=== PATIENT | female | born 1975 | race Caucasian/White ===

== ENCOUNTER 2016-11-17 19:53 | Emergency (ER) | payer OTHER ==
[~2016-11-17] VITALS: Ht 154.9 cm; Wt 66.7 kg
[~2016-11-17 19:53] MED LIST: ACT/45 PO; AMLO-114 PO; ASPI81TA28 PO; ATV/1 PO; CLOP1TAB15 PO; GLYB1.252 PO; IBUP-1277 PO; LISI-729 PO; METO1TAB69 PO
[2016-11-17 19:59] VITALS: TEMP 36.8; Ht 154.9 cm; Wt 66.7 kg
[2016-11-17] MEDS ORDERED: GLYB2.5T PO (21:03)
[2016-11-17] MEDS ORDERED: ONDANSETRON INJ 2 MG/ML 2 ML VIAL IV STA (21:13)
[2016-11-17] MEDS ORDERED: MoRPHine SULFATE 4 MG/ML 1 ML CARP\\VIAL IV STA ×2 (21:13→22:10)
[2016-11-17] MEDS ORDERED: OPTIRAY 320 IV PRN (21:30)
[2016-11-17 21:36] LABS: URINE APPEARANCE CLEAR (CLEAR); URINE BILIRUBIN NEG (NEG); URINE COLOR YELLOW; URINE NITRITE NEG (NEG); URINE SPECIFIC GRAVITY 1.015 (1.000-1.030); UROBILINOGEN NEG (NEG)
[2016-11-17 21:37] LABS: MANUAL MICROSCOPIC REQUIRED? NO; REVIEW REQ? NO
[2016-11-17 21:39] LABS: PREG INTERNAL NEGATIVE QC NEG CLEAR BACKGROUND; PREG INTERNAL POSITIVE QC POS CONTROL LINE
[2016-11-17 21:39] LABS: BASO % 0.3 %; BASO ABS # 0.03 K/uL (0-0.2); COMPLETE YES; EOS % 1.9 %; HEMATOCRIT 36.5 % (37-47); IG% 0.3 %; LYMPH % 30.5 %; LYMPH ABS # 3.53 K/uL (1.2-3.4); MEAN CELL VOLUME 95.1 fL (80-100); MEAN CORPUSCULAR HEMOGLOBIN 31.5 pg (25-34); MEAN CORPUSCULAR HGB CONC 33.2 g/dl (32-36); MONO % 4.9 %; NEUT % 62.1 %; PLATELET COUNT 215 K/uL (130-400); RED BLOOD COUNT 3.84 M/uL (4.2-5.4); WHITE BLOOD COUNT 11.56 K/uL (4.8-10.8)
[2016-11-17 21:57] LABS: ALT/SGPT 15 U/L (12-78); BLOOD UREA NITROGEN 12 mg/dl (7-18); BUN/CREATININE RATIO 15.8 (10-20); CALCIUM 8.7 mg/dl (8.5-10.1); CARBON DIOXIDE 23 mmol/L (21-32); CHLORIDE 112 mmol/L (98-107); CREATININE 0.78 mg/dl (0.60-1.20); GLUCOSE 85 mg/dl (70-99); SODIUM 141 mmol/L (136-145)
[2016-11-17 22:00] LABS: ALKALINE PHOSPHATASE 58 U/L (45-117); AST/SGOT 11 U/L (15-37)
[2016-11-18 00:55] VITALS: BP 131/100; PULSE 71; O2SAT 96
[2016-11-18] MEDS ORDERED: OXYCODONE IR HOME PACK PO ONE (01:00)
[2016-11-18] MEDS ORDERED: ONDANSETRON HOME PACK 4MG OD TAB PO ONE (01:00)
--- NOTE | 2016-11-18 01:32 | EMERGENCY ROOM VISIT NOTE ---
History Report prepared by Tim: Zahira Chen Under the Supervision of: Dr. Spencer Chamberlain M.D. First contact with patient: 21:04 Chief Complaint: ABDOMINAL PAIN Stated Complaint: AB PAIN Nursing Triage Summary: Pt was making bed around 8am this morning and felt a pop in her left abdomen. Pt had mesh placed in [place] in April for hernia. Pt had increased pain throughout day, took ibuprofen around noon with no relief. History of Present Illness The patient is a 40 year old female who presents to the Emergency Room with complaints of persistent LUQ abdominal pain starting this morning. The patient was making her bed this morning when she felt something pull in her abdomen. She has had nausea and vomiting since. She denies any fever or urinary symptoms. She had a small bowel movement today which was not black, bloody, or diarrhea. She notes that she has a mesh screen in her abdomen for a hernia repair. She also has had AAA surgery. She denies any chance of . She has had a tubal ligation. Source of History: patient Onset: this morning Position: abdomen (LUQ) Quality: other (pain) Timing: other (persistent) Associated Symptoms: + nausea, + vomiting, No fevers, No melena, No hematochezia, No diarrhea, No urinary symptoms Review of Systems See HPI for pertinent positives & negatives. A total of 10 systems reviewed and were otherwise negative. Past Medical & Surgical Medical Problems: (1) ANXIETY STATE NOS (2) BIPOLAR DISORDER, UNSPECIFIED (3) Diabetes (4) Hypertension (5) Migraine (6) Tachycardia (7) TOBACCO USE DISORDER Family History Diabetes mellitus FH: heart disease FHx: gallbladder disease Hypertension Social History Smoking Status: Current Every Day Smoker Alcohol Use: occasionally Marital Status: single Housing Status: lives with family Occupation Status: unemployed Current/Historical Medications Scheduled Amlodipine (Norvasc), 10 MG PO DAILY Aspirin (Aspirin Ec), 162 MG PO DAILY Clopidogrel (Plavix), 75 MG PO DAILY Glyburide-Metformin (Glucovance 2.5/500 Mg), 1 TAB PO PRN Lisinopril (Zestril), 5 MG PO DAILY Metoprolol Succ (Toprol Xl) (Toprol-Xl ), 100 MG PO DAILY Scheduled PRN Ibuprofen (Advil), 800 MG PO Q4 PRN for Pain Pioglitazone Hcl (Actos), 45 MG PO DAILY PRN for bsg above 300 Allergies Coded Allergies: Cetirizine (Verified Allergy, Intermediate, anxiety, paranoia increases, ) Fexofenadine (Verified Allergy, Intermediate, anxiety and paranoia increases, 11/17/16) Loratadine (Verified Allergy, Unknown, anxiety, paranoia increases, ) Ketorolac Tromethamine (Unverified Adverse Reaction, Unknown, PT STATES SHE IS ON THORAZINE AND CANNOT TAKE TORADOL, 11/17/16) Physical Exam Vital Signs Date Time Temp Pulse Resp B/P (MAP) Pulse Ox O2 Delivery O2 Flow Rate FiO2 11/18/16 00:55 71 18 131/100 96 11/18/16 00:14 70 18 148/115 98 Room Air 11/17/16 22:44 77 18 159/107 98 Room Air 11/17/16 21:00 70 18 156/107 97 Room Air 11/17/16 20:30 76 11/17/16 19:59 36.8 72 18 163/106 98 Room Air Physical Exam Constitutional: Vital signs reviewed. Eyes: Pupils are equal round reactive to light. Conjunctiva are noninjected. ENT: Pharynx is clear without erythema or exudate. Mucous membranes are moist. Neck supple without meningeal signs. Respiratory: Clear to auscultation bilaterally. Breath sounds are equal bilaterally. Cardiovascular: Regular rate and rhythm. No rubs or gallops. GI: Soft, nondistended, tender in the LUQ, no guarding. Bowel sounds are present. Musculoskeletal: No peripheral edema. No CVA tenderness. Integumentary: No cyanosis. Neurological: The patient is awake and alert. No focal deficits. Psychiatric: Normal affect. Medical Decision & Procedures ER Provider Diagnostic Interpretation: Radiology results as stated below per my review and the [facility] radiologist's interpretation: CT abdomen & pelvis: No ventral hernia. Consolidative atelectasis in the lung bases. Cholecystectomy. Small visualized segments of the appendix are unremarkable. Small amount of fluid in the pelvis. Laboratory Results 11/17/16 21:25 Red Blood Count 3.84, Mean Corpuscular Volume 95.1, Mean Corpuscular Hemoglobin 31.5, Mean Corpuscular Hemoglobin Concent 33.2, Mean Platelet Volume 10.0, Neutrophils (%) (Auto) 62.1, Lymphocytes (%) (Auto) 30.5, Monocytes (%) (Auto) 4.9, Eosinophils (%) (Auto) 1.9, Basophils (%) (Auto) 0.3, Neutrophils # (Auto) 7.17, Lymphocytes # (Auto) 3.53, Monocytes # (Auto) 0.57, Eosinophils # (Auto) 0.22, Basophils # (Auto) 0.03 11/17/16 21:25 Test 11/17/16 20:05 11/17/16 21:25 Urine Color YELLOW Urine Appearance CLEAR (CLEAR) Urine pH 6.0 (4.5-7.5) Urine Specific [place] 1.015 (1.000-1.030) Urine Protein NEG (NEG) Urine Glucose (UA) NEG (NEG) Urine Ketones NEG (NEG) Urine Occult Blood NEG (NEG) Urine Nitrite NEG (NEG) Urine Bilirubin NEG (NEG) Urine Urobilinogen NEG (NEG) Urine Leukocyte Esterase NEG (NEG) Urine Test NEG (NEG) White Blood Count 11.56 K/uL (4.8-10.8) Red Blood Count 3.84 M/uL (4.2-5.4) Hemoglobin 12.1 g/dL (12.0-16.0) Hematocrit 36.5 % (37-47) Mean Corpuscular Volume 95.1 fL (80-100) Mean Corpuscular Hemoglobin 31.5 pg (25-34) Mean Corpuscular Hemoglobin Concent 33.2 g/dl (32-36) Platelet Count 215 K/uL (130-400) Mean Platelet Volume 10.0 fL (7.4-10.4) Neutrophils (%) (Auto) 62.1 % Lymphocytes (%) (Auto) 30.5 % Monocytes (%) (Auto) 4.9 % Eosinophils (%) (Auto) 1.9 % Basophils (%) (Auto) 0.3 % Neutrophils # (Auto) 7.17 K/uL (1.4-6.5) Lymphocytes # (Auto) 3.53 K/uL (1.2-3.4) Monocytes # (Auto) 0.57 K/uL (0.11-0.59) Eosinophils # (Auto) 0.22 K/uL (0-0.5) Basophils # (Auto) 0.03 K/uL (0-0.2) RDW Standard Deviation 45.0 fL (36.4-46.3) RDW Coefficient of Variation 13.0 % (11.5-14.5) Immature Granulocyte % (Auto) 0.3 % Immature Granulocyte # (Auto) 0.04 K/uL (0.00-0.02) Anion Gap 6.0 mmol/L (3-11) Est Creatinine Clear Calc Drug Dose 85.4 ml/min Estimated GFR () 111.8 Estimated GFR (Non- 96.4 BUN/Creatinine Ratio 15.8 (10-20) Calcium Level 8.7 mg/dl (8.5-10.1) Total Bilirubin 0.2 mg/dl (0.2-1) Direct Bilirubin < 0.1 mg/dl (0-0.2) Aspartate Amino Transf (AST/SGOT) 11 U/L (15-37) Alanine Aminotransferase (ALT/SGPT) 15 U/L (12-78) Alkaline Phosphatase 58 U/L (45-117) Total Protein 6.5 gm/dl (6.4-8.2) Albumin 3.3 gm/dl (3.4-5.0) Lipase 117 U/L (73-393) Laboratory results as reviewed by me. Medications Administered Medications (Trade) Dose Ordered Sig/Natan Route Start Time Stop Time Status Last Admin Dose Admin Morphine Sulfate (MoRPHine SULFATE INJ) 4 mg ONE STAT IV 11/17/16 21:13 11/17/16 21:14 DC 11/17/16 21:34 4 MG Ondansetron HCl (Zofran Inj) 4 mg NOW STAT IV 11/17/16 21:13 11/17/16 21:14 DC 11/17/16 21:34 4 MG Morphine Sulfate (MoRPHine SULFATE INJ) 4 mg NOW STAT IV 11/17/16 22:10 11/17/16 22:11 DC 11/17/16 22:36 4 MG ED Course 2109: The patient was evaluated in room A12B. A complete history and physical exam was performed. 2112: Zofran Inj 4 mg IV, Morphine Sulfate 4 mg IV. 2207: I reevaluated the patient. She currently rates her discomfort as a 7/10 in severity. I discussed the test results with her. 2209: Morphine Sulfate 4 mg IV. 0044: Upon reevaluation, the patient appeared to have improvement of her symptoms. I discussed ishmael's findings with her. She will follow up with her PCP. She verbalized agreement of the treatment plan. She was discharged home. 0100: Ondansetron HCl 1 homepack PO, Oxycodone HCl 1 homepack PO. Medical Decision This is a 40-year-old female presents with left upper quadrant abdominal pain. Differential diagnosis includes bowel obstruction, gastritis, hernia, volvulus, muscle strain, pancreatitis. I did perform a limited focused review of portions of the patient's old chart on the electronic medical record. The patient was here for headache and high blood pressure on October 07. She is here frequently for headache. I did evaluate the patient as noted above. The patient is presenting with left upper quadrant pain after she was making her bed. She felt like she pulled something in that area. She did have vomiting with it as well. IV access was established. I did treat her with IV morphine and Zofran. She did have continued pain and was given an additional dose of IV morphine. I did order and personally review the patient's urinalysis as described above. There is no evidence of infection or blood. Her test is negative. I did order and review the patient's blood work as noted in the electronic medical record. Her white blood cell count is slightly elevated. This is a nonspecific finding. I did order a CT of the abdomen and pelvis. I did review the images myself as well as the radiology report as described above. There is no evidence of acute abnormality. I did reassess the patient. She was feeling better. I did discuss the test results with her. I did advise her to follow up with her surgeon. She was discharged in good condition. She was given a home pack for oxycodone and Zofran. Medication Reconcilliation Current Medication List: was personally reviewed by me Blood Pressure Screening Patient's blood pressure: Elevated blood pressure Blood pressure disposition: Referred to PCP Impression Primary Impression: LUQ abdominal pain Scribe Attestation The scribe's documentation has been prepared under my direct and personally reviewed by me in its entirety. I confirm that the note above accurately reflects all work, treatment, procedures, and medical decision making performed by me. Departure Information Dispostion Home / Self-Care Referrals No Doctor, Assigned Forms Call Back Authorization, HOME CARE DOCUMENTATION FORM, IMPORTANT VISIT INFORMATION Patient Instructions ED Abdominal Pain Unkn Cause, My [facility] Additional Instructions You have been examined and treated today on an emergency basis only. This is not a substitute for, or an effort to provide, complete comprehensive medical care. It is impossible to recognize and treat all injuries or illnesses in a single emergency department visit. It is therefore important that you follow up closely with your physician. Call as soon as possible for an appointment. Return for worsening symptoms or if you develop fever or any other concerning symptoms.
--- NOTE | 2016-11-18 07:14 | DIAGNOSTIC IMAGING REPORT ---
ABDOMEN AND PELVIS CT WITH IV AND ORAL CONTRAST CT DOSE: 442.80 mGy.cm HISTORY: Left upper quadrant abdominal pain. Pain eval for obstruction TECHNIQUE: Multiaxial CT images of the abdomen and pelvis were performed following the use of intravenous and oral contrast. A dose lowering technique was utilized adhering to the principles of ALARA. COMPARISON STUDY: Chest abdomen pelvis CTA 05/14/2015. FINDINGS: Evidence for prior midline incision. No ventral hernias identified. Subsegmental atelectasis seen within the lung bases posteriorly. Cholecystectomy. The liver, spleen, adrenal glands, and pancreas are unremarkable. There are few retroperitoneal surgical clips. No retroperitoneal lymphadenopathy. The kidneys enhance normally. No hydronephrosis. No bowel wall thickening or obstruction. Normal appendix. The bladder is unremarkable. The uterus and right ovary are within normal limits. There is a thick-walled 2.2 cm cyst within the left ovary. Trace blood products/hemoperitoneum within the pelvic cul-de-sac. IMPRESSION: 1. No evidence for ventral hernia. 2. Cholecystectomy. 3. No bowel wall thickening or obstruction. Normal appendix. 4. A 2.2 cm thick-walled cyst within the left ovary with a small amount of blood products/hemoperitoneum within the pelvic cul-de-sac. This favors a ruptured ovarian cyst. Electronically signed by: Shashank Adair M.D. 11/18/2016 7:13 AM Dictated Date/Time: 11/18/2016 7:07 AM
== END 2016-11-18 00:56 | disposition home or self-care (01) ==
LOC: EDBD 19:53 → C.EDA 20:00
DX: R10.12 Left upper quadrant pain (principal); R11.10 Vomiting, unspecified; F41.9 Anxiety disorder, unspecified; F31.9 Bipolar disorder, unspecified; E11.9 Type 2 diabetes mellitus without complications; I10 Essential (primary) hypertension; F17.200 Nicotine dependence, unspecified, uncomplicated; Z79.82 Long term (current) use of aspirin; Z79.84 Long term (current) use of oral hypoglycemic drugs; Z98.51 Tubal ligation status; Z83.3 Family history of diabetes mellitus; Z82.49 Family history of ischemic heart disease and other diseases of the circulatory system

== ENCOUNTER 2019-04-01 14:33 | Inpatient (IN) ==
[2019-04-01] MEDS ORDERED: OXYCODONE HCL IR 5 MG TAB (IMMEDIATE RELEASE) PO STA (15:06)
[2019-04-01 15:50] LABS: Basophils # (auto) 0.01 K/uL (0-0.2); Basophils % (auto) 0.1 %; Eosinophils % (auto) 1.2 %; Hematocrit (blood only) 34.9 % (37-47); Hemoglobin 11.6 g/dL (12.0-16.0); Immature Granulocytes # (auto) 0.03 K/uL (0.00-0.02); Immature Granulocytes % (auto) 0.4 %; Lymphocytes # (auto) 0.78 K/uL (1.2-3.4); Lymphocytes % (auto) 9.7 %; Mean Corpuscular Hemoglobin 31.2 pg (25-34); Mean Corpuscular Hgb Conc 33.2 g/dL (32-36); Mean Corpuscular Volume 93.8 fL (80-100); Mean Platelet Volume 10.4 fL (7.4-10.4); Monocytes # (auto) 0.71 K/uL (0.11-0.59); Monocytes % (auto) 8.8 %; Neutrophils # (auto) 6.41 K/uL (1.4-6.5); Neutrophils % (auto) 79.8 %; Platelet Count 226 K/uL (130-400); RDW Coefficient of Variation 16.7 % (11.5-14.5); RDW Standard Deviation 57.6 fL (36.4-46.3); Red Blood Count 3.72 M/uL (4.2-5.4); White Blood Count 8.04 K/uL (4.8-10.8)
[2019-04-01 16:07] LABS: Albumin Level 3.4 gm/dl (3.4-5.0); BUN Creatinine Ratio 14.5 (10-20); Calcium 8.9 mg/dl (8.5-10.1); Creatinine Clr Calc Pharmacy 47.3 ml/min; Est GFR (Non-African American) 45.8; Potassium 3.8 mmol/L (3.5-5.1)
[2019-04-01 16:10] LABS: Albumin Globulin Ratio 0.8 (0.9-2); Bilirubin,Total 0.2 mg/dl (0.2-1); Globulin 4.3 gm/dl (2.5-4.0); Total Protein 7.7 gm/dl (6.4-8.2)
[2019-04-01] MEDS ORDERED: IOVERSOL 100ml IV PRN (16:50)
--- NOTE | 2019-04-01 16:53 | Emergency Department Note ---
History of Present Illness General Chief complaint: Infection, Wound Stated complaint: ABSCESS ON ROOF OF MOUTH Time Seen by Provider: 04/01/19 14:57 History of Present Illness Maximum Pain Intensity: 10 This is a 43-year-old male with a complex past medical history the presents to the emergency department via private vehicle with complaints of "abscess on roof of mouth". The patient states that she was seen here on 03/29 for dental pain after fracturing her tooth while eating peanuts. She states that the pain began 3 days before that, so she currently has been experiencing about 6 days of pain. She states that she has been on amoxicillin and pain medication without relief x 3 days. She notes that 2 days ago swelling began to the roof of the mouth. Pain is a 10/10. She denies any fevers but does note some chills. No vomiting. Home Medications Home Medications Medication Instructions Recorded Confirmed Type amlodipine 10 mg PO DAILY 05/13/18 04/01/19 History aspirin [Aspir-81] 162 mg PO DAILY 05/13/18 04/01/19 History atorvastatin 40 mg PO DAILY 04/01/19 04/01/19 History chlorpromazine 25 mg PO DAILY 04/01/19 04/01/19 History chlorpromazine 50 mg PO HS 04/01/19 04/01/19 History duloxetine 30 mg PO DAILY 04/01/19 04/01/19 History duloxetine 60 mg PO DAILY 04/01/19 04/01/19 History ferrous sulfate 325 mg PO DAILY 04/01/19 04/01/19 History fluoxetine 20 mg PO DAILY 04/01/19 04/01/19 History fluticasone furoate [Arnuity 1 inh INHALATION DAILY 04/01/19 04/01/19 History Ellipta] gabapentin 800 mg PO TID 04/01/19 04/01/19 History hydrocodone-acetaminophen 1 tab PO Q6H PRN 04/01/19 04/01/19 History hydroxyzine HCl 10 mg PO QID PRN 04/01/19 04/01/19 History hyoscyamine sulfate 0.125 mg PO Q4H PRN 04/01/19 04/01/19 History ipratropium-albuterol [Combivent 1 puff INHALATION QID PRN 04/01/19 04/01/19 History Respimat] levothyroxine 112 mcg PO DAILY 04/01/19 04/01/19 History lisinopril 40 mg PO DAILY 04/01/19 04/01/19 History methocarbamol 500 mg PO TID PRN 04/01/19 04/01/19 History metoprolol succinate 25 mg PO DAILY 04/01/19 04/01/19 History mometasone-formoterol [Dulera] 2 puff INHALATION Q12H 04/01/19 04/01/19 History omeprazole 20 mg PO DAILY 04/01/19 04/01/19 History ticagrelor [Brilinta] 90 mg PO BID 04/01/19 04/01/19 History Allergies Allergy/AdvReac Type Severity Reaction Status Date / Time loratadine AdvReac Severe anxiety, Verified 04/01/19 15:48 paranoia increases cetirizine AdvReac Intermediate anxiety, Verified 04/01/19 15:48 paranoia increases fexofenadine AdvReac Intermediate anxiety Verified 04/01/19 15:48 and paranoia increases ketorolac AdvReac Unknown PT STATES Verified 04/01/19 15:48 SHE IS ON THORAZINE AND CANNOT TAKE TORADOL Past Med/Surg History Medical History AAA (abdominal aortic aneurysm) Ankle fracture, left (Acute) Back pain (Acute) Back strain (Acute) Dehydration (Acute) Dehydration (Acute) Diabetes (Chronic) DVT (deep venous thrombosis) Epigastric abdominal pain (Acute) Headache (Acute) Headache (Acute) Hypertension (Chronic) Hypertensive urgency (Acute) Hypothyroidism (Acute) Hypothyroidism (Acute) Hypothyroidism (Acute) Left shoulder pain (Acute) Low back pain (Acute) Migraine (Chronic) Migraine (Acute) Neuropathy Ovarian cyst (Acute) Palpitations (Acute) Palpitations (Acute) Patient exposure to body fluids (Acute) Raynauds disease Tachycardia (Chronic) Tachycardia (Acute) Surgical History S/P aorta repair (Acute) Social History Preferred Language: Singaporean marital status: current occupational status: disabled Feels Safe at Home: Yes Smoking Status: Current every day smoker Hx Alcohol Use: Yes Hx Substance Use: No Review of Systems A total of 10 systems reviewed and were otherwise negative Physical Exam Vital Signs Vital Signs - 24 hr 04/01/19 14:46 04/01/19 16:40 04/01/19 17:43 Temperature 36.8 C Temperature Source Oral Pulse Rate 95 H Pulse Rate [Right Finger] 85 87 Respiratory Rate 16 20 20 Blood Pressure 177/118 H Blood Pressure [Left Arm] 219/151 H 202/123 H Blood Pressure Mean 137 Blood Pressure Mean [Left Arm] 173 149 Pulse Oximetry 99 99 100 Oxygen Delivery Method Room Air Room Air Room Air Sepsis Recent Fever Within 48 Hours No Sepsis New/Unexplained Change in Mental Status No Sepsis Action Taken by Nursing No Action Required 04/01/19 18:18 Temperature Temperature Source Pulse Rate Pulse Rate [Right Finger] 88 Respiratory Rate 20 Blood Pressure Blood Pressure [Left Arm] 199/121 H Blood Pressure Mean Blood Pressure Mean [Left Arm] 147 Pulse Oximetry 100 Oxygen Delivery Method Room Air Sepsis Recent Fever Within 48 Hours Sepsis New/Unexplained Change in Mental Status Sepsis Action Taken by Nursing VITAL SIGNS - Vital signs and nursing notes were reviewed. Hypertensive, otherwise stable. GENERAL - 43-year-old female appearing her stated age who is in no acute distress but appears to be in pain. Communicates well with provider and answers questions appropriately. SKIN - Without rashes. No facial edema. No meningeal or petechial rash. HEAD - NC/AT. EYES - PERRL with EOMI bilaterally. Sclera anicteric. Palpebral conjunctiva pink and moist with no injection noted. EARS - No deformities of external structures noted on gross examination bilaterally. NOSE - Midline and without cyanosis. No epistaxis or purulent drainage noted. MOUTH/OROPHARYNX - Without perioral cyanosis. The teeth are overall in poor re pair. There is a fluctuance to the hard palate on examination and palpation. The airway is widely patent. There is no evidence of edema inferior to the tongue. No trismus. NECK - Neck with FROM. Supple to palpation. Bilateral anterior cervical lymphadenopathy noted. No nuchal rigidity. LUNGS - Chest wall symmetric without accessory muscle use, intercostals retractions, or central cyanosis. Normal vesicular breath sounds CTA B/L. No wheezes, rales, or rhonchi appreciated. CARDIAC - RRR with S1/S2. No murmur, rubs, or gallops appreciated. EXTREMITIES - No clubbing or peripheral cyanosis. No pretibial edema present. +5/5 strength noted in UE/LE bilaterally. NEUROLOGIC - Cranial nerves II through XII grossly intact. PSYCH - A&O, and cooperates fully with examiner. Pt is very pleasant and interacts well with examiner. Course Administered Medications Ioversol (Optiray 320 100ml) 90 ml IV ONCE PRN PRN Reason: Interaction Checking Stop: 04/05/19 16:49 Last Admin: 04/01/19 16:50 Dose: 90 ml Documented by: [id number] Discontinued Medications Hydromorphone HCl (Dilaudid) 0.5 mg IV NOW STA Stop: 04/01/19 17:37 Last Admin: 04/01/19 17:42 Dose: 0.5 mg Documented by: [id number] Sodium Chloride (Nss 1000ml) 1,000 mls @ 999 mls/hr IV .Q1H1M SEPIDEH Stop: 04/01/19 18:00 Last Infusion: 04/01/19 18:19 Dose: 0 mls/hr Documented by: [id number] Admin: 04/01/19 17:15 Dose: 999 mls/hr Documented by: [id number] Ampicillin Sodium/Sulbactam Sodium 3,000 mg/ Sodium Chloride 108 mls @ 200 mls/hr IV NOW STA; Protocol Stop: 04/01/19 17:55 Last Infusion: 04/01/19 18:55 Dose: 0 mls/hr Documented by: [id number] Admin: 04/01/19 18:21 Dose: 200 mls/hr Documented by: [id number] Morphine Sulfate (Morphine Sulfate) 4 mg IV NOW STA Stop: 04/01/19 17:19 Last Admin: 04/01/19 17:22 Dose: 4 mg Documented by: [id number] Morphine Sulfate (Morphine Sulfate) 4 mg IV NOW STA Stop: 04/01/19 18:47 Last Admin: 04/01/19 18:50 Dose: 4 mg Documented by: [id number] Oxycodone HCl (Roxicodone Immediate Rel) 5 mg PO NOW STA Stop: 04/01/19 15:07 Last Admin: 04/01/19 15:44 Dose: 5 mg Documented by: [id number] Medical Decision Making Laboratory Data Result diagrams: 04/01/19 15:41 04/01/19 15:41 Lab Results 04/01/19 04/01/19 04/01/19 Range/Units 15:41 15:41 15:41 WBC 8.04 (4.8-10.8) K/uL RBC 3.72 L (4.2-5.4) M/uL Hgb 11.6 L (12.0-16.0) g/dL Hct 34.9 L (37-47) % MCV 93.8 (80-100) fL MCH 31.2 (25-34) pg MCHC 33.2 (32-36) g/dL RDW Std Deviation 57.6 H (36.4-46.3) fL RDW Coeff of Vivek 16.7 H (11.5-14.5) % Plt Count 226 (130-400) K/uL MPV 10.4 (7.4-10.4) fL Immature Gran % (Auto) 0.4 % Neut % (Auto) 79.8 % Lymph % (Auto) 9.7 % [place] % (Auto) 8.8 % Eos % (Auto) 1.2 % Baso % (Auto) 0.1 % Immature Gran # (Auto) 0.03 H (0.00-0.02) K/uL Neut # (Auto) 6.41 (1.4-6.5) K/uL Lymph # (Auto) 0.78 L (1.2-3.4) K/uL [place] # (Auto) 0.71 H (0.11-0.59) K/uL Eos # (Auto) 0.10 (0-0.5) K/uL Baso # (Auto) 0.01 (0-0.2) K/uL PT 9.8 (9.0-12.0) Seconds INR 1.0 (0.9-1.1) APTT 25.6 (21.0-31.0) Seconds PTT Ratio 0.9 Sodium 137 (136-145) mmol/L Potassium 3.8 (3.5-5.1) mmol/L Chloride 110 H (98-107) mmol/L Carbon Dioxide 19 L (21-32) mmol/L Anion Gap 8.0 (3-11) BUN 21 H (7-18) mg/dl Creatinine 1.42 H (0.6-1.2) mg/dl Est Cr Clr Drug Dosing 47.3 ml/min Est GFR ( Amer) 53.0 Est GFR (Non-Af Amer) 45.8 BUN/Creatinine Ratio 14.5 (10-20) Glucose 179 H (70-99) mg/dl Calcium 8.9 (8.5-10.1) mg/dl Total Bilirubin 0.2 (0.2-1) mg/dl AST 9 L (15-37) U/L ALT 18 (12-78) U/L Alkaline Phosphatase 92 (45-117) U/L Total Protein 7.7 (6.4-8.2) gm/dl Albumin 3.4 (3.4-5.0) gm/dl Globulin 4.3 H (2.5-4.0) gm/dl Albumin/Globulin Ratio 0.8 L (0.9-2) Imaging Data Radiologist's Impression: CT facial bones w con HISTORY: 43 years-old Female dental infection, edema acute facial pain and soft tissue swelling with reported dental infection COMPARISON: Head CT 05/13/2018 TECHNIQUE: Multiple axial CT images of the facial bones were obtained following the intravenous ministration of 90 mL Optiray 320 IV contrast. A dose lowering technique was used consistent with the principals of ALARA. FINDINGS: No acute abnormality of the imaged intracranial structures. The orbits and soft tissues of the face are unremarkable. The imaged airway appears patent. Dilation of the right submandibular duct measures up to 4 mm transversely. There are 2 large sialoliths in the distal duct, proximal calculus measuring 6 mm in the distal calculus measuring 1.3 cm (image 193 of series 3). No significant adjacent inflammation. Mildly prominent level 1 and level 2 lymph nodes are likely reactive. Bilateral parotid glands are within normal limits. Carotid arteries appear patent. Mastoid air cells and middle ear cavities are clear. Moderate mucosal thickening of the left maxillary sinus. Minimal mucosal thickening of the right maxillary sinus and ethmoid air cells. Multiple dental caries. Periapical lucencies are noted involving multiple teeth, notably within the bilateral maxillary lateral incisors. There is cortical dehiscence/erosion involving the posterior maxillary cortex adjacent to the right lateral incisor with a peripherally enhancing fluid collection noted within the adjacent anterior palate measuring 1.4 x 0.9 x 1.4 cm on image 141 series 3 and image 47 of series 301. Loculated component versus additional fluid collection measuring up to 1.2 cm is noted posterior to the left lateral incisor and canine. Demineralized appearance of the maxilla. Multiple prior dental extractions. IMPRESSION: 1. Multiple dental caries with moderate sized periapical cysts of the bilateral maxillary lateral incisor's. There is cortical erosion/dehiscence of the posterior cortex adjacent to the right lateral maxillary incisor with peripherally enhancing multiloculated fluid collection along the anterior aspect of the hard palate measuring up to 1.4 cm with abscess. 2. Moderate mucosal thickening of the left maxillary sinus. 3. There are two large sialoliths within the distal aspect of the right submand ibular duct measuring up to 1.3 cm resulting in mild associated ductal dilation. ACT 112: Negative or not required by law. The above report was generated using voice recognition software. It may contain grammatical, syntax or spelling errors. Electronically signed by: Candelario Prasad M.D. 04/01/2019 5:05 PM MDM Narrative Patient was seen and evaluated as above in room D2. Review was performed of nursing notes and vital signs. After obtaining a thorough history and physical examination the above work up was performed. She presents to us today with dental pain with obvious abscess on the hard palate. She has a significant and complex past medical history. She has been on amoxicillin x3 days as well as pain medication. She states that when she was evaluated here 3 days ago there was no swelling. She notes worsening symptoms. She is hypertensive on arrival I believe secondary to pain. IV access was established. I discussed the case with Dr. Kowalski of oral maxillofacial surgery. CT scan recommended. This was obtained with contrast. This reveals multiple dental caries with a 1.4 cm abscess, mucosal thickening, as well as 2 large sialoliths. We discussed how would be in the best interest of the patient for medical admission, with likely surgical intervention tomorrow. Patient was happy with plan of care. The oxycodone did not help with her pain and she was then given IV morphine and subsequently IV Dilaudid. I would note that her pressure increased likely secondary to her discomfort. IV Unasyn ordered. Fluids were also ordered. She will be admitted to the medical service for further evaluation and management of her presentation here today. Please refer to further documentation regarding her stay. There is no leukocytosis, mild anemia with coags normal. There is mild NATALIA with creatinine of 1.42 and BUN at 21. Glucose 179. Case was discussed with the attending physician. I attest that I have personally reviewed the patient medication list. I attest that I have reviewed the patient's blood pressure and it was found to be elevated likely secondary to pain. GCS: 15 In the evaluation and treatment of this patient, the following differential diagnoses were considered: Periapical Abscess, Osteonecrosis of the Jaw, Dental Fracture, Dental Caries, Fernandez's Angina, Vincent's Angina, Facial Cellulitis. Impression & Plan Abscess of mouth, Pain, dental, Intractable pain, Sialoliths Discharge Plan Visit Data Chief Complaint: Infection, Wound Stated Complaint: ABSCESS ON ROOF OF MOUTH ED Provider: Spencer Chamberlain ED Midlevel Provider: Jasson Nelson Discharge Problem: Abscess of mouth, Pain, dental, Intractable pain, Sialoliths Patient Disposition: Admitted As Inpatient Condition: Good Forms Stand Alone Forms: My [facility], Important Visit Information Prescriptions Prescriptions: No Action amlodipine 10 mg Tablet 10 mg PO DAILY RF: 0 aspirin [Aspir-81] 81 mg Tablet,Delayed Release (Dr/Ec) 162 mg PO DAILY RF: 0 atorvastatin 40 mg Tablet 40 mg PO DAILY RF: 0 methocarbamol 500 mg Tablet 500 mg PO TID PRN (Reason: Muscle Spasm) RF: 0 gabapentin 800 mg Tablet 800 mg PO TID RF: 0 hyoscyamine sulfate 0.125 mg Tablet 0.125 mg PO Q4H PRN (Reason: Abdominal Pain) RF: 0 ferrous sulfate 325 mg (65 mg iron) Tablet 325 mg PO DAILY RF: 0 chlorpromazine 25 mg Tablet 25 mg PO DAILY RF: 0 chlorpromazine 25 mg Tablet 50 mg PO HS RF: 0 fluoxetine 20 mg Tablet 20 mg PO DAILY RF: 0 hydroxyzine HCl 10 mg Tablet 10 mg PO QID PRN (Reason: Anxiety) RF: 0 lisinopril 40 mg Tablet 40 mg PO DAILY RF: 0 levothyroxine 112 mcg Tablet 112 mcg PO DAILY RF: 0 duloxetine 60 mg Capsule,Delayed Release(Dr/Ec) 60 mg PO DAILY RF: 0 omeprazole 20 mg Tablet,Delayed Release (Dr/Ec) 20 mg PO DAILY RF: 0 Dulera 100-5 mcg/actuation Hfa Aerosol Inhaler 2 puff INHALATION Q12H RF: 0 Brilinta 90 mg Tablet 90 mg PO BID RF: 0 Arnuity Ellipta 100 mcg/actuation Blister With Device 1 inh INHALATION DAILY RF: 0 Combivent Respimat 20-100 mcg/actuation Mist 1 puff INHALATION QID PRN (Reason: Shortness Of Breath) RF: 0 metoprolol succinate 25 mg Capsule,Sprinkle,Er 24hr 25 mg PO DAILY RF: 0 duloxetine 30 mg Capsule, Delayed Rel Sprinkle 30 mg PO DAILY RF: 0 hydrocodone-acetaminophen 5-325 mg Tablet 1 tab PO Q6H PRN (Reason: Pain) RF: 0 Referrals Referrals: Jesika Rocha PA-C [Primary Care Provider] -
[2019-04-01] MEDS ORDERED: SODIUM CHLORIDE 0.9% 1000ML 1,000 ML IV SCH (17:00)
--- NOTE | 2019-04-01 17:06 | CT Scan Report ---
CT facial bones w con HISTORY: 43 years-old Female dental infection, edema acute facial pain and soft tissue swelling with reported dental infection COMPARISON: Head CT 05/13/2018 TECHNIQUE: Multiple axial CT images of the facial bones were obtained following the intravenous minis tration of 90 mL Optiray 320 IV contrast. A dose lowering technique was used consistent with the prin cipals of JANELLE. FINDINGS: No acute abnormality of the imaged intracranial structures. The orbits and soft tissues of the face a re unremarkable. The imaged airway appears patent. Dilation of the right submandibular duct measures up to 4 mm transversely. There are 2 large sialoliths in the distal duct, proximal calculus measuring 6 mm in the distal calculus measuring 1.3 cm (image 193 of series 3). No significant adjacent inflam mation. Mildly prominent level 1 and level 2 lymph nodes are likely reactive. Bilateral parotid gland s are within normal limits. Carotid arteries appear patent. Mastoid air cells and middle ear cavities are clear. Moderate mucosal thickening of the left maxillar y sinus. Minimal mucosal thickening of the right maxillary sinus and ethmoid air cells. Multiple dent al caries. Periapical lucencies are noted involving multiple teeth, notably within the bilateral maxi llary lateral incisors. There is cortical dehiscence/erosion involving the posterior maxillary cortex adjacent to the right lateral incisor with a peripherally enhancing fluid collection noted within th e adjacent anterior palate measuring 1.4 x 0.9 x 1.4 cm on image 141 series 3 and image 47 of series 301. Loculated component versus additional fluid collection measuring up to 1.2 cm is noted posterior to the left lateral incisor and canine. Demineralized appearance of the maxilla. Multiple prior dent al extractions. IMPRESSION: 1. Multiple dental caries with moderate sized periapical cysts of the bilateral maxillary lateral inc isor's. There is cortical erosion/dehiscence of the posterior cortex adjacent to the right lateral ma xillary incisor with peripherally enhancing multiloculated fluid collection along the anterior aspect of the hard palate measuring up to 1.4 cm with abscess. 2. Moderate mucosal thickening of the left maxillary sinus. 3. There are two large sialoliths within the distal aspect of the right submandibular duct measuring up to 1.3 cm resulting in mild associated ductal dilation. ACT 112: Negative or not required by law. The above report was generated using voice recognition software. It may contain grammatical, syntax o r spelling errors. Electronically signed by: Candelario Prasad M.D. 04/01/2019 5:05 PM
[2019-04-01] MEDS ORDERED: MoRPHine SULFATE 4 MG/ML 1 ML CARP\\VIAL IV STA ×2 (17:18→18:46)
[2019-04-01] MEDS ORDERED: AMPICILLIN/SULBACTAM SOD 3,000 MG in 0.9 % SODIUM CHLORIDE 100 ML IV STA (17:23)
[2019-04-01] MEDS ORDERED: HYDROmorphone INJ 0.5 MG/0.5 ML SYR IV STA ×2 (17:36→20:07)
[2019-04-01 17:47] LABS: Partial Thromboplastin Ratio 0.9; Partial Thromboplastin Time 25.6 Seconds (21.0-31.0); Prothrombin Time 9.8 Seconds (9.0-12.0)
--- NOTE | 2019-04-01 18:46 | Surgery Consultation ---
Date of Consultation April 01, 2019 Oral Exam for severe dental/facial infection Present Complaint: major swelling of anterior palate and left sinus area, severe pain, inability to swallow, dehydration ( had not eaten x 3 days) Reviewed the admission notes from ED and Hospital service. A detailed oral exam was completed. missing posterior upper/lower teeth, fractured decayed teeth # 6-11, infection with draining fistula # 20 and 21. remaining teeth # 22-27 look to be stable. Soft tissue- severe swelling palate and lower left #20-21 area, overall dental condition is poor. TMJ exam---No pop, clicking, pain, good ROM Periodontal exam---very poor anterior maxilla and palate, lower right fair. The soft tissue of the tongue, floor of mouth is all wnl the gingival, palate (hard/soft) swollen and in needed of an I&D Neck is supple, FROM, Able to extend and flex neck w/o difficulty, no masses, no abnormalities. There is submandibular lymph node involvement from the present infection of maxilla and sinus (left) Plan: Admission to med/surg, IV fluids, IV antibiotics,plan for OR tomorrow for I&D palate and extraction of fractured teeth # 6-11, 20 and 21. I reviewed the treatment plan and consent with the patient. Understanding was expressed. Time was given for questions regarding the surgery, risks and post op care. The procedure will be set up for Tuesday AM in OR under GA. the upper anterior teeth are fractured to the bone and causing symptoms of pain, swelling and pressure. This has been going on for a while and patient noted a small swelling roof of mouth that has gotten larger reaching a peak with pressure/pain this afternoon. Sabine came to ER at [facility] for evaluation and treatment planning. Findings: The patient is grossly swollen difficulties talking, swallowing and is in extreme pain. Admission for medical control of her hypertension and hydration l is indicated and medically necessary to allow for the OR for I&D MIT[facility]. Risks discussed: Pain,swelling,infection, dry socket, delayed healing, nerve injury to face,lips,tongue,chin area which could be permanent (rare). TMJ, jaw stiffness, need for full upper denture, ear pain (referred). Sinus problems due to congestion and left sinus finding on CT scan. Preparation for the GA and surgery at Hospital OR [facility] tomorrow. History of Present Illness Allergies Allergy/AdvReac Type Severity Reaction Status Date / Time loratadine AdvReac Severe anxiety, Verified 04/01/19 15:48 paranoia increases cetirizine AdvReac Intermediate anxiety, Verified 04/01/19 15:48 paranoia increases fexofenadine AdvReac Intermediate anxiety Verified 04/01/19 15:48 and paranoia increases ketorolac AdvReac Unknown PT STATES Verified 04/01/19 15:48 SHE IS ON THORAZINE AND CANNOT TAKE TORADOL Home Medications Home Medications Medication Instructions Recorded Confirmed Type amlodipine 10 mg PO DAILY 05/13/18 04/01/19 History aspirin [Aspir-81] 162 mg PO DAILY 05/13/18 04/01/19 History atorvastatin 40 mg PO DAILY 04/01/19 04/01/19 History chlorpromazine 25 mg PO DAILY 04/01/19 04/01/19 History chlorpromazine 50 mg PO HS 04/01/19 04/01/19 History duloxetine 30 mg PO DAILY 04/01/19 04/01/19 History duloxetine 60 mg PO DAILY 04/01/19 04/01/19 History ferrous sulfate 325 mg PO DAILY 04/01/19 04/01/19 History fluoxetine 20 mg PO DAILY 04/01/19 04/01/19 History fluticasone furoate [Arnuity 1 inh INHALATION DAILY 04/01/19 04/01/19 History Ellipta] gabapentin 800 mg PO TID 04/01/19 04/01/19 History hydrocodone-acetaminophen 1 tab PO Q6H PRN 04/01/19 04/01/19 History hydroxyzine HCl 10 mg PO QID PRN 04/01/19 04/01/19 History hyoscyamine sulfate 0.125 mg PO Q4H PRN 04/01/19 04/01/19 History ipratropium-albuterol [Combivent 1 puff INHALATION QID PRN 04/01/19 04/01/19 History Respimat] levothyroxine 112 mcg PO DAILY 04/01/19 04/01/19 History lisinopril 40 mg PO DAILY 04/01/19 04/01/19 History methocarbamol 500 mg PO TID PRN 04/01/19 04/01/19 History metoprolol succinate 25 mg PO DAILY 04/01/19 04/01/19 History mometasone-formoterol [Dulera] 2 puff INHALATION Q12H 04/01/19 04/01/19 History omeprazole 20 mg PO DAILY 04/01/19 04/01/19 History ticagrelor [Brilinta] 90 mg PO BID 04/01/19 04/01/19 History Patient History Medical History AAA (abdominal aortic aneurysm) Ankle fracture, left (Acute) Back pain (Acute) Back strain (Acute) Dehydration (Acute) Dehydration (Acute) Diabetes (Chronic) DVT (deep venous thrombosis) Epigastric abdominal pain (Acute) Headache (Acute) Headache (Acute) Hypertension (Chronic) Hypertensive urgency (Acute) Hypothyroidism (Acute) Hypothyroidism (Acute) Hypothyroidism (Acute) Left shoulder pain (Acute) Low back pain (Acute) Migraine (Chronic) Migraine (Acute) Neuropathy Ovarian cyst (Acute) Palpitations (Acute) Palpitations (Acute) Patient exposure to body fluids (Acute) Raynauds disease Tachycardia (Chronic) Tachycardia (Acute) Surgical History S/P aorta repair (Acute) Social History Preferred Language: Persian marital status: current occupational status: disabled Feels Safe at Home: Yes Smoking Status: Current every day smoker Hx Alcohol Use: Yes Hx Substance Use: No Results & Data Vital Signs (Past 12 Hours) Vital Signs Temp Pulse Pulse Resp BP BP Pulse Ox 04/01/19 18:18 88 20 199/121 H 100 04/01/19 17:43 87 20 202/123 H 100 04/01/19 16:40 85 20 219/151 H 99 04/01/19 14:46 36.8 C 95 H 16 177/118 H 99 PG Care Time/CCT Total # of Minutes Spent Total Time Spent with Patient: Total time spent is greater than 50% in coordination of care (as documented) at patient's floor/unit and/or counseling patient:
[2019-04-01] MEDS ORDERED: GLUCOSE 40% GEL 15 GM TUBE PO PRN (19:39)
[2019-04-01] MEDS ORDERED: DEXTROSE 50% 50 ML SYRINGE IV PRN (19:39)
[2019-04-01] MEDS ORDERED: GLUCAGON FOR INJ 1 MG VIAL SQ PRN (19:39)
[2019-04-01] MEDS ORDERED: CARBOHYDRATES FOR HYPOGLYCEMIA PO PRN (19:39)
[2019-04-01] MEDS ORDERED: GLUCOSE 10 TABS/TUBE PO PRN (19:39)
--- NOTE | 2019-04-01 19:42 | History & Physical Report ---
Date of Service April 01, 2019 Assessment & Plan (1) Abscess of mouth: (2) Infected tooth: (3) Sialoliths: -Admit to [facility] with telemetry -Patient presenting from home with reports of increasing mouth swelling and pain -Facial CT in ED showing multiple dental caries with a 1.4 cm abscess of the hard palate; two large sialoliths within the distal aspect of the right submandibular duct measuring up to 1.3 cm resulting in mild associated ductal dilation -Does not appear septic -Airway patent -S/p Unasyn in the ED, will continue with -Dr. Kowalski has evaluated the patient, planning on OR for I&D and tooth extraction tomorrow -N.p.o., IVF, pain control (4) NATALIA (acute kidney injury): -Creatinine 1.4 (baseline ~0.7-0.9) -Likely prerenal secondary to poor p.o. intake secondary to mouth infection -Holding lisinopril -IVF, monitor renal functions (5) Hypertension: -BP significantly elevated, likely secondary to pain -Pain control -Continue home medications including amlodipine, metoprolol; holding lisinopril due to NATALIA, resume when renal functions normalize -PRN clonidine (6) CAD (coronary artery disease): -Appears stable, no reports of chest pain -S/P HARLEEN to LAD 10/2018, would not recommend holding Brilinta and aspirin -Continue statin, beta-chalino, DENISA inhibitor (7) COPD (chronic obstructive pulmonary disease): -Appears stable, no wheezing on exam -Continue home inhalers (8) DM type 2 (diabetes mellitus, type 2): -diet-controlled, Hgb A1c 5.9 08/2018 -Glucose 179 on labs, likely elevated secondary to infection -A1c with morning labs -NovoLog per protocol hospitalized (9) Bipolar disorder: (10) Depression with anxiety: -Continue Thorazine, duloxetine, fluoxetine (11) Hypothyroidism: -Continue levothyroxine (12) Tobacco abuse: -Patient smokes 1 pack of cigarettes per day -Counseled regarding tobacco cessation -Nicotine patch ordered (13) DVT prophylaxis: -SCDs due to invasive procedure History of Present Illness Chief Complaint: Mouth infection and pain Primary Care Provider: ELIZABETH MunguiaC 43-year-old female who presents the ED for evaluation of mouth infection and pain. Over the past few weeks, patient has had 2 other ED evaluations for same complaint. She reports 1 of her upper teeth are broken off and she was having significant pain in that area as well as the roof of her mouth. On 03/13, patient was seen at [facility] and placed on on amoxicillin. Patient reports pain and swelling did improve however never completely resolved. Symptoms eventually returned. She was seen at [facility] 03/29 and placed on amoxicillin again. Patient presents to the ED today for persistent pain. She reports that whenever she would press on the broken left upper tooth, there would be some mild drainage from the roof of her mouth. She reports pain is severe and she has had decreased oral intake. No fevers or chills. She denies chest pain shortness of breath. No lightheadedness, dizziness, diaphoresis, syncopal events. Denies abdominal pain, nausea, vomiting, diarrhea. No urinary symptoms. In the ED, CT showing multiple dental caries and a 1.4 cm abscess of the hard palate. Labs are unremarkable. Patient is hypertensive, other vitals stable. She was given IV Unasyn, IV Dilaudid, 2 doses of IV morphine, oxycodone, IVF. Allergies Allergy/AdvReac Type Severity Reaction Status Date / Time loratadine AdvReac Severe anxiety, Verified 04/01/19 15:48 paranoia increases cetirizine AdvReac Intermediate anxiety, Verified 04/01/19 15:48 paranoia increases fexofenadine AdvReac Intermediate anxiety Verified 04/01/19 15:48 and paranoia increases ketorolac AdvReac Unknown PT STATES Verified 04/01/19 15:48 SHE IS ON THORAZINE AND CANNOT TAKE TORADOL Home Medications Home Medications Medication Instructions Recorded Confirmed Type amlodipine 10 mg PO DAILY 05/13/18 04/01/19 History aspirin [Aspir-81] 162 mg PO DAILY 05/13/18 04/01/19 History atorvastatin 40 mg PO DAILY 04/01/19 04/01/19 History chlorpromazine 25 mg PO DAILY 04/01/19 04/01/19 History chlorpromazine 50 mg PO HS 04/01/19 04/01/19 History duloxetine 30 mg PO DAILY 04/01/19 04/01/19 History duloxetine 60 mg PO DAILY 04/01/19 04/01/19 History ferrous sulfate 325 mg PO DAILY 04/01/19 04/01/19 History fluoxetine 20 mg PO DAILY 04/01/19 04/01/19 History fluticasone furoate [Arnuity 1 inh INHALATION DAILY 04/01/19 04/01/19 History Ellipta] gabapentin 800 mg PO TID 04/01/19 04/01/19 History hydrocodone-acetaminophen 1 tab PO Q6H PRN 04/01/19 04/01/19 History hydroxyzine HCl 10 mg PO QID PRN 04/01/19 04/01/19 History hyoscyamine sulfate 0.125 mg PO Q4H PRN 04/01/19 04/01/19 History ipratropium-albuterol [Combivent 1 puff INHALATION QID PRN 04/01/19 04/01/19 History Respimat] levothyroxine 112 mcg PO DAILY 04/01/19 04/01/19 History lisinopril 40 mg PO DAILY 04/01/19 04/01/19 History methocarbamol 500 mg PO TID PRN 04/01/19 04/01/19 History metoprolol succinate 25 mg PO DAILY 04/01/19 04/01/19 History mometasone-formoterol [Dulera] 2 puff INHALATION Q12H 04/01/19 04/01/19 History omeprazole 20 mg PO DAILY 04/01/19 04/01/19 History ticagrelor [Brilinta] 90 mg PO BID 04/01/19 04/01/19 History Past Med/Surg History Medical History (Updated 04/01/19 @ 19:44 by RAYNA Cyr) Ankle fracture, left (Acute) Bipolar disorder CAD (coronary artery disease) 10/2018-HARLEEN to LAD Chronic pain COPD (chronic obstructive pulmonary disease) Depression with anxiety DM type 2 (diabetes mellitus, type 2) History of DVT (deep vein thrombosis) Hypertension (Chronic) Hypothyroidism (Acute) Neuropathy Raynauds disease Tobacco abuse Surgical History H/O elbow surgery H/O tubal ligation History of arthroscopic knee surgery History of carpal tunnel surgery of right wrist History of incisional hernia repair Hx of cholecystectomy S/P AAA repair S/P tonsillectomy Family History Mother Diabetes Social History Preferred Language: Lebanese Communication Ability: Effective Commercial Designer Required: No Beliefs That Will Affect Care: None marital status: Current Living Situation: Family and Significant Other current occupational status: disabled Feels Safe at Home: Yes Smoking Status: Current every day smoker Tobacco Type: cigarettes ; Cigarettes Per Day: 20 ; Hx Alcohol Use: No Hx Substance Use: No Review of Systems Review of Systems: ROS per HPI, all other systems reviewed and negative Physical Exam Constitutional: Appears to be in pain however no acute distress. Eyes: PERRL, conjunctivae normal, anicteric sclerae ENMT: Ears: no external ear abnormality Nose: no external nose abnormality Mouth: + dental caries and + poor dentition Fluctuance noted to hard palate; right facial swelling; airway patent Respiratory: normal respiratory effort; no respiratory distress Auscultation: + diminished lung sounds Cardiovascular: Rate/Rhythm: regular rate and regular rhythm Vessels: normal peripheral pulses Extremities: no edema Gastrointestinal (Abdomen): normal bowel sounds, soft, nontender, no hepatosplenomegaly Musculoskeletal: no cyanosis or clubbing, extremities motor strength 5/5 Skin: no rashes, warm and dry Neurologic: PERRL, EOMI, accommodation nl, no face palsy, no dysarthria Psychiatric: Orientation: alert and oriented x 3 Affect: + tearful affect Results & Data Vital Signs (Past 12 Hours) Vital Signs Temp Pulse Pulse Resp BP BP Pulse Ox 04/01/19 19:05 89 20 216/120 H 99 04/01/19 18:18 88 20 199/121 H 100 04/01/19 17:43 87 20 202/123 H 100 04/01/19 16:40 85 20 219/151 H 99 04/01/19 14:46 36.8 C 95 H 16 177/118 H 99 Laboratory Results Short CBC 04/01/19 Range/Units 15:41 WBC 8.04 (4.8-10.8) K/uL Hgb 11.6 L (12.0-16.0) g/dL Hct 34.9 L (37-47) % Plt Count 226 (130-400) K/uL BMP 04/01/19 15:41 Sodium 137 Potassium 3.8 Chloride 110 H Carbon Dioxide 19 L BUN 21 H Creatinine 1.42 H Glucose 179 H Calcium 8.9 Liver Function 04/01/19 Range/Units 15:41 Total Bilirubin 0.2 (0.2-1) mg/dl AST 9 L (15-37) U/L ALT 18 (12-78) U/L Alkaline Phosphatase 92 (45-117) U/L Albumin 3.4 (3.4-5.0) gm/dl Diagnostic Findings FACIAL CT IMPRESSION: 1. Multiple dental caries with moderate sized periapical cysts of the bilateral maxillary lateral incisor's. There is cortical erosion/dehiscence of the posterior cortex adjacent to the right lateral maxillary incisor with peripherally enhancing multiloculated fluid collection along the anterior aspect of the hard palate measuring up to 1.4 cm with abscess. 2. Moderate mucosal thickening of the left maxillary sinus. 3. There are two large sialoliths within the distal aspect of the right submandibular duct measuring up to 1.3 cm resulting in mild associated ductal dilation. Code Status & VTE Plan VTE Prophylaxis Plan VTE Prophylaxis will be ordered: Yes Supervising Physician Co-Signing Physician Notes HISTORY: Record reviewed. Patient interviewed and examined in ED. Care coordinated with RAYNA Cyr. Please refer to her documentation for complete history. Briefly, 43 YO female with history of ischemic heart disease (s/p drug-eluting stent October 2018), AAA, and other problems. Presented to ED with severe dental pain. EXAM: General- no distress Lungs- clear to auscultation; no respiratory distress Cardiovascular- RRR; no murmur; no gallop; no JVD; no pretibial edema Abdomen- + bowel sounds, soft, nontender Extremities- no cyanosis; no calf tenderness Neuro- alert, oriented Skin- warm & dry DATA: Hemoglobin 11.6, white count 8040, platelet count 226,000. INR 1.0, PTT 25.6. Sodium 137, potassium 3.8, chloride 110, CO2 19, BUN 21, creatinine 1.42, random glucose 179. Other lab studies as noted. CT of facial bones demonstrated multiple dental caries with suspected abscess, moderate mucosal thickening of the left maxillary sinus, 2 large sialoliths with the distal aspect of the right submandibular duct resulting in mild associated ductal dilatation. ASSESSMENT AND PLAN: Dental caries / abscess. Maxillary sinusitis. IV antibiotic therapy with ampicillin / sulbactam. Oral Surgery consulted. Ischemic heart disease. S/P PCI of LAD with drug-eluting stent October 2018. Continue aspirin and ticagrelor. Hypertension. BP elevated. Analgesics PRN. Follow and titrate meds. Please refer to WILDA Saavedra's documentation for discussion of other issues.
[2019-04-01] MEDS: cloNIDine HCL 0.1 MG TAB PO PRN (20:21)
[2019-04-01] MEDS: SODIUM CHLORIDE 0.9% 1000ML 1,000 ML IV SCH (20:22)
[2019-04-01] MEDS: INSULIN ASPART 100 UNITS/ML 3 ML PEN SC SCH (20:33)
[2019-04-01] MEDS: NICOTINE 21 MG/24 HR TDSY TD SCH (20:36)
[2019-04-01] MEDS: GABAPENTIN 800 MG TAB PO SCH (20:37)
[2019-04-01] MEDS: CHLORPROMAZINE HCL 25 MG TABLET PO SCH (20:38)
[2019-04-01] MEDS: TICAGRELOR 90 MG TAB PO SCH (20:39)
[2019-04-01] MEDS: ACETAMINOPHEN 325 MG TAB PO PRN (20:41)
[2019-04-02] MEDS: AMPICILLIN/SULBACTAM SOD 3,000 MG in 0.9 % SODIUM CHLORIDE 100 ML IV SCH ×4 (00:27→17:42)
[2019-04-02] MEDS: HYDROmorphone INJ 0.5 MG/0.5 ML SYR IV PRN ×6 (00:29→22:11)
[2019-04-02] MEDS: ACETAMINOPHEN 325 MG TAB PO PRN ×4 (02:50→20:13)
[2019-04-02] MEDS: cloNIDine HCL 0.1 MG TAB PO PRN (04:17)
[2019-04-02 05:51] LABS: Hematocrit (blood only) 30.8 % (37-47); Mean Corpuscular Hemoglobin 30.1 pg (25-34); Mean Corpuscular Hgb Conc 32.5 g/dL (32-36); Mean Corpuscular Volume 92.8 fL (80-100); Mean Platelet Volume 9.8 fL (7.4-10.4); Platelet Count 215 K/uL (130-400); RDW Coefficient of Variation 16.5 % (11.5-14.5); RDW Standard Deviation 56.1 fL (36.4-46.3); Red Blood Count 3.32 M/uL (4.2-5.4); White Blood Count 9.52 K/uL (4.8-10.8)
[2019-04-02] MEDS ORDERED: HYDROmorphone INJ 0.5 MG/0.5 ML SYR IV STA (06:15)
[2019-04-02 06:16] LABS: Estimated Average Glucose 134 mg/dl; Hemoglobin A1C 6.3 % (4.5-5.6)
[2019-04-02] MEDS: SODIUM CHLORIDE 0.9% 1000ML 1,000 ML IV SCH ×2 (06:34→16:11)
[2019-04-02 06:40] LABS: BUN Creatinine Ratio 12.5 (10-20); Calcium 8.1 mg/dl (8.5-10.1); Creatinine Clr Calc Pharmacy 95.4 ml/min; Est GFR (African American) 122.6; Est GFR (Non-African American) 105.8; Potassium 3.4 mmol/L (3.5-5.1)
[2019-04-02] MEDS: GABAPENTIN 800 MG TAB PO SCH ×3 (07:57→20:15)
[2019-04-02] MEDS: lisinopriL 40 MG TAB PO SCH (07:57)
[2019-04-02] MEDS: METOPROLOL SUCC 25MG EXT REL TAB PO SCH (07:57)
[2019-04-02] MEDS: ASPIRIN 81 MG ECTAB PO SCH (07:57)
[2019-04-02] MEDS: FERROUS SULFATE 325 MG TAB PO SCH (07:57)
[2019-04-02] MEDS: CHLORPROMAZINE HCL 25 MG TABLET PO SCH ×2 (07:57→20:14)
[2019-04-02] MEDS: FLUOXETINE HCL 20 MG CAP PO SCH (07:57)
[2019-04-02] MEDS: AMLODIPINE BESYLATE 5 MG TAB PO SCH (07:57)
[2019-04-02] MEDS: ATORVASTATIN 40 MG TAB PO SCH (07:57)
[2019-04-02] MEDS: PANTOprazole 40 MG TAB PO SCH (07:57)
[2019-04-02] MEDS: LEVOTHYROXINE SODIUM 112 MCG TABLET PO SCH (07:58)
[2019-04-02] MEDS: TICAGRELOR 90 MG TAB PO SCH ×2 (07:58→20:14)
[2019-04-02] MEDS: DULOXETINE HCL 30 MG CAP PO SCH (07:58)
[2019-04-02] MEDS: DULOXETINE HCL 60 MG CAP PO SCH (07:58)
[2019-04-02] MEDS: INSULIN ASPART 100 UNITS/ML 3 ML PEN SC SCH ×4 (07:59→20:13)
[2019-04-02] MEDS ORDERED: LARYING-O-JET KIT (LTA) ONE (08:28)
[2019-04-02] MEDS ORDERED: fentaNYL citrate 100 MCG/2 ML VIAL ONE (08:28)
[2019-04-02] MEDS ORDERED: SODIUM CHLORIDE 0.9% INJ 10 ML VIAL ONE (08:28)
[2019-04-02] MEDS ORDERED: NEOSTIGMINE METHYLSULFATE 5 MG/5 ML SYR ONE (08:28)
[2019-04-02] MEDS ORDERED: LIDOCAINE HCL 2% 2 ML VIAL/AMP(20MG/ML) INFIL ONE (08:28)
[2019-04-02] MEDS ORDERED: GLYCOPYRROLATE 0.2 MG/ML VIAL ONE ×2 (08:28→11:06)
[2019-04-02] MEDS ORDERED: ROCURONIUM BROMIDE 10 MG/ML 5 ML VIAL ONE (08:28)
[2019-04-02] MEDS ORDERED: ONDANSETRON INJ 2 MG/ML 2 ML VIAL ONE (08:28)
[2019-04-02] MEDS ORDERED: HYDROmorphone INJ 2 MG/ML SYR/VIAL ONE (08:28)
[2019-04-02] MEDS ORDERED: PROPOFOL IV EMULSION 10 MG/ML 20 ML VIAL IV ONE (08:28)
[2019-04-02] MEDS ORDERED: DEXAMETHASONE SOD INJ 4 MG/ML VIAL ONE (08:28)
[2019-04-02] MEDS ORDERED: MIDAZOLAM HCL 1 MG/ML 2ML VIAL ONE (08:28)
[2019-04-02] MEDS: NICOTINE 21 MG/24 HR TDSY TD SCH (08:37)
[2019-04-02] MEDS: POTASSIUM CHLORIDE / WTR 10 MEQ/100 ML PLCT IV SCH ×2 (09:11→13:41)
[2019-04-02] MEDS ORDERED: OXYMETAZOLINE 0.05% 30 ML BTL ONE (09:55)
[2019-04-02] MEDS ORDERED: LIDOCAINE HCL 5% OINT 30 GM TUBE ONE (09:55)
[2019-04-02] MEDS ORDERED: BUPIVACAINE/EPINEPHRINE 0.5% 1:200,000 1.8 ML CARP ONE (09:56)
[2019-04-02] MEDS ORDERED: TRIAMCINOLONE ACET 0.1% OINT 15 GM TUBE ONE (09:56)
[2019-04-02] MEDS ORDERED: CHLORHEXIDINE GLUCONATE 0.12% 480 ML ONE (09:57)
--- NOTE | 2019-04-02 10:10 | Anesthesiology Consultation ---
Date of Service April 02, 2019 Assessment & Plan ASA [id number] Proposed Anesthesia Anesthesia Type: General Risk / Benefits Reviewed With: PT / POA / Parent / Guardian, Accepts Plan and Informed Consent Obtained Additional Comments: pt is an emergency. do not have time to obtain record. ab scess may grow increasing i=danya of intubation History Surgery Operation Date: 04/02/19 08:10 Proposed Procedures p Oral Abscess Incision and Drainage - Raj Kowalski, DMD Height/Weight Height: 5 ft 1 in Weight: 73.2 kg Allergies Allergy/AdvReac Type Severity Reaction Status Date / Time loratadine AdvReac Severe anxiety, Verified 04/02/19 09:49 paranoia increases cetirizine AdvReac Intermediate anxiety, Verified 04/02/19 09:49 paranoia increases fexofenadine AdvReac Intermediate anxiety Verified 04/02/19 09:49 and paranoia increases ketorolac AdvReac Mild PT STATES Verified 04/02/19 09:49 SHE IS ON THORAZINE AND CANNOT TAKE TORADOL Medications Home Medications Medication Instructions Recorded Confirmed Last Taken amlodipine 10 mg PO DAILY 05/13/18 04/01/19 04/01/19 aspirin [Aspir-81] 162 mg PO DAILY 05/13/18 04/01/19 04/01/19 atorvastatin 40 mg PO DAILY 04/01/19 04/01/19 Unknown chlorpromazine 25 mg PO DAILY 04/01/19 04/01/19 Unknown chlorpromazine 50 mg PO HS 04/01/19 04/01/19 Unknown duloxetine 30 mg PO DAILY 04/01/19 04/01/19 Unknown duloxetine 60 mg PO DAILY 04/01/19 04/01/19 Unknown ferrous sulfate 325 mg PO DAILY 04/01/19 04/01/19 Unknown fluoxetine 20 mg PO DAILY 04/01/19 04/01/19 Unknown fluticasone furoate [Arnuity 1 inh INHALATION DAILY 04/01/19 04/01/19 Unknown Ellipta] gabapentin 800 mg PO TID 04/01/19 04/01/19 Unknown hydrocodone-acetaminophen 1 tab PO Q6H PRN 04/01/19 04/01/19 Unknown hydroxyzine HCl 10 mg PO QID PRN 04/01/19 04/01/19 Unknown hyoscyamine sulfate 0.125 mg PO Q4H PRN 04/01/19 04/01/19 Unknown ipratropium-albuterol [Combivent 1 puff INHALATION QID PRN 04/01/19 04/01/19 Unknown Respimat] levothyroxine 112 mcg PO DAILY 04/01/19 04/01/19 Unknown lisinopril 40 mg PO DAILY 04/01/19 04/01/19 Unknown methocarbamol 500 mg PO TID PRN 04/01/19 04/01/19 Unknown metoprolol succinate 25 mg PO DAILY 04/01/19 04/01/19 Unknown mometasone-formoterol [Dulera] 2 puff INHALATION Q12H 04/01/19 04/01/19 Unknown omeprazole 20 mg PO DAILY 04/01/19 04/01/19 Unknown ticagrelor [Brilinta] 90 mg PO BID 04/01/19 04/01/19 Unknown Active Medications Generic Name Dose Route Start Last Admin Trade Name Freq PRN Reason Stop Dose Admin Acetaminophen 650 mg 04/01/19 19:39 04/02/19 08:32 Tylenol PO 05/01/19 19:38 650 mg Q4H PRN Administration pain/fever Amlodipine Besylate 10 mg 04/02/19 09:00 04/02/19 07:57 Norvasc PO 05/02/19 08:59 10 mg DAILY SEPIDEH Administration Aspirin 162 mg 04/02/19 09:00 04/02/19 07:57 Ecotrin Ectab PO 05/02/19 08:59 162 mg DAILY SEPIDEH Administration Atorvastatin Calcium 40 mg 04/02/19 09:00 04/02/19 07:57 Lipitor PO 05/02/19 08:59 40 mg DAILY SEPIDEH Administration Chlorpromazine HCl 25 mg 04/02/19 09:00 04/02/19 07:57 Thorazine PO 05/02/19 08:59 25 mg DAILY SEPIDEH Administration Chlorpromazine HCl 50 mg 04/01/19 21:00 04/01/19 20:38 Thorazine PO 05/01/19 20:59 50 mg HS SEPIDEH Administration Clonidine HCl 0.1 mg 04/01/19 19:39 04/02/19 04:17 Catapres PO 05/01/19 19:38 0.1 mg Q6H PRN Administration HTN Duloxetine HCl 60 mg 04/02/19 09:00 04/02/19 07:58 Cymbalta PO 05/02/19 08:59 60 mg DAILY SEPIDEH Administration Duloxetine HCl 30 mg 04/02/19 09:00 04/02/19 07:58 Cymbalta PO 05/02/19 08:59 30 mg DAILY SEPIDEH Administration Ferrous Sulfate 325 mg 04/02/19 09:00 04/02/19 07:57 Feosol PO 05/02/19 08:59 325 mg DAILY SEPIDEH Administration Fluoxetine HCl 20 mg 04/02/19 09:00 04/02/19 07:57 Prozac PO 05/02/19 08:59 20 mg DAILY SEPIDEH Administration Gabapentin 800 mg 04/01/19 21:00 04/02/19 07:57 Neurontin PO 05/01/19 20:59 800 mg TID SEPIDEH Administration Hydromorphone HCl 0.5 mg 04/01/19 19:39 04/02/19 07:56 Dilaudid IV 04/15/19 19:38 0.5 mg Q4H PRN Administration Pain Ampicillin Sodium/Sulbactam 108 mls @ 200 mls/hr 04/02/19 00:00 04/02/19 07:15 Sodium 3,000 mg/ Sodium IV 04/12/19 00:00 Infused Chloride Q6H SEPIDEH Infusion Protocol Sodium Chloride 1,000 mls @ 100 mls/hr 04/01/19 19:39 04/02/19 09:20 Nss 1000ml IV 05/01/19 19:38 0 mls/hr .Q10H SEPIDEH Infusion Potassium Chloride 10 meq in 100 mls @ 100 mls/hr 04/02/19 09:00 04/02/19 09:20 K Liban / Wtr IV 04/02/19 10:59 0 mls/hr Q1H SEPIDEH Infusion Insulin Aspart 0 units 04/01/19 21:00 04/02/19 07:59 Novolog Flexpen SC 05/01/19 20:59 Not Given ACHS SEPIDEH Levothyroxine Sodium 112 mcg 04/02/19 06:30 04/02/19 07:58 Synthroid PO 05/02/19 06:29 112 mcg DAILYBB SEPIDEH Administration Lisinopril 40 mg 04/02/19 09:00 04/02/19 07:57 Zestril PO 05/02/19 08:59 40 mg DAILY SEPIDEH Administration Metoprolol Succinate 25 mg 04/02/19 09:00 04/02/19 07:57 Toprol Xl PO 05/02/19 08:59 25 mg DAILY SEPIDEH Administration Miscellaneous 1 ea 04/02/19 00:00 04/02/19 07:15 Order Awaiting Action N/A 05/02/19 00:00 Not Given QS SEPIDEH Miscellaneous 1 ea 04/02/19 00:00 04/02/19 07:58 Order Awaiting Action N/A 05/02/19 00:00 Not Given QS SEPIDEH Miscellaneous 1 ea 04/02/19 08:59 04/02/19 07:58 Remove Nicoderm Patch N/A 05/02/19 08:58 1 ea DAILY@0859 SEPIDEH Administration Nicotine 21 mg 04/01/19 19:45 04/02/19 08:37 Nicoderm Cq TD 05/01/19 19:44 21 mg QAM SEPIDEH Administration Pantoprazole Sodium 40 mg 04/02/19 09:00 04/02/19 07:57 Protonix PO 05/02/19 08:59 40 mg DAILY SEPIDEH Administration Ticagrelor 90 mg 04/01/19 21:00 04/02/19 07:58 Brilinta PO 05/01/19 20:59 90 mg BID SEPIDEH Administration NPO Date Last Intake of Fluids: 04/01/19 Time Last Intake of Fluids: 23:55 Last Intake of Fluids Comment: few sips this am per patient with meds Date Last Intake of Solids: 03/30/19 Time Last Intake of Solids: 11:00 Last Intake of Solids Comment: unsure of time Past Medical History Medical History (Updated 04/01/19 @ 19:44 by RAYNA Cyr) Ankle fracture, left (Acute) Bipolar disorder CAD (coronary artery disease) 10/2018-HARLEEN to LAD Chronic pain COPD (chronic obstructive pulmonary disease) Depression with anxiety DM type 2 (diabetes mellitus, type 2) History of DVT (deep vein thrombosis) Hypertension (Chronic) Hypothyroidism (Acute) Neuropathy Raynauds disease Tobacco abuse Exercise / Class Metabolic Activity III < 4 Walking/Shop/Light housework limited by dvt in leg and asthma. states she can climb stairs Past Family History Family History Mother Diabetes Past Surgical History Surgical History H/O elbow surgery H/O tubal ligation History of arthroscopic knee surgery History of carpal tunnel surgery of right wrist History of incisional hernia repair Hx of cholecystectomy S/P AAA repair S/P tonsillectomy Past Anesthesia History No Hx of Anesthesia Complications and No Family Hx of Anesthesia Complications History of PONV No Hx of PONV and No Hx of Motion Sickness Social History Smoking Status: Current every day smoker tobacco type: cigarettes Smoking cigarettes per day: 20 Hx Alcohol Use: No Hx Substance Use: No Review of Systems denies fever/cough/ colds/ chest pain/ SOB/ ALICIA recent [place]/CVA Physical Exam Vital Signs Last Vital Signs Temp 36.9 C 04/02/19 09:49 Pulse 93 H 04/02/19 09:49 Resp 20 04/02/19 09:49 BP 175/112 H 04/02/19 09:49 Pulse Ox 98 04/02/19 09:49 ENMT Mouth: + dentition abnormality (Abcess on left and upper mouth) and + poor dentition; no TMJ abnormality Thyromental Distance: > or= 3.5 Finger Breadths Mallampati Class: II Neck neck extension not limited Respiratory normal respiratory effort; no respiratory distress Auscultation: lungs clear to auscultation bilaterally Cardiovascular Rate/Rhythm: regular rate and regular rhythm Neurologic moves all extremities Psychiatric Orientation: alert and oriented x 3 Testing Laboratory Results 04/02/19 05:37 04/02/19 05:37 PT 9.8 Seconds (9.0-12.0) 04/01/19 15:41 INR 1.0 (0.9-1.1) 04/01/19 15:41 APTT 25.6 Seconds (21.0-31.0) 04/01/19 15:41 Hemoglobin A1c 6.3 % (4.5-5.6) H 04/02/19 05:37 04/02/19 07:25 POC Glucose 144 H
--- NOTE | 2019-04-02 10:12 | History & Physical Bridge Note ---
Date of Service April 02, 2019 History & Physical Bridge Note I have examined the patient, reviewed the History & Physical and in the interval since the performance of the History & Physical I have noted the following changes of clinical significance: no changes noted. The swelling of the palate has increased and now huntley facial has developed. The plan remains the same.
[2019-04-02] MEDS ORDERED: ALBUTEROL HFA INHALER 8.5 GM ONE (10:36)
[2019-04-02] MEDS ORDERED: METOPROLOL TARTRATE 1 MG/ML VIAL IV ONE (10:36)
[2019-04-02] MEDS ORDERED: ePHEDrine sulfate 50 MG/ML AMP IV PRN (10:38)
[2019-04-02] MEDS ORDERED: fentaNYL citrate 100 MCG/2 ML VIAL IV PRN (10:38)
[2019-04-02] MEDS ORDERED: ATROPINE SULFATE 0.1 MG/ML 10ML SYR IV PRN (10:38)
--- NOTE | 2019-04-02 11:12 | Post Operative Brief Note ---
PG Immediate Post Op with CF Date of Surgery April 02, 2019 Pre & Post Diagnosis Operation Date: 04/02/19 08:10 Pre-Op Diagnosis: DENTAL ABSCESS severe total hard palate Post-Op Diagnosis: DENTAL ABSCESS severe total hard palate I identified the patient and participated in the time-out.: Yes Procedure Operation Date: 04/02/19 08:10 Actual Procedures p Oral Abscess Incision and Drainage(Not Applicable) and extraction of infected teeth # 7,8,9,10,11, 20,21 - Raj Kowalski DMD Surgeon Raj Kowalski DMD Group Director Experience none Estimated Blood Loss 10 Findings Consistent with Post-Op Diagnosis Specimens Specimen Description: Culture 1. Abscess of roof of mouth Drains Woody Drain
--- NOTE | 2019-04-02 11:32 | Operative Report ---
Post Operative Report Pre & Post Diagnosis Operation Date: 04/02/19 08:10 Pre-Op Diagnosis: DENTAL ABSCESS (severe) hard palate, abscessed /fractured teeth Post-Op Diagnosis: DENTAL ABSCESS same as above I identified the patient and participated in the time-out.: Yes Procedure Operation Date: 04/02/19 08:10 Actual Procedures p Oral Abscess Incision and Drainage (hard palate and extraction of tooth # 7,8,9,10,11,20 and 21)--(Not Applicable) - Raj Kowalski, DMD Pre-op=Severe abscess of total hard palate and infected/fractured# 7,8,9,1 0,11,20 and 21 Once cleared for surgery general anesthesia was achieved, the eyes were protected by the anesthesia dept criteria.. A time out was take for patient ID, antibiotics, equipment and position verification once all agreed the procedure began. Local anesthesia was given into each area using Marcaine with a vasoconstrictor ( 1.8 ml per site). A throat pack was placed after the oral cavity was irrigated with saline. Once a surgical level of anesthesia was obtained and the local anesthesia was given time for the blocks the surgery was started. I turned my attention to the palatal swelling --there was at least a 2 x 2 CM abscess of the hard palate. The tissue was necrotic- I&D palate and removal of Fractured upper teeth # 7,8,9,10,11 An Incision was made over the midportion of the palatal swelling with a 15 blade. The flap was reflected and a copious amount of pus was expressed. I now reflected the tissue over the fractured upper anterior teeth, bone removed with a rongeur was done until I was able to see the fractured decayed teeth, using a forceps I was able to remove the 5 remaining upper teeth. While doing so more pus was expressed via the sockets. I 1/2 inch jessa drain was placed from the sockets of # 11 and 7 existing on the palate to insure good drainage. The Bony margins were trimmed, smoothed and the drains were sutured closed with a 2-0 chromic Lower infected teeth # 20,21 A small flap was reflected to expose the fractured tooth # 20 and 21. The teeth were removed with a 301 elevator, The bone was trimmed, smoothed and the flap was closed with a few 2-0 chromic sutures. The infected socket was curretted and the fistula was excised. When all the teeth were removed and drainage was completed I inspected the sites to insure all bleeding was controlled. I removed the throat pack and suctioned the throat. Bilateral gauze pressure dressings were placed. All instrument and sponge count was correct. the patient was allowed to awake from the anesthesia. Once full awake the anesthesia tube was removed and the patient was taken to the recovery room with all vital sign stable. The patient tolerated the surgery very well. I will follow the patient in my office once D/C , Rx and instructions will be given upon discharge. Surgeon Raj Kowalski, DMD Disposal Worker none Estimated Blood Loss 10 Findings Consistent with Post-Op Diagnosis Specimens C and S of pus pending Description of Procedure I&D and extraction of 7 teeth I attest to the content of the Intraoperative Record and any orders documented therein. Any exceptions are noted below.
--- NOTE | 2019-04-02 12:04 | Anesthesiology Progress Note ---
Date of Service April 02, 2019 Anesthesia Post Procedure Vital Signs Vital Signs: Temp Pulse Pulse Pulse Resp BP BP 04/02/19 12:00 36.7 C 87 14 137/81 04/02/19 11:50 91 H 15 134/90 04/02/19 11:40 91 H 15 135/78 04/02/19 11:30 97 H 15 123/77 04/02/19 11:23 36.3 C L 97 H 17 128/83 04/02/19 09:49 36.9 C 93 H 20 175/112 H 04/02/19 07:00 36.5 C 85 18 186/118 H 04/02/19 04:27 88 04/02/19 04:21 37.1 C 90 16 181/119 H 04/01/19 23:05 36.5 C 90 20 146/78 H 04/01/19 19:46 36.9 C 81 16 180/108 H 04/01/19 19:05 89 20 216/120 H 04/01/19 18:18 88 20 199/121 H 04/01/19 17:43 87 20 202/123 H 04/01/19 16:40 85 20 219/151 H 04/01/19 14:46 36.8 C 95 H 16 177/118 H Pulse Ox 04/02/19 12:00 98 04/02/19 11:50 98 04/02/19 11:40 100 04/02/19 11:30 99 04/02/19 11:23 100 04/02/19 09:49 98 04/02/19 07:00 100 04/02/19 04:27 04/02/19 04:21 97 04/01/19 23:05 100 04/01/19 19:46 100 04/01/19 19:05 99 04/01/19 18:18 100 04/01/19 17:43 100 04/01/19 16:40 99 04/01/19 14:46 99 Pain Intensity Mouth: Pain Intensity: 0 Transfer of Care Handoff Completed per policy Notes Mental Status: alert / awake / arousable and participated in evaluation Patient Amnestic to Procedure: Yes Nausea / Vomiting: adequately controlled Pain: adequately controlled Airway Patency, RR, SpO2: stable & adequate BP & HR: stable & adequate Hydration State: stable & adequate Anesthetic Complications: no major complications apparent and Pt Satisfied with anesthetic care
--- NOTE | 2019-04-02 14:45 | Hospitalist Progress Note ---
Date of Service April 02, 2019 Assessment & Plan (1) Abscess of mouth: CT evidence of dental caries with 1.4 cm abscess of the hard palate anteriorly Present on Admission?: Yes (2) Infected tooth: As above (3) Sialoliths: -Admit to [facility] with telemetry -Patient presenting from home with reports of increasing mouth swelling and pain -Facial CT in ED showing multiple dental caries with a 1.4 cm abscess of the hard palate; two large sialoliths within the distal aspect of the right submandibular duct measuring up to 1.3 cm resulting in mild associated ductal dilation -Does not appear septic -Airway patent -Appreciate orofacial surgery input and recommendation -Status post incision and Drainage (hard palate and extraction of tooth # 7,8,9,10,11,20 and 21Status post -remains drowsy following surgery (4) NATALIA (acute kidney injury): -Creatinine 1.4 (baseline ~0.7-0.9) -Likely prerenal secondary to poor p.o. intake secondary to mouth infection -Holding lisinopril -IVF, monitor renal functions -Renal function is normalized (5) Hypertension: -BP significantly elevated, likely secondary to pain -Pain control -Continue home medications including amlodipine, metoprolol; holding lisinopril due to NATALIA, resume when renal functions normalize -PRN clonidine (6) CAD (coronary artery disease): -Appears stable, no reports of chest pain -S/P HARLEEN to [facility] 10/2018, would not recommend holding Brilinta and aspirin -Continue statin, beta-chalino, DENISA inhibitor (7) COPD (chronic obstructive pulmonary disease): -Appears stable, no wheezing on exam -Continue home inhalers (8) DM type 2 (diabetes mellitus, type 2): -diet-controlled, Hgb A1c 5.9 08/2018 -Glucose 179 on labs, likely elevated secondary to infection -A1c with morning labs -NovoLog per protocol hospitalized (9) Bipolar disorder: (10) Depression with anxiety: -Continue Thorazine, duloxetine, fluoxetine (11) Hypothyroidism: -Continue levothyroxine (12) Tobacco abuse: -Patient smokes 1 pack of cigarettes per day -Counseled regarding tobacco cessation -Nicotine patch ordered (13) DVT prophylaxis: -SCDs due to invasive procedure Subjective 04/02 The patient was seen and examined in medical floor in presence of the She has been sleeping following the administration of Dilaudid She is a status post I&D for the dental abscess Review of Systems Review of Systems: All systems reviewed and are unremarkable except as noted below Physical Exam Physical Exam: Lying in bed comfortably Constitutional: well developed and well nourished; no acute distress Eyes: PERRL, conjunctivae normal, anicteric sclerae ENMT: Ears: no external ear abnormality Nose: no external nose abnormality Mouth: + dental caries and + poor dentition Respiratory: normal respiratory effort; no respiratory distress Auscultation: + diminished lung sounds Cardiovascular: Rate/Rhythm: regular rate and regular rhythm Vessels: normal peripheral pulses Extremities: no edema Gastrointestinal (Abdomen): normal bowel sounds, soft, nontender, no hepatosplenomegaly Musculoskeletal: no cyanosis or clubbing, extremities motor strength 5/5 Skin: no rashes, warm and dry Neurologic: PERRL, EOMI, accommodation nl, no face palsy, no dysarthria Psychiatric: Orientation: alert and oriented x 3 Affect: + tearful affect Results & Data Vital Signs (Past 12 Hours) Vital Signs Temp Pulse Pulse Pulse Resp BP Pulse Ox 04/02/19 14:17 36.6 C 91 H 20 147/95 H 94 04/02/19 13:15 36.6 C 109 H 20 136/68 98 04/02/19 12:51 36.7 C 99 H 18 136/87 99 04/02/19 12:15 36.6 C 93 H 16 131/85 97 04/02/19 12:00 36.7 C 87 14 137/81 98 04/02/19 11:50 91 H 15 134/90 98 04/02/19 11:40 91 H 15 135/78 100 04/02/19 11:30 97 H 15 123/77 99 04/02/19 11:23 36.3 C L 97 H 17 128/83 100 04/02/19 09:49 36.9 C 93 H 20 175/112 H 98 04/02/19 07:00 36.5 C 85 18 186/118 H 100 04/02/19 04:27 88 04/02/19 04:21 37.1 C 90 16 181/119 H 97 Laboratory Results Short CBC 04/01/19 04/02/19 Range/Units 15:41 05:37 WBC 8.04 9.52 (4.8-10.8) K/uL Hgb 11.6 L 10.0 L (12.0-16.0) g/dL Hct 34.9 L 30.8 L (37-47) % Plt Count 226 215 (130-400) K/uL BMP 04/01/19 04/02/19 15:41 05:37 Sodium 137 140 Potassium 3.8 3.4 L Chloride 110 H 114 H Carbon Dioxide 19 L 16 L BUN 21 H 9 D Creatinine 1.42 H 0.71 D Glucose 179 H 135 H Calcium 8.9 8.1 L Liver Function 04/01/19 Range/Units 15:41 Total Bilirubin 0.2 (0.2-1) mg/dl AST 9 L (15-37) U/L ALT 18 (12-78) U/L Alkaline Phosphatase 92 (45-117) U/L Albumin 3.4 (3.4-5.0) gm/dl Medications Administered Current Inpatient Medications Acetaminophen (Tylenol) 650 mg PO Q4H PRN PRN Reason: pain/fever Stop: 05/01/19 19:38 Last Admin: 04/02/19 08:32 Dose: 650 mg Documented by: Amlodipine Besylate (Norvasc) 10 mg PO DAILY [facility] Stop: 05/02/19 08:59 Last Admin: 04/02/19 07:57 Dose: 10 mg Documented by: Aspirin (Ecotrin Ectab) 162 mg PO DAILY [facility] Stop: 05/02/19 08:59 Last Admin: 04/02/19 07:57 Dose: 162 mg Documented by: Atorvastatin Calcium (Lipitor) 40 mg PO DAILY [facility] Stop: 05/02/19 08:59 Last Admin: 04/02/19 07:57 Dose: 40 mg Documented by: Chlorpromazine HCl (Thorazine) 25 mg PO DAILY [facility] Stop: 05/02/19 08:59 Last Admin: 04/02/19 07:57 Dose: 25 mg Documented by: Chlorpromazine HCl (Thorazine) 50 mg PO HS [facility] Stop: 05/01/19 20:59 Last Admin: 04/01/19 20:38 Dose: 50 mg Documented by: Clonidine HCl (Catapres) 0.1 mg PO Q6H PRN PRN Reason: HTN Stop: 05/01/19 19:38 Last Admin: 04/02/19 04:17 Dose: 0.1 mg Documented by: Dextrose (Dextrose 50%) 25 - 50 ml IV UD PRN; Protocol PRN Reason: Hypoglycemia Protocol Stop: 05/01/19 19:38 Duloxetine HCl (Cymbalta) 60 mg PO DAILY [facility] Stop: 05/02/19 08:59 Last Admin: 04/02/19 07:58 Dose: 60 mg Documented by: Duloxetine HCl (Cymbalta) 30 mg PO DAILY [facility] Stop: 05/02/19 08:59 Last Admin: 04/02/19 07:58 Dose: 30 mg Documented by: Ferrous Sulfate (Feosol) 325 mg PO DAILY [facility] Stop: 05/02/19 08:59 Last Admin: 04/02/19 07:57 Dose: 325 mg Documented by: Fluoxetine HCl (Prozac) 20 mg PO DAILY [facility] Stop: 05/02/19 08:59 Last Admin: 04/02/19 07:57 Dose: 20 mg Documented by: Gabapentin (Neurontin) 800 mg PO TID [facility] Stop: 05/01/19 20:59 Last Admin: 04/02/19 13:16 Dose: Not Given Documented by: Glucagon (Glucagen) 1 mg SQ UD PRN; Protocol PRN Reason: Hypoglycemia Protocol Stop: 05/01/19 19:38 Glucose (Dex4 Glucose) 4 - 8 tabs PO UD PRN; Protocol PRN Reason: Hypoglycemia Protocol Stop: 05/01/19 19:38 Glucose (Glucose 40%) 15 - 30 gm PO UD PRN; Protocol PRN Reason: Hypoglycemia Protocol Stop: 05/01/19 19:38 Hydromorphone HCl (Dilaudid) 0.5 mg IV Q4H PRN PRN Reason: Pain Stop: 04/15/19 19:38 Last Admin: 04/02/19 13:44 Dose: 0.5 mg Documented by: Ampicillin Sodium/Sulbactam Sodium 3,000 mg/ Sodium Chloride 108 mls @ 200 mls/hr IV Q6H [facility]; Protocol Stop: 04/12/19 00:00 Last Infusion: 04/02/19 13:30 Dose: Infused Documented by: Sodium Chloride (Nss 1000ml) 1,000 mls @ 100 mls/hr IV .Q10H [facility] Stop: 05/01/19 19:38 Last Infusion: 04/02/19 12:44 Dose: 100 mls/hr Documented by: Insulin Aspart (Novolog Flexpen) 0 units SC ACHS [facility] Stop: 05/01/19 20:59 Last Admin: 04/02/19 12:45 Dose: Not Given Documented by: Levothyroxine Sodium (Synthroid) 112 mcg PO DAILYBB [facility] Stop: 05/02/19 06:29 Last Admin: 04/02/19 07:58 Dose: 112 mcg Documented by: Lisinopril (Zestril) 40 mg PO DAILY [facility] Stop: 05/02/19 08:59 Last Admin: 04/02/19 07:57 Dose: 40 mg Documented by: Metoprolol Succinate (Toprol Xl) 25 mg PO DAILY [facility] Stop: 05/02/19 08:59 Last Admin: 04/02/19 07:57 Dose: 25 mg Documented by: Miscellaneous (Carbohydrates For Hypoglycemia) 15 - 30 gm PO UD PRN PRN Reason: Hypoglycemia Protocol Stop: 05/01/19 19:38 Miscellaneous (Order Awaiting Action) 1 ea N/A QS [facility] Stop: 05/02/19 00:00 Last Admin: 04/02/19 07:15 Dose: Not Given Documented by: Miscellaneous (Order Awaiting Action) 1 ea N/A QS [facility] Stop: 05/02/19 00:00 Last Admin: 04/02/19 07:58 Dose: Not Given Documented by: Miscellaneous (Remove Nicoderm Patch) 1 ea N/A DAILY@0859 [facility] Stop: 05/02/19 08:58 Last Admin: 04/02/19 07:58 Dose: 1 ea Documented by: Nicotine (Nicoderm Cq) 21 mg TD QAM [facility] Stop: 05/01/19 19:44 Last Admin: 04/02/19 08:37 Dose: 21 mg Documented by: Pantoprazole Sodium (Protonix) 40 mg PO DAILY [facility] Stop: 05/02/19 08:59 Last Admin: 04/02/19 07:57 Dose: 40 mg Documented by: Ticagrelor (Brilinta) 90 mg PO BID [facility] Stop: 05/01/19 20:59 Last Admin: 04/02/19 07:58 Dose: 90 mg Documented by:
[2019-04-03] MEDS: AMPICILLIN/SULBACTAM SOD 3,000 MG in 0.9 % SODIUM CHLORIDE 100 ML IV SCH ×3 (00:01→13:37)
[2019-04-03] MEDS: SODIUM CHLORIDE 0.9% 1000ML 1,000 ML IV SCH ×2 (02:13→13:39)
[2019-04-03] MEDS: HYDROmorphone INJ 0.5 MG/0.5 ML SYR IV PRN ×4 (02:15→14:05)
[2019-04-03] MEDS: ACETAMINOPHEN 325 MG TAB PO PRN ×2 (03:32→08:44)
[2019-04-03] MEDS: LEVOTHYROXINE SODIUM 112 MCG TABLET PO SCH (06:03)
--- NOTE | 2019-04-03 08:14 | Anesthesiology Progress Note ---
Date of Service April 03, 2019 Anesthesia Post Procedure Vital Signs Vital Signs: Temp Pulse Pulse Pulse Resp BP BP 04/03/19 07:58 64 04/03/19 07:51 36.8 C 92 H 16 145/84 H 04/03/19 04:02 36.8 C 88 20 144/94 H 04/03/19 00:00 76 04/02/19 23:52 36.6 C 86 20 136/88 04/02/19 20:00 36.9 C 89 20 143/83 H 04/02/19 16:23 91 H 04/02/19 15:13 36.6 C 90 18 146/98 H 04/02/19 14:17 36.6 C 91 H 20 147/95 H 04/02/19 13:15 36.6 C 109 H 20 136/68 04/02/19 12:51 36.7 C 99 H 18 136/87 04/02/19 12:15 36.6 C 93 H 16 131/85 04/02/19 12:00 36.7 C 87 14 137/81 04/02/19 11:50 91 H 15 134/90 04/02/19 11:40 91 H 15 135/78 04/02/19 11:30 97 H 15 123/77 04/02/19 11:23 36.3 C L 97 H 17 128/83 04/02/19 09:49 36.9 C 93 H 20 175/112 H Pulse Ox 04/03/19 07:58 04/03/19 07:51 97 04/03/19 04:02 100 04/03/19 00:00 04/02/19 23:52 95 04/02/19 20:00 95 04/02/19 16:23 04/02/19 15:13 95 04/02/19 14:17 94 04/02/19 13:15 98 04/02/19 12:51 99 04/02/19 12:15 97 04/02/19 12:00 98 04/02/19 11:50 98 04/02/19 11:40 100 04/02/19 11:30 99 04/02/19 11:23 100 04/02/19 09:49 98 Pain Intensity Mouth: Pain Intensity: 5 Notes Mental Status: alert / awake / arousable and participated in evaluation Patient Amnestic to Procedure: Yes Nausea / Vomiting: adequately controlled Pain: adequately controlled Airway Patency, RR, SpO2: stable & adequate BP & HR: stable & adequate Hydration State: stable & adequate Anesthetic Complications: no major complications apparent and Pt Satisfied with anesthetic care
[2019-04-03] MEDS: INSULIN ASPART 100 UNITS/ML 3 ML PEN SC SCH ×3 (08:30→17:08)
[2019-04-03] MEDS: lisinopriL 40 MG TAB PO SCH (08:45)
[2019-04-03] MEDS: CHLORPROMAZINE HCL 25 MG TABLET PO SCH (08:45)
[2019-04-03] MEDS: TICAGRELOR 90 MG TAB PO SCH (08:46)
[2019-04-03] MEDS: ASPIRIN 81 MG ECTAB PO SCH (08:46)
[2019-04-03] MEDS: PANTOprazole 40 MG TAB PO SCH (08:46)
[2019-04-03] MEDS: AMLODIPINE BESYLATE 5 MG TAB PO SCH (08:47)
[2019-04-03] MEDS: DULOXETINE HCL 60 MG CAP PO SCH (08:47)
[2019-04-03] MEDS: GABAPENTIN 800 MG TAB PO SCH ×2 (08:47→13:41)
[2019-04-03] MEDS: ATORVASTATIN 40 MG TAB PO SCH (08:47)
[2019-04-03] MEDS: DULOXETINE HCL 30 MG CAP PO SCH (08:47)
[2019-04-03] MEDS: METOPROLOL SUCC 25MG EXT REL TAB PO SCH (08:48)
[2019-04-03] MEDS: FLUOXETINE HCL 20 MG CAP PO SCH (08:48)
[2019-04-03] MEDS: FERROUS SULFATE 325 MG TAB PO SCH (08:49)
[2019-04-03] MEDS: NICOTINE 21 MG/24 HR TDSY TD SCH (08:49)
[2019-04-03] MEDS ORDERED: POTASSIUM CHLORIDE 20 MEQ TABCR PO ONE (09:15)
--- NOTE | 2019-04-03 10:06 | Surgery Progress Note ---
Date of Service Today Sabine is doing very well There is minimal drainage and the swelling has decreased very well. From oral surgery point of view can be D/C today if medical agrees. I will Rx Augmentin 875 and pain Meds, She has follow up with me on 04-05-19 for drain removal. Responded well to extraction of teeth and I&D palatal abscess. April 03, 2019 Results & Data Vital Signs (Past 12 Hours) Vital Signs Temp Pulse Pulse Resp BP Pulse Ox 04/03/19 07:58 64 04/03/19 07:51 36.8 C 92 H 16 145/84 H 97 04/03/19 04:02 36.8 C 88 20 144/94 H 100 04/03/19 00:00 76 04/02/19 23:52 36.6 C 86 20 136/88 95 PG Care Time/CCT Total # of Minutes Spent Total Time Spent with Patient: Total time spent is greater than 50% in coordination of care (as documented) at patient's floor/unit and/or counseling patient:
--- NOTE | 2019-04-03 12:05 | Hospitalist Progress Note ---
Date of Service April 03, 2019 Assessment & Plan (1) Abscess of mouth: CT evidence of dental caries with 1.4 cm abscess of the hard palate anteriorly (2) Infected tooth: As above (3) Sialoliths: -Admit to [facility] with telemetry -Patient presenting from home with reports of increasing mouth swelling and pain -Facial CT in ED showing multiple dental caries with a 1.4 cm abscess of the hard palate; two large sialoliths within the distal aspect of the right submandibular duct measuring up to 1.3 cm resulting in mild associated ductal dilation -Does not appear septic -Airway patent -Appreciate orofacial surgery input and recommendation -Status post incision and Drainage (hard palate and extraction of tooth # 7,8,9,10,11,20 and 21Status post -remains drowsy following surgery -Diet will be advanced as tolerated -Was seen by oral surgeon this morning and was advised and can go home (4) NATALIA (acute kidney injury): -Creatinine 1.4 (baseline ~0.7-0.9) -Likely prerenal secondary to poor p.o. intake secondary to mouth infection -Holding lisinopril -IVF, monitor renal functions -Renal function is normalized -Advised to drink more fluid (5) Hypertension: -BP significantly elevated, likely secondary to pain -Pain control -Continue home medications including amlodipine, metoprolol; holding lisinopril due to NATALIA, resume when renal functions normalize -PRN clonidine -Blood pressure in was on the upper side of normal (6) CAD (coronary artery disease): -Appears stable, no reports of chest pain -S/P HARLEEN to [facility] 10/2018, would not recommend holding Brilinta and aspirin -Continue statin, beta-chalino, DENISA inhibitor (7) COPD (chronic obstructive pulmonary disease): -Appears stable, no wheezing on exam -Continue home inhalers (8) DM type 2 (diabetes mellitus, type 2): -diet-controlled, Hgb A1c 5.9 08/2018 -Glucose 179 on labs, likely elevated secondary to infection -A1c with morning labs -NovoLog per protocol hospitalized (9) Bipolar disorder: (10) Depression with anxiety: -Continue Thorazine, duloxetine, fluoxetine -No acute issues (11) Hypothyroidism: -Continue levothyroxine (12) Tobacco abuse: -Patient smokes 1 pack of cigarettes per day -Counseled regarding tobacco cessation -Nicotine patch ordered (13) DVT prophylaxis: -SCDs due to invasive procedure Likely be discharged on oral Augmentin and pain medications this afternoon Subjective 04/02 The patient was seen and examined in medical floor in presence of the She has been sleeping following the administration of Dilaudid She is a status post I&D for the dental abscess 04/03 Patient was seen and examined in medical floor She is status post IND for the dental abscess Still complains some pain but denies any fever and/or chills Likely be discharged this afternoon Review of Systems Review of Systems: All systems reviewed and are unremarkable except as noted below Physical Exam Physical Exam: Lying in bed with some discomfort in the mouth Constitutional: well developed and well nourished; no acute distress Eyes: PERRL, conjunctivae normal, anicteric sclerae ENMT: Ears: no external ear abnormality Nose: no external nose abnormality Mouth: + dental caries and + poor dentition Respiratory: normal respiratory effort; no respiratory distress Auscultation: + diminished lung sounds Cardiovascular: Rate/Rhythm: regular rate and regular rhythm Vessels: normal peripheral pulses Extremities: no edema Gastrointestinal (Abdomen): normal bowel sounds, soft, nontender, no hepatosplenomegaly Musculoskeletal: no cyanosis or clubbing, extremities motor strength 5/5 Skin: no rashes, warm and dry Neurologic: PERRL, EOMI, accommodation nl, no face palsy, no dysarthria Psychiatric: Orientation: alert and oriented x 3 Affect: + tearful affect Lymphatic: no cervical or axillary lymphadenopathy Results & Data Vital Signs (Past 12 Hours) Vital Signs Temp Pulse Pulse Resp BP Pulse Ox 04/03/19 07:58 64 04/03/19 07:51 36.8 C 92 H 16 145/84 H 97 04/03/19 04:02 36.8 C 88 20 144/94 H 100 Medications Administered Current Inpatient Medications Acetaminophen (Tylenol) 650 mg PO Q4H PRN PRN Reason: pain/fever Stop: 05/01/19 19:38 Last Admin: 04/03/19 08:44 Dose: 650 mg Documented by: Amlodipine Besylate (Norvasc) 10 mg PO DAILY [facility] Stop: 05/02/19 08:59 Last Admin: 04/03/19 08:47 Dose: 10 mg Documented by: Aspirin (Ecotrin Ectab) 162 mg PO DAILY [facility] Stop: 05/02/19 08:59 Last Admin: 12/31/19 08:46 Dose: 162 mg Documented by: Atorvastatin Calcium (Lipitor) 40 mg PO DAILY [facility] Stop: 05/02/19 08:59 Last Admin: 04/03/19 08:47 Dose: 40 mg Documented by: Chlorpromazine HCl (Thorazine) 25 mg PO DAILY [facility] Stop: 05/02/19 08:59 Last Admin: 04/03/19 08:45 Dose: 25 mg Documented by: Chlorpromazine HCl (Thorazine) 50 mg PO HS [facility] Stop: 05/01/19 20:59 Last Admin: 04/02/19 20:14 Dose: 50 mg Documented by: Clonidine HCl (Catapres) 0.1 mg PO Q6H PRN PRN Reason: HTN Stop: 05/01/19 19:38 Last Admin: 04/02/19 04:17 Dose: 0.1 mg Documented by: Dextrose (Dextrose 50%) 25 - 50 ml IV UD PRN; Protocol PRN Reason: Hypoglycemia Protocol Stop: 05/01/19 19:38 Duloxetine HCl (Cymbalta) 60 mg PO DAILY [facility] Stop: 05/02/19 08:59 Last Admin: 04/03/19 08:47 Dose: 60 mg Documented by: Duloxetine HCl (Cymbalta) 30 mg PO DAILY [facility] Stop: 05/02/19 08:59 Last Admin: 04/03/19 08:47 Dose: 30 mg Documented by: Ferrous Sulfate (Feosol) 325 mg PO DAILY [facility] Stop: 05/02/19 08:59 Last Admin: 04/03/19 08:49 Dose: 325 mg Documented by: Fluoxetine HCl (Prozac) 20 mg PO DAILY [facility] Stop: 05/02/19 08:59 Last Admin: 04/03/19 08:48 Dose: 20 mg Documented by: Gabapentin (Neurontin) 800 mg PO TID [facility] Stop: 05/01/19 20:59 Last Admin: 04/03/19 08:47 Dose: 800 mg Documented by: Glucagon (Glucagen) 1 mg SQ UD PRN; Protocol PRN Reason: Hypoglycemia Protocol Stop: 05/01/19 19:38 Glucose (Dex4 Glucose) 4 - 8 tabs PO UD PRN; Protocol PRN Reason: Hypoglycemia Protocol Stop: 05/01/19 19:38 Glucose (Glucose 40%) 15 - 30 gm PO UD PRN; Protocol PRN Reason: Hypoglycemia Protocol Stop: 05/01/19 19:38 Hydromorphone HCl (Dilaudid) 0.5 mg IV Q4H PRN PRN Reason: Pain Stop: 04/15/19 19:38 Last Admin: 04/03/19 10:09 Dose: 0.5 mg Documented by: Ampicillin Sodium/Sulbactam Sodium 3,000 mg/ Sodium Chloride 108 mls @ 200 mls/hr IV Q6H [facility]; Protocol Stop: 04/12/19 00:00 Last Infusion: 04/03/19 07:13 Dose: Infused Documented by: Sodium Chloride (Nss 1000ml) 1,000 mls @ 100 mls/hr IV .Q10H [facility] Stop: 05/01/19 19:38 Last Infusion: 04/03/19 06:08 Dose: 0 mls/hr Documented by: Insulin Aspart (Novolog Flexpen) 0 units SC ACHS [facility] Stop: 05/01/19 20:59 Last Admin: 04/03/19 08:30 Dose: Not Given Documented by: Levothyroxine Sodium (Synthroid) 112 mcg PO DAILYBB [facility] Stop: 05/02/19 06:29 Last Admin: 04/03/19 06:03 Dose: 112 mcg Documented by: Lisinopril (Zestril) 40 mg PO DAILY [facility] Stop: 05/02/19 08:59 Last Admin: 04/03/19 08:45 Dose: 40 mg Documented by: Metoprolol Succinate (Toprol Xl) 25 mg PO DAILY [facility] Stop: 05/02/19 08:59 Last Admin: 04/03/19 08:48 Dose: 25 mg Documented by: Miscellaneous (Carbohydrates For Hypoglycemia) 15 - 30 gm PO UD PRN PRN Reason: Hypoglycemia Protocol Stop: 05/01/19 19:38 Miscellaneous (Remove Nicoderm Patch) 1 ea N/A DAILY@0859 [facility] Stop: 05/02/19 08:58 Last Admin: 04/03/19 08:49 Dose: 1 ea Documented by: Nicotine (Nicoderm Cq) 21 mg TD QAM [facility] Stop: 05/01/19 19:44 Last Admin: 04/03/19 08:49 Dose: 21 mg Documented by: Pantoprazole Sodium (Protonix) 40 mg PO DAILY [facility] Stop: 05/02/19 08:59 Last Admin: 04/03/19 08:46 Dose: 40 mg Documented by: Ticagrelor (Brilinta) 90 mg PO BID [facility] Stop: 05/01/19 20:59 Last Admin: 04/03/19 08:46 Dose: 90 mg Documented by:
[2019-04-03] MEDS ORDERED: AMOXICILLIN/CLAVULANATE 875 MG TAB PO ONE (16:08)
--- NOTE | 2019-04-03 17:16 | Discharge Summary ---
Date of Service April 03, 2019 Admission HPI Per Admitting Provider 43-year-old female who presents the ED for evaluation of mouth infection and pain. Over the past few weeks, patient has had 2 other ED evaluations for same complaint. She reports 1 of her upper teeth are broken off and she was having significant pain in that area as well as the roof of her mouth. On 03/13, patient was seen at [facility] and placed on on amoxicillin. Patient reports pain and swelling did improve however never completely resolved. Symptoms eventually returned. She was seen at [facility] 03/29 and placed on amoxicillin again. Patient presents to the ED today for persistent pain. She reports that whenever she would press on the broken left upper tooth, there would be some mild drainage from the roof of her mouth. She reports pain is severe and she has had decreased oral intake. No fevers or chills. She denies chest pain shortness of breath. No lightheadedness, dizziness, diaphoresis, syncopal events. Denies abdominal pain, nausea, vomiting, diarrhea. No urinary symptoms. In the ED, CT showing multiple dental caries and a 1.4 cm abscess of the hard palate. Labs are unremarkable. Patient is hypertensive, other vitals stable. She was given IV Unasyn, IV Dilaudid, 2 doses of IV morphine, oxycodone, IVF. Admission Exam Per Admitting Provider Constitutional: Appears to be in pain however no acute distress. Eyes: PERRL, conjunctivae normal, anicteric sclerae ENMT: Ears: no external ear abnormality Nose: no external nose abnormality Mouth: + dental caries and + poor dentition Fluctuance noted to hard palate; right facial swelling; airway patent Respiratory: normal respiratory effort; no respiratory distress Auscultation: + diminished lung sounds Cardiovascular: Rate/Rhythm: regular rate and regular rhythm Vessels: normal peripheral pulses Extremities: no edema Gastrointestinal (Abdomen): normal bowel sounds, soft, nontender, no hepatosplenomegaly Musculoskeletal: no cyanosis or clubbing, extremities motor strength 5/5 Skin: no rashes, warm and dry Neurologic: PERRL, EOMI, accommodation nl, no face palsy, no dysarthria Psychiatric: Orientation: alert and oriented x 3 Affect: + tearful affect Principal Diagnosis Dental abscess status post I&D Discharge Exam Constitutional well developed and well nourished; no acute distress Eyes PERRL, conjunctivae normal, anicteric sclerae ENMT Ears: no external ear abnormality Nose: no external nose abnormality Mouth: + dental caries and + poor dentition Respiratory normal respiratory effort; no respiratory distress Auscultation: + diminished lung sounds Cardiovascular Rate/Rhythm: regular rate and regular rhythm Vessels: normal peripheral pulses Extremities: no edema Gastrointestinal (Abdomen) normal bowel sounds, soft, nontender, no hepatosplenomegaly Musculoskeletal no cyanosis or clubbing, extremities motor strength 5/5 Skin no rashes, warm and dry Neurologic PERRL, EOMI, accommodation nl, no face palsy, no dysarthria Psychiatric Orientation: alert and oriented x 3 Affect: + tearful affect Lymphatic no cervical or axillary lymphadenopathy Discharge Data Allergies Allergy/AdvReac Type Severity Reaction Status Date / Time loratadine AdvReac Severe anxiety, Verified 04/02/19 09:49 paranoia increases cetirizine AdvReac Intermediate anxiety, Verified 04/02/19 09:49 paranoia increases fexofenadine AdvReac Intermediate anxiety Verified 04/02/19 09:49 and paranoia increases ketorolac AdvReac Mild PT STATES Verified 04/02/19 09:49 SHE IS ON THORAZINE AND CANNOT TAKE TORADOL Consultations 04/01/19 17:32 ED Decision to Admit Stat 04/01/19 19:39 Consult Oromaxillofacial Surgery Routine Procedures Performed Operation Date: 04/02/19 08:10 Actual Procedures p Oral Abscess Incision and Drainage(Not Applicable) - Raj Kowalski, DMD Ordered Studies 04/01/19 15:10 CT facial bones w con Stat Hospital Course (1) Abscess of mouth: CT evidence of dental caries with 1.4 cm abscess of the hard palate anteriorly (2) Infected tooth: As above (3) Sialoliths: -Admit to [facility] with telemetry -Patient presenting from home with reports of increasing mouth swelling and pain -Facial CT in ED showing multiple dental caries with a 1.4 cm abscess of the hard palate; two large sialoliths within the distal aspect of the right submandibular duct measuring up to 1.3 cm resulting in mild associated ductal dilation -Does not appear septic -Airway patent -Appreciate orofacial surgery input and recommendation -Status post incision and Drainage (hard palate and extraction of tooth # 7,8,9,10,11,20 and 21Status post -remains drowsy following surgery -Diet will be advanced as tolerated -Was seen by oral surgeon this morning and was advised and can go home (4) NATALIA (acute kidney injury): -Creatinine 1.4 (baseline ~0.7-0.9) -Likely prerenal secondary to poor p.o. intake secondary to mouth infection -Holding lisinopril -IVF, monitor renal functions -Renal function is normalized -Advised to drink more fluid (5) Hypertension: -BP significantly elevated, likely secondary to pain -Pain control -Continue home medications including amlodipine, metoprolol; holding lisinopril due to NATALIA, resume when renal functions normalize -PRN clonidine -Blood pressure in was on the upper side of normal (6) CAD (coronary artery disease): -Appears stable, no reports of chest pain -S/P [facility]EN to [facility] 10/2018, would not recommend holding Brilinta and aspirin -Continue statin, beta-chalino, DENISA inhibitor (7) COPD (chronic obstructive pulmonary disease): -Appears stable, no wheezing on exam -Continue home inhalers (8) DM type 2 (diabetes mellitus, type 2): -diet-controlled, Hgb A1c 5.9 08/2018 -Glucose 179 on labs, likely elevated secondary to infection -A1c with morning labs -NovoLog per protocol hospitalized (9) Bipolar disorder: (10) Depression with anxiety: -Continue Thorazine, duloxetine, fluoxetine -No acute issues (11) Hypothyroidism: -Continue levothyroxine (12) Tobacco abuse: -Patient smokes 1 pack of cigarettes per day -Counseled regarding tobacco cessation -Nicotine patch ordered (13) DVT prophylaxis: -SCDs due to invasive procedure Likely be discharged on oral Augmentin and pain medications this afternoon Total Time Total Time Spent Total Time Spent (In Minutes): 35 minutes Total Time Includes: Examination of the Patient, Discharge Planning, Medication Reconciliation and Communication With Other Providers Discharge Plan Discharge Items Patient Disposition: Home - Self-Care Reason For Visit: DENTAL ABSCESS Discharge Diagnosis: Dental abscess status post I&D Condition on Discharge: Good Activity: Resume your previous activity Bathing: No limitations Exercise/Sports: Gradually increase as tolerated Non-emergency contact: Surgeon Call non-emergency contact if: you have any medication questions, your temperature is above 101.5, your wound has increased redness and your wound has increased drainage Follow-up/Referrals: Raj Kowalski, DMD [Physician] - Jesika Rocha, QUAN [Primary Care Provider] - (Please make an appointment with your primary care physician within 7 days) Diet: Regular Addtl Attending Provider Instructions: ADDITIONAL ACTIVITY RECOMMENDATIONS: * Marshall teeth after every meal. It is very important to keep your mouth clean to prevent infection. IT IS VERY IMPORTANT THAT YOU MASSAGE THE ROOF OF YOUR MOUTH THIS IS IMPORTANT TO KEEP DOING THIS TO PREVENT AND REDUCE SWELLING SPECIAL CARE INSTRUCTIONS: * Tomorrow start rinsing your mouth with 1/2 teaspoon salt in 8 ounces warm water. This rinse should be used every 4-6 hours. * You may experience slight nausea. To prevent this, never take your medication on an empty stomach. If nauseated, take small sips of lilian anam until you feel better; then you may start on applesauce and toast. * Some swelling is common. It should gradually decrease within 4-5 days. * A certain amount of bleeding is to be expected. It is often possible to control mild oozing by placing folded gauze over the area and biting down for 30 minutes. If you are unable to control excessive bleeding, call Dr Kowalski [phone] * You may experience some discomfort for a few days. If pain or swelling increases, call Pending Studies at Discharge: No Stand-Alone Forms: My [facility], Smoking Cessation Medications and DC Order Prescriptions: New amoxicillin-pot clavulanate [Augmentin] 875-125 mg tablet 1 tab PO BID Qty: 10 RF: 0 Continued amlodipine 10 mg Tablet 10 mg PO DAILY RF: 0 aspirin [Aspir-81] 81 mg Tablet,Delayed Release (Dr/Ec) 162 mg PO DAILY RF: 0 atorvastatin 40 mg Tablet 40 mg PO DAILY RF: 0 methocarbamol 500 mg Tablet 500 mg PO TID PRN (Reason: Muscle Spasm) RF: 0 gabapentin 800 mg Tablet 800 mg PO TID RF: 0 hyoscyamine sulfate 0.125 mg Tablet 0.125 mg PO Q4H PRN (Reason: Abdominal Pain) RF: 0 ferrous sulfate 325 mg (65 mg iron) Tablet 325 mg PO DAILY RF: 0 chlorpromazine 25 mg Tablet 25 mg PO DAILY RF: 0 chlorpromazine 25 mg Tablet 50 mg PO HS RF: 0 fluoxetine 20 mg Tablet 20 mg PO DAILY RF: 0 hydroxyzine HCl 10 mg Tablet 10 mg PO QID PRN (Reason: Anxiety) RF: 0 lisinopril 40 mg Tablet 40 mg PO DAILY RF: 0 levothyroxine 112 mcg Tablet 112 mcg PO DAILY RF: 0 duloxetine 60 mg Capsule,Delayed Release(Dr/Ec) 60 mg PO DAILY RF: 0 omeprazole 20 mg Tablet,Delayed Release (Dr/Ec) 20 mg PO DAILY RF: 0 Dulera 100-5 mcg/actuation Hfa Aerosol Inhaler 2 puff INHALATION Q12H RF: 0 Brilinta 90 mg Tablet 90 mg PO BID RF: 0 Combivent Respimat 20-100 mcg/actuation Mist 1 puff INHALATION QID PRN (Reason: Shortness Of Breath) RF: 0 metoprolol succinate 25 mg Capsule,Sprinkle,Er 24hr 25 mg PO DAILY RF: 0 duloxetine 30 mg Capsule, Delayed Rel Sprinkle 30 mg PO DAILY RF: 0 hydrocodone-acetaminophen 5-325 mg Tablet 1 tab PO Q6H PRN (Reason: Pain) 3 Days Qty: 12 RF: 0 Discharge Orders: Discharge Order (Routine); Ordered 04/03/19 Ordered By: Milvia Gatica/Other Patient Handouts: A1C Admission Data Admit Date/Time: 04/01/19 18:23 Attending Provider: Milvia Reynolds Admit Provider: Reginald Castellon Primary Care Provider: Jesika Rocha Other Providers: Raj Kowalski John C. Other Interventions: Discharge Summary Assessment (RN) Last Done: 04/03/19 16:13 DC Date/Time DO NOT enter until pt leaves facility: 04/03/19 17:13
== END 2019-04-03 17:13 | disposition home or self-care (01) | DRG 158 ==
LOC: ED 14:33 → 2N 18:23 → SUATTDRO 18:23 → 2N 19:05

== ENCOUNTER 2019-04-20 18:33 | Inpatient (IN) ==
[2019-04-20] MEDS ORDERED: FAMOTIDINE 20MG/5ML IV PUSH IV STA (19:07)
[2019-04-20] MEDS ORDERED: ASPIRIN 81 MG CHEW PO STA (19:07)
[2019-04-20] MEDS ORDERED: NITROGLYCERIN SL 0.4 MG/TAB TAB SL STA (19:08)
[2019-04-20] MEDS ORDERED: MoRPHine SULFATE 4 MG/ML 1 ML CARP\\VIAL IV STA (19:11)
--- NOTE | 2019-04-20 19:30 | XRay Report ---
XR chest 1V portable CLINICAL HISTORY: 43 years-old Female presenting with Chest Pain. TECHNIQUE: Portable upright AP view of the chest was obtained. COMPARISON: None. FINDINGS: Cardiomediastinal silhouette normal. No focal opacity. No large effusion or pneumothorax. Osseous str uctures normal. Upper abdomen normal. IMPRESSION: 1. No acute cardiopulmonary disease. ACT 112: Negative or not required by law. Electronically signed by: Rajan Cuevas M.D. 04/20/2019 7:29 PM
[2019-04-20 20:06] LABS: Basophils # (auto) 0.02 K/uL (0-0.2); Basophils % (auto) 0.2 %; Eosinophils # (auto) 0.14 K/uL (0-0.5); Eosinophils % (auto) 1.4 %; Hematocrit (blood only) 33.3 % (37-47); Immature Granulocytes # (auto) 0.04 K/uL (0.00-0.02); Immature Granulocytes % (auto) 0.4 %; Lymphocytes # (auto) 2.28 K/uL (1.2-3.4); Lymphocytes % (auto) 22.5 %; Mean Corpuscular Hemoglobin 30.8 pg (25-34); Mean Corpuscular Volume 93.3 fL (80-100); Mean Platelet Volume 9.7 fL (7.4-10.4); Monocytes # (auto) 0.71 K/uL (0.11-0.59); Neutrophils # (auto) 6.96 K/uL (1.4-6.5); Neutrophils % (auto) 68.5 %; Platelet Count 311 K/uL (130-400); RDW Coefficient of Variation 15.8 % (11.5-14.5); RDW Standard Deviation 53.8 fL (36.4-46.3); Red Blood Count 3.57 M/uL (4.2-5.4); White Blood Count 10.15 K/uL (4.8-10.8)
[2019-04-20 20:25] LABS: INR 1.1 (0.9-1.1); Partial Thromboplastin Ratio 0.8; Prothrombin Time 11.1 Seconds (9.0-12.0)
[2019-04-20 20:29] LABS: Alanine Aminotransferase 22 U/L (12-78); Albumin Level 3.1 gm/dl (3.4-5.0); Aspartate Aminotransferase 15 U/L (15-37); BUN Creatinine Ratio 13.7 (10-20); Blood Urea Nitrogen 9 mg/dl (7-18); Calcium 8.7 mg/dl (8.5-10.1); Carbon Dioxide 21 mmol/L (21-32); Chloride 110 mmol/L (98-107); Creatinine Clr Calc Pharmacy 107.2 ml/min; Est GFR (African American) 129.1; Est GFR (Non-African American) 111.4; Glucose 107 mg/dl (70-99); Lipase 56 U/L (73-393); Potassium 3.4 mmol/L (3.5-5.1); Sodium 138 mmol/L (136-145)
[2019-04-20 20:33] LABS: Albumin Globulin Ratio 0.9 (0.9-2); Alkaline Phosphatase 75 U/L (45-117); Bilirubin,Total 0.3 mg/dl (0.2-1); Globulin 3.5 gm/dl (2.5-4.0); Total Protein 6.6 gm/dl (6.4-8.2); Troponin I < 0.015 ng/ml (0-0.045)
[2019-04-20] MEDS ORDERED: LABETALOL HCL IV 5 MG/ML 20ML IV STA (21:25)
[2019-04-20] MEDS ORDERED: MoRPHine SULFATE 2 MG/ML CARP IV STA (21:25)
[2019-04-20] MEDS ORDERED: OPTIRAY 320 125ml IV PRN (21:45)
--- NOTE | 2019-04-20 22:00 | CT Scan Report ---
CT angio chest dissec wo/w con CLINICAL HISTORY: 43 years-old Female presenting with MN ^LABS B4B ^cp, sob. TECHNIQUE: Multidetector CT angiography of the chest was performed before and after the administratio n of intravenous contrast. 3-D volumetric and/or maximum intensity projection (MIP) images were subse quently reconstructed for review. IV contrast: 116 mL of Optiray 320. One or more dose lowering techn iques were used consistent with the principles of ALARA (as low as reasonably achievable), including automatic exposure control, mA or kV adjustment to individual patient size, and/or use of iterative r econstruction. COMPARISON: Chest x-ray performed earlier the same day. CT DOSE (mGy.cm): The estimated cumulative dose is 842.46 mGy.cm. FINDINGS: Sports Announcer topogram: Unremarkable. Vasculature: The study is adequate for assessment of the aorta. Precontrast imaging demonstrates no evidence of in tramural hematoma. Minimal predominantly noncalcified atherosclerotic plaque of the descending thorac ic aorta. The ascending thoracic aorta and aortic arch are spared. Postcontrast imaging demonstrates no evidence of dissection, penetrating ulcer, or aneurysm. Allowing for timing of the contrast bolus, no gross evidence of a filling defect within the pulmonary arteries to suggest embolus. Main pulmona ry artery is not enlarged. No flattening of the interventricular septum. No intracardiac filling defe ct. No reflux of contrast into the hepatic veins. Remaining chest: Soft tissues: Normal thyroid and thoracic inlet. Bilateral hilar lymph nodes, likely reactive. Normal heart size. Coronary artery calcification. No pericardial or pleural effusion. Upper abdomen normal. Lungs and airways: No pneumothorax. Central airways patent. Mild diffuse bronchial wall thickening. P ulmonary arteries are not significantly enlarged relative to adjacent bronchi. No interlobular septal thickening. Minimal dependent changes likely atelectasis. Musculoskeletal: Normal osseous structures. IMPRESSION: 1. No evidence of acute aortic injury. Mild atherosclerosis of the descending thoracic aorta. 2. Mild diffuse bronchial wall thickening suggests bronchitis, likely infectious or inflammatory. 3. Bibasilar atelectasis. ACT 112: Negative or not required by law. Electronically signed by: Rajan Cuevas M.D. 04/20/2019 9:59 PM
[2019-04-20] MEDS ORDERED: POTASSIUM CHLORIDE 20 MEQ TABCR PO STA (22:22)
[2019-04-20 22:47] LABS: Magnesium 1.7 mg/dl (1.8-2.4); Thyroid Stimulating Hormone 0.647 uIu/ml (0.300-4.500)
[2019-04-20] MEDS ORDERED: carvediloL 3.125 MG TAB PO ONE (23:06)
--- NOTE | 2019-04-20 23:08 | History & Physical Report ---
Date of Service April 20, 2019 Assessment & Plan (1) Chest pain: Possibly secondary to uncontrolled hypertension NSAID intake, personal stressors contributory Rule out sleep disordered breathing as contributory factor ro ACS, hx CAD status post stent (10/2018) AAA status post surgery (2014) hx CVA as per records COPD, ongoing tobacco abuse: Pulmonary status at baseline mood disorder, at baseline as per patient DM 2 diet-controlled, will controlled as of recent hemoglobin A1c of 6.3 Mar hypothyroidism as per records, euthyroid as of today's TSH chronic anemia, hemoglobin at baseline history leg clot status post embolectomy as per patient drug-seeking behavior as per records Hypokalemia OBS PCU Replace Lopressor with Coreg May benefit from addition of long-acting nitrate rx Follow troponin Cardiology consult RE chest pain, history of CAD; uncontrolled hypertension Patient counseled about adverse effects of NSAIDs on BP control. Judicious narcotic use given history drug-seeking behavior as per records outpatient sleep study Replace potassium Basal insulin, ISS BG goal [id number] Nicotine patch PRN DVT phylaxis per Lovenox subcu Full code History of Present Illness Chief Complaint: Chest pain Primary Care Provider: Jesika Rocha PA-C History obtained from patient and records. Medical history significant for CAD status post stent (10/2018), AAA status post surgery (2014), CVA as per records, hypertension, COPD, ongoing tobacco abuse, mood disorder, DM 2 diet-controlled, hypothyroidism as per records, chronic anemia baseline hemoglobin of 11, history leg clot status post surgery as per patient, drug-seeking behavior as per records. Recent confinement 3 weeks ago for oral abscess status post drainage. In the last 2 weeks, patient experienced intermittent squeezing left chest discomfort occasionally going to the left arm with some shortness of breath. Similar to anginal attack in the past usually precipitated by stress and exertion. Relieved by rest. No unusual cough symptoms. Two [facility] facility ER visits in the last 2 weeks for chest pain complaints. Home SBP 140-180s as per patient. Patient claims to be compliant with home medications. Taking OTC NSAIDs for body aches. Snoring symptoms and not feeling rested in the morning. No unusual headaches. Denies dietary discretion. Patient slated to have first first appointment with local [facility] transport conductor in [facility] and this month. Today, patient had recurrence of left-sided chest pain while cleaning the bathroom. At the ER, highest SBP was 200s. Patient given labetalol and nitroglycerin. Chest pain currently improved as per patient. Medical History as above TTE February 2019 ([facility]) EF 55 to 60%, mild mitral regurgitation, mild to moderate tricuspid regurgitation. LAE. Normal diastolic function. Surgical History : AAA surgery, carpal tunnel surgery, RLE embolectomy with patch placement, section, elbow surgery, hernia repair, knee surgery, cholecystectomy, BTL, tonsillectomy, dental surgery Family History : Alcoholism, diabetes, heart disease, stroke, seizure Personal/Social history : 5 cigarettes a day, occasional EtOH intake, disabled Allergies Allergy/AdvReac Type Severity Reaction Status Date / Time loratadine AdvReac Severe anxiety, Verified 04/20/19 19:30 paranoia increases cetirizine AdvReac Intermediate anxiety, Verified 04/20/19 19:30 paranoia increases fexofenadine AdvReac Intermediate anxiety Verified 04/20/19 19:30 and paranoia increases ketorolac AdvReac Mild PT STATES Verified 04/20/19 19:30 SHE IS ON THORAZINE AND CANNOT TAKE TORADOL tramadol AdvReac Mild hallucinati Verified 04/21/19 00:40 ons Home Medications Home Medications Medication Instructions Recorded Confirmed Type amlodipine 10 mg PO DAILY 05/13/18 04/20/19 History aspirin [Aspir-81] 162 mg PO DAILY 05/13/18 04/20/19 History Brilinta 90 mg PO BID 04/01/19 04/20/19 History Combivent Respimat 1 puff INHALATION QID PRN 04/01/19 04/20/19 History Dulera 2 puff INHALATION Q12H 04/01/19 04/20/19 History atorvastatin 40 mg PO DAILY 04/01/19 04/20/19 History chlorpromazine 25 mg PO DAILY 04/01/19 04/20/19 History chlorpromazine 50 mg PO HS 04/01/19 04/20/19 History duloxetine 30 mg PO DAILY 04/01/19 04/20/19 History duloxetine 60 mg PO DAILY 04/01/19 04/20/19 History ferrous sulfate 325 mg PO DAILY 04/01/19 04/20/19 History fluoxetine 20 mg PO DAILY 04/01/19 04/20/19 History gabapentin 800 mg PO TID 04/01/19 04/20/19 History hydroxyzine HCl 10 mg PO QID PRN 04/01/19 04/20/19 History levothyroxine 112 mcg PO DAILY 04/01/19 04/20/19 History lisinopril 40 mg PO DAILY 04/01/19 04/20/19 History methocarbamol 500 mg PO TID PRN 04/01/19 04/20/19 History metoprolol succinate 25 mg PO DAILY 04/01/19 04/20/19 History omeprazole 20 mg PO DAILY 04/01/19 04/20/19 History Past Med/Surg History Medical History Ankle fracture, left (Acute) Bipolar disorder CAD (coronary artery disease) 10/2018-HARLEEN to LAD Chronic pain COPD (chronic obstructive pulmonary disease) Depression with anxiety DM type 2 (diabetes mellitus, type 2) History of DVT (deep vein thrombosis) Hypertension (Chronic) Hypothyroidism (Acute) Neuropathy Raynauds disease Tobacco abuse Surgical History H/O elbow surgery H/O tubal ligation History of arthroscopic knee surgery History of carpal tunnel surgery of right wrist History of incisional hernia repair Hx of cholecystectomy Hx of oral surgery (04/02/19) Oral Abscess Incision and Drainage (hard palate and extraction of tooth # 7,8,9,10,11,20 and 21) Dr. Kowalski 04-02-19 S/P AAA repair S/P tonsillectomy Family History Mother Diabetes Social History Preferred Language: Emir[place] Communication Ability: Effective Roof Mechanic Required: No Beliefs That Will Affect Care: None marital status: Current Living Situation: Family and Significant Other current occupational status: disabled Other Information That Helps Us Care for You: No Feels Safe at Home: Yes Safety Concerns: Feels Safe At This Time Smoking Status: Current every day smoker Tobacco Type: cigarettes and smokeless tobacco ; Cigarettes Per Day: 6 ; Hx Alcohol Use: Yes Alcohol type: hard liquor Hx Substance Use: No Review of Systems Review of Systems: As per HPI, all 10 systems reviewed, dark stools, all other ROS negative Physical Exam Physical Exam: GENERAL: Slightly uncomfortable, obese, looks older for stated age, no respiratory distress SKIN: Pallor, warm HEENT: Pale palpebral conjunctivae, no ptosis, moist buccal mucosa, partially edentulous NECK : Supple, no tenderness CHEST : CTA, no tenderness HEART : RRR, no obvious murmurs ABDOMEN: Some distention, nontender RECTAL : Intact sphincter, brown stool (FOBT negative) EXTREMITIES : Chronic RLE swelling/tenderness, no other conspicuous deformities noted NEUROLOGIC : Coherent, no facial asymmetry, no other gross focality Results & Data Vital Signs (Past 12 Hours) Vital Signs Temp Pulse Pulse Resp BP BP Pulse Ox 04/20/19 22:10 72 20 156/96 H 98 04/20/19 21:12 80 24 162/103 H 96 04/20/19 20:28 83 20 163/100 H 95 04/20/19 18:34 36.7 C 107 H 20 164/108 H 100 Laboratory Results Laboratory Results WBC 10.15 K/uL (4.8-10.8) 04/20/19 19:48 RBC 3.57 M/uL (4.2-5.4) L 04/20/19 19:48 Hgb 11.0 g/dL (12.0-16.0) L 04/20/19 19:48 Hct 33.3 % (37-47) L 04/20/19 19:48 MCV 93.3 fL (80-100) 04/20/19 19:48 MCH 30.8 pg (25-34) 04/20/19 19:48 MCHC 33.0 g/dL (32-36) 04/20/19 19:48 RDW Std Deviation 53.8 fL (36.4-46.3) H 04/20/19 19:48 RDW Coeff of Vivek 15.8 % (11.5-14.5) H 04/20/19 19:48 Plt Count 311 K/uL (130-400) 04/20/19 19:48 MPV 9.7 fL (7.4-10.4) 04/20/19 19:48 Immature Gran % (Auto) 0.4 % 04/20/19 19:48 Neut % (Auto) 68.5 % 04/20/19 19:48 Lymph % (Auto) 22.5 % 04/20/19 19:48 Corson % (Auto) 7.0 % 04/20/19 19:48 Eos % (Auto) 1.4 % 04/20/19 19:48 Baso % (Auto) 0.2 % 04/20/19 19:48 Immature Gran # (Auto) 0.04 K/uL (0.00-0.02) H 04/20/19 19:48 Neut # (Auto) 6.96 K/uL (1.4-6.5) H 04/20/19 19:48 Lymph # (Auto) 2.28 K/uL (1.2-3.4) 04/20/19 19:48 Corson # (Auto) 0.71 K/uL (0.11-0.59) H 04/20/19 19:48 Eos # (Auto) 0.14 K/uL (0-0.5) 04/20/19 19:48 Baso # (Auto) 0.02 K/uL (0-0.2) 04/20/19 19:48 PT 11.1 Seconds (9.0-12.0) 04/20/19 19:48 INR 1.1 (0.9-1.1) 04/20/19 19:48 APTT 23.0 Seconds (21.0-31.0) 04/20/19 19:48 PTT Ratio 0.8 04/20/19 19:48 Sodium 138 mmol/L (136-145) 04/20/19 19:48 Potassium 3.4 mmol/L (3.5-5.1) L 04/20/19 19:48 Chloride 110 mmol/L (98-107) H 04/20/19 19:48 Carbon Dioxide 21 mmol/L (21-32) 04/20/19 19:48 Anion Gap 6.0 (3-11) 04/20/19 19:48 BUN 9 mg/dl (7-18) 04/20/19 19:48 Creatinine 0.63 mg/dl (0.6-1.2) 04/20/19 19:48 Est Cr Clr Drug Dosing 107.2 ml/min 04/20/19 19:48 Est GFR ( Amer) 129.1 04/20/19 19:48 Est GFR (Non-Af Amer) 111.4 04/20/19 19:48 BUN/Creatinine Ratio 13.7 (10-20) 04/20/19 19:48 Glucose 107 mg/dl (70-99) H 04/20/19 19:48 Calcium 8.7 mg/dl (8.5-10.1) 04/20/19 19:48 Magnesium 1.7 mg/dl (1.8-2.4) L 04/20/19 19:48 Total Bilirubin 0.3 mg/dl (0.2-1) 04/20/19 19:48 AST 15 U/L (15-37) 04/20/19 19:48 ALT 22 U/L (12-78) 04/20/19 19:48 Alkaline Phosphatase 75 U/L (45-117) 04/20/19 19:48 Troponin I < 0.015 ng/ml (0-0.045) 04/20/19 19:48 Total Protein 6.6 gm/dl (6.4-8.2) 04/20/19 19:48 Albumin 3.1 gm/dl (3.4-5.0) L 04/20/19 19:48 Globulin 3.5 gm/dl (2.5-4.0) 04/20/19 19:48 Albumin/Globulin Ratio 0.9 (0.9-2) 04/20/19 19:48 Lipase 56 U/L (73-393) L 04/20/19 19:48 TSH 0.647 uIu/ml (0.300-4.500) 04/20/19 19:[address] chest: 1. No evidence of acute aortic injury. Mild atherosclerosis of the descending thoracic aorta. 2. Mild diffuse bronchial wall thickening suggests bronchitis, likely infectious or inflammatory. 3. Bibasilar atelectasis. EKG as per my interpretation:Rate 85, NSR, normal axis, T wave flattening inferior leads (1) Chest pain Chest pain type: unspecified Qualified Code(s): R07.9 - Chest pain, unspecified
--- NOTE | 2019-04-20 23:16 | Emergency Department Note ---
Entered by Kari Cano acting as a scribe for History of Present Illness General Chief complaint: Chest Pain Stated complaint: CHEST PAIN Time Seen by Provider: 04/20/19 18:58 Source: patient Mode of arrival: ambulatory Limitations: no limitations History of Present Illness Provider complaint: Chest pain Onset (ago): minute(s) 45 Location: chest (right-sided) Pain Consistency: + other (waxing and waning) Maximum Pain Intensity: 7 Current Pain Intensity: 8 Quality: + burning, + stabbing and + other (squeezing) Associated symptoms: + shortness of breath and + other (Denies: swelling, neck pain, hand tingling); no fever/chills and no nausea/vomiting Treatments prior to arrival: other (3 nitroglycerin) The patient is a 43 year old female with a history of COPD, CAD, type 2 diabetes, hypertension, hypothyroidism, neuropathy, AAA repair about 5 years ago, knee surgery, oral surgery, cholecystectomy, tubal ligation, and DVT who presents to the Emergency Room with complaints of waxing and waning right-sided chest pain starting about 45 minutes prior to arrival. The patient describes her pain as a squeezing, burning, stabbing 8/10 pain. She reports that she was cleaning her bathroom at the onset of her pain. She notes that she felt well earlier today and denies using any strong cleaning chemicals. She states that her chest pain has been accompanied by constant shortness of breath, although it does not feel like her COPD. She indicates that her pain is more similar to when she had her heart stent placed 5 months ago. She denies any nausea, swelling, fevers, neck pain, and hand tingling. She also recalls no recent falls and travel. The patient reports that that she took 3 nitroglycerin prior to arrival with some improvement of her symptoms. She states that she last took a dose en route to the ED. She notes that she also takes 2 81 mg aspirin daily and has been taking her medication as prescribed. She mentions that she follows [facility] cardiology. Home Medications Home Medications Medication Instructions Recorded Confirmed Type amlodipine 10 mg PO DAILY 05/13/18 04/20/19 History aspirin [Aspir-81] 162 mg PO DAILY 05/13/18 04/20/19 History Brilinta 90 mg PO BID 12/29/19 01/17/20 History Combivent Respimat 1 puff INHALATION QID PRN 04/01/19 04/20/19 History Dulera 2 puff INHALATION Q12H 04/01/19 04/20/19 History atorvastatin 40 mg PO DAILY 04/01/19 04/20/19 History chlorpromazine 25 mg PO DAILY 04/01/19 04/20/19 History chlorpromazine 50 mg PO HS 04/01/19 04/20/19 History duloxetine 30 mg PO DAILY 04/01/19 04/20/19 History duloxetine 60 mg PO DAILY 04/01/19 04/20/19 History ferrous sulfate 325 mg PO DAILY 04/01/19 04/20/19 History fluoxetine 20 mg PO DAILY 04/01/19 04/20/19 History gabapentin 800 mg PO TID 04/01/19 04/20/19 History hydroxyzine HCl 10 mg PO QID PRN 04/01/19 04/20/19 History levothyroxine 112 mcg PO DAILY 04/01/19 04/20/19 History lisinopril 40 mg PO DAILY 04/01/19 04/20/19 History methocarbamol 500 mg PO TID PRN 04/01/19 04/20/19 History metoprolol succinate 25 mg PO DAILY 04/01/19 04/20/19 History omeprazole 20 mg PO DAILY 04/01/19 04/20/19 History Allergies Allergy/AdvReac Type Severity Reaction Status Date / Time loratadine AdvReac Severe anxiety, Verified 04/20/19 19:30 paranoia increases cetirizine AdvReac Intermediate anxiety, Verified 04/20/19 19:30 paranoia increases fexofenadine AdvReac Intermediate anxiety Verified 04/20/19 19:30 and paranoia increases ketorolac AdvReac Mild PT STATES Verified 04/20/19 19:30 SHE IS ON THORAZINE AND CANNOT TAKE TORADOL Past Med/Surg History Medical History Ankle fracture, left (Acute) Bipolar disorder CAD (coronary artery disease) 10/2018-[facility] to [facility]AD Chronic pain COPD (chronic obstructive pulmonary disease) Depression with anxiety DM type 2 (diabetes mellitus, type 2) History of DVT (deep vein thrombosis) Hypertension (Chronic) Hypothyroidism (Acute) Neuropathy Raynauds disease Tobacco abuse Surgical History H/O elbow surgery H/O tubal ligation History of arthroscopic knee surgery History of carpal tunnel surgery of right wrist History of incisional hernia repair Hx of cholecystectomy Hx of oral surgery (04/02/19) Oral Abscess Incision and Drainage (hard palate and extraction of tooth # 7,8,9,10,11,20 and 21) Dr. Kowalski 04-02-19 S/P AAA repair S/P tonsillectomy Family History Mother Diabetes Social History Preferred Language: Uzbek Communication Ability: Effective Audit Consultant Required: No Beliefs That Will Affect Care: None marital status: Current Living Situation: Family and Significant Other current occupational status: disabled Feels Safe at Home: Yes Smoking Status: Current every day smoker Tobacco Type: cigarettes ; Cigarettes Per Day: 20 ; Hx Alcohol Use: No Hx Substance Use: No Review of Systems See HPI for pertinent positives & negatives. and A total of 10 systems reviewed and were otherwise negative Physical Exam Vital Signs Vital Signs - 24 hr 04/20/19 18:34 04/20/19 19:07 04/20/19 20:28 Temperature 36.7 C Temperature Source Oral Pulse Rate 107 H Pulse Rate [Right Finger] 83 Respiratory Rate 20 20 Blood Pressure 164/108 H Blood Pressure [Right Arm] 163/100 H Blood Pressure Mean 126 Blood Pressure Mean [Right Arm] 121 Blood Pressure Position [Right Arm] Sitting Pulse Oximetry 100 95 Oxygen Delivery Method Room Air Room Air Sepsis Recent Fever Within 48 Hours No Sepsis Action Taken by Nursing No Action Required 04/20/19 21:12 04/20/19 22:10 04/20/19 23:12 Temperature Temperature Source Pulse Rate Pulse Rate [Right Finger] 80 72 73 Respiratory Rate 24 20 18 Blood Pressure Blood Pressure [Right Arm] 162/103 H 156/96 H 150/104 H Blood Pressure Mean Blood Pressure Mean [Right Arm] 122 116 119 Blood Pressure Position [Right Arm] Pulse Oximetry 96 98 98 Oxygen Delivery Method Room Air Room Air Sepsis Recent Fever Within 48 Hours Sepsis Action Taken by Nursing GENERAL: Awake, alert, uncomfortable-appearing, in no distress HENT: Normocephalic, atraumatic. EYES: Normal conjunctiva. Sclera non-icteric. NECK: Supple. No nuchal rigidity. RESPIRATORY: No wheezes. Normal respiratory effort. CARDIAC: Normal rate. Normal rhythm. Extremities warm and well perfused. GI: Soft, non-distended. No tenderness to palpation. RECTAL: Deferred. MUSCULOSKELETAL: Atraumatic. Chest examination reveals no tenderness. LOWER EXTREMITIES: Calves are equal size bilaterally and non-tender. No edema NEURO: Normal sensorium. No sensory or motor deficits noted. No facial droop. SKIN: Warm and dry. No rash or jaundice noted. Course Course 1903: The patient was evaluated in room B4B, and a complete history and physical examination were performed. 2124: I checked on the patient and updated her on her results. She expressed mild improvement of her chest pain. 2210: I reevaluated the patient at this time. She is agreeable to admission. 2: I reviewed the patient's case with Lalo Acosta. Dr. Interiano will evaluate the patient for further management. Consultations Consultation #1: I reviewed the patient's case with Lalo Acosta. Dr. Interiano will evaluate the patient for further management. Time: 22:12 Administered Medications Ioversol (Optiray 320 125ml) 116 ml IV ONCE PRN PRN Reason: Interaction Checking Stop: 04/24/19 21:44 Last Admin: 04/20/19 21:45 Dose: 116 ml Documented by: [id number] Discontinued Medications Aspirin (Aspirin Chew) 162 mg PO NOW STA Stop: 04/20/19 19:08 Last Admin: 04/20/19 20:04 Dose: 162 mg Documented by: [id number] Carvedilol (Coreg) 3.125 mg PO NOW ONE Stop: 04/20/19 23:07 Last Admin: 04/20/19 23:13 Dose: 3.125 mg Documented by: [id number] Famotidine (Pepcid 20mg Iv Push) 20 mg IV ONE STA Stop: 04/20/19 19:08 Last Admin: 04/20/19 20:38 Dose: 20 mg Documented by: [id number] Labetalol HCl (Normodyne) 10 mg IV NOW STA Stop: 04/20/19 21:26 Last Admin: 04/20/19 22:10 Dose: 10 mg Documented by: [id number] Cosigned by: [id number] Morphine Sulfate (Morphine Sulfate) 4 mg IV NOW STA Stop: 04/20/19 19:12 Last Admin: 04/20/19 20:04 Dose: 4 mg Documented by: [id number] Morphine Sulfate (Morphine Sulfate) 2 mg IV NOW Stop: 04/20/19 21:26 Last Admin: 04/20/19 22:13 Dose: 2 mg Documented by: [id number] Nitroglycerin (Nitrostat) 0.4 mg SL NOW Stop: 04/20/19 19:09 Last Admin: 04/20/19 20:05 Dose: 0.4 mg Documented by: [id number] Potassium Chloride (Klor-Con M20) 40 meq PO NOW Stop: 04/20/19 22:23 Last Admin: 04/20/19 23:13 Dose: 40 meq Documented by: [id number] Medical Decision Making Differential Diagnosis Differential diagnosis includes: cardiac ischemia, aortic dissection, pulmonary embolism, pneumonia, pneumothorax, musculoskeletal, infections, pericarditis, myocarditis, esophageal rupture, gastrointestinal, as well as others were ente rtained. Medical Records Attestation: I reviewed the patient's medical records. Home Medications Current Medication List: was personally reviewed by me Laboratory Data Attestation: I reviewed the patient's lab results. Result diagrams: 04/20/19 19:48 04/20/19 19:48 Lab Results 04/20/19 04/20/19 04/20/19 Range/Units 19:48 19:48 19:48 WBC 10.15 (4.8-10.8) K/uL RBC 3.57 L (4.2-5.4) M/uL Hgb 11.0 L (12.0-16.0) g/dL Hct 33.3 L (37-47) % MCV 93.3 (80-100) fL MCH 30.8 (25-34) pg MCHC 33.0 (32-36) g/dL RDW Std Deviation 53.8 H (36.4-46.3) fL RDW Coeff of Vivek 15.8 H (11.5-14.5) % Plt Count 311 (130-400) K/uL MPV 9.7 (7.4-10.4) fL Immature Gran % (Auto) 0.4 % Neut % (Auto) 68.5 % Lymph % (Auto) 22.5 % [place] % (Auto) 7.0 % Eos % (Auto) 1.4 % Baso % (Auto) 0.2 % Immature Gran # (Auto) 0.04 H (0.00-0.02) K/uL Neut # (Auto) 6.96 H (1.4-6.5) K/uL Lymph # (Auto) 2.28 (1.2-3.4) K/uL [place] # (Auto) 0.71 H (0.11-0.59) K/uL Eos # (Auto) 0.14 (0-0.5) K/uL Baso # (Auto) 0.02 (0-0.2) K/uL PT 11.1 (9.0-12.0) Seconds INR 1.1 (0.9-1.1) APTT 23.0 (21.0-31.0) Seconds PTT Ratio 0.8 Sodium 138 (136-145) mmol/L Potassium 3.4 L (3.5-5.1) mmol/L Chloride 110 H (98-107) mmol/L Carbon Dioxide 21 (21-32) mmol/L Anion Gap 6.0 (3-11) BUN 9 (7-18) mg/dl Creatinine 0.63 (0.6-1.2) mg/dl Est Cr Clr Drug Dosing 107.2 ml/min Est GFR ( Amer) 129.1 Est GFR (Non-Af Amer) 111.4 BUN/Creatinine Ratio 13.7 (10-20) Glucose 107 H (70-99) mg/dl Calcium 8.7 (8.5-10.1) mg/dl Magnesium 1.7 L (1.8-2.4) mg/dl Total Bilirubin 0.3 (0.2-1) mg/dl AST 15 (15-37) U/L ALT 22 (12-78) U/L Alkaline Phosphatase 75 (45-117) U/L Troponin I < 0.015 (0-0.045) ng/ml Total Protein 6.6 (6.4-8.2) gm/dl Albumin 3.1 L (3.4-5.0) gm/dl Globulin 3.5 (2.5-4.0) gm/dl Albumin/Globulin Ratio 0.9 (0.9-2) Lipase 56 L (73-393) U/L TSH 0.647 (0.300-4.500) uIu/ml Imaging Data Radiologist's Impression: Radiology results as stated below per my review and the radiologist's interpretation: XR chest 1V portable CLINICAL HISTORY: 43 years-old Female presenting with Chest Pain. TECHNIQUE: Portable upright AP view of the chest was obtained. COMPARISON: None. FINDINGS: Cardiomediastinal silhouette normal. No focal opacity. No large effusion or pneumothorax. Osseous structures normal. Upper abdomen normal. IMPRESSION: 1. No acute cardiopulmonary disease. ACT 112: Negative or not required by law. Electronically signed by: Rajan Cuevas M.D. 04/20/2019 7:[address] angio chest dissec wo/w con CLINICAL HISTORY: 43 years-old Female presenting with [place] ^LABS B4B ^cp, sob. TECHNIQUE: Multidetector CT angiography of the chest was performed before and after the administration of intravenous contrast. 3-D volumetric and/or maximum intensity projection (MIP) images were subsequently reconstructed for review. IV contrast: 116 mL of Optiray 320. One or more dose lowering techniques were used consistent with the principles of ALARA (as low as reasonably achievable), including automatic exposure control, mA or kV adjustment to individual patient size, and/or use of iterative reconstruction. COMPARISON: Chest x-ray performed earlier the same day. CT DOSE (mGy.cm): The estimated cumulative dose is 842.46 mGy.cm. FINDINGS: Counter Pocket Sewer topogram: Unremarkable. Vasculature: The study is adequate for assessment of the aorta. Precontrast imaging demons trates no evidence of intramural hematoma. Minimal predominantly noncalcified atherosclerotic plaque of the descending thoracic aorta. The ascending thoracic aorta and aortic arch are spared. Postcontrast imaging demonstrates no evidence of dissection, penetrating ulcer, or aneurysm. Allowing for timing of the contrast bolus, no gross evidence of a filling defect within the pulmonary arteries to suggest embolus. Main pulmonary artery is not enlarged. No flattening of the interventricular septum. No intracardiac filling defect. No reflux of contrast into the hepatic veins. Remaining chest: Soft tissues: Normal thyroid and thoracic inlet. Bilateral hilar lymph nodes, likely reactive. Normal heart size. Coronary artery calcification. No pericardial or pleural effusion. Upper abdomen normal. Lungs and airways: No pneumothorax. Central airways patent. Mild diffuse bronchial wall thickening. Pulmonary arteries are not significantly enlarged relative to adjacent bronchi. No interlobular septal thickening. Minimal dependent changes likely atelectasis. Musculoskeletal: Normal osseous structures. IMPRESSION: 1. No evidence of acute aortic injury. Mild atherosclerosis of the descending thoracic aorta. 2. Mild diffuse bronchial wall thickening suggests bronchitis, likely infectious or inflammatory. 3. Bibasilar atelectasis. ACT 112: Negative or not required by law. Electronically signed by: Rajan Cuevas M.D. 04/20/2019 9:59 PM ECG Data Attestation: I personally reviewed and interpreted this ECG as follows: Indication: + chest pain Rate (beats per minute): 96 Rhythm: + normal sinus ECG Earle: + Normal ECG ST segments: + T-wave inversions (lead III); no ST depression and no ST elevation ECG Findings: no PVCs Comparison ECG Date: from (04/02/19) Change: the following changes noted (TWI in lead III appears new) Blood Pressure Blood Pressure Findings: Elevated blood pressure Blood Pressure Disposition: further management by hospitalist LANCE Narrative Patient is a 43-year-old female with extensive past medical history including AAA, CAD, recent mouth infection, COPD presenting today with a complaint of chest pain and shortness of breath onset about 45 minutes prior to arrival while cleaning. Denies trauma or fever. Benign abdomen. Took 3 nitroglycerin prior to arrival given additional and here. Significant hypertensive 200 systolic when I am in the room. Chest x-ray is unremarkable here. CT of the chest was complete exclude large PE or dissection, however the concern for possible underlying ACS in this patient. EKG with new inferior (III) T wave inversions but no renetta ST elevation. Given additional aspirin here in addition to some morphine for pain. Chest x-ray here is unremarkable. Initial laboratory studies without significant abnormality. Troponin here is initially negative and labs are otherwise not significantly remarkable. Given additional small labetalol morphine for still significant hypertension. Still endorsing chest pain. CT likely shows no evidence of large central PE or dissection. Question some bronchitis component. Given her cardiac history however do have concerns with the sudden onset and a discussion with her recommended further evaluation here in the hospital. She has uncontrolled hypertension as well. [facility] hospitalist was contacted. Impression & Plan Chest pain, Shortness of breath, Hypertension Discharge Plan Visit Data Chief Complaint: Chest Pain Stated Complaint: CHEST PAIN ED Provider: Artur Mane Discharge Problem: Chest pain, Shortness of breath, Hypertension Patient Disposition: Admitted As Inpatient Forms Stand Alone Forms: Call Back Authorization, My [facility] Prescriptions Prescriptions: No Action amlodipine 10 mg Tablet 10 mg PO DAILY RF: 0 aspirin [Aspir-81] 81 mg Tablet,Delayed Release (Dr/Ec) 162 mg PO DAILY RF: 0 atorvastatin 40 mg Tablet 40 mg PO DAILY RF: 0 methocarbamol 500 mg Tablet 500 mg PO TID PRN (Reason: Muscle Spasm) RF: 0 gabapentin 800 mg Tablet 800 mg PO TID RF: 0 ferrous sulfate 325 mg (65 mg iron) Tablet 325 mg PO DAILY RF: 0 chlorpromazine 25 mg Tablet 25 mg PO DAILY RF: 0 chlorpromazine 25 mg Tablet 50 mg PO HS RF: 0 fluoxetine 20 mg Tablet 20 mg PO DAILY RF: 0 hydroxyzine HCl 10 mg Tablet 10 mg PO QID PRN (Reason: Anxiety) RF: 0 lisinopril 40 mg Tablet 40 mg PO DAILY RF: 0 levothyroxine 112 mcg Tablet 112 mcg PO DAILY RF: 0 duloxetine 60 mg Capsule,Delayed Release(Dr/Ec) 60 mg PO DAILY RF: 0 omeprazole 20 mg Tablet,Delayed Release (Dr/Ec) 20 mg PO DAILY RF: 0 Dulera 100-5 mcg/actuation Hfa Aerosol Inhaler 2 puff INHALATION Q12H RF: 0 Brilinta 90 mg Tablet 90 mg PO BID RF: 0 Combivent Respimat 20-100 mcg/actuation Mist 1 puff INHALATION QID PRN (Reason: Shortness Of Breath) RF: 0 metoprolol succinate 25 mg Capsule,Sprinkle,Er 24hr 25 mg PO DAILY RF: 0 duloxetine 30 mg Capsule, Delayed Rel Sprinkle 30 mg PO DAILY RF: 0 Referrals Referrals: Jesika Rocha PA-C [Primary Care Provider] - Discharge Problem: Chest pain Qualifiers: Chest pain type: unspecified Qualified Code(s): R07.9 - Chest pain, unspecified Hypertension Qualifiers: Hypertension type: unspecified Qualified Code(s): I10 - Essential (primary) hypertension The scribe's documentation has been prepared under my direction and personally reviewed by me in its entirety. I confirm that the note above accurately reflects all work, treatment, procedures, and medical decision making performed by me.
[2019-04-20] MEDS ORDERED: TRAMADOL HCL 50 MG TABLET PO PRN (23:48)
[2019-04-20] MEDS ORDERED: GLUCOSE 40% GEL 15 GM TUBE PO PRN (23:48)
[2019-04-20] MEDS ORDERED: DEXTROSE 50% 50 ML SYRINGE IV PRN (23:48)
[2019-04-20] MEDS ORDERED: GABAPENTIN 800 MG TAB PO SCH (23:48)
[2019-04-20] MEDS ORDERED: GLUCOSE 10 TABS/TUBE PO PRN (23:48)
[2019-04-20] MEDS ORDERED: CARBOHYDRATES FOR HYPOGLYCEMIA PO PRN (23:48)
[2019-04-20] MEDS ORDERED: hydrOXYzine HCl 10 MG TAB PO PRN (23:48)
[2019-04-20] MEDS ORDERED: GLUCAGON FOR INJ 1 MG VIAL SQ PRN (23:48)
[2019-04-20] MEDS ORDERED: PROMETHAZINE HCL 12.5 MG in SODIUM CHLORIDE 0.9% 50 ML IV PRN (23:48)
[2019-04-21] MEDS: ACETAMINOPHEN 325 MG TAB PO PRN ×2 (00:08→13:45)
[2019-04-21] MEDS ORDERED: POTASSIUM CHLORIDE 40 MEQ in SODIUM CHLORIDE 0.9% 1000ML 1,000 ML IV ONE (00:15)
[2019-04-21] MEDS: INSULIN ASPART 100 UNITS/ML 3 ML PEN SC SCH ×5 (00:31→21:00)
[2019-04-21] MEDS: OXYCODONE HCL IR 5 MG TAB (IMMEDIATE RELEASE) PO PRN ×6 (00:53→22:16)
[2019-04-21 05:03] LABS: Basophils # (auto) 0.02 K/uL (0-0.2); Basophils % (auto) 0.2 %; Eosinophils # (auto) 0.14 K/uL (0-0.5); Eosinophils % (auto) 1.5 %; Hematocrit (blood only) 31.6 % (37-47); Hemoglobin 10.2 g/dL (12.0-16.0); Immature Granulocytes # (auto) 0.03 K/uL (0.00-0.02); Immature Granulocytes % (auto) 0.3 %; Lymphocytes # (auto) 1.87 K/uL (1.2-3.4); Lymphocytes % (auto) 20.4 %; Mean Corpuscular Hemoglobin 30.4 pg (25-34); Mean Corpuscular Hgb Conc 32.3 g/dL (32-36); Mean Corpuscular Volume 94.3 fL (80-100); Mean Platelet Volume 9.8 fL (7.4-10.4); Monocytes # (auto) 0.63 K/uL (0.11-0.59); Monocytes % (auto) 6.9 %; Neutrophils # (auto) 6.48 K/uL (1.4-6.5); Neutrophils % (auto) 70.7 %; Platelet Count 296 K/uL (130-400); RDW Coefficient of Variation 16.1 % (11.5-14.5); RDW Standard Deviation 55.7 fL (36.4-46.3); Red Blood Count 3.35 M/uL (4.2-5.4); White Blood Count 9.17 K/uL (4.8-10.8)
[2019-04-21 05:11] LABS: Partial Thromboplastin Ratio 0.7; Partial Thromboplastin Time < 20.0 Seconds (21.0-31.0)
[2019-04-21 05:22] LABS: BUN Creatinine Ratio 14.4 (10-20); Blood Urea Nitrogen 10 mg/dl (7-18); Calcium 8.3 mg/dl (8.5-10.1); Carbon Dioxide 24 mmol/L (21-32); Chloride 111 mmol/L (98-107); Creatinine Clr Calc Pharmacy 95.7 ml/min; Est GFR (African American) 122.6; Est GFR (Non-African American) 105.8; Glucose 175 mg/dl (70-99); Magnesium 1.8 mg/dl (1.8-2.4); Potassium 3.9 mmol/L (3.5-5.1); Sodium 138 mmol/L (136-145)
[2019-04-21 05:27] LABS: Chol HDL Ratio 5; Cholesterol 173 mg/dl (0-200); HDL Cholesterol 32 mg/dl; LDL Cholesterol Calculated 87 mg/dl; Triglycerides 272 mg/dl (0-150); Troponin I < 0.015 ng/ml (0-0.045); VLDL Cholesterol 54 mg/dl
[2019-04-21] MEDS: LEVOTHYROXINE SODIUM 112 MCG TABLET PO SCH (05:59)
--- NOTE | 2019-04-21 07:57 | Hospitalist Progress Note ---
Date of Service April 21, 2019 Assessment & Plan (1) Chest pain: Possibly secondary to uncontrolled hypertension NSAID intake, personal stressors contributory Rule out sleep disordered breathing as contributory factor, recommend outpt sleep study ro ACS, hx CAD status post stent (10/2018), never followed up w/ cardiology Troponin x3 negative, EKG does not show isch. changes Replaced Lopressor with Coreg, cont. lisinopril, added hydralazine prn intensified statin therapy May benefit from addition of long-acting nitrate rx Patient counseled about adverse effects of NSAIDs on BP control Judicious narcotic use given history drug-seeking behavior as per records Cardiology consulted RE chest pain, history of CAD; uncontrolled hypertension, plan for echocardiogram, possible cardiac cath AAA status post surgery (2014) hx CVA as per records COPD, ongoing tobacco abuse: Pulmonary status at baseline mood disorder, at baseline as per patient DM 2 diet-controlled, will controlled as of recent hemoglobin A1c of 6.06 March 2019 Basal insulin, ISS BG goal [id number] hypothyroidism as per records, euthyroid as of today's TSH anemia, hemoglobin at baseline history leg clot status post embolectomy as per patient drug-seeking behavior as per records Hypokalemia -replace and monitor K Current tobacco use Nicotine patch PRN DVT phylaxis per Lovenox subcu Full code Subjective Pt is lying in bed, in no acute distress. Says she has had chest pain for past six months. Pain is substernal and does not radiate anywhere. S/p stent in LAD in 2019, but after that did not follow up w/ cardiology. Now evaluated in the ED, troponin x3 negative, ekg does not show isch. changes. Hypertension poorly controlled. She is breathing comfortably on room air. Denies dyspnea, or abd.pain. Says she has nausea but continues to have good appetite. Review of Systems Review of Systems: All systems reviewed & are unremarkable except as noted in HPI & below Constitutional: no fever and no chills Respiratory: no cough and no dyspnea Cardiovascular: + chest pain at rest; no palpitations and no edema Gastrointestinal: + nausea; no abdominal pain Physical Exam Physical Exam: GENERAL: Young obese female lying in bed in no acute distress HEENT: NC/AT, EOMI, PERRL, moist buccal mucosa NECK : Supple, no tenderness CHEST : CTAB, no wheezes, rhonchi, crackles HEART : RRR, no obvious murmurs ABDOMEN: normal bowel sounds,soft, obese, nontender,some distention SKIN: warm, dry EXTREMITIES : Chronic RLE swelling/tenderness, moves extremities spontaneously NEUROLOGIC : alert and oriented,no facial asymmetry,speech fluent, moves extremities spontaneously Results & Data Vital Signs (Past 12 Hours) Vital Signs Temp Pulse Pulse Resp BP Pulse Ox 04/21/19 07:16 36.4 C L 61 18 142/82 H 96 04/21/19 03:53 36.5 C 55 L 16 123/70 94 04/21/19 01:02 75 04/20/19 23:40 36.7 C 68 18 151/90 H 96 04/20/19 23:14 98 04/20/19 23:12 73 18 150/104 H 98 04/20/19 22:10 72 20 156/96 H 98 04/20/19 21:12 80 24 162/103 H 96 04/20/19 20:28 83 20 163/100 H 95 Laboratory Results 04/21/19 04/21/19 04/21/19 Range/Units 07:26 04:13 04:13 WBC (4.8-10.8) K/uL RBC (4.2-5.4) M/uL Hgb (12.0-16.0) g/dL Hct (37-47) % MCV (80-100) fL MCH (25-34) pg MCHC (32-36) g/dL RDW Std Deviation (36.4-46.3) fL RDW Coeff of Vivek (11.5-14.5) % Plt Count (130-400) K/uL MPV (7.4-10.4) fL Immature Gran % (Auto) % Neut % (Auto) % Lymph % (Auto) % [place] % (Auto) % Eos % (Auto) % Baso % (Auto) % Immature Gran # (Auto) (0.00-0.02) K/uL Neut # (Auto) (1.4-6.5) K/uL Lymph # (Auto) (1.2-3.4) K/uL [place] # (Auto) (0.11-0.59) K/uL Eos # (Auto) (0-0.5) K/uL Baso # (Auto) (0-0.2) K/uL PT (9.0-12.0) Seconds INR (0.9-1.1) APTT < 20.0 L (21.0-31.0) Seconds PTT Ratio 0.7 Sodium 138 (136-145) mmol/L Potassium 3.9 (3.5-5.1) mmol/L Chloride 111 H (98-107) mmol/L Carbon Dioxide 24 (21-32) mmol/L Anion Gap 3.0 (3-11) BUN 10 (7-18) mg/dl Creatinine 0.71 (0.6-1.2) mg/dl Est Cr Clr Drug Dosing 95.7 ml/min Est GFR ( Amer) 122.6 Est GFR (Non-Af Amer) 105.8 BUN/Creatinine Ratio 14.4 (10-20) Glucose 175 H (70-99) mg/dl POC Glucose 162 H (70-99) mg/dl Calcium 8.3 L (8.5-10.1) mg/dl Magnesium 1.8 (1.8-2.4) mg/dl Total Bilirubin (0.2-1) mg/dl AST (15-37) U/L ALT (12-78) U/L Alkaline Phosphatase (45-117) U/L Troponin I < 0.015 (0-0.045) ng/ml Total Protein (6.4-8.2) gm/dl Albumin (3.4-5.0) gm/dl Globulin (2.5-4.0) gm/dl Albumin/Globulin Ratio (0.9-2) Triglycerides 272 H (0-150) mg/dl Cholesterol 173 (0-200) mg/dl LDL Cholesterol, Calc 87 mg/dl VLDL Cholesterol, Calc 54 mg/dl HDL Cholesterol 32 mg/dl Cholesterol/HDL Ratio 5 Lipase (73-393) U/L TSH (0.300-4.500) uIu/ml 04/21/19 04/21/19 04/21/19 Range/Units 04:13 00:33 00:31 WBC 9.17 (4.8-10.8) K/uL RBC 3.35 L (4.2-5.4) M/uL Hgb 10.2 L (12.0-16.0) g/dL Hct 31.6 L (37-47) % MCV 94.3 (80-100) fL MCH 30.4 (25-34) pg MCHC 32.3 (32-36) g/dL RDW Std Deviation 55.7 H (36.4-46.3) fL RDW Coeff of Vivek 16.1 H (11.5-14.5) % Plt Count 296 (130-400) K/uL MPV 9.8 (7.4-10.4) fL Immature Gran % (Auto) 0.3 % Neut % (Auto) 70.7 % Lymph % (Auto) 20.4 % [place] % (Auto) 6.9 % Eos % (Auto) 1.5 % Baso % (Auto) 0.2 % Immature Gran # (Auto) 0.03 H (0.00-0.02) K/uL Neut # (Auto) 6.48 (1.4-6.5) K/uL Lymph # (Auto) 1.87 (1.2-3.4) K/uL [place] # (Auto) 0.63 H (0.11-0.59) K/uL Eos # (Auto) 0.14 (0-0.5) K/uL Baso # (Auto) 0.02 (0-0.2) K/uL PT (9.0-12.0) Seconds INR (0.9-1.1) APTT (21.0-31.0) Seconds PTT Ratio Sodium (136-145) mmol/L Potassium (3.5-5.1) mmol/L Chloride (98-107) mmol/L Carbon Dioxide (21-32) mmol/L Anion Gap (3-11) BUN (7-18) mg/dl Creatinine (0.6-1.2) mg/dl Est Cr Clr Drug Dosing ml/min Est GFR ( Amer) Est GFR (Non-Af Amer) BUN/Creatinine Ratio (10-20) Glucose (70-99) mg/dl POC Glucose 124 H (70-99) mg/dl Calcium (8.5-10.1) mg/dl Magnesium (1.8-2.4) mg/dl Total Bilirubin (0.2-1) mg/dl AST (15-37) U/L ALT (12-78) U/L Alkaline Phosphatase (45-117) U/L Troponin I < 0.015 (0-0.045) ng/ml Total Protein (6.4-8.2) gm/dl Albumin (3.4-5.0) gm/dl Globulin (2.5-4.0) gm/dl Albumin/Globulin Ratio (0.9-2) Triglycerides (0-150) mg/dl Cholesterol (0-200) mg/dl LDL Cholesterol, Calc mg/dl VLDL Cholesterol, Calc mg/dl HDL Cholesterol mg/dl Cholesterol/HDL Ratio Lipase (73-393) U/L TSH (0.300-4.500) uIu/ml 04/20/19 04/20/19 04/20/19 Range/Units 19:48 19:48 19:48 WBC 10.15 (4.8-10.8) K/uL RBC 3.57 L (4.2-5.4) M/uL Hgb 11.0 L (12.0-16.0) g/dL Hct 33.3 L (37-47) % MCV 93.3 (80-100) fL MCH 30.8 (25-34) pg MCHC 33.0 (32-36) g/dL RDW Std Deviation 53.8 H (36.4-46.3) fL RDW Coeff of Vivek 15.8 H (11.5-14.5) % Plt Count 311 (130-400) K/uL MPV 9.7 (7.4-10.4) fL Immature Gran % (Auto) 0.4 % Neut % (Auto) 68.5 % Lymph % (Auto) 22.5 % [place] % (Auto) 7.0 % Eos % (Auto) 1.4 % Baso % (Auto) 0.2 % Immature Gran # (Auto) 0.04 H (0.00-0.02) K/uL Neut # (Auto) 6.96 H (1.4-6.5) K/uL Lymph # (Auto) 2.28 (1.2-3.4) K/uL [place] # (Auto) 0.71 H (0.11-0.59) K/uL Eos # (Auto) 0.14 (0-0.5) K/uL Baso # (Auto) 0.02 (0-0.2) K/uL PT 11.1 (9.0-12.0) Seconds INR 1.1 (0.9-1.1) APTT 23.0 (21.0-31.0) Seconds PTT Ratio 0.8 Sodium 138 (136-145) mmol/L Potassium 3.4 L (3.5-5.1) mmol/L Chloride 110 H (98-107) mmol/L Carbon Dioxide 21 (21-32) mmol/L Anion Gap 6.0 (3-11) BUN 9 (7-18) mg/dl Creatinine 0.63 (0.6-1.2) mg/dl Est Cr Clr Drug Dosing 107.2 ml/min Est GFR ( Amer) 129.1 Est GFR (Non-Af Amer) 111.4 BUN/Creatinine Ratio 13.7 (10-20) Glucose 107 H (70-99) mg/dl POC Glucose (70-99) mg/dl Calcium 8.7 (8.5-10.1) mg/dl Magnesium 1.7 L (1.8-2.4) mg/dl Total Bilirubin 0.3 (0.2-1) mg/dl AST 15 (15-37) U/L ALT 22 (12-78) U/L Alkaline Phosphatase 75 (45-117) U/L Troponin I < 0.015 (0-0.045) ng/ml Total Protein 6.6 (6.4-8.2) gm/dl Albumin 3.1 L (3.4-5.0) gm/dl Globulin 3.5 (2.5-4.0) gm/dl Albumin/Globulin Ratio 0.9 (0.9-2) Triglycerides (0-150) mg/dl Cholesterol (0-200) mg/dl LDL Cholesterol, Calc mg/dl VLDL Cholesterol, Calc mg/dl HDL Cholesterol mg/dl Cholesterol/HDL Ratio Lipase 56 L (73-393) U/L TSH 0.647 (0.300-4.500) uIu/ml (1) Chest pain Chest pain type: unspecified Qualified Code(s): R07.9 - Chest pain, unspecified
[2019-04-21] MEDS ORDERED: ATORVASTATIN 40 MG TAB PO SCH (09:00)
[2019-04-21] MEDS ORDERED: carvediloL 3.125 MG TAB PO SCH (09:00)
[2019-04-21] MEDS: GABAPENTIN 800 MG TAB PO SCH ×3 (09:19→21:04)
[2019-04-21] MEDS: ASPIRIN 81 MG ECTAB PO SCH (09:20)
[2019-04-21] MEDS: ENOXAPARIN INJ 40 MG/0.4 ML SYR SQ SCH (09:20)
[2019-04-21] MEDS: CHLORPROMAZINE HCL 25 MG TABLET PO SCH ×2 (09:20→21:03)
[2019-04-21] MEDS: FERROUS SULFATE 325 MG TAB PO SCH (09:20)
[2019-04-21] MEDS: DULOXETINE HCL 60 MG CAP PO SCH (09:21)
[2019-04-21] MEDS: AMLODIPINE BESYLATE 5 MG TAB PO SCH (09:21)
[2019-04-21] MEDS: lisinopriL 40 MG TAB PO SCH (09:21)
[2019-04-21] MEDS: DULOXETINE HCL 30 MG CAP PO SCH (09:21)
[2019-04-21] MEDS: FLUOXETINE HCL 20 MG CAP PO SCH (09:21)
[2019-04-21] MEDS: PANTOprazole 40 MG TAB PO SCH (09:21)
[2019-04-21] MEDS: INSULIN GLARGINE SOLOSTAR 100 UNITS/ML 3 ML PEN SC SCH (09:22)
[2019-04-21] MEDS: FLUTICASONE/VILANTEROL 100/25MCG 14 PUFFS/INHALER INH SCH (09:24)
[2019-04-21] MEDS: TICAGRELOR 90 MG TAB PO SCH ×2 (11:06→21:12)
--- NOTE | 2019-04-21 11:07 | Electrocardiogram Report ---
Test Reason : Blood Pressure : / mmHG Vent. Rate : 086 BPM Atrial Rate : 086 BPM P-R Int : 166 ms QRS Dur : 084 ms QT Int : 392 ms P-R-T Axes : 048 022 030 degrees QTc Int : 469 ms Normal sinus rhythm Possible Left atrial enlargement Left ventricular hypertrophy When compared with ECG of 02-APR-2019 07:17, Nonspecific T wave abnormality now evident in Inferior leads Confirmed by Rocky Soler ([id number]) on 04/21/2019 11:07:04 AM Referred By: REFERRED SELF Confirmed By:Rocky Soler
--- NOTE | 2019-04-21 11:26 | Electrocardiogram Report ---
Test Reason : Blood Pressure : / mmHG Vent. Rate : 054 BPM Atrial Rate : 054 BPM P-R Int : 184 ms QRS Dur : 094 ms QT Int : 492 ms P-R-T Axes : 043 076 066 degrees QTc Int : 466 ms Sinus bradycardia Early repolarization Otherwise normal ECG When compared with ECG of 20-APR-2019 18:39, (unconfirmed) Vent. rate has decreased BY 32 BPM Nonspecific T wave abnormality no longer evident in Inferior leads T wave amplitude has increased in Lateral leads Confirmed by Rocky Soler ([id number]) on 04/21/2019 11:25:42 AM Referred By: REFERRED SELF Confirmed By:Rocky Soler
[2019-04-21] MEDS: NITROGLYCERIN SL 0.4 MG/TAB TAB SL PRN ×2 (12:15→12:22)
[2019-04-21] MEDS: HydrALAZINE 10 MG TAB PO PRN (13:45)
--- NOTE | 2019-04-21 14:47 | Cardiology Consultation ---
Date of Consultation April 21, 2019 Assessment & Plan (1) Chest pain: Initial enzymes and EKGs do not reflect acute myocardial injury. Patient has known coronary disease as well as premature vascular disease per history. Blood pressures are substantially hypertensive. Patient underwent coronary invention in October 2018 receiving drug-eluting stent to the mid left anterior descending though without improvement symptoms of chest pain or discomfort. As already begun we will titrate antihypertensives further we will add topical nitrates to current conversion to carvedilol from metoprolol Echocardiogram will be reviewed as available Lipid therapies will be intensified Tobacco cessation is mandated Further recommendations as clinical course proceeds. Ultimately require stress testing versus repeat diagnostic cardiac catheterization (2) CAD (coronary artery disease): (3) COPD (chronic obstructive pulmonary disease): (4) Peripheral vascular disease: Status post thrombo-embolectomy of femoral-popliteal area on the right and subsequent surgical repair of distal aortoiliac occlusive disease, September 2014 History of Present Illness Reason for Consultation: Chest pain history of vascular disease Requesting Physician: DR Manzanares Attending Physician: Roderick Manzanares MD History of Present Illness HPI patient is a very complex 43-year-old female whose past history and review of records and discussion with patient's notable for 1. Premature vascular disease distal aortic stenosis at bifurcation with distal embolism status post surgical repair September 2014 after required femoral- popliteal embolectomy 2. Longstanding hypertension 3. Hyperlipidemia 4. Atherosclerotic coronary disease status post cardiac catheterization via right femoral access October 2018 with subsequent stenting mid LAD stenosis with residual 60% circumflex distal lesion 5. Chronic tobacco use longstanding 6. Diabetes mellitus, type II 7. Bipolar disease Patient presents after ER visit with chest pain and marked hypertension. Clinical history is notable for multiple ER and hospitalization visits over the past years time. Underwent coronary intervention in October 2018 without improvement in symptoms of chest pain. Current complaints are described as intermittent chest heaviness. No syncope or near syncope. Patient denies fevers chills or productive cough. Has been taking medications as prescribed. Has issues with chronic leg pain. Appetite and weight are stable. Blood pressures are significantly labile. Has not established with cardiology Allergies Allergy/AdvReac Type Severity Reaction Status Date / Time loratadine AdvReac Severe anxiety, Verified 04/20/19 19:30 paranoia increases cetirizine AdvReac Intermediate anxiety, Verified 04/20/19 19:30 paranoia increases fexofenadine AdvReac Intermediate anxiety Verified 04/20/19 19:30 and paranoia increases ketorolac AdvReac Mild PT STATES Verified 04/20/19 19:30 SHE IS ON THORAZINE AND CANNOT TAKE TORADOL tramadol AdvReac Mild hallucinati Verified 04/21/19 00:40 ons Home Medications Home Medications Medication Instructions Recorded Confirmed Type amlodipine 10 mg PO DAILY 05/13/18 04/20/19 History aspirin [Aspir-81] 162 mg PO DAILY 05/13/18 04/20/19 History Brilinta 90 mg PO BID 04/01/19 04/20/19 History Combivent Respimat 1 puff INHALATION QID PRN 04/01/19 04/20/19 History Dulera 2 puff INHALATION Q12H 04/01/19 04/20/19 History atorvastatin 40 mg PO DAILY 04/01/19 04/20/19 History chlorpromazine 25 mg PO DAILY 04/01/19 04/20/19 History chlorpromazine 50 mg PO HS 04/01/19 04/20/19 History duloxetine 30 mg PO DAILY 04/01/19 04/20/19 History duloxetine 60 mg PO DAILY 04/01/19 04/20/19 History ferrous sulfate 325 mg PO DAILY 04/01/19 04/20/19 History fluoxetine 20 mg PO DAILY 04/01/19 04/20/19 History gabapentin 800 mg PO TID 04/01/19 04/20/19 History hydroxyzine HCl 10 mg PO QID PRN 04/01/19 04/20/19 History levothyroxine 112 mcg PO DAILY 04/01/19 04/20/19 History lisinopril 40 mg PO DAILY 04/01/19 04/20/19 History methocarbamol 500 mg PO TID PRN 04/01/19 04/20/19 History metoprolol succinate 25 mg PO DAILY 04/01/19 04/20/19 History omeprazole 20 mg PO DAILY 04/01/19 04/20/19 History Patient History Medical History Ankle fracture, left (Acute) Bipolar disorder CAD (coronary artery disease) 10/2018-HARLEEN to LAD Chronic pain COPD (chronic obstructive pulmonary disease) Depression with anxiety DM type 2 (diabetes mellitus, type 2) History of DVT (deep vein thrombosis) Hypertension (Chronic) Hypothyroidism (Acute) Neuropathy Raynauds disease Tobacco abuse Surgical History H/O elbow surgery H/O tubal ligation History of arthroscopic knee surgery History of carpal tunnel surgery of right wrist History of incisional hernia repair Hx of cholecystectomy Hx of oral surgery (04/02/19) Oral Abscess Incision and Drainage (hard palate and extraction of tooth # 7,8,9,10,11,20 and 21) Dr. 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: No Beliefs That Will Affect Care: None marital status: Current Living Situation: Family and Significant Other current occupational status: disabled Other Information That Helps Us Care for You: No Feels Safe at Home: Yes Safety Concerns: Feels Safe At This Time Smoking Status: Current every day smoker Tobacco Type: cigarettes and smokeless tobacco ; Cigarettes Per Day: 6 ; Hx Alcohol Use: Yes Alcohol type: hard liquor Hx Substance Use: No Physical Exam Constitutional: WD/WN, vitals as above no acute distress Eyes: PERRL, conjunctivae normal, anicteric sclerae ENMT: external ear and nose normal, oropharynx normal Neck: trachea midline, no thyromegaly Respiratory: normal respiratory effort, lungs clear to auscultation Cardiovascular: Rate/Rhythm: regular rate and regular rhythm Heart Sounds: normal S1 and normal S2; no gallop and no murmur Palpation: normal PMI Vessels: normal carotid upstroke and radial pulses present; no JVD and no c arotid bruit Extremities: no edema Gastrointestinal (Abdomen): normal bowel sounds, soft, nontender, no hepatosplenomegaly Musculoskeletal: no cyanosis or clubbing, extremities motor strength 5/5 Skin: no rashes, warm and dry Neurologic: PERRL, EOMI, accommodation nl, no face palsy, no dysarthria Psychiatric: A+Ox3, euthymic affect Results & Data Vital Signs (Past 12 Hours) Vital Signs Temp Pulse Resp BP BP Pulse Ox 04/21/19 12:29 67 153/95 H 04/21/19 12:19 154/100 H 04/21/19 12:00 36.6 C 52 L 20 171/109 H 96 04/21/19 11:58 75 16 181/123 H 189/125 H 97 04/21/19 07:16 36.4 C L 61 18 142/82 H 96 04/21/19 03:53 36.5 C 55 L 16 123/70 94 Laboratory Results Laboratory Results - last 24 hr 04/20/19 04/20/19 04/20/19 19:48 19:48 19:48 WBC 10.15 RBC 3.57 L Hgb 11.0 L Hct 33.3 L MCV 93.3 MCH 30.8 MCHC 33.0 RDW Std Deviation 53.8 H RDW Coeff of Vivek 15.8 H Plt Count 311 MPV 9.7 Immature Gran % (Auto) 0.4 Neut % (Auto) 68.5 Lymph % (Auto) 22.5 Simpson % (Auto) 7.0 Eos % (Auto) 1.4 Baso % (Auto) 0.2 Immature Gran # (Auto) 0.04 H Neut # (Auto) 6.96 H Lymph # (Auto) 2.28 Simpson # (Auto) 0.71 H Eos # (Auto) 0.14 Baso # (Auto) 0.02 PT 11.1 INR 1.1 APTT 23.0 PTT Ratio 0.8 Sodium 138 Potassium 3.4 L Chloride 110 H Carbon Dioxide 21 Anion Gap 6.0 BUN 9 Creatinine 0.63 Est Cr Clr Drug Dosing 107.2 Est GFR ( Amer) 129.1 Est GFR (Non-Af Amer) 111.4 BUN/Creatinine Ratio 13.7 Glucose 107 H POC Glucose Calcium 8.7 Magnesium 1.7 L Total Bilirubin 0.3 AST 15 ALT 22 Alkaline Phosphatase 75 Troponin I < 0.015 Total Protein 6.6 Albumin 3.1 L Globulin 3.5 Albumin/Globulin Ratio 0.9 Triglycerides Cholesterol LDL Cholesterol, Calc VLDL Cholesterol, Calc HDL Cholesterol Cholesterol/HDL Ratio Lipase 56 L TSH 0.647 04/21/19 04/21/19 04/21/19 00:31 00:33 04:13 WBC 9.17 RBC 3.35 L Hgb 10.2 L Hct 31.6 L MCV 94.3 MCH 30.4 MCHC 32.3 RDW Std Deviation 55.7 H RDW Coeff of Vivek 16.1 H Plt Count 296 MPV 9.8 Immature Gran % (Auto) 0.3 Neut % (Auto) 70.7 Lymph % (Auto) 20.4 Simpson % (Auto) 6.9 Eos % (Auto) 1.5 Baso % (Auto) 0.2 Immature Gran # (Auto) 0.03 H Neut # (Auto) 6.48 Lymph # (Auto) 1.87 Simpson # (Auto) 0.63 H Eos # (Auto) 0.14 Baso # (Auto) 0.02 PT INR APTT PTT Ratio Sodium Potassium Chloride Carbon Dioxide Anion Gap BUN Creatinine Est Cr Clr Drug Dosing Est GFR ( Amer) Est GFR (Non-Af Amer) BUN/Creatinine Ratio Glucose POC Glucose 124 H Calcium Magnesium Total Bilirubin AST ALT Alkaline Phosphatase Troponin I < 0.015 Total Protein Albumin Globulin Albumin/Globulin Ratio Triglycerides Cholesterol LDL Cholesterol, Calc VLDL Cholesterol, Calc HDL Cholesterol Cholesterol/HDL Ratio Lipase TSH 04/21/19 04/21/19 04/21/19 04:13 04:13 07:26 WBC RBC Hgb Hct MCV MCH MCHC RDW Std Deviation RDW Coeff of Vivek Plt Count MPV Immature Gran % (Auto) Neut % (Auto) Lymph % (Auto) Simpson % (Auto) Eos % (Auto) Baso % (Auto) Immature Gran # (Auto) Neut # (Auto) Lymph # (Auto) Simpson # (Auto) Eos # (Auto) Baso # (Auto) PT INR APTT < 20.0 L PTT Ratio 0.7 Sodium 138 Potassium 3.9 Chloride 111 H Carbon Dioxide 24 Anion Gap 3.0 BUN 10 Creatinine 0.71 Est Cr Clr Drug Dosing 95.7 Est GFR ( Amer) 122.6 Est GFR (Non-Af Amer) 105.8 BUN/Creatinine Ratio 14.4 Glucose 175 H POC Glucose 162 H Calcium 8.3 L Magnesium 1.8 Total Bilirubin AST ALT Alkaline Phosphatase Troponin I < 0.015 Total Protein Albumin Globulin Albumin/Globulin Ratio Triglycerides 272 H Cholesterol 173 LDL Cholesterol, Calc 87 VLDL Cholesterol, Calc 54 HDL Cholesterol 32 Cholesterol/HDL Ratio 5 Lipase TSH 04/21/19 11:22 WBC RBC Hgb Hct MCV MCH MCHC RDW Std Deviation RDW Coeff of Vivek Plt Count MPV Immature Gran % (Auto) Neut % (Auto) Lymph % (Auto) Simpson % (Auto) Eos % (Auto) Baso % (Auto) Immature Gran # (Auto) Neut # (Auto) Lymph # (Auto) Simpson # (Auto) Eos # (Auto) Baso # (Auto) PT INR APTT PTT Ratio Sodium Potassium Chloride Carbon Dioxide Anion Gap BUN Creatinine Est Cr Clr Drug Dosing Est GFR ( Amer) Est GFR (Non-Af Amer) BUN/Creatinine Ratio Glucose POC Glucose 144 H Calcium Magnesium Total Bilirubin AST ALT Alkaline Phosphatase Troponin I Total Protein Albumin Globulin Albumin/Globulin Ratio Triglycerides Cholesterol LDL Cholesterol, Calc VLDL Cholesterol, Calc HDL Cholesterol Cholesterol/HDL Ratio Lipase TSH (1) Chest pain Chest pain type: unspecified Qualified Code(s): R07.9 - Chest pain, unspecified
[2019-04-21] MEDS ORDERED: carvediloL 3.125 MG TAB PO ONE (15:41)
[2019-04-21] MEDS: NITROGLYCERIN 2% OINTMENT 30GM TUBE EXT SCH ×2 (17:26→21:12)
[2019-04-21] MEDS: carvediloL 6.25 MG TAB PO SCH (21:05)
[2019-04-22] MEDS: NITROGLYCERIN SL 0.4 MG/TAB TAB SL PRN ×3 (00:11→00:34)
[2019-04-22] MEDS ORDERED: OXYCODONE HCL IR 5 MG TAB (IMMEDIATE RELEASE) PO STA (01:19)
[2019-04-22] MEDS: NITROGLYCERIN 2% OINTMENT 30GM TUBE EXT SCH ×4 (04:21→21:48)
[2019-04-22] MEDS: LEVOTHYROXINE SODIUM 112 MCG TABLET PO SCH (05:01)
[2019-04-22] MEDS: OXYCODONE HCL IR 5 MG TAB (IMMEDIATE RELEASE) PO PRN ×5 (05:02→20:18)
[2019-04-22 06:18] LABS: Hematocrit (blood only) 31.2 % (37-47); Hemoglobin 10.2 g/dL (12.0-16.0); Mean Corpuscular Hemoglobin 30.7 pg (25-34); Mean Corpuscular Hgb Conc 32.7 g/dL (32-36); Platelet Count 247 K/uL (130-400); RDW Coefficient of Variation 15.9 % (11.5-14.5); RDW Standard Deviation 55.3 fL (36.4-46.3); Red Blood Count 3.32 M/uL (4.2-5.4); White Blood Count 6.87 K/uL (4.8-10.8)
[2019-04-22 06:37] LABS: BUN Creatinine Ratio 16.9 (10-20); Calcium 8.3 mg/dl (8.5-10.1); Creatinine Clr Calc Pharmacy 103.3 ml/min; Est GFR (African American) 127.2; Est GFR (Non-African American) 109.7; Magnesium 1.7 mg/dl (1.8-2.4); Potassium 3.9 mmol/L (3.5-5.1)
[2019-04-22] MEDS ORDERED: FLUTICASONE/VILANTEROL 100/25MCG 14 PUFFS/INHALER INH ONE (09:00)
[2019-04-22] MEDS: FLUTICASONE/VILANTEROL 100/25MCG 14 PUFFS/INHALER INH SCH (09:52)
[2019-04-22] MEDS: ATORVASTATIN 40 MG TAB PO SCH (09:52)
[2019-04-22] MEDS: AMLODIPINE BESYLATE 5 MG TAB PO SCH (09:53)
[2019-04-22] MEDS: ASPIRIN 81 MG ECTAB PO SCH (09:53)
[2019-04-22] MEDS: DULOXETINE HCL 60 MG CAP PO SCH (09:53)
[2019-04-22] MEDS: DULOXETINE HCL 30 MG CAP PO SCH (09:53)
[2019-04-22] MEDS: GABAPENTIN 800 MG TAB PO SCH ×3 (09:54→20:20)
[2019-04-22] MEDS: lisinopriL 40 MG TAB PO SCH (09:54)
[2019-04-22] MEDS: PANTOprazole 40 MG TAB PO SCH (09:54)
[2019-04-22] MEDS: carvediloL 6.25 MG TAB PO SCH ×2 (09:55→20:19)
[2019-04-22] MEDS: CHLORPROMAZINE HCL 25 MG TABLET PO SCH ×2 (09:56→20:20)
[2019-04-22] MEDS: FERROUS SULFATE 325 MG TAB PO SCH (09:56)
[2019-04-22] MEDS: INSULIN ASPART 100 UNITS/ML 3 ML PEN SC SCH ×4 (09:58→21:44)
[2019-04-22] MEDS: INSULIN GLARGINE SOLOSTAR 100 UNITS/ML 3 ML PEN SC SCH (09:59)
[2019-04-22] MEDS: ENOXAPARIN INJ 40 MG/0.4 ML SYR SQ SCH (10:09)
[2019-04-22] MEDS ORDERED: CLOPIDOGREL BISULFATE 300 MG TAB PO STA (10:35)
[2019-04-22] MEDS: FLUOXETINE HCL 20 MG CAP PO SCH (10:46)
--- NOTE | 2019-04-22 12:11 | Cardiology Progress Note ---
Date of Service April 22, 2019 Assessment & Plan (1) Chest pain: Initial enzymes and EKGs do not reflect acute myocardial injury. Patient has known coronary disease as well as premature vascular disease per history. Blood pressures are substantially hypertensive. Patient underwent coronary invention in October 2018 receiving drug-eluting stent to the mid left anterior descending though without improvement symptoms of chest pain or discomfort. As already begun we will titrate antihypertensives further we will add topical nitrates to current conversion to carvedilol from metoprolol Echocardiogram with preserved LV function no significant valvular disease or pericardial effusion Lipid therapies intensified Tobacco cessation is mandated No EKG changes or enzyme changes despite intermittent chest discomfort. Concerns rather good Brilinta may be contributing to complaints now greater than 6 months post initiation will discontinue Brilinta and switch back to Plavix. May consider long-term use of rivaroxaban for vascular disease given clinical history Will refer for stress nuclear imaging. Would be reluctant to proceed with diagnostic cardiac catheterization unless overt evidence of ischemia present given underlying history of disease of the aorta, absent right radial pulse (2) CAD (coronary artery disease): (3) COPD (chronic obstructive pulmonary disease): (4) Peripheral vascular disease: Status post thrombo-embolectomy of femoral-popliteal area on the right and subsequent surgical repair of distal aortoiliac occlusive disease, September 2014 Large vessel aortic disease at age 38 concerning for possible underlying vasculitides. Will warrant MRI of aorta and renal arteries as part of clinical evaluation Subjective Patient seen and examined, chart,, medications, telemetry reviewed. Continues to note occasional episodes of sharp jabbing pain in her chest and shoulders. No orthopnea worsening peripheral edema blood pressure somewhat labile but better controlled earlier this morning. No fevers chills unexplained infections. Occasional episodes of unexplained breathlessness. Blood pressure labile Physical Exam Constitutional: WD/WN, vitals as above no acute distress Eyes: PERRL, conjunctivae normal, anicteric sclerae ENMT: external ear and nose normal, oropharynx normal Neck: trachea midline, no thyromegaly Respiratory: normal respiratory effort, lungs clear to auscultation Cardiovascular: Rate/Rhythm: regular rate and regular rhythm Heart Sounds: normal S1 and normal S2; no gallop and no murmur Palpation: normal PMI Vessels: normal carotid upstroke; no JVD, no carotid bruit and + radial pulses abnormal (Right radial pulse absent left radial pulse present) Extremities: no edema Gastrointestinal (Abdomen): normal bowel sounds, soft, nontender, no hepatosplenomegaly Musculoskeletal: no cyanosis or clubbing, extremities motor strength 5/5 Skin: no rashes, warm and dry Neurologic: PERRL, EOMI, accommodation nl, no face palsy, no dysarthria Psychiatric: A+Ox3, euthymic affect Results & Data Vital Signs (Past 12 Hours) Vital Signs Temp Pulse Resp BP BP Pulse Ox 04/22/19 11:56 36.6 C 61 16 185/101 H 187/107 H 97 04/22/19 08:28 36.6 C 60 18 136/84 95 04/22/19 03:45 36.3 C L 65 16 125/81 97 04/22/19 00:34 149/91 H 04/22/19 00:23 146/91 H Laboratory Results Laboratory Results - last 24 hr 04/21/19 04/21/19 04/22/19 16:09 20:39 00:19 WBC RBC Hgb Hct MCV MCH MCHC RDW Std Deviation RDW Coeff of Vivek Plt Count MPV Sodium Potassium Chloride Carbon Dioxide Anion Gap BUN Creatinine Est Cr Clr Drug Dosing Est GFR ( Amer) Est GFR (Non-Af Amer) BUN/Creatinine Ratio Glucose POC Glucose 145 H 129 H Calcium Magnesium Troponin I < 0.015 04/22/19 04/22/19 04/22/19 05:33 05:33 07:51 WBC 6.87 RBC 3.32 L Hgb 10.2 L Hct 31.2 L MCV 94.0 MCH 30.7 MCHC 32.7 RDW Std Deviation 55.3 H RDW Coeff of Vivek 15.9 H Plt Count 247 MPV 10.0 Sodium 139 Potassium 3.9 Chloride 112 H Carbon Dioxide 21 Anion Gap 6.0 BUN 11 Creatinine 0.66 Est Cr Clr Drug Dosing 103.3 Est GFR ( Amer) 127.2 Est GFR (Non-Af Amer) 109.7 BUN/Creatinine Ratio 16.9 Glucose 118 H POC Glucose 121 H Calcium 8.3 L Magnesium 1.7 L Troponin I 04/22/19 11:09 WBC RBC Hgb Hct MCV MCH MCHC RDW Std Deviation RDW Coeff of Vviek Plt Count MPV Sodium Potassium Chloride Carbon Dioxide Anion Gap BUN Creatinine Est Cr Clr Drug Dosing Est GFR ( Amer) Est GFR (Non-Af Amer) BUN/Creatinine Ratio Glucose POC Glucose 156 H Calcium Magnesium Troponin I (1) Chest pain Chest pain type: unspecified Qualified Code(s): R07.9 - Chest pain, unspecified
[2019-04-22] MEDS ORDERED: ALUMINUM/MAGNESIUM SUSP 30 ML UDC PO STA (12:24)
[2019-04-22] MEDS: HydrALAZINE 10 MG TAB PO PRN (13:16)
--- NOTE | 2019-04-22 14:21 | Electrocardiogram Report ---
Test Reason : Blood Pressure : / mmHG Vent. Rate : 057 BPM Atrial Rate : 057 BPM P-R Int : 182 ms QRS Dur : 086 ms QT Int : 488 ms P-R-T Axes : 017 020 027 degrees QTc Int : 474 ms Sinus bradycardia Early repolarization Otherwise normal ECG When compared with ECG of 21-APR-2019 07:41, No significant change was found Confirmed by Rocky Soler ([id number]) on 04/22/2019 2:21:04 PM Referred By: REFERRED SELF Confirmed By:Rocky Soler
[2019-04-22] MEDS: ACETAMINOPHEN 500 MG TAB PO SCH ×2 (14:22→21:48)
--- NOTE | 2019-04-22 17:26 | Hospitalist Progress Note ---
Date of Service April 22, 2019 Assessment & Plan (1) Chest pain: Possibly secondary to uncontrolled hypertension NSAID intake, personal stressors contributory Also known CAD and premature vasc. disease Rule out sleep disordered breathing as contributory factor, recommend outpt sleep study r/o ACS, hx CAD status post stent (10/2018), never followed up w/ cardiology Troponin x3 negative, EKG does not show isch. changes Echocardiogram with preserved LV function no significant valvular disease or pericardial effusion Replaced Lopressor with Coreg, cont. lisinopril, added hydralazine prn Intensified statin therapy May benefit from addition of long-acting nitrate rx Patient counseled about adverse effects of NSAIDs on BP control Judicious narcotic use given history drug-seeking behavior as per records Cardiology consulted RE chest pain, history of CAD, PVD; uncontrolled hypertension, plan for poss. nuclear stress test PVD Status post thrombo-embolectomy of femoral-popliteal area on the right and subsequent surgical repair of distal aortoiliac occlusive disease, September 2014 Large vessel aortic disease at age 38 concerning for possible underlying vasculitides. Will warrant MRI of aorta and renal arteries as part of clinical evaluation hx CVA as per records COPD, ongoing tobacco abuse: Pulmonary status at baseline mood disorder, at baseline as per patient DM 2 diet-controlled, will controlled as of recent hemoglobin A1c of 6.06 March 2019 Basal insulin, ISS BG goal [id number] hypothyroidism as per records, euthyroid as of today's TSH anemia, hemoglobin at baseline drug-seeking behavior as per records Hypokalemia -replace and monitor K Current tobacco use -Tobacco cessation counseling - Nicotine patch PRN DVT phylaxis per Lovenox subcu Full code Subjective Patient sitting up in bed, in no acute distress, complains of persistent chest pain. Patient continues to have good appetite, and good oral intake, says that she has some nausea though. Denies any fevers, chills, shortness of breath, abdominal pain. Review of Systems Review of Systems: All systems reviewed & are unremarkable except as noted in HPI & below As per HPI, all 10 systems reviewed, dark stools, all other ROS negative Constitutional: no fever and no chills Respiratory: no cough and no dyspnea Cardiovascular: + chest pain at rest; no palpitations and no edema Gastrointestinal: no abdominal pain and no vomiting Physical Exam Physical Exam: GENERAL: Young obese female lying in bed in no acute distress HEENT: NC/AT, EOMI, PERRL, moist buccal mucosa NECK : Supple, no tenderness CHEST : CTAB, no wheezes, rhonchi, crackles HEART : RRR, no obvious murmurs, no R radial pulse ABDOMEN: normal bowel sounds,soft, obese, nontender,some distention SKIN: warm, dry EXTREMITIES : no LE edema, moves extremities spontaneously NEUROLOGIC : alert and oriented,no facial asymmetry,speech fluent, moves extremities spontaneously Results & Data Vital Signs (Past 12 Hours) Vital Signs Temp Pulse Resp BP BP Pulse Ox 04/22/19 15:18 36.4 C L 67 16 136/84 97 04/22/19 11:56 36.6 C 61 16 185/101 H 187/107 H 97 04/22/19 08:28 36.6 C 60 18 136/84 95 Laboratory Results 04/22/19 04/22/19 04/22/19 Range/Units 16:12 11:09 07:51 WBC (4.8-10.8) K/uL RBC (4.2-5.4) M/uL Hgb (12.0-16.0) g/dL Hct (37-47) % MCV (80-100) fL MCH (25-34) pg MCHC (32-36) g/dL RDW Std Deviation (36.4-46.3) fL RDW Coeff of Vivek (11.5-14.5) % Plt Count (130-400) K/uL MPV (7.4-10.4) fL Sodium (136-145) mmol/L Potassium (3.5-5.1) mmol/L Chloride (98-107) mmol/L Carbon Dioxide (21-32) mmol/L Anion Gap (3-11) BUN (7-18) mg/dl Creatinine (0.6-1.2) mg/dl Est Cr Clr Drug Dosing ml/min Est GFR ( Amer) Est GFR (Non-Af Amer) BUN/Creatinine Ratio (10-20) Glucose (70-99) mg/dl POC Glucose 114 H 156 H 121 H (70-99) mg/dl Calcium (8.5-10.1) mg/dl Magnesium (1.8-2.4) mg/dl Troponin I (0-0.045) ng/ml 01/04/22/19 04/22/19 Range/Units 05:33 05:33 00:19 WBC 6.87 (4.8-10.8) K/uL RBC 3.32 L (4.2-5.4) M/uL Hgb 10.2 L (12.0-16.0) g/dL Hct 31.2 L (37-47) % MCV 94.0 (80-100) fL MCH 30.7 (25-34) pg MCHC 32.7 (32-36) g/dL RDW Std Deviation 55.3 H (36.4-46.3) fL RDW Coeff of Vivek 15.9 H (11.5-14.5) % Plt Count 247 (130-400) K/uL MPV 10.0 (7.4-10.4) fL Sodium 139 (136-145) mmol/L Potassium 3.9 (3.5-5.1) mmol/L Chloride 112 H (98-107) mmol/L Carbon Dioxide 21 (21-32) mmol/L Anion Gap 6.0 (3-11) BUN 11 (7-18) mg/dl Creatinine 0.66 (0.6-1.2) mg/dl Est Cr Clr Drug Dosing 103.3 ml/min Est GFR ( Amer) 127.2 Est GFR (Non-Af Amer) 109.7 BUN/Creatinine Ratio 16.9 (10-20) Glucose 118 H (70-99) mg/dl POC Glucose (70-99) mg/dl Calcium 8.3 L (8.5-10.1) mg/dl Magnesium 1.7 L (1.8-2.4) mg/dl Troponin I < 0.015 (0-0.045) ng/ml 04/21/19 Range/Units 20:39 WBC (4.8-10.8) K/uL RBC (4.2-5.4) M/uL Hgb (12.0-16.0) g/dL Hct (37-47) % MCV (80-100) fL MCH (25-34) pg MCHC (32-36) g/dL RDW Std Deviation (36.4-46.3) fL RDW Coeff of Vivek (11.5-14.5) % Plt Count (130-400) K/uL MPV (7.4-10.4) fL Sodium (136-145) mmol/L Potassium (3.5-5.1) mmol/L Chloride (98-107) mmol/L Carbon Dioxide (21-32) mmol/L Anion Gap (3-11) BUN (7-18) mg/dl Creatinine (0.6-1.2) mg/dl Est Cr Clr Drug Dosing ml/min Est GFR ( Amer) Est GFR (Non-Af Amer) BUN/Creatinine Ratio (10-20) Glucose (70-99) mg/dl POC Glucose 129 H (70-99) mg/dl Calcium (8.5-10.1) mg/dl Magnesium (1.8-2.4) mg/dl Troponin I (0-0.045) ng/ml (1) Chest pain Chest pain type: unspecified Qualified Code(s): R07.9 - Chest pain, unspecified
[2019-04-22] MEDS: MAGNESIUM SULFATE / D5W 1 GM/100 ML BAG IV SCH ×2 (18:16→19:18)
[2019-04-23] MEDS: OXYCODONE HCL IR 5 MG TAB (IMMEDIATE RELEASE) PO PRN ×7 (00:37→23:21)
[2019-04-23] MEDS: NITROGLYCERIN 2% OINTMENT 30GM TUBE EXT SCH ×2 (03:19→09:35)
[2019-04-23] MEDS: ACETAMINOPHEN 500 MG TAB PO SCH ×3 (06:05→23:22)
[2019-04-23] MEDS: LEVOTHYROXINE SODIUM 112 MCG TABLET PO SCH (06:05)
[2019-04-23 06:55] LABS: Hematocrit (blood only) 31.9 % (37-47); Hemoglobin 10.5 g/dL (12.0-16.0); Mean Corpuscular Hemoglobin 31.1 pg (25-34); Mean Corpuscular Hgb Conc 32.9 g/dL (32-36); Mean Corpuscular Volume 94.4 fL (80-100); Mean Platelet Volume 9.8 fL (7.4-10.4); Platelet Count 259 K/uL (130-400); RDW Coefficient of Variation 15.7 % (11.5-14.5); RDW Standard Deviation 54.7 fL (36.4-46.3); Red Blood Count 3.38 M/uL (4.2-5.4); White Blood Count 6.95 K/uL (4.8-10.8)
[2019-04-23 07:29] LABS: BUN Creatinine Ratio 14.2 (10-20); Calcium 8.5 mg/dl (8.5-10.1); Creatinine Clr Calc Pharmacy 96.8 ml/min; Est GFR (African American) 124.7; Est GFR (Non-African American) 107.6; Potassium 3.8 mmol/L (3.5-5.1)
[2019-04-23] MEDS: ENOXAPARIN INJ 40 MG/0.4 ML SYR SQ SCH (08:18)
[2019-04-23] MEDS: FLUTICASONE/VILANTEROL 100/25MCG 14 PUFFS/INHALER INH SCH (08:19)
[2019-04-23] MEDS: GABAPENTIN 800 MG TAB PO SCH ×3 (08:20→20:28)
[2019-04-23] MEDS: FERROUS SULFATE 325 MG TAB PO SCH (08:20)
[2019-04-23] MEDS: carvediloL 6.25 MG TAB PO SCH ×2 (08:20→20:28)
[2019-04-23] MEDS: ASPIRIN 81 MG ECTAB PO SCH (08:21)
[2019-04-23] MEDS: FLUOXETINE HCL 20 MG CAP PO SCH (08:21)
[2019-04-23] MEDS: lisinopriL 40 MG TAB PO SCH (08:22)
[2019-04-23] MEDS: HydrALAZINE 10 MG TAB PO PRN (08:22)
[2019-04-23] MEDS: PANTOprazole 40 MG TAB PO SCH (08:22)
[2019-04-23] MEDS: CLOPIDOGREL BISULFATE 75 MG TAB PO SCH (08:22)
[2019-04-23] MEDS: DULOXETINE HCL 60 MG CAP PO SCH (08:23)
[2019-04-23] MEDS: AMLODIPINE BESYLATE 5 MG TAB PO SCH (08:23)
[2019-04-23] MEDS: INSULIN GLARGINE SOLOSTAR 100 UNITS/ML 3 ML PEN SC SCH (08:23)
[2019-04-23] MEDS: CHLORPROMAZINE HCL 25 MG TABLET PO SCH ×2 (08:23→20:28)
[2019-04-23] MEDS: ATORVASTATIN 40 MG TAB PO SCH (08:23)
[2019-04-23] MEDS: DULOXETINE HCL 30 MG CAP PO SCH (08:23)
[2019-04-23] MEDS: INSULIN ASPART 100 UNITS/ML 3 ML PEN SC SCH ×4 (08:25→20:47)
--- NOTE | 2019-04-23 10:17 | Hospitalist Progress Note ---
Date of Service April 23, 2019 Assessment & Plan (1) Chest pain: Possibly secondary to uncontrolled hypertension NSAID intake, personal stressors contributory Also known CAD and premature vasc. disease Rule out sleep disordered breathing as contributory factor, recommend outpt sleep study r/o ACS, hx CAD status post stent (10/2018), never followed up w/ cardiology Troponin x3 negative, EKG does not show isch. changes Echocardiogram with preserved LV function no significant valvular disease or pericardial effusion Replaced Lopressor with Coreg, cont. lisinopril, added hydralazine prn Intensified statin therapy May benefit from addition of long-acting nitrate rx Patient counseled about adverse effects of NSAIDs on BP control Judicious narcotic use given history drug-seeking behavior as per records Cardiology consulted RE chest pain, history of CAD, PVD; uncontrolled hypertension, plan for poss. nuclear stress test - switched Brilinta to Plavix, started isosorbide mononitrate and added low-dose hydralazine PVD Status post thrombo-embolectomy of femoral-popliteal area on the right and subsequent surgical repair of distal aortoiliac occlusive disease, September 2014 Large vessel aortic disease at age 38 concerning for possible underlying vasculitides. Will warrant MRI of aorta and renal arteries as part of clinical evaluation hx CVA as per records COPD, ongoing tobacco abuse: Pulmonary status at baseline mood disorder, at baseline as per patient DM 2 diet-controlled, will controlled as of recent hemoglobin A1c of 6.06 March 2019 Basal insulin, ISS BG goal [id number] hypothyroidism as per records, euthyroid as of today's TSH anemia, hemoglobin at baseline drug-seeking behavior as per records Hypokalemia -replace and monitor K Current tobacco use -Tobacco cessation counseling - Nicotine patch PRN DVT phylaxis per Lovenox subcu Full code Subjective This morning patient is walking around the room, comfortable, in no acute distress, breathing on room air. Denies any fevers, chills, shortness of breath, abdominal pain. Review of Systems Review of Systems: As per HPI, all 10 systems reviewed, dark stools, all other ROS negative Cardiovascular: + chest pain at rest; no palpitations and no edema Physical Exam Physical Exam: GENERAL: Young obese female, in no acute distress HEENT: NC/AT, EOMI, PERRL, moist buccal mucosa NECK : Supple, no tenderness CHEST : CTAB, no wheezes, rhonchi, crackles HEART : RRR, no obvious murmurs, no R radial pulse ABDOMEN: normal bowel sounds,soft, obese, nontender,some distention SKIN: warm, dry EXTREMITIES : no LE edema, moves extremities spontaneously NEUROLOGIC : alert and oriented,no facial asymmetry,speech fluent, moves extremities spontaneously Results & Data Vital Signs (Past 12 Hours) Vital Signs Temp Pulse Pulse Resp BP BP Pulse Ox 04/23/19 08:00 72 04/23/19 07:04 36.4 C L 68 19 126/87 98 04/23/19 03:14 36.4 C L 72 16 179/100 H 98 04/23/19 00:00 04/22/19 23:11 36.5 C 69 16 139/95 93 Pulse Ox 04/23/19 08:00 04/23/19 07:04 04/23/19 03:14 04/23/19 00:00 93 04/22/19 23:11 Laboratory Results 04/23/19 04/23/19 04/22/19 Range/Units 06:02 06:02 20:24 WBC 6.95 (4.8-10.8) K/uL RBC 3.38 L (4.2-5.4) M/uL Hgb 10.5 L (12.0-16.0) g/dL Hct 31.9 L (37-47) % MCV 94.4 (80-100) fL MCH 31.1 (25-34) pg MCHC 32.9 (32-36) g/dL RDW Std Deviation 54.7 H (36.4-46.3) fL RDW Coeff of Vivek 15.7 H (11.5-14.5) % Plt Count 259 (130-400) K/uL MPV 9.8 (7.4-10.4) fL Sodium 140 (136-145) mmol/L Potassium 3.8 (3.5-5.1) mmol/L Chloride 109 H (98-107) mmol/L Carbon Dioxide 26 (21-32) mmol/L Anion Gap 5.0 (3-11) BUN 10 (7-18) mg/dl Creatinine 0.70 (0.6-1.2) mg/dl Est Cr Clr Drug Dosing 96.8 ml/min Est GFR ( Amer) 124.7 Est GFR (Non-Af Amer) 107.6 BUN/Creatinine Ratio 14.2 (10-20) Glucose 114 H (70-99) mg/dl POC Glucose 163 H (70-99) mg/dl Calcium 8.5 (8.5-10.1) mg/dl Magnesium 2.0 (1.8-2.4) mg/dl 04/22/19 04/22/19 Range/Units 16:12 11:09 WBC (4.8-10.8) K/uL RBC (4.2-5.4) M/uL Hgb (12.0-16.0) g/dL Hct (37-47) % MCV (80-100) fL MCH (25-34) pg MCHC (32-36) g/dL RDW Std Deviation (36.4-46.3) fL RDW Coeff of Vivek (11.5-14.5) % Plt Count (130-400) K/uL MPV (7.4-10.4) fL Sodium (136-145) mmol/L Potassium (3.5-5.1) mmol/L Chloride (98-107) mmol/L Carbon Dioxide (21-32) mmol/L Anion Gap (3-11) BUN (7-18) mg/dl Creatinine (0.6-1.2) mg/dl Est Cr Clr Drug Dosing ml/min Est GFR ( Amer) Est GFR (Non-Af Amer) BUN/Creatinine Ratio (10-20) Glucose (70-99) mg/dl POC Glucose 114 H 156 H (70-99) mg/dl Calcium (8.5-10.1) mg/dl Magnesium (1.8-2.4) mg/dl Medications Administered Current Inpatient Medications Acetaminophen (Tylenol) 1,000 mg PO Q8H [facility] Stop: 05/22/19 13:29 Last Admin: 04/23/19 06:05 Dose: 1,000 mg Documented by: Amlodipine Besylate (Norvasc) 10 mg PO DAILY [facility] Stop: 05/21/19 08:59 Last Admin: 04/23/19 08:23 Dose: 10 mg Documented by: Aspirin (Ecotrin Ectab) 162 mg PO DAILY [facility] Stop: 05/21/19 08:59 Last Admin: 04/23/19 08:21 Dose: Not Given Documented by: Atorvastatin Calcium (Lipitor) 80 mg PO DAILY [facility] Stop: 05/22/19 08:59 Last Admin: 04/23/19 08:23 Dose: 80 mg Documented by: Carvedilol (Coreg) 6.25 mg PO BID [facility] Stop: 05/21/19 20:59 Last Admin: 04/23/19 08:20 Dose: 6.25 mg Documented by: Chlorpromazine HCl (Thorazine) 25 mg PO DAILY [facility] Stop: 05/21/19 08:59 Last Admin: 04/23/19 08:23 Dose: 25 mg Documented by: Chlorpromazine HCl (Thorazine) 50 mg PO HS [facility] Stop: 05/21/19 20:59 Last Admin: 04/22/19 20:20 Dose: 50 mg Documented by: Clopidogrel Bisulfate (Plavix) 75 mg PO QAM [facility] Stop: 05/23/19 08:59 Last Admin: 04/23/19 08:22 Dose: 75 mg Documented by: Dextrose (Dextrose 50%) 25 - 50 ml IV UD PRN; Protocol PRN Reason: Hypoglycemia Protocol Stop: 05/20/19 23:47 Duloxetine HCl (Cymbalta) 60 mg PO DAILY [facility] Stop: 05/21/19 08:59 Last Admin: 04/23/19 08:23 Dose: 60 mg Documented by: Duloxetine HCl (Cymbalta) 30 mg PO DAILY [facility] Stop: 05/21/19 08:59 Last Admin: 04/23/19 08:23 Dose: 30 mg Documented by: Enoxaparin Sodium (Lovenox) 40 mg SQ QAM [facility] Stop: 05/21/19 08:59 Last Admin: 04/23/19 08:18 Dose: 40 mg Documented by: Ferrous Sulfate (Feosol) 325 mg PO DAILY [facility] Stop: 05/21/19 08:59 Last Admin: 04/23/19 08:20 Dose: 325 mg Documented by: Fluoxetine HCl (Prozac) 20 mg PO DAILY [facility] Stop: 05/21/19 08:59 Last Admin: 04/23/19 08:21 Dose: 20 mg Documented by: Fluticasone/Vilanterol (Breo Ellipta 100/25 Mcg Inh) 1 puffs INH DAILY [facility] Stop: 05/21/19 08:59 Last Admin: 04/23/19 08:19 Dose: 1 puffs Documented by: Gabapentin (Neurontin) 800 mg PO TID [facility] Stop: 05/21/19 08:59 Last Admin: 04/23/19 08:20 Dose: 800 mg Documented by: Glucagon (Glucagen) 1 mg SQ UD PRN; Protocol PRN Reason: Hypoglycemia Protocol Stop: 05/20/19 23:47 Glucose (Dex4 Glucose) 4 - 8 tabs PO UD PRN; Protocol PRN Reason: Hypoglycemia Protocol Stop: 05/20/19 23:47 Glucose (Glucose 40%) 15 - 30 gm PO UD PRN; Protocol PRN Reason: Hypoglycemia Protocol Stop: 05/20/19 23:47 Hydralazine HCl (Apresoline) 10 mg PO QID PRN PRN Reason: Hypertension Stop: 05/21/19 12:06 Last Admin: 04/23/19 08:22 Dose: 10 mg Documented by: Hydroxyzine HCl (Vistaril) 10 mg PO QID PRN PRN Reason: Anxiety Stop: 05/20/19 23:47 Promethazine HCl 12.5 mg/ (Sodium Chloride) 50.5 mls @ 202 mls/hr IV Q6H PRN PRN Reason: Nausea And Vomiting Stop: 05/20/19 23:47 Last Infusion: 04/21/19 15:06 Dose: Infused Documented by: Insulin Aspart (Novolog Flexpen) 0 units SC ACHS [facility] Stop: 05/20/19 23:47 Last Admin: 04/23/19 08:25 Dose: 4 units Documented by: Insulin Glargine (Lantus Solostar Pen) 5 units SC DAILY [facility] Stop: 05/21/19 08:59 Last Admin: 04/23/19 08:23 Dose: 5 units Documented by: Levothyroxine Sodium (Synthroid) 112 mcg PO DAILYBB [facility] Stop: 05/21/19 06:29 Last Admin: 04/23/19 06:05 Dose: 112 mcg Documented by: Lisinopril (Zestril) 40 mg PO DAILY [facility] Stop: 05/21/19 08:59 Last Admin: 04/23/19 08:22 Dose: 40 mg Documented by: Miscellaneous (Carbohydrates For Hypoglycemia) 15 - 30 gm PO UD PRN PRN Reason: Hypoglycemia Protocol Stop: 05/20/19 23:47 Nitroglycerin (Nitrostat) 0.4 mg SL UD PRN PRN Reason: Chest Pain Stop: 05/20/19 23:47 Last Admin: 04/22/19 00:34 Dose: 0.4 mg Documented by: Nitroglycerin (Nitro-Bid 2%) 0.5 inch EXT Q6H [facility] Stop: 05/21/19 15:59 Last Admin: 04/23/19 09:35 Dose: 0.5 inch Documented by: Oxycodone HCl (Roxicodone Immediate Rel) 5 mg PO Q4H PRN PRN Reason: Pain Stop: 05/06/19 13:22 Pantoprazole Sodium (Protonix) 40 mg PO DAILY [facility] Stop: 05/21/19 08:59 Last Admin: 04/23/19 08:22 Dose: 40 mg Documented by: (1) Chest pain Chest pain type: unspecified Qualified Code(s): R07.9 - Chest pain, unspecified
--- NOTE | 2019-04-23 10:47 | Cardiology Progress Note ---
Date of Service April 23, 2019 Assessment & Plan (1) Chest pain: Initial enzymes and EKGs do not reflect acute myocardial injury. Patient has known coronary disease as well as premature vascular disease per history. Blood pressures are substantially hypertensive. Patient underwent coronary invention in October 2018 receiving drug-eluting stent to the mid left anterior descending though without improvement symptoms of chest pain or discomfort. As already begun we will titrate antihypertensives further we will add topical nitrates to current conversion to carvedilol from metoprolol Echocardiogram with preserved LV function no significant valvular disease or pericardial effusion Lipid therapies intensified Tobacco cessation is mandated No EKG changes or enzyme changes despite intermittent chest discomfort. Blood pressure still very labile Patient had coffee this morning and stress nuclear imaging deferred to a.m. with baseline rest images performed today We will switch on Nitropaste to isosorbide mononitrate add low-dose hydralazine (2) CAD (coronary artery disease): (3) COPD (chronic obstructive pulmonary disease): (4) Peripheral vascular disease: Status post thrombo-embolectomy of femoral-popliteal area on the right and subsequent surgical repair of distal aortoiliac occlusive disease, September 2014 Large vessel aortic disease at age 38 concerning for possible underlying vasculitides. Will warrant MRI of aorta and renal arteries as part of clinical evaluation Subjective Patient seen and examined, chart,, medications, telemetry reviewed. Continues to note occasional episodes of sharp jabbing pain in her chest and shoulders. Blood pressure better this morning but very labile Physical Exam Constitutional: WD/WN, vitals as above no acute distress Eyes: PERRL, conjunctivae normal, anicteric sclerae ENMT: external ear and nose normal, oropharynx normal Neck: trachea midline, no thyromegaly Respiratory: normal respiratory effort, lungs clear to auscultation Cardiovascular: Rate/Rhythm: regular rate and regular rhythm Heart Sounds: normal S1 and normal S2; no gallop and no murmur Palpation: normal PMI Vessels: normal carotid upstroke; no JVD, no carotid bruit and + radial pulses abnormal (Right radial pulse absent left radial pulse present) Extremities: no edema Gastrointestinal (Abdomen): normal bowel sounds, soft, nontender, no hepatosplenomegaly Musculoskeletal: no cyanosis or clubbing, extremities motor strength 5/5 Skin: no rashes, warm and dry Neurologic: PERRL, EOMI, accommodation nl, no face palsy, no dysarthria Psychiatric: A+Ox3, euthymic affect Results & Data Vital Signs (Past 12 Hours) Vital Signs Temp Pulse Pulse Resp BP BP Pulse Ox 04/23/19 08:00 72 04/23/19 07:04 36.4 C L 68 19 126/87 98 04/23/19 03:14 36.4 C L 72 16 179/100 H 98 04/23/19 00:00 04/22/19 23:11 36.5 C 69 16 139/95 93 Pulse Ox 04/23/19 08:00 04/23/19 07:04 04/23/19 03:14 04/23/19 00:00 93 04/22/19 23:11 Laboratory Results Laboratory Results - last 24 hr 04/22/19 04/22/19 04/22/19 11:09 16:12 20:24 WBC RBC Hgb Hct MCV MCH MCHC RDW Std Deviation RDW Coeff of Vivek Plt Count MPV Sodium Potassium Chloride Carbon Dioxide Anion Gap BUN Creatinine Est Cr Clr Drug Dosing Est GFR ( Amer) Est GFR (Non-Af Amer) BUN/Creatinine Ratio Glucose POC Glucose 156 H 114 H 163 H Calcium Magnesium 04/23/19 04/23/19 06:02 06:02 WBC 6.95 RBC 3.38 L Hgb 10.5 L Hct 31.9 L MCV 94.4 MCH 31.1 MCHC 32.9 RDW Std Deviation 54.7 H RDW Coeff of Vivek 15.7 H Plt Count 259 MPV 9.8 Sodium 140 Potassium 3.8 Chloride 109 H Carbon Dioxide 26 Anion Gap 5.0 BUN 10 Creatinine 0.70 Est Cr Clr Drug Dosing 96.8 Est GFR ( Amer) 124.7 Est GFR (Non-Af Amer) 107.6 BUN/Creatinine Ratio 14.2 Glucose 114 H POC Glucose Calcium 8.5 Magnesium 2.0 (1) Chest pain Chest pain type: unspecified Qualified Code(s): R07.9 - Chest pain, unspecified
[2019-04-23] MEDS: ISOSORBIDE MONO EXTENDED REL 60 MG TABCR PO SCH (12:02)
[2019-04-23] MEDS: HydrALAZINE 10 MG TAB PO SCH (17:11)
[2019-04-24] MEDS: ACETAMINOPHEN 500 MG TAB PO SCH ×2 (05:12→17:02)
[2019-04-24] MEDS: LEVOTHYROXINE SODIUM 112 MCG TABLET PO SCH (05:12)
[2019-04-24] MEDS: OXYCODONE HCL IR 5 MG TAB (IMMEDIATE RELEASE) PO PRN ×4 (05:12→17:52)
[2019-04-24 07:07] LABS: Hematocrit (blood only) 31.6 % (37-47); Hemoglobin 10.3 g/dL (12.0-16.0); Mean Corpuscular Hgb Conc 32.6 g/dL (32-36); Mean Corpuscular Volume 95.2 fL (80-100); Mean Platelet Volume 9.6 fL (7.4-10.4); Platelet Count 246 K/uL (130-400); RDW Coefficient of Variation 15.7 % (11.5-14.5); RDW Standard Deviation 54.6 fL (36.4-46.3); Red Blood Count 3.32 M/uL (4.2-5.4); White Blood Count 6.92 K/uL (4.8-10.8)
[2019-04-24 07:36] LABS: BUN Creatinine Ratio 16.7 (10-20); Calcium 8.6 mg/dl (8.5-10.1); Creatinine Clr Calc Pharmacy 94.2 ml/min; Est GFR (African American) 120.6; Magnesium 1.8 mg/dl (1.8-2.4); Potassium 3.9 mmol/L (3.5-5.1)
[2019-04-24] MEDS: carvediloL 6.25 MG TAB PO SCH (08:00)
[2019-04-24] MEDS: FLUOXETINE HCL 20 MG CAP PO SCH (08:00)
[2019-04-24] MEDS: ISOSORBIDE MONO EXTENDED REL 60 MG TABCR PO SCH (08:00)
[2019-04-24] MEDS: AMLODIPINE BESYLATE 5 MG TAB PO SCH (08:00)
[2019-04-24] MEDS: ATORVASTATIN 40 MG TAB PO SCH (08:00)
[2019-04-24] MEDS: DULOXETINE HCL 30 MG CAP PO SCH (08:00)
[2019-04-24] MEDS: lisinopriL 40 MG TAB PO SCH (08:00)
[2019-04-24] MEDS: DULOXETINE HCL 60 MG CAP PO SCH (08:00)
[2019-04-24] MEDS: GABAPENTIN 800 MG TAB PO SCH ×2 (08:01→17:02)
[2019-04-24] MEDS: HydrALAZINE 10 MG TAB PO SCH ×2 (08:01→17:01)
[2019-04-24] MEDS: CHLORPROMAZINE HCL 25 MG TABLET PO SCH (08:01)
[2019-04-24] MEDS: CLOPIDOGREL BISULFATE 75 MG TAB PO SCH (08:01)
[2019-04-24] MEDS: FERROUS SULFATE 325 MG TAB PO SCH (08:02)
[2019-04-24] MEDS: ASPIRIN 81 MG ECTAB PO SCH (08:02)
[2019-04-24] MEDS: ENOXAPARIN INJ 40 MG/0.4 ML SYR SQ SCH (08:02)
[2019-04-24] MEDS: PANTOprazole 40 MG TAB PO SCH (08:02)
[2019-04-24] MEDS: FLUTICASONE/VILANTEROL 100/25MCG 14 PUFFS/INHALER INH SCH (08:03)
[2019-04-24] MEDS: INSULIN GLARGINE SOLOSTAR 100 UNITS/ML 3 ML PEN SC SCH (08:03)
[2019-04-24] MEDS: INSULIN ASPART 100 UNITS/ML 3 ML PEN SC SCH ×3 (08:07→17:04)
[2019-04-24] MEDS ORDERED: REGADENOSON 0.4 MG/5 ML SYR IV ONE (08:26)
--- NOTE | 2019-04-24 14:44 | Myocardial Perfusion Study ---
Date of Service April 24, 2019 Myocardial Perfusion Study [facility] Myocardial Perfusion Study Report Procedure: 1. Myocardial perfusion study performed in multiple views/images 2. Lexiscan pharmacologic stress ECG Indications: 1. Chest pain Ordering physician: Dr. Manzanares Procedural details: For the stress portion of the study, Lexiscan 0.4 mg was intravenously administered followed by a saline flush. This was followed by 24.02 mCi of technetium 99m Cardiolite, injected at 11:25 a.m. on 04/24/2019. 30 minutes following the injection, imaging of the heart was performed in multiple projections. For the rest portion of the study, 24 mCi technetium 99m Cardiolite was injected intravenously at 9:50 a.m. on 04/23/2019. 1 hour following the injection, imaging of the heart was performed in the same projections. Lexiscan stress ECG: Resting ECG demonstrated: Sinus tachycardia 108 bpm. Maximum heart rate: 150 bpm Maximal, age-predicted heart rate: 83 % Resting blood pressure: 128/84 mmHg Maximum blood pressure: 141/[address] changes: None Arrhythmia: None Symptoms: Shortness of breath. Baseline chest discomfort did not worsen during stress procedure. Findings: Rotating raw imaging demonstrated no significant lung uptake. There is no significant motion artifact. Heart size appeared normal. Myocardial perfusion demonstrated a small area of mildly reduced uptake involving the apex which was fixed in post stress and rest imaging. There is no significant reversible defect to suggest ischemia. Ejection fraction: 65 % Wall motion: Normal No significant transient ischemic dilation. Impression: 1. Negative myocardial perfusion study for ischemia. 2. Small fixed apical defect may represent small apical infarct, but given normal wall motion, consider attenuation artifact. 3. Normal wall motion and LV systolic function. EF 65%. 4. Lexiscan induced shortness of breath. 5. Nondiagnostic Lexiscan ECG as target heart rate was not attained. Myocardial perfusion codes Indication for Procedure (1) Chest pain: (2) CAD (coronary artery disease): Procedure Code Procedure 1: Myocardial Perfusion Codes: 86691 Cardiovascular Stress Test, multiple Procedure 2: Myocardial Perfusion Codes: 01512 Cardiovascular Stress Test, supervision only Procedure 3: Myocardial Perfusion Codes: 87270 Cardiovascular Stress Test, interpretation and report
--- NOTE | 2019-04-24 14:54 | Cardiology Progress Note ---
Date of Service April 24, 2019 Assessment & Plan (1) Chest pain: Initial enzymes and EKGs do not reflect acute myocardial injury. Patient has known coronary disease as well as premature vascular disease per history. Blood pressures are substantially hypertensive. Patient underwent coronary invention in October 2018 receiving drug-eluting stent to the mid left anterior descending though without improvement symptoms of chest pain or discomfort. As already begun we will titrate antihypertensives further we will add topical nitrates to current conversion to carvedilol from metoprolol Echocardiogram with preserved LV function no significant valvular disease or pericardial effusion Lipid therapies intensified Tobacco cessation is mandated No EKG changes or enzyme changes despite intermittent chest discomfort. Blood pressure still very labile Lexiscan stress nuclear imaging without stress-induced ischemia with only a very small subtle fixed apical defect. Plan to treat hypertension changing from metoprolol to carvedilol 12.5 g twice per day on discharge Brilinta switched to clopidogrel Hydralazine 10 mg twice per day added to usual regimen with room to increase Follow-up as already scheduled with Dr. Gavin Mckeon [facility] at [place] outreach 05/01/2019 (2) CAD (coronary artery disease): (3) COPD (chronic obstructive pulmonary disease): (4) Peripheral vascular disease: Status post thrombo-embolectomy of femoral-popliteal area on the right and subsequent surgical repair of distal aortoiliac occlusive disease, September 2014 Large vessel aortic disease at age 38 concerning for possible underlying vasculi tides. Will warrant MRI of aorta and renal arteries as part of clinical evaluation Subjective Patient seen and examined, chart, medications, telemetry reviewed. Occasional sharp jabbing pains skin and sensed ventricular ectopy Telemetry without significant arrhythmias Stress nuclear today free of stress-induced ischemia Blood pressure is labile but trending towards better control Physical Exam Constitutional: WD/WN, vitals as above no acute distress Eyes: PERRL, conjunctivae normal, anicteric sclerae ENMT: external ear and nose normal, oropharynx normal Neck: trachea midline, no thyromegaly Respiratory: normal respiratory effort, lungs clear to auscultation Cardiovascular: Rate/Rhythm: regular rate and regular rhythm Heart Sounds: normal S1 and normal S2; no gallop and no murmur Palpation: normal PMI Vessels: normal carotid upstroke; no JVD, no carotid bruit and + radial pulses abnormal (Right radial pulse absent left radial pulse present) Extremities: no edema Gastrointestinal (Abdomen): normal bowel sounds, soft, nontender, no hepatosplenomegaly Musculoskeletal: no cyanosis or clubbing, extremities motor strength 5/5 Skin: no rashes, warm and dry Neurologic: PERRL, EOMI, accommodation nl, no face palsy, no dysarthria Psychiatric: A+Ox3, euthymic affect Results & Data Vital Signs (Past 12 Hours) Vital Signs Temp Pulse Pulse Resp BP BP Pulse Ox 04/24/19 08:00 71 04/24/19 07:39 36.6 C 77 18 153/98 H 87 L 04/24/19 03:37 36.6 C 84 16 134/87 95 (1) Chest pain Chest pain type: unspecified Qualified Code(s): R07.9 - Chest pain, unspecified
--- NOTE | 2019-04-24 18:09 | Discharge Summary ---
Date of Service April 24, 2019 Admission HPI Per Admitting Provider History obtained from patient and records. Medical history significant for CAD status post stent (10/2018), AAA status post surgery (2014), CVA as per records, hypertension, COPD, ongoing tobacco abuse, mood disorder, DM 2 diet-controlled, hypothyroidism as per records, chronic anemia baseline hemoglobin of 11, history leg clot status post surgery as per patient, drug-seeking behavior as per records. Recent confinement 3 weeks ago for oral abscess status post drainage. In the last 2 weeks, patient experienced intermittent squeezing left chest discomfort occasionally going to the left arm with some shortness of breath. Similar to anginal attack in the past usually precipitated by stress and exertion. Relieved by rest. No unusual cough symptoms. Two [facility] facility ER visits in the last 2 weeks for chest pain complaints. Home SBP 140-180s as per patient. Patient claims to be compliant with home medications. Taking OTC NSAIDs for body aches. Snoring symptoms and not feeling rested in the morning. No unusual headaches. Denies dietary discretion. Patient slated to have first first appointment with local [facility] automotive lube technician in [facility] and this month. Today, patient had recurrence of left-sided chest pain while cleaning the bathroom. At the ER, highest SBP was 200s. Patient given labetalol and nitroglycerin. Chest pain currently improved as per patient. Medical History as above TTE February 2019 ([facility]) EF 55 to 60%, mild mitral regurgitation, mild to moderate tricuspid regurgitation. LAE. Normal diastolic function. Surgical History : AAA surgery, carpal tunnel surgery, RLE embolectomy with patch placement, section, elbow surgery, hernia repair, knee surgery, cholecystectomy, BTL, tonsillectomy, dental surgery Family History : Alcoholism, diabetes, heart disease, stroke, seizure Personal/Social history : 5 cigarettes a day, occasional EtOH intake, disabled Admission Exam Per Admitting Provider GENERAL: Slightly uncomfortable, obese, looks older for stated age, no respiratory distress SKIN: Pallor, warm HEENT: Pale palpebral conjunctivae, no ptosis, moist buccal mucosa, partially edentulous NECK : Supple, no tenderness CHEST : CTA, no tenderness HEART : RRR, no obvious murmurs ABDOMEN: Some distention, nontender RECTAL : Intact sphincter, brown stool (FOBT negative) EXTREMITIES : Chronic RLE swelling/tenderness, no other conspicuous deformities noted NEUROLOGIC : Coherent, no facial asymmetry, no other gross focality Principal Diagnosis Atypical chest pain Discharge Exam GENERAL: Young obese female, in no acute distress HEENT: NC/AT, EOMI, PERRL, moist buccal mucosa NECK : Supple, no tenderness CHEST : CTAB, no wheezes, rhonchi, crackles HEART : RRR, no obvious murmurs, no R radial pulse ABDOMEN: normal bowel sounds,soft, obese, nontender,some distention SKIN: warm, dry EXTREMITIES : no LE edema, moves extremities spontaneously NEUROLOGIC : alert and oriented,no facial asymmetry,speech fluent, moves extrem ities spontaneously Discharge Data Allergies Allergy/AdvReac Type Severity Reaction Status Date / Time loratadine AdvReac Severe anxiety, Verified 04/20/19 19:30 paranoia increases cetirizine AdvReac Intermediate anxiety, Verified 04/20/19 19:30 paranoia increases fexofenadine AdvReac Intermediate anxiety Verified 04/20/19 19:30 and paranoia increases ketorolac AdvReac Mild PT STATES Verified 04/20/19 19:30 SHE IS ON THORAZINE AND CANNOT TAKE TORADOL tramadol AdvReac Mild hallucinati Verified 04/21/19 00:40 ons Consultations 04/20/19 22:12 ED Decision to Admit Stat 04/20/19 23:48 Consult Cardiology Routine Ordered Studies 04/20/19 19:08 CT angio chest dissec wo/w con Stat IMPRESSION: 1. No evidence of acute aortic injury. Mild atherosclerosis of the descending thoracic aorta. 2. Mild diffuse bronchial wall thickening suggests bronchitis, likely infectious or inflammatory. 3. Bibasilar atelectasis. Hospital Course (1) Chest pain: Possibly secondary to uncontrolled hypertension NSAID intake, personal stressors contributory Also known CAD and premature vasc. disease Rule out sleep disordered breathing as contributory factor, recommend outpt sleep study r/o ACS, hx CAD status post stent (10/2018), never followed up w/ cardiology Troponin x3 negative, EKG does not show isch. changes Echocardiogram with preserved LV function no significant valvular disease or pericardial effusion Replaced Lopressor with Coreg, cont. lisinopril, added hydralazine prn on admission Intensified statin therapy May benefit from addition of long-acting nitrate rx Patient counseled about adverse effects of NSAIDs on BP control Judicious narcotic use given history drug-seeking behavior as per records Cardiology consulted RE chest pain, history of CAD, PVD; uncontrolled hypertension - pt underwent resting echo and nuclear stress test, Echo - essentially normal (as above), nuclear stress test does not show cardiac ischemia On discharge: switched Brilinta to Plavix 75 mg daily, switched metoprolol to Coreg 12.5 mg twice a day, added low-dose hydralazine 10 mg twice a day (this can be titrated up as needed). atorvastatin increased to 80 mg daily Follow up appointment scheduled for May 01, with Dr. Mckeon. PVD Status post thrombo-embolectomy of femoral-popliteal area on the right and subsequent surgical repair of distal aortoiliac occlusive disease, September 2014 Large vessel aortic disease at age 38 concerning for possible underlying vasculitides. Will warrant MRI of aorta and renal arteries as part of clinical evaluation Hx CVA as per records COPD, ongoing tobacco abuse: Pulmonary status at baseline mood disorder, at baseline as per patient DM 2 diet-controlled, well controlled as of recent hemoglobin A1c of 6.3% March 2019 Basal insulin, ISS BG goal [id number] Hypothyroidism as per records, euthyroid as of today's TSH Anemia, hemoglobin at baseline Drug-seeking behavior as per records Hypokalemia -replace and monitor K Current tobacco use -Tobacco cessation counseling -Contact provided for 1 800 quit now free smoking cessation line -Nicotine patch PRN Total Time Total Time Spent Total Time Spent (In Minutes): 40 Total Time Includes: Examination of the Patient, Discharge Planning, Medication Reconciliation and Communication With Other Providers Discharge Plan Discharge Items Patient Disposition: Home - Self-Care Reason For Visit: CHEST PAIN Discharge Diagnosis: Atypical chest pain Activity: Resume your previous activity Activity Comment: as tolerated Non-emergency contact: Primary Care Provider and Bug Trimmer Call non-emergency contact if: you have any medication questions and your symptoms worsen Follow-up/Referrals: Jesika Rocha PA-C [Primary Care Provider] - Diet: Carb Consistent or DM2 and Heart Healthy Addtl Attending Provider Instructions: Take carvedilol (Coreg) 12.5 mg BID instead of metoprolol. Also take clopidogrel (Plavix) instead of Brilinta. Start taking Hydralazine 10 mg twice a day to help control your blood pressure. Dose of your atorvastatin was increased to 80 mg daily. Follow-up appointment was already scheduled for you, with Dr. Gavin Mckeon at [facility] group in [place] at [place] outreach on May 01, 2019. Monitor your blood pressure at home, and keep a log of these numbers. Bring your log to your appointments with your primary care provider and/or automotive lube technician. It is crucial that you quit smoking. Please call free smoking cessation line, 1 800 quit now for further information and help. Pending Studies at Discharge: No Stand-Alone Forms: Call Back Authorization, [facility], Smoking Cessation Medications and DC Order Prescriptions: New clopidogrel 75 mg Tablet 75 mg PO QAM 30 Days Qty: 30 RF: 0 carvedilol 12.5 mg Tablet 12.5 mg PO BID 30 Days Qty: 60 RF: 0 hydralazine 10 mg Tablet 10 mg PO BID17 30 Days Qty: 30 RF: 0 Continued amlodipine 10 mg Tablet 10 mg PO DAILY RF: 0 aspirin [Aspir-81] 81 mg Tablet,Delayed Release (Dr/Ec) 162 mg PO DAILY RF: 0 methocarbamol 500 mg Tablet 500 mg PO TID PRN (Reason: Muscle Spasm) RF: 0 gabapentin 800 mg Tablet 800 mg PO TID RF: 0 ferrous sulfate 325 mg (65 mg iron) Tablet 325 mg PO DAILY RF: 0 chlorpromazine 25 mg Tablet 25 mg PO DAILY RF: 0 chlorpromazine 25 mg Tablet 50 mg PO HS RF: 0 fluoxetine 20 mg Tablet 20 mg PO DAILY RF: 0 hydroxyzine HCl 10 mg Tablet 10 mg PO QID PRN (Reason: Anxiety) RF: 0 lisinopril 40 mg Tablet 40 mg PO DAILY RF: 0 levothyroxine 112 mcg Tablet 112 mcg PO DAILY RF: 0 duloxetine 60 mg Capsule,Delayed Release(Dr/Ec) 60 mg PO DAILY RF: 0 omeprazole 20 mg Tablet,Delayed Release (Dr/Ec) 20 mg PO DAILY RF: 0 Dulera 100-5 mcg/actuation Hfa Aerosol Inhaler 2 puff INHALATION Q12H RF: 0 Combivent Respimat 20-100 mcg/actuation Mist 1 puff INHALATION QID PRN (Reason: Shortness Of Breath) RF: 0 duloxetine 30 mg Capsule, Delayed Rel Sprinkle 30 mg PO DAILY RF: 0 Changed atorvastatin 40 mg Tablet 80 mg PO DAILY Qty: 0 RF: 0 Discontinued Brilinta 90 mg Tablet 90 mg PO BID RF: 0 metoprolol succinate 25 mg Capsule,Sprinkle,Er 24hr 25 mg PO DAILY RF: 0 Discharge Orders: Discharge Order (Routine); Ordered 04/24/19 Ordered By: Roderick Manzanares Admission Data Admit Date/Time: 04/22/19 07:32 Attending Provider: Roderick Manzanares Admit Provider: Mesfin Interiano Primary Care Provider: Jesika Rocha Other Providers: Chaitanya Conley Other Interventions: Discharge Summary Assessment (RN) Last Done: 04/24/19 18:09 DC Date/Time DO NOT enter until pt leaves facility: 04/24/19 18:41
[2019-04-24] MEDS ORDERED: carvediloL 12.5 MG TAB PO SCH (21:00)
--- NOTE | 2019-04-24 22:24 | Electrocardiogram Report ---
Test Reason : Blood Pressure : / mmHG Vent. Rate : 082 BPM Atrial Rate : 082 BPM P-R Int : 198 ms QRS Dur : 080 ms QT Int : 414 ms P-R-T Axes : 051 041 045 degrees QTc Int : 483 ms Normal sinus rhythm ST elevation, consider early repolarization vs pericarditis Prolonged QT Abnormal ECG When compared with ECG of 21-APR-2019 23:31, No significant change was found Confirmed by Salo Fernandes ([id number]) on 04/24/2019 10:24:16 PM Referred By: REFERRED SELF Confirmed By:Salo Fernandes
== END 2019-04-24 18:41 | disposition home or self-care (01) | DRG 313 ==
LOC: ED 18:33 → 2S 18:33

== ENCOUNTER 2019-08-14 13:03 | Observation (INO) ==
[2019-08-14] MEDS ORDERED: ASPIRIN CHEW 324 MG PO STA (13:24)
[2019-08-14] MEDS ORDERED: MoRPHine SULFATE 2 MG/ML CARP IV STA (13:24)
[2019-08-14] MEDS ORDERED: NITROGLYCERIN 2% OINTMENT 30GM TUBE EXT STA (13:24)
--- NOTE | 2019-08-14 13:32 | Emergency Department Note ---
Impression & Plan Precordial chest pain, Hypertension, Hypokalemia, History of coronary artery disease ED Provider Note NAME: MARY TOSCANO AGE: 43 SEX: F : 1975 ARRIVES VIA: Walk-In INFORMANT: [Patient] ED PROVIDER(S): [Jc Noyola MD] CHIEF COMPLAINT: Chest pain HISTORY OF PRESENT ILLNESS: Patient is a 43-year-old female who presents to the ER with about 45 minutes of left chest pain. The pain is sharp and pressure-like and moves to her back. The pain is an 8/10. Sometimes, movement of her left arm makes it worse. Sometimes, deep breathing makes the pain worse. It began as she was doing laundry. She feels short of breath, nausea and she feels dizzy. There has been no sweating. The patient did take Tylenol and this has not helped her pain. The patient did have an LAD stent placed 7 months ago at [facility]. This was done after she presented with chest pain and was diagnosed with an IN. She is currently on Plavix and aspirin. The patient did take 2 sublingual nitroglycerin at home, this may have helped slightly. Of note, for the last 2 months, the patient has noticed some chest pain when walking upstairs. The pain resolves with rest. REVIEW OF SYSTEMS: See HPI for pertinent positives and negatives. A total of ten systems were reviewed and were otherwise negative. PMHx/PSHx: See Below SOCIAL HISTORY: See Below. PHYSICAL EXAM: GENERAL: Patient is in no acute distress. HEENT: No acute trauma, normocephalic atraumatic, mucous membranes moist, no nasal congestion, no scleral icterus. NECK: No stridor, no adenopathy, no meningismus, trachea is midline. LUNGS: Clear to auscultation bilaterally, no wheeze, no rhonchi, breath sounds equal. HEART: Without murmurs gallops or rubs, mildly tachycardic, regular rhythm. Chest: Nontender chest wall. She does seem to have increased pain with deep breathing and lifting her left arm over her head. ABDOMEN: Soft, nontender, bowel sounds positive, no hernias, no peritonitis. EXTREMITIES: No cyanosis or edema, full range of motion of all the joints without pain or difficulty, no signs for acute trauma. NEUROLOGIC: Oriented x 3, no acute motor or sensory deficits, no focal weakness. SKIN: No rash, no jaundice, no diaphoresis. DIFFERENTIAL DIAGNOSIS: Cardiac ischemia, aortic dissection, pulmonary embolism, pneumothorax, pneumonia, pericarditis, myocarditis, esophageal rupture, GERD, cholecystitis, pancreatitis, musculoskeletal, as well as other pathologies. EMERGENCY DEPARTMENT COURSE/PROCEDURES: ECG: Indication is chest pain. EKG shows a normal sinus rhythm with a rate of 81. The QTc is 427. There are no PVCs. No acute ST elevation. Compared to an EKG from 24 April 2019, the mild ST elevation diffusely seems to have resolved. Continuous Cardiac Monitoring: An order was placed for continuous cardiac monitoring. The monitor shows a rate of 93 with normal sinus rhythm. MEDICAL DECISION MAKING: There is no leukocytosis or worrisome anemia. No coagulopathy. Potassium was slightly low at 3.3. No kidney failure. No worrisome liver enzyme elevation. No evidence for pancreatitis. EKG shows a sinus rhythm, there is no acute ischemia. Cardiac enzyme testing x1 is not consistent with acute cardiac injury. Chest film does not show mediastinal widening, pneumonia or pneumothorax. On exam, patient was not toxic. She did seem to have worsening of her chest pain with lifting her left arm over her head. The patient has a history of coronary disease. She just had a LAD stent placed 7 months ago. She presents with chest pain. She had taken nitroglycerin prior to arrival. The patient was given oral aspirin, Nitropaste, IV morphine. A second dose of IV morphine was given. She was given some oral potassium. The patient's chest pain requires further work-up in the hospital. I did speak to the patient about my concerns. Patient is feeling better at this point with regards to her pain. Case management has been involved. The on-call hospitalist has been consulted. Further cardiac work-up is warranted given her complaints and past history. Past Med/Surg History Medical History Anemia Baseline 9.9-11, ongoing since ~2004. Atypical chest pain Per cardiology 05/01/19, "- persistent chest pain symptoms are atypical. Recent lexiscan nuclear stress test from 04/24/2019 was negative for ischemia; suspect some of her symptoms have been due to uncontrolled HTN urgencies. BP better controlled now since adjustment of meds during recent inpatient stay. Continue Dual antiplatelet therapy (DAPT) with ASA and plavix for at least 1 year but likely would continue indefinitely given severe PAD in addition to the CAD." Bipolar disorder Blood clotting disorder Patient unsure what type; reports was discovered with DVT ~2013 CAD (coronary artery disease) 10/2018-[facility] to LAD Cervical cancer cryotherapy (~1994) Chronic pain COPD (chronic obstructive pulmonary disease) inhalers daily. Continues to smoke. Degenerative disc disease Depression with anxiety DM type 2 (diabetes mellitus, type 2) diet controlled Fibromyalgia GERD (gastroesophageal reflux disease) History of DVT (deep vein thrombosis) ~2013. Hyperlipidemia Hypertension (Chronic) Hypothyroidism (Acute) Migraine Myocardial Infarction October 2018. Follows with Dr. Magdy Mckeon. Neuropathy hands and feet Osteoarthritis Peripheral vascular disease S/P prior femoropopliteal thromboembolectomy on right side and surgical re pair of distal aortoiliac occlusive disease in 2014. Post traumatic stress disorder Raynauds disease Schizophrenia Transient ischemic attack (TIA) x2 September 2018. Surgical History H/O elbow surgery right H/O tubal ligation H/O vascular surgery thrombectomy Right leg 2013 History of arthroscopic knee surgery left History of cardiac cath October 2018 at [facility] History of carpal tunnel surgery of right wrist History of dilatation and curettage x2 History of heart artery stent Drug Eluting stent placed in LAD -- October 2018. History of incisional hernia repair x2 with full abdominal screen/mesh. Hx of cholecystectomy Hx of oral surgery (04/02/19) Oral Abscess Incision and Drainage (hard palate and extraction of tooth # 7,8,9,10,11,20 and 21) Dr. Kowalski 04-02-19. GETA. MAC 3, Grade 2 view. 7.0 ETT without difficulty. Hx of oral surgery (06/27/19) Closure Of oral/nasal Fistula, Left Palate To Muccoboccal Fold and Debridement Of Necrotic Bone Maxilla from area 3-14 Dr. Kowalski 06/27/19 S/P AAA repair ~2013 [facility]. (Dr. Graves). placed on Plavix and ASA at this time. S/P tonsillectomy Family History Mother Diabetes Grandfather FHx: heart disease Other No family history of adverse response to anesthesia Social History Preferred Language: Uzbek Communication Ability: Effective [employer] Manager Required: No Beliefs That Will Affect Care: None marital status: Single Current Living Situation: Family and Significant Other current occupational status: disabled Other Information That Helps Us Care for You: No Feels Safe at Home: Yes Safety Concerns: Feels Safe At This Time Smoking Status: Current every day smoker Tobacco Type: cigarettes ; Cigarettes Per Day: 20 ; Do You Dip or Chew Tobacco: No ; Second Hand Exposure: Yes ; Hx Alcohol Use: Yes Alcohol type: hard liquor Hx Substance Use: Yes (daily) substance use type: marijuana Last Used Substance: Hours (ago) Last Used Substance Other:: 05/14/2019 Allergies Allergies Allergy/AdvReac Type Severity Reaction Status Date / Time bee pollen Allergy Severe Anaphylaxis Verified 08/14/19 14:22 loratadine AdvReac Severe anxiety, Verified 08/14/19 14:22 paranoia increases cetirizine AdvReac Intermediate anxiety, Verified 08/14/19 14:22 paranoia increases fexofenadine AdvReac Intermediate anxiety Verified 08/14/19 14:22 and paranoia increases ketorolac AdvReac Mild PT STATES Verified 08/14/19 14:22 SHE IS ON THORAZINE AND CANNOT TAKE TORADOL tramadol AdvReac Mild hallucinati Verified 08/14/19 14:22 ons Home Meds Home Medications Medication Instructions Recorded Confirmed aspirin [Aspir-81] 81 mg PO BID 05/13/18 08/14/19 Combivent Respimat 1 puff INHALATION QID PRN 04/01/19 08/14/19 chlorpromazine 50 mg PO QAM 04/01/19 08/14/19 chlorpromazine 75 mg PO HS 04/01/19 08/14/19 duloxetine 30 mg PO QAM 04/01/19 08/14/19 duloxetine 60 mg PO QAM 04/01/19 08/14/19 ferrous sulfate 325 mg PO QAM 04/01/19 08/14/19 gabapentin 800 mg PO TID 04/01/19 08/14/19 hydroxyzine HCl 10 mg PO QID PRN 04/01/19 08/14/19 levothyroxine 112 mcg PO QAM 04/01/19 08/14/19 lisinopril 40 mg PO QAM 04/01/19 08/14/19 atorvastatin 80 mg PO QAM 05/14/19 08/14/19 clopidogrel 75 mg PO QAM 06/07/19 08/14/19 nitroglycerin [Nitrostat] 0.4 mg SUBLINGUAL DIRECTED 06/27/19 08/14/19 albuterol sulfate 2 puff INHALATION Q6H PRN 07/11/19 08/14/19 albuterol sulfate 2.5 mg INHALATION Q4H 07/11/19 08/14/19 carvedilol 12.5 mg PO BID 08/09/19 08/14/19 chlorthalidone 25 mg PO DAILY 08/09/19 08/14/19 cyclobenzaprine 10 mg PO TID PRN 08/09/19 08/14/19 dicyclomine 20 mg PO QID PRN 08/09/19 08/14/19 omeprazole 40 mg PO QAM 08/09/19 08/14/19 quetiapine 50 mg PO QPM 08/09/19 08/14/19 fluticasone furoate [Arnuity 1 inh INHALATION DAILY 08/14/19 08/14/19 Ellipta] Results & Data (ED) Vital Signs Vital Signs - 24 hr 08/14/19 13:13 08/14/19 13:15 08/14/19 13:29 Temperature 36.9 C Temperature Source Oral Pulse Rate 108 H 86 90 Pulse Rate from SpO2 Sensor 89 90 Respiratory Rate 18 20 25 H Blood Pressure 172/132 H 172/135 H 118/91 Blood Pressure Mean 145 156 94 Pulse Oximetry 96 99 95 Oxygen Delivery Method Room Air Sepsis Recent Fever Within 48 Hours No Sepsis New/Unexplained Change in Mental Status No Sepsis Action Taken by Nursing No Action Required 08/14/19 13:31 08/14/19 13:45 08/14/19 14:00 Temperature Temperature Source Pulse Rate 91 H 83 86 Pulse Rate from SpO2 Sensor 92 H 84 87 Respiratory Rate 20 14 20 Blood Pressure 133/88 130/91 134/97 Blood Pressure Mean 105 107 121 Pulse Oximetry 95 98 95 Oxygen Delivery Method Room Air Room Air Sepsis Recent Fever Within 48 Hours Sepsis New/Unexplained Change in Mental Status Sepsis Action Taken by Nursing 08/14/19 14:15 08/14/19 14:30 05/12/20 14:45 Temperature Temperature Source Pulse Rate 100 H 93 H 94 H Pulse Rate from SpO2 Sensor 97 H 92 H 95 H Respiratory Rate 21 22 14 Blood Pressure 101/81 131/93 114/86 Blood Pressure Mean 86 102 106 Pulse Oximetry 97 92 97 Oxygen Delivery Method Sepsis Recent Fever Within 48 Hours Sepsis New/Unexplained Change in Mental Status Sepsis Action Taken by Nursing 08/14/19 15:00 Temperature Temperature Source Pulse Rate 93 H Pulse Rate from SpO2 Sensor 92 H Respiratory Rate 17 Blood Pressure 109/67 Blood Pressure Mean 90 Pulse Oximetry 95 Oxygen Delivery Method Sepsis Recent Fever Within 48 Hours Sepsis New/Unexplained Change in Mental Status Sepsis Action Taken by Care Home Medications Current Medication List: was personally reviewed by me Laboratory Data Attestation: I reviewed the patient's lab results. Result diagrams: 08/14/19 13:22 08/14/19 13:22 Lab Results 08/14/19 08/14/19 08/14/19 Range/Units 13:22 13:22 13:22 WBC 9.85 (4.8-10.8) K/uL RBC 3.87 L (4.2-5.4) M/uL Hgb 12.6 (12.0-16.0) g/dL Hct 37.1 (37-47) % MCV 95.9 (80-100) fL MCH 32.6 (25-34) pg MCHC 34.0 (32-36) g/dL RDW Std Deviation 45.5 (36.4-46.3) fL RDW Coeff of Vivek 13.0 (11.5-14.5) % Plt Count 274 (130-400) K/uL MPV 10.0 (7.4-10.4) fL Immature Gran % (Auto) 0.4 % Neut % (Auto) 69.3 % Lymph % (Auto) 24.4 % [place] % (Auto) 4.4 % Eos % (Auto) 1.2 % Baso % (Auto) 0.3 % Immature Gran # (Auto) 0.04 H (0.00-0.02) K/uL Neut # (Auto) 6.83 H (1.4-6.5) K/uL Lymph # (Auto) 2.40 (1.2-3.4) K/uL [place] # (Auto) 0.43 (0.11-0.59) K/uL Eos # (Auto) 0.12 (0-0.5) K/uL Baso # (Auto) 0.03 (0-0.2) K/uL PT 10.8 (9.0-12.0) Seconds INR 1.0 (0.9-1.1) APTT 24.0 (21.0-31.0) Seconds PTT Ratio 0.9 Sodium 135 L (136-145) mmol/L Potassium 3.3 L (3.5-5.1) mmol/L Chloride 103 (98-107) mmol/L Carbon Dioxide 24 (21-32) mmol/L Anion Gap 8.0 (3-11) BUN 9 (7-18) mg/dl Creatinine 0.70 (0.6-1.2) mg/dl Est Cr Clr Drug Dosing 99.3 ml/min Est GFR ( Amer) 124.7 Est GFR (Non-Af Amer) 107.6 BUN/Creatinine Ratio 12.1 (10-20) Glucose 188 H (70-99) mg/dl Calcium 9.1 (8.5-10.1) mg/dl Magnesium 1.9 (1.8-2.4) mg/dl Total Bilirubin 0.3 (0.2-1) mg/dl AST 9 L (15-37) U/L ALT 23 (12-78) U/L Alkaline Phosphatase 93 (45-117) U/L Troponin I < 0.015 (0-0.045) ng/ml Total Protein 7.4 (6.4-8.2) gm/dl Albumin 3.6 (3.4-5.0) gm/dl Globulin 3.8 (2.5-4.0) gm/dl Albumin/Globulin Ratio 0.9 (0.9-2) Lipase 64 L (73-393) U/L Administered Medications Insulin Aspart (Novolog Flexpen) 0 units SC ACHS SEPIDEH Stop: 09/13/19 16:29 Last Admin: 08/14/19 17:52 Dose: 4 units Documented by: [id number] Cosigned by: [id number] Lidocaine (Lidoderm 5%) 1 patch TD QAM [facility] Stop: 09/13/19 16:59 Last Admin: 08/14/19 17:22 Dose: 1 patch Documented by: [id number] Nicotine (Nicoderm Cq) 21 mg TD QAM [facility] Stop: 09/13/19 17:14 Last Admin: 08/14/19 17:22 Dose: 21 mg Documented by: [id number] Oxycodone HCl (Roxicodone Immediate Rel) 5 mg PO Q6H PRN PRN Reason: Severe Pain Stop: 08/28/19 16:49 Last Admin: 08/14/19 17:12 Dose: 5 mg Documented by: [id number] Discontinued Medications Acetaminophen (Tylenol) 1,000 mg PO NOW STA Stop: 08/14/19 15:56 Last Admin: 08/14/19 16:22 Dose: 1,000 mg Documented by: [id number] Aspirin (Aspirin) 324 mg PO NOW STA Stop: 08/14/19 13:25 Last Admin: 08/14/19 13:39 Dose: 324 mg Documented by: [id number] Morphine Sulfate (Morphine Sulfate) 2 mg IV NOW STA Stop: 08/14/19 13:25 Last Admin: 08/14/19 13:32 Dose: 2 mg Documented by: [id number] Morphine Sulfate (Morphine Sulfate) 4 mg IV NOW STA Stop: 08/14/19 14:24 Last Admin: 08/14/19 14:31 Dose: 4 mg Documented by: [id number] Nitroglycerin (Nitro-Bid 2%) 2 inch EXT NOW STA Stop: 08/14/19 13:25 Last Admin: 08/14/19 13:32 Dose: 2 inch Documented by: [id number] Potassium Chloride (Klor-Con M20) 40 meq PO NOW STA Stop: 08/14/19 14:11 Last Admin: 08/14/19 14:30 Dose: 40 meq Documented by: [id number] Imaging Data Radiologist's Impression: XR chest 1V portable CLINICAL HISTORY: 43 years-old Female presenting with Chest Pain. TECHNIQUE: Portable upright AP view of the chest was obtained. COMPARISON: 04/20/2019. FINDINGS: Cardiomediastinal silhouette normal. Coronary artery stents may be in place. No focal opacity. No large effusion or pneumothorax. Osseous structures normal. Upper abdomen normal. IMPRESSION: 1. No acute cardiopulmonary disease. Blood Pressure Blood Pressure Findings: Elevated blood pressure Blood Pressure Disposition: Referred to patients primary care provider Discharge Plan Visit Data *Final* Discharge Date/Time: 08/14/19 15:43 Chief Complaint: Chest Pain Stated Complaint: CHEST PAIN, SOB, DIZZY ED Provider: Jc Noyola Discharge Problem: Precordial chest pain, Hypertension, Hypokalemia, History of coronary artery disease Patient Disposition: Admitted As Inpatient Condition: Good Discharge Instructions Interventions: ED Discharge Assessment Last Done: 08/14/19 15:43 Discharge Problem: Hypertension Qualifiers: Hypertension type: unspecified Qualified Code(s): I10 - Essential (primary) hypertension
[2019-08-14 13:34] LABS: Basophils # (auto) 0.03 K/uL (0-0.2); Basophils % (auto) 0.3 %; Eosinophils # (auto) 0.12 K/uL (0-0.5); Eosinophils % (auto) 1.2 %; Hematocrit (blood only) 37.1 % (37-47); Hemoglobin 12.6 g/dL (12.0-16.0); Immature Granulocytes # (auto) 0.04 K/uL (0.00-0.02); Immature Granulocytes % (auto) 0.4 %; Lymphocytes % (auto) 24.4 %; Mean Corpuscular Hemoglobin 32.6 pg (25-34); Mean Corpuscular Volume 95.9 fL (80-100); Monocytes # (auto) 0.43 K/uL (0.11-0.59); Monocytes % (auto) 4.4 %; Neutrophils # (auto) 6.83 K/uL (1.4-6.5); Neutrophils % (auto) 69.3 %; Platelet Count 274 K/uL (130-400); RDW Standard Deviation 45.5 fL (36.4-46.3); Red Blood Count 3.87 M/uL (4.2-5.4); White Blood Count 9.85 K/uL (4.8-10.8)
[2019-08-14 13:44] LABS: Partial Thromboplastin Ratio 0.9; Prothrombin Time 10.8 Seconds (9.0-12.0)
[2019-08-14 13:49] LABS: Alanine Aminotransferase 23 U/L (12-78); Aspartate Aminotransferase 9 U/L (15-37); BUN Creatinine Ratio 12.1 (10-20); Blood Urea Nitrogen 9 mg/dl (7-18); Calcium 9.1 mg/dl (8.5-10.1); Carbon Dioxide 24 mmol/L (21-32); Chloride 103 mmol/L (98-107); Creatinine Clr Calc Pharmacy 99.3 ml/min; Est GFR (African American) 124.7; Est GFR (Non-African American) 107.6; Glucose 188 mg/dl (70-99); Magnesium 1.9 mg/dl (1.8-2.4); Potassium 3.3 mmol/L (3.5-5.1); Sodium 135 mmol/L (136-145)
[2019-08-14 13:50] LABS: Albumin Level 3.6 gm/dl (3.4-5.0); Lipase 64 U/L (73-393)
[2019-08-14 13:54] LABS: Albumin Globulin Ratio 0.9 (0.9-2); Alkaline Phosphatase 93 U/L (45-117); Bilirubin,Total 0.3 mg/dl (0.2-1); Globulin 3.8 gm/dl (2.5-4.0); Total Protein 7.4 gm/dl (6.4-8.2); Troponin I < 0.015 ng/ml (0-0.045)
--- NOTE | 2019-08-14 14:09 | XRay Report ---
XR chest 1V portable CLINICAL HISTORY: 43 years-old Female presenting with Chest Pain. TECHNIQUE: Portable upright AP view of the chest was obtained. COMPARISON: 04/20/2019. FINDINGS: Cardiomediastinal silhouette normal. Coronary artery stents may be in place. No focal opacity. No lar ge effusion or pneumothorax. Osseous structures normal. Upper abdomen normal. IMPRESSION: 1. No acute cardiopulmonary disease. ACT 112: Negative or not required by law. Electronically signed by: Rajan Cuevas M.D. 08/14/2019 2:08 PM
[2019-08-14] MEDS ORDERED: POTASSIUM CHLORIDE 20 MEQ TABCR PO STA (14:10)
[2019-08-14] MEDS ORDERED: MoRPHine SULFATE 4 MG/ML 1 ML CARP\\VIAL IV STA (14:23)
[2019-08-14] MEDS ORDERED: ACETAMINOPHEN 500 MG TAB PO STA (15:55)
--- NOTE | 2019-08-14 15:55 | History & Physical Report ---
Date of Service August 14, 2019 Assessment & Plan (1) Chest pain: (2) CAD (coronary artery disease): Pt is 43 y/o F with PMH CAD s/p HARLEEN to LAD in 10/2018, PAD s/p thromboembolectomy of right femoral-popliteal, HTN, HLD, diet-controlled DM II, COPD, bipolar disorder, depression, anxiety presented to ER with complaint of chest pain. Patient with history of chronic left-sided chest pain with intermittent episodes of sharp pain to left side sometimes associated with shortness of breath, dizziness. Patient states the intermittent sharp pains can occur at rest or with activity. She reports chronic shortness of breath with climbing stairs. No change in her symptoms, takes nitro SL at home without much improvement. In ER pt afebrile, P: 108 down to 86, R: 18, BP: 172/132 down to 134/97 -Reported took 2 SL nitro prior to arrival without much relief -In ER nitropaste placed and given Morphine. Pt states doesn't feel nitropaste helped much but morphine did temporarily and requesting more morphine -R/O ACS. Risk factors: HTN, hyperlipidemia, DM, obesity, tobacco use, prior CAD. DDX: Hypertensive urgency, musculoskeletal. At this time less suspicion for ACS with the chronicity of pain and initial unremarkable workup -Monitor Vitals -Repeat EKG in am -Will trend troponin -Had recent echo in 04/2019 with EF: 60-65%, no wall motion abnormality, mild MR. Had Lexiscan 04/2019 without any inducible ischemia -Continue aspirin, plavix, carvedilol, lisinopril, atorvastatin -Nitro prn CP -Will try to avoid narcotics at this time as pt with hx seeking behaviors in past -Cardiology consult -Would recommend pt has follow up with her outpatient film booker, Dr Mckeon who had previously recommended chest MRI. Dr Manzanares attempted to contact Dr Mckeon to inform of pt. (3) Hypertension: In ER BP: 172/132 down to 134/97 after nitropaste -Pt reports had AM BP meds -Continue lisinopril, carvedilol, chlorthalidone -Pt unsure if she takes amlodipine 10mg daily, Last noted Rx filled on 11/2018 -Monitor BP, may need dosage changes (4) DM type 2 (diabetes mellitus, type 2): Diet controlled A1c: 6.3 on 04/02/2019 -Monitor BSGs -Novolog sliding scale per protocol (5) COPD (chronic obstructive pulmonary disease): No signs or symptoms of exacerbation -Continue home inhalers (6) Peripheral vascular disease: S/P prior femoropopliteal thromboembolectomy on right side and surgical repair of distal aortoiliac occlusive disease in 2014 -Continue aspirin, Plavix (7) Bipolar disorder: -Continue duloxetine, Thorazine, Seroquel (8) Hypothyroidism: -Continue levothyroxine DVT Prophylaxis -SCDs Full Code [facility] Pt was seen and care coordinated with Dr Manzanares. See addendum History of Present Illness Chief Complaint: CP Primary Care Provider: Jesika Rocha PA-C Pt is 43 y/o F with PMH CAD s/p HARLEEN to LAD in 10/2018, PAD s/p thromboembolectomy of right femoral-popliteal, HTN, HLD, diet-controlled DM II, COPD, bipolar disorder, depression, anxiety presented to ER with complaint of chest pain. Patient with history of chronic left-sided chest pain with intermittent episodes of sharp pain to left side sometimes associated with shortness of breath, dizziness. Patient states the intermittent sharp pains can occur at rest or with activity. She reports chronic shortness of breath with climbing stairs. This is been ongoing. Patient states no change in pain since her stent placement in 10/2018. Patient states takes nitro at least once a week without any noted improvement. Reports pain today is the same as her chronic pain. Denies any palpitations, nausea, vomiting, syncope. Denies fever/chills, diaphoresis, N/V/D/C, [place], vision changes, neck pain, orthopnea, cough, sore throat, choking, otalgia, rhinorrhea, abdominal pain, paresthesias, weakness, extremity weakness, extremity edema, rashes, urinary symptoms. Patient with hospital admission at [facility] 04/2019 for chest pain with negative work-up at that time. Chest pain was thought probable secondary to hypertension and patient was started on medications. Echo at that time with EF: 60-65%, no wall motion abnormalities, mild mitral regurgitation. Had Lexiscan negative for inducible ischemia. Patient multiple ER visits per outpatient records at [facility] on 08/13/2019, 08/05/2019, 07/31/2019 for chest pain. The work-ups included negative troponins and negative D-dimers. ER visit notes on 08/13/2019 report patient was denied narcotic pain medicine and became mad and upset and ripped off monitor leads and was discharged. She had negative COVID-19 testing on 08/01/2019. Patient follows with Dr. Mckeon, cardiology [facility]. Last visit 05/01/2019. At that visit there was discussion about possibly adding long-acting nitrate however patient does not usually have any improvement of chest pain with nitrates. It was suggested patient have ERA and MRI chest. Patient has not had this done and reports she thinks because she has not had it scheduled. Allergies Allergy/AdvReac Type Severity Reaction Status Date / Time bee pollen Allergy Severe Anaphylaxis Verified 08/14/19 14:22 loratadine AdvReac Severe anxiety, Verified 08/14/19 14:22 paranoia increases cetirizine AdvReac Intermediate anxiety, Verified 08/14/19 14:22 paranoia increases fexofenadine AdvReac Intermediate anxiety Verified 08/14/19 14:22 and paranoia increases ketorolac AdvReac Mild PT STATES Verified 08/14/19 14:22 SHE IS ON THORAZINE AND CANNOT TAKE TORADOL tramadol AdvReac Mild hallucinati Verified 08/14/19 14:22 ons Home Medications Home Medications Medication Instructions Recorded Confirmed Type aspirin [Aspir-81] 81 mg PO BID 05/13/18 08/14/19 History Combivent Respimat 1 puff INHALATION QID PRN 04/01/19 08/14/19 History chlorpromazine 50 mg PO QAM 04/01/19 08/14/19 History chlorpromazine 75 mg PO HS 04/01/19 08/14/19 History duloxetine 30 mg PO QAM 04/01/19 08/14/19 History duloxetine 60 mg PO QAM 04/01/19 08/14/19 History ferrous sulfate 325 mg PO QAM 04/01/19 08/14/19 History gabapentin 800 mg PO TID 04/01/19 08/14/19 History hydroxyzine HCl 10 mg PO QID PRN 04/01/19 08/14/19 History levothyroxine 112 mcg PO QAM 04/01/19 08/14/19 History lisinopril 40 mg PO QAM 04/01/19 08/14/19 History atorvastatin 80 mg PO QAM 05/14/19 08/14/19 History clopidogrel 75 mg PO QAM 06/07/19 08/14/19 History nitroglycerin [Nitrostat] 0.4 mg SUBLINGUAL DIRECTED 06/27/19 08/14/19 History albuterol sulfate 2 puff INHALATION Q6H PRN 07/11/19 08/14/19 History albuterol sulfate 2.5 mg INHALATION Q4H 07/11/19 08/14/19 History carvedilol 12.5 mg PO BID 08/09/19 08/14/19 History chlorthalidone 25 mg PO DAILY 08/09/19 08/14/19 History cyclobenzaprine 10 mg PO TID PRN 08/09/19 08/14/19 History dicyclomine 20 mg PO QID PRN 08/09/19 08/14/19 History omeprazole 40 mg PO QAM 08/09/19 08/14/19 History quetiapine 50 mg PO QPM 08/09/19 08/14/19 History fluticasone furoate [Arnuity 1 inh INHALATION DAILY 08/14/19 08/14/19 History Ellipta] Past Med/Surg History Medical History Anemia Baseline 9.9-11, ongoing since ~2004. Atypical chest pain Per cardiology 05/01/19, "- persistent chest pain symptoms are atypical. Recent lexiscan nuclear stress test from 04/24/2019 was negative for ischemia; suspect some of her symptoms have been due to uncontrolled HTN urgencies. BP better controlled now since adjustment of meds during recent inpatient stay. Continue Dual antiplatelet therapy (DAPT) with ASA and plavix for at least 1 year but likely would continue indefinitely given severe PAD in addition to the CAD." Bipolar disorder Blood clotting disorder Patient unsure what type; reports was discovered with DVT ~2013 CAD (coronary artery disease) 10/2018-HARLEEN to LAD Cervical cancer cryotherapy (~1994) Chronic pain COPD (chronic obstructive pulmonary disease) inhalers daily. Continues to smoke. Degenerative disc disease Depression with anxiety DM type 2 (diabetes mellitus, type 2) diet controlled Fibromyalgia GERD (gastroesophageal reflux disease) History of DVT (deep vein thrombosis) ~2013. Hyperlipidemia Hypertension (Chronic) Hypothyroidism (Acute) Migraine Myocardial Infarction October 2018. Follows with Dr. Magdy Mckeon. Neuropathy hands and feet Osteoarthritis Peripheral vascular disease S/P prior femoropopliteal thromboembolectomy on right side and surgical repair of distal aortoiliac occlusive disease in 2014. Post traumatic stress disorder Raynauds disease Schizophrenia Transient ischemic attack (TIA) x2 September 2018. Surgical History H/O elbow surgery right H/O tubal ligation H/O vascular surgery thrombectomy Right leg 2013 History of arthroscopic knee surgery left History of cardiac cath October [address] [facility] History of carpal tunnel surgery of right wrist History of dilatation and curettage x2 History of heart artery stent Drug Eluting stent placed in LAD -- October 2018. History of incisional hernia repair x2 with full abdominal screen/mesh. Hx of cholecystectomy Hx of oral surgery (04/02/19) Oral Abscess Incision and Drainage (hard palate and extraction of tooth # 7,8,9,10,11,20 and 21) Dr. Kowalski 04-02-19. GETA. MAC 3, Grade 2 view. 7.0 ETT without difficulty. Hx of oral surgery (06/27/19) Closure Of oral/nasal Fistula, Left Palate To Muccoboccal Fold and Debridement Of Necrotic Bone Maxilla from area 3-14 Dr. Kowalski 06/27/19 S/P AAA repair ~2013 [facility]. (Dr. Graves). placed on Plavix and ASA at this time. S/P tonsillectomy Family History Mother Diabetes Grandfather FHx: heart disease Other No family history of adverse response to anesthesia Social History Preferred Language: Angolan Communication Ability: Effective Tie Man Required: No Beliefs That Will Affect Care: None marital status: Single Current Living Situation: Family and Significant Other current occupational status: disabled Other Information That Helps Us Care for You: No Feels Safe at Home: Yes Safety Concerns: Feels Safe At This Time Smoking Status: Current every day smoker Tobacco Type: cigarettes ; Cigarettes Per Day: 20 ; Do You Dip or Chew Tobacco: No ; Second Hand Exposure: Yes ; Hx Alcohol Use: Yes Alcohol type: hard liquor Hx Substance Use: Yes (daily) substance use type: marijuana Last Used Substance: Hours (ago) Last Used Substance Other:: 05/14/2019 Review of Systems Review of Systems: All systems reviewed & are unremarkable except as noted in HPI & below Physical Exam Physical Exam: General: no acute distress, obese, appears older than stated age Head: normocephalic, atraumatic Eyes: PERRL, EOM's intact, conjunctiva non-injected, anicteric ENT: normal inspection external ears, nose, mucous membranes moist Neck: supple, trachea midline, non-tender Lungs: clear, no respiratory distress, no wheezing/rhonchi/rales CV: RRR, no murmur, no JVD, no pretibial edema; No chest wall tenderness to palpation Abd: normal BS, soft, non-tender Ext: no cyanosis, no calf tenderness Neuro: A&O x 3, no focal deficits noted, normal affect Skin: warm, dry Results & Data Results & Data ([facility]) Vital Signs (Past 12 Hours) Vital Signs Temp Pulse Resp BP Pulse Ox 08/14/19 15:30 98 H 18 115/95 93 08/14/19 15:15 92 H 20 124/95 94 08/14/19 15:00 93 H 17 109/67 95 08/14/19 14:45 94 H 14 114/86 97 08/14/19 14:30 93 H 22 131/93 92 08/14/19 14:15 100 H 21 101/81 97 08/14/19 14:00 86 20 134/97 95 08/14/19 13:45 83 14 130/91 98 08/14/19 13:31 91 H 20 133/88 95 08/14/19 13:29 90 25 H 118/91 95 08/14/19 13:15 86 20 172/135 H 99 08/14/19 13:13 36.9 C 108 H 18 172/132 H 96 Laboratory Results Short CBC 08/14/19 Range/Units 13:22 WBC 9.85 (4.8-10.8) K/uL Hgb 12.6 (12.0-16.0) g/dL Hct 37.1 (37-47) % Plt Count 274 (130-400) K/uL BMP 08/14/19 13:22 Sodium 135 L Potassium 3.3 L Chloride 103 Carbon Dioxide 24 BUN 9 Creatinine 0.70 Glucose 188 H Calcium 9.1 Cardiac Enzymes 08/14/19 Range/Units 13:22 Troponin I < 0.015 (0-0.045) ng/ml Liver Function 08/14/19 Range/Units 13:22 Total Bilirubin 0.3 (0.2-1) mg/dl AST 9 L (15-37) U/L ALT 23 (12-78) U/L Alkaline Phosphatase 93 (45-117) U/L Albumin 3.6 (3.4-5.0) gm/dl Diagnostic Findings CXR: IMPRESSION: 1. No acute cardiopulmonary disease. ECG Rate (beats per minute): 81 Rhythm: sinus rhythm Additional Comments: nonspecific t wave changes Code Status & VTE Plan VTE Prophylaxis Plan VTE Prophylaxis will be ordered: Yes Supervising Physician Co-Signing Physician Notes Patient seen and examined by me, care coordinated with ELIZABETH Ramos. Please refer to her note above for further detail. Pt is a 43 y/o F with hx of CAD s/p HARLEEN to LAD in 10/2018, PAD s/p thromboembolectomy of right femoral-popliteal, HTN, HLD, diet-controlled DM II, COPD, bipolar disorder, depression, anxiety presented to ER with complaint of recurrent chest pain. Pain is intermittent, episodes of sharp pain to left side sometimes associated with shortness of breath, dizziness. Pain can occur at rest or with activity. She reports chronic shortness of breath with climbing stairs. No change in her symptoms, takes nitro SL at home without much improvement. Patient was hospitalized here in April for same symptoms. At that time she was evaluated by cardiology, echocardiogram and stress test were obtained, however unrevealing. It was also believed that her pain was possibly secondary to hypertension. She was also counseled extensively about tobacco use cessation. Several cardiac medications were changed and she then followed- up/established care with Dr. Mckeon, film booker at [place]. At that time IV contrast chest MRI was ordered for aorta and evaluation of greater vessels, and ABIs. Unfortunately since then she was seen in several different ERs for recurrent chest pain, including yesterday. Per EMR review, patient left after she was declined opiates. Today, in ER no ischemic changes on EKG, NSR, and troponin negative. Nitropaste placed and given Morphine. Pt states doesn't feel nitropaste helped much but morphine did temporarily and pt requests more morphine. Currently patient is lying in bed, in no acute distress, continues to complain of left-sided chest pain. She speaks in full sentences and without any difficulty. No difficulty breathing, comfortable breathing on room air. No dizziness. Clear to auscultation bilaterally, without any wheezing, or rhonchi, only very mild rhonchi bilaterally. Heart sounds regular. Abdomen is soft, nontender, nondistended, normal bowel sounds. Moves extremities spontaneously without difficulty. She is alert and oriented. I contacted Dr. Mckeon, he is aware of her current admission, and also he is aware of her multiple ER visits. At this time could not offer any more recommendations as he only saw her once. Patient never did ordered studies. R/O ACS. Risk factors: HTN, hyperlipidemia, DM, obesity, tobacco use, prior CAD. At this time less suspicion for ACS with the chronicity of pain and initial unremarkable workup. Will trend troponin, and monitor patient closely on telemetry. Repeat EKG in the morning. Continue aspirin, plavix, carvedilol, lisinopril, atorvastatin. Will discuss with cardiology here, if any further studies needed at this time. MD Rossy (1) Chest pain Chest pain type: unspecified Qualified Code(s): R07.9 - Chest pain, unspecified (2) Hypertension Hypertension type: unspecified Qualified Code(s): I10 - Essential (primary) hypertension
[2019-08-14] MEDS ORDERED: GLUCOSE 10 TABS/TUBE PO PRN (16:13)
[2019-08-14] MEDS ORDERED: CARBOHYDRATES FOR HYPOGLYCEMIA PO PRN (16:13)
[2019-08-14] MEDS ORDERED: DEXTROSE 50% 50 ML SYRINGE IV PRN (16:13)
[2019-08-14] MEDS ORDERED: GLUCAGON FOR INJ 1 MG VIAL SQ PRN (16:13)
[2019-08-14] MEDS ORDERED: GLUCOSE 40% GEL 15 GM TUBE PO PRN (16:13)
[2019-08-14] MEDS ORDERED: NITROGLYCERIN SL 0.4 MG/TAB TAB SL PRN (16:16)
[2019-08-14] MEDS ORDERED: DICYCLOMINE HCL 20 MG TAB PO PRN (16:20)
[2019-08-14] MEDS ORDERED: ALBUTEROL HFA 8 GM INHALER INH PRN (16:28)
[2019-08-14] MEDS ORDERED: IPRATROPIUM BROMIDE HFA INHALER INH PRN (16:44)
[2019-08-14] MEDS: OXYCODONE HCL IR 5 MG TAB (IMMEDIATE RELEASE) PO PRN ×2 (17:12→22:28)
[2019-08-14] MEDS: NICOTINE 21 MG/24 HR TDSY TD SCH (17:22)
[2019-08-14] MEDS: LIDOCAINE 5% 1 PATCH TD SCH (17:22)
[2019-08-14] MEDS: INSULIN ASPART 100 UNITS/ML 3 ML PEN SC SCH ×2 (17:52→20:27)
[2019-08-14] MEDS: CHLORPROMAZINE HCL 25 MG TABLET PO SCH (20:21)
[2019-08-14] MEDS: GABAPENTIN 800 MG TAB PO SCH (20:21)
[2019-08-14] MEDS: ASPIRIN 81 MG ECTAB PO SCH (20:22)
[2019-08-14] MEDS: QUETIAPINE FUMARATE 25 MG TABLET PO SCH (20:22)
[2019-08-14] MEDS: carvediloL 12.5 MG TAB PO SCH (20:22)
[2019-08-14] MEDS: CYCLOBENZAPRINE HCL 10 MG TAB PO PRN (22:27)
[2019-08-15 01:24] LABS: Hematocrit (blood only) 34.4 % (37-47); Hemoglobin 11.6 g/dL (12.0-16.0); Mean Corpuscular Hemoglobin 32.6 pg (25-34); Mean Corpuscular Hgb Conc 33.7 g/dL (32-36); Mean Corpuscular Volume 96.6 fL (80-100); Platelet Count 237 K/uL (130-400); RDW Coefficient of Variation 13.2 % (11.5-14.5); RDW Standard Deviation 46.2 fL (36.4-46.3); Red Blood Count 3.56 M/uL (4.2-5.4)
[2019-08-15 01:44] LABS: Blood Urea Nitrogen 12 mg/dl (7-18); Calcium 8.6 mg/dl (8.5-10.1); Carbon Dioxide 25 mmol/L (21-32); Chloride 105 mmol/L (98-107); Creatinine Clr Calc Pharmacy 89.1 ml/min; Est GFR (African American) 109.4; Est GFR (Non-African American) 94.4; Glucose 201 mg/dl (70-99); Potassium 3.6 mmol/L (3.5-5.1); Sodium 137 mmol/L (136-145)
[2019-08-15 01:49] LABS: Chol HDL Ratio 6; Cholesterol 219 mg/dl (0-200); HDL Cholesterol 38 mg/dl; LDL Cholesterol Calculated 145 mg/dl; Triglycerides 179 mg/dl (0-150); Troponin I < 0.015 ng/ml (0-0.045); VLDL Cholesterol 36 mg/dl
--- NOTE | 2019-08-15 05:45 | Electrocardiogram Report ---
Test Reason : Blood Pressure : / mmHG Vent. Rate : 081 BPM Atrial Rate : 081 BPM P-R Int : 172 ms QRS Dur : 088 ms QT Int : 368 ms P-R-T Axes : 040 028 039 degrees QTc Int : 427 ms Normal sinus rhythm Normal ECG When compared with ECG of 24-APR-2019 07:26, QT has shortened Confirmed by Salo Fernandes ([id number]) on 08/15/2019 5:45:12 AM Referred By: ER Confirmed By:Salo Fernandes
[2019-08-15] MEDS: OXYCODONE HCL IR 5 MG TAB (IMMEDIATE RELEASE) PO PRN ×3 (06:09→18:41)
[2019-08-15 06:17] LABS: Estimated Average Glucose 171 mg/dl; Hemoglobin A1C 7.6 % (4.5-5.6)
[2019-08-15] MEDS: LIDOCAINE 5% 1 PATCH TD SCH (09:51)
[2019-08-15] MEDS: NICOTINE 21 MG/24 HR TDSY TD SCH (09:51)
[2019-08-15] MEDS: carvediloL 12.5 MG TAB PO SCH ×2 (09:52→20:42)
[2019-08-15] MEDS: GABAPENTIN 800 MG TAB PO SCH ×3 (09:52→20:43)
[2019-08-15] MEDS: CHLORTHALIDONE 25 MG TAB PO SCH (09:52)
[2019-08-15] MEDS: ATORVASTATIN 40 MG TAB PO SCH (09:52)
[2019-08-15] MEDS: ASPIRIN 81 MG ECTAB PO SCH ×2 (09:52→20:42)
[2019-08-15] MEDS: CHLORPROMAZINE HCL 25 MG TABLET PO SCH ×2 (09:52→20:41)
[2019-08-15] MEDS: FERROUS SULFATE 325 MG TAB PO SCH (09:52)
[2019-08-15] MEDS: DULOXETINE HCL 60 MG CAP PO SCH ×2 (09:53→11:06)
[2019-08-15] MEDS: PANTOprazole 40 MG TAB PO SCH (09:53)
[2019-08-15] MEDS: CLOPIDOGREL BISULFATE 75 MG TAB PO SCH (09:53)
[2019-08-15] MEDS: lisinopriL 40 MG TAB PO SCH (09:53)
[2019-08-15] MEDS: LEVOTHYROXINE SODIUM 112 MCG TABLET PO SCH (09:53)
[2019-08-15] MEDS: DULOXETINE HCL 30 MG CAP PO SCH (09:53)
[2019-08-15] MEDS: FLUTICASONE FUROATE 100MCG 14 PUFFS/INHALER INH SCH (09:54)
[2019-08-15] MEDS: INSULIN ASPART 100 UNITS/ML 3 ML PEN SC SCH ×4 (09:58→20:43)
[2019-08-15] MEDS: ACETAMINOPHEN 325 MG TAB PO PRN ×2 (11:10→17:35)
--- NOTE | 2019-08-15 14:21 | Cardiology Progress Note ---
Date of Service August 15, 2019 Assessment & Plan (1) Precordial chest pain: (2) Hypertension: (3) Peripheral vascular disease: (4) CAD (coronary artery disease): (5) Bipolar disorder: Chest pain appears to be musculoskeletal in nature. Ischemic work-up is unremarkable with troponin negative x3, no significant EKG changes and normal wall motion on echocardiogram. No further cardiac testing or intervention is necessary at this time. Okay to discharge from a cardiac standpoint and recommend follow-up with primary sales recruiter as previously recommended. No medication changes were made at this time. She was hypertensive upon arrival, however, her blood pressure been well controlled with reinstitution of her normal outpatient medical regimen. ?Compliance. Subjective I saw Ms. Aponte for in consultation today August 15, 2019. She is a 43-year-old woman who is hospitalized frequently with complaints of chest pain. She presented to [facility] emergency department on 08/14/2019 with complaints of recurrent chest pain. She states that the pain is underneath her left breast and very sharp and stabbing in nature. She states that it is worse with deep inhalation or direct palpation of the area. She denies any associated shortness of breath, diaphoresis, nausea, palpitations, lightheadedness, dizziness or syncope. She states that she is been taking her medications as directed at home. She is received nitroglycerin for the pain which has been effective. She is also received morphine which she states is beneficial. She does follow with an outpatient sales recruiter, Dr. Mckeon, in [place] who has recommended she undergo an cardiac MRI. The patient has not done so. It should be noted that the patient has exhibited drug-seeking behavior in the past. Nursing reports that they woke patient up from a heavy sleep today and upon awakening she stated that she had severe chest pain and needed more morphine. She was given Tylenol. Past medical history: 1. Premature vascular disease distal aortic stenosis at bifurcation with distal embolism status post surgical repair September 2014 after required femoral- popliteal embolectomy 2. Longstanding hypertension 3. Hyperlipidemia 4. Atherosclerotic coronary disease status post cardiac catheterization via right femoral access October 2018 with subsequent stenting mid LAD stenosis with residual 60% circumflex distal lesion 5. Chronic tobacco use longstanding 6. Diabetes mellitus, type II 7. Bipolar disease 8. narcotic seeking behavior. Review of Systems Review of Systems: All systems reviewed & are unremarkable except as noted in HPI & below Physical Exam Physical Exam: Physical Exam: General: Awake, alert and oriented x 3. No acute distress. HEENT: Normocephalic, atraumatic. Pupils equal, round and reactive to light and accommodation. Extraocular muscles are intact. Anicteric sclera. Moist mucous membranes. Neck: No JVD. No bruit. Cardiovascular: Regular. No S-4. Normal S-1 and S-2. No S-3. No murmurs, rubs or gallops. Pulmonary: Clear to auscultation bilaterally. No rales, rhonchi, or wheezing. Abdomen: Bowel sounds x 4, soft. No rebound, guarding or tenderness. No organomegaly. Extremities: No clubbing, cyanosis or edema. +2 pedal pulses bilaterally. Skin: Warm and dry. Results & Data Vital Signs (Past 12 Hours) Vital Signs Temp Pulse Resp BP Pulse Ox 08/15/19 11:18 36.7 C 74 20 121/83 98 08/15/19 06:55 36.6 C 80 20 125/79 95 (1) Hypertension Hypertension type: unspecified Qualified Code(s): I10 - Essential (primary) hypertension
--- NOTE | 2019-08-15 16:30 | Electrocardiogram Report ---
Test Reason : Blood Pressure : / mmHG Vent. Rate : 080 BPM Atrial Rate : 080 BPM P-R Int : 176 ms QRS Dur : 086 ms QT Int : 396 ms P-R-T Axes : 037 038 037 degrees QTc Int : 456 ms Normal sinus rhythm with sinus arrhythmia ST elevation, consider early repolarization Borderline ECG When compared with ECG of 14-AUG-2019 13:13, T wave amplitude has increased in Anterolateral leads Confirmed by Salo Fernandes ([id number]) on 08/15/2019 4:29:38 PM Referred By: REFERRED SELF Confirmed By:Salo Fernandes
--- NOTE | 2019-08-15 17:14 | Hospitalist Progress Note ---
Date of Service August 15, 2019 Assessment & Plan (1) Chest pain: Precordial pain with and without exertion With significant cardiac history as in H&P Serial cardiac enzymes remain unremarkable ACS has been ruled out Appreciate cardiology input and recommendation No further cardiology work-up (2) CAD (coronary artery disease): Pt is 43 y/o F with PMH CAD s/p HARLEEN to LAD in 10/2018, PAD s/p thromboembolectomy of right femoral-popliteal, HTN, HLD, diet-controlled DM II, COPD, bipolar disorder, depression, anxiety presented to ER with complaint of chest pain. Patient with history of chronic left-sided chest pain with intermittent episodes of sharp pain to left side sometimes associated with shortness of breath, dizziness. Patient states the intermittent sharp pains can occur at rest or with activity. She reports chronic shortness of breath with climbing stairs. No change in her symptoms, takes nitro SL at home without much improvement. R/O ACS. Risk factors: HTN, hyperlipidemia, DM, obesity, tobacco use, prior CAD. DDX: Hypertensive urgency, musculoskeletal. At this time less suspicion for ACS with the chronicity of pain and initial unremarkable workup Had recent echo in 04/2019 with EF: 60-65%, no wall motion abnormality, mild MR. Had Lexiscan 04/2019 without any inducible ischemia Continue aspirin, plavix, carvedilol, lisinopril, atorvastatin Nitro prn CP Cardiology consult-appreciate input and recommendation Will have follow-up appointment with her primary assistant service manager as an outpatient (3) Hypertension: In ER BP: 172/132 down to 134/97 after nitropaste -Pt reports had AM BP meds -Continue lisinopril, carvedilol, chlorthalidone -Pt unsure if she takes amlodipine 10mg daily, Last noted Rx filled on 11/2018 -Monitor BP, may need dosage changes -Blood pressure remains lower side of normal (4) DM type 2 (diabetes mellitus, type 2): Diet controlled A1c: 6.3 on 04/02/2019 -Monitor BSGs -Novolog sliding scale per protocol (5) COPD (chronic obstructive pulmonary disease): No signs or symptoms of exacerbation -Continue home inhalers (6) Peripheral vascular disease: S/P prior femoropopliteal thromboembolectomy on right side and surgical repair of distal aortoiliac occlusive disease in 2014 -Continue aspirin, Plavix (7) Bipolar disorder: -Continue duloxetine, Thorazine, Seroquel -No acute delirium (8) Hypothyroidism: -Continue levothyroxine DVT Prophylaxis -SCDs Full Code Follows with Jesika Rocha or [facility] for routine care Likely discharge tomorrow Admission and Anticipated Discharge Date Admission Date: August 14, 2019 Subjective The patient was seen and examined in medical telemetry unit She complains to precordial and adjoining chest wall pain with associated sweating and dizziness No shortness of breath, no nausea and/or vomiting but she feels like the pain is similar to that of her heart attack years before Review of Systems Review of Systems: All systems reviewed and are unremarkable except as noted below Respiratory: no cough and no dyspnea Cardiovascular: + chest pain and + chest pain at rest; no dyspnea and no palpitations Gastrointestinal: no abdominal pain Physical Exam Physical Exam: Lying in bed comfortably Constitutional: well developed, well nourished, + ill appearing and + obese; no acute distress Eyes: PERRL, conjunctivae normal, anicteric sclerae ENMT: external ear and nose normal, oropharynx normal Neck: trachea midline, no thyromegaly Respiratory: normal respiratory effort Auscultation: lungs clear to auscultation bilaterally Cardiovascular: Rate/Rhythm: regular rate and regular rhythm Heart Sounds: no murmur Gastrointestinal (Abdomen): Inspection/Auscultation: abdomen normal to inspection and normal bowel sounds Percussion/Palpation: abdomen soft; abdomen nontender Musculoskeletal: No acute arthritis involving any joints Neurologic: moves all extremities; no focal motor deficits Results & Data Results & Data ([facility]) Vital Signs (Past 12 Hours) Vital Signs Temp Pulse Resp BP Pulse Ox 08/15/19 14:52 37.0 C 73 20 96/63 L 97 08/15/19 11:18 36.7 C 74 20 121/83 98 08/15/19 06:55 36.6 C 80 20 125/79 95 Laboratory Results Short CBC 08/15/19 Range/Units 01:10 WBC 8.10 (4.8-10.8) K/uL Hgb 11.6 L (12.0-16.0) g/dL Hct 34.4 L (37-47) % Plt Count 237 (130-400) K/uL BMP 08/15/19 01:10 Sodium 137 Potassium 3.6 Chloride 105 Carbon Dioxide 25 BUN 12 Creatinine 0.78 Glucose 201 H Calcium 8.6 Cardiac Enzymes 08/14/19 08/15/19 Range/Units 19:04 01:10 Troponin I < 0.015 < 0.015 (0-0.045) ng/ml Medications Administered Current Inpatient Medications Acetaminophen (Tylenol) 650 mg PO Q4H PRN PRN Reason: Pain or Fever Stop: 09/13/19 16:12 Last Admin: 08/15/19 11:10 Dose: 650 mg Documented by: Albuterol (Ventolin Hfa) 1 puffs INH QID PRN PRN Reason: Shortness Of Breath Stop: 09/13/19 16:27 Aspirin (Ecotrin Ectab) 81 mg PO BID [facility] Stop: 09/13/19 20:59 Last Admin: 08/15/19 09:52 Dose: 81 mg Documented by: Atorvastatin Calcium (Lipitor) 80 mg PO QAM [facility] Stop: 09/14/19 08:59 Last Admin: 08/15/19 09:52 Dose: 80 mg Documented by: Carvedilol (Coreg) 12.5 mg PO BID [facility] Stop: 09/13/19 20:59 Last Admin: 08/15/19 09:52 Dose: 12.5 mg Documented by: Chlorpromazine HCl (Thorazine) 50 mg PO QAM [facility] Stop: 09/14/19 08:59 Last Admin: 08/15/19 09:52 Dose: 50 mg Documented by: Chlorpromazine HCl (Thorazine) 75 mg PO HS [facility] Stop: 09/13/19 20:59 Last Admin: 08/14/19 20:21 Dose: 75 mg Documented by: Chlorthalidone (Hygroton) 25 mg PO DAILY [facility] Stop: 09/14/19 08:59 Last Admin: 08/15/19 09:52 Dose: 25 mg Documented by: Clopidogrel Bisulfate (Plavix) 75 mg PO QAM [facility] Stop: 09/14/19 08:59 Last Admin: 08/15/19 09:53 Dose: 75 mg Documented by: Cyclobenzaprine HCl (Flexeril) 10 mg PO TID PRN PRN Reason: MUSCLE SPASM Stop: 09/13/19 16:38 Last Admin: 08/14/19 22:27 Dose: 10 mg Documented by: Dextrose (Dextrose 50%) 25 - 50 ml IV UD PRN; Protocol PRN Reason: Hypoglycemia Protocol Stop: 09/13/19 16:12 Dicyclomine HCl (Bentyl) 20 mg PO QID PRN PRN Reason: Abdominal Pain Stop: 09/13/19 16:19 Duloxetine HCl (Cymbalta) 60 mg PO QAM [facility] Stop: 09/14/19 08:59 Last Admin: 08/15/19 11:06 Dose: 60 mg Documented by: Duloxetine HCl (Cymbalta) 30 mg PO QAM [facility] Stop: 09/14/19 08:59 Last Admin: 08/15/19 09:53 Dose: 30 mg Documented by: Ferrous Sulfate (Feosol) 325 mg PO QAM [facility] Stop: 09/14/19 08:59 Last Admin: 08/15/19 09:52 Dose: 325 mg Documented by: Fluticasone Furoate (Arnuity Ellipta 100mcg) 1 puffs INH DAILY [facility] Stop: 09/14/19 08:59 Last Admin: 08/15/19 09:54 Dose: 1 puffs Documented by: Gabapentin (Neurontin) 800 mg PO TID [facility] Stop: 09/13/19 20:59 Last Admin: 08/15/19 14:03 Dose: 800 mg Documented by: Glucagon (Glucagen) 1 mg SQ UD PRN; Protocol PRN Reason: Hypoglycemia Protocol Stop: 09/13/19 16:12 Glucose (Dex4 Glucose) 4 - 8 tabs PO UD PRN; Protocol PRN Reason: Hypoglycemia Protocol Stop: 09/13/19 16:12 Glucose (Glucose 40%) 15 - 30 gm PO UD PRN; Protocol PRN Reason: Hypoglycemia Protocol Stop: 09/13/19 16:12 Insulin Aspart (Novolog Flexpen) 0 units SC ACHS [facility] Stop: 09/13/19 16:29 Last Admin: 08/15/19 16:59 Dose: 4 units Documented by: Ipratropium [place] (Atrovent Hfa) 1 puffs INH QID PRN PRN Reason: SHORTNESS OF BREATH Stop: 09/13/19 16:43 Levothyroxine Sodium (Synthroid) 112 mcg PO DAILYBB [facility] Stop: 09/14/19 08:59 Last Admin: 08/15/19 09:53 Dose: 112 mcg Documented by: Lidocaine (Lidoderm 5%) 1 patch TD [facility] Stop: 09/13/19 16:59 Last Admin: 08/15/19 09:51 Dose: 1 patch Documented by: Lisinopril (Zestril) 40 mg PO [facility] Stop: 09/14/19 08:59 Last Admin: 08/15/19 09:53 Dose: 40 mg Documented by: Miscellaneous (Carbohydrates For Hypoglycemia) 15 - 30 gm PO UD PRN PRN Reason: Hypoglycemia Protocol Stop: 09/13/19 16:12 Miscellaneous (Remove Lidoderm Patch) 1 ea N/A DAILY@2100 [facility] Stop: 09/13/19 20:59 Last Admin: 08/14/19 22:40 Dose: Not Given Documented by: Miscellaneous (Remove Nicoderm Patch) 1 ea N/A DAILY@0859 [facility] Stop: 09/14/19 08:58 Last Admin: 08/15/19 09:54 Dose: 1 ea Documented by: Nicotine (Nicoderm Cq) 21 mg TD [facility] Stop: 09/13/19 17:14 Last Admin: 08/15/19 09:51 Dose: 21 mg Documented by: Nitroglycerin (Nitrostat) 0.4 mg SL UD PRN PRN Reason: Chest Pain Stop: 09/13/19 16:15 Last Admin: 08/14/19 19:50 Dose: 0.4 mg Documented by: Oxycodone HCl (Roxicodone Immediate Rel) 5 mg PO Q6H PRN PRN Reason: Severe Pain Stop: 08/28/19 16:49 Last Admin: 08/15/19 12:22 Dose: 5 mg Documented by: Pantoprazole Sodium (Protonix) 40 mg PO [facility] Stop: 09/14/19 08:59 Last Admin: 08/15/19 09:53 Dose: 40 mg Documented by: Quetiapine Fumarate (Seroquel) 50 mg PO QPM [facility] Stop: 09/13/19 20:59 Last Admin: 08/14/19 20:22 Dose: 50 mg Documented by: (1) Chest pain Chest pain type: unspecified Qualified Code(s): R07.9 - Chest pain, unspecified (2) Hypertension Hypertension type: unspecified Qualified Code(s): I10 - Essential (primary) hypertension
[2019-08-15] MEDS: CYCLOBENZAPRINE HCL 10 MG TAB PO PRN (17:34)
[2019-08-15] MEDS: QUETIAPINE FUMARATE 25 MG TABLET PO SCH (20:42)
[2019-08-16] MEDS: OXYCODONE HCL IR 5 MG TAB (IMMEDIATE RELEASE) PO PRN ×3 (00:45→12:27)
--- NOTE | 2019-08-16 05:57 | Electrocardiogram Report ---
Test Reason : Blood Pressure : / mmHG Vent. Rate : 070 BPM Atrial Rate : 070 BPM P-R Int : 188 ms QRS Dur : 084 ms QT Int : 410 ms P-R-T Axes : 022 032 034 degrees QTc Int : 442 ms Normal sinus rhythm ST elevation, consider early repolarization When compared with ECG of 14-AUG-2019 19:45, No significant change was found Confirmed by Salo Fernandes ([id number]) on 08/16/2019 5:57:25 AM Referred By: REFERRED SELF Confirmed By:Salo Fernandes
[2019-08-16] MEDS: LEVOTHYROXINE SODIUM 112 MCG TABLET PO SCH (06:06)
[2019-08-16] MEDS: ASPIRIN 81 MG ECTAB PO SCH (08:25)
[2019-08-16] MEDS: ATORVASTATIN 40 MG TAB PO SCH (08:25)
[2019-08-16] MEDS: PANTOprazole 40 MG TAB PO SCH (08:25)
[2019-08-16] MEDS: GABAPENTIN 800 MG TAB PO SCH ×2 (08:25→14:30)
[2019-08-16] MEDS: CHLORTHALIDONE 25 MG TAB PO SCH (08:25)
[2019-08-16] MEDS: lisinopriL 40 MG TAB PO SCH (08:25)
[2019-08-16] MEDS: CLOPIDOGREL BISULFATE 75 MG TAB PO SCH (08:25)
[2019-08-16] MEDS: CHLORPROMAZINE HCL 25 MG TABLET PO SCH (08:25)
[2019-08-16] MEDS: FERROUS SULFATE 325 MG TAB PO SCH (08:25)
[2019-08-16] MEDS: carvediloL 12.5 MG TAB PO SCH (08:26)
[2019-08-16] MEDS: DULOXETINE HCL 30 MG CAP PO SCH (08:26)
[2019-08-16] MEDS: NICOTINE 21 MG/24 HR TDSY TD SCH (08:26)
[2019-08-16] MEDS: FLUTICASONE FUROATE 100MCG 14 PUFFS/INHALER INH SCH (08:26)
[2019-08-16] MEDS: LIDOCAINE 5% 1 PATCH TD SCH (08:27)
[2019-08-16] MEDS: INSULIN ASPART 100 UNITS/ML 3 ML PEN SC SCH ×2 (08:28→12:22)
[2019-08-16] MEDS: ACETAMINOPHEN 325 MG TAB PO PRN (08:33)
--- NOTE | 2019-08-16 11:52 | Hospitalist Progress Note ---
Date of Service August 16, 2019 Assessment & Plan (1) Chest pain: Precordial pain with and without exertion-persisting With significant cardiac history as in H&P Serial cardiac enzymes remain unremarkable ACS has been ruled out Appreciate cardiology input and recommendation No further cardiology work-up Left lateral chest wall pain is seems to be musculoskeletal Pain is not well controlled with lidocaine patch and oral nonnarcotic analgesics Will need a small dose of Percocet for a day or 2 on discharge this afternoon (2) CAD (coronary artery disease): Pt is 43 y/o F with PMH CAD s/p HARLEEN to LAD in 10/2018, PAD s/p thromboembolectomy of right femoral-popliteal, HTN, HLD, diet-controlled DM II, COPD, bipolar disorder, depression, anxiety presented to ER with complaint of chest pain. Patient with history of chronic left-sided chest pain with intermittent episodes of sharp pain to left side sometimes associated with shortness of breath, dizziness. Patient states the intermittent sharp pains can occur at rest or with activity. She reports chronic shortness of breath with climbing stairs. No change in her symptoms, takes nitro SL at home without much improvement. R/O ACS. Risk factors: HTN, hyperlipidemia, DM, obesity, tobacco use, prior CAD. DDX: Hypertensive urgency, musculoskeletal. At this time less suspicion for ACS with the chronicity of pain and initial unremarkable workup Had recent echo in 04/2019 with EF: 60-65%, no wall motion abnormality, mild MR. Had Lexiscan 04/2019 without any inducible ischemia Continue aspirin, plavix, carvedilol, lisinopril, atorvastatin Nitro prn CP Cardiology consult-appreciate input and recommendation Will have follow-up appointment with her primary mascara molder as an outpatient (3) Hypertension: In ER BP: 172/132 down to 134/97 after nitropaste -Pt reports had AM BP meds -Continue lisinopril, carvedilol, chlorthalidone -Pt unsure if she takes amlodipine 10mg daily, Last noted Rx filled on 11/2018 -Monitor BP, may need dosage changes -Blood pressure remains controlled (4) DM type 2 (diabetes mellitus, type 2): Diet controlled A1c: 6.3 on 04/02/2019 -Monitor BSGs -Novolog sliding scale per protocol (5) COPD (chronic obstructive pulmonary disease): No signs or symptoms of exacerbation -Continue home inhalers (6) Peripheral vascular disease: S/P prior femoropopliteal thromboembolectomy on right side and surgical repair of distal aortoiliac occlusive disease in 2015 -Continue aspirin, Plavix (7) Bipolar disorder: -Continue duloxetine, Thorazine, Seroquel -No acute delirium (8) Hypothyroidism: -Continue levothyroxine DVT Prophylaxis -SCDs Full Code Follows with Jesika Rocha or Dr Hanna [facility] for routine care Discharge this afternoon Admission and Anticipated Discharge Date Admission Date: August 14, 2019 Subjective The patient was seen and examined in medical telemetry unit She complains to precordial and adjoining chest wall pain with associated sweating and dizziness No shortness of breath, no nausea and/or vomiting but she feels like the pain is similar to that of her heart attack years before 08/16/2019 Patient was seen and examined in medical telemetry unit She continues to have severe pain left lateral chest wall She has been ruled out for ACS Denies any other symptoms and will be discharged home this afternoon Review of Systems Review of Systems: All systems reviewed and are unremarkable except as noted below Cardiovascular: + chest pain (Left lateral chest wall) Physical Exam Physical Exam: Lying in bed comfortably Constitutional: well developed, well nourished, + ill appearing and + obese; no acute distress Eyes: PERRL, conjunctivae normal, anicteric sclerae ENMT: external ear and nose normal, oropharynx normal Neck: trachea midline, no thyromegaly Respiratory: normal respiratory effort Auscultation: lungs clear to auscultation bilaterally Cardiovascular: Rate/Rhythm: regular rate and regular rhythm Heart Sounds: no murmur Gastrointestinal (Abdomen): Inspection/Auscultation: abdomen normal to inspection and normal bowel sounds Percussion/Palpation: abdomen soft; abdomen nontender Neurologic: moves all extremities; no focal motor deficits Results & Data Results & Data ([facility]) Vital Signs (Past 12 Hours) Vital Signs Temp Pulse Pulse Resp BP Pulse Ox 08/16/19 07:15 79 08/16/19 07:00 36.8 C 71 18 107/75 95 08/16/19 03:43 37.2 C 76 18 118/80 90 08/16/19 01:56 64 Medications Administered Current Inpatient Medications Acetaminophen (Tylenol) 650 mg PO Q4H PRN PRN Reason: Pain or Fever Stop: 09/13/19 16:12 Last Admin: 08/16/19 08:33 Dose: 650 mg Documented by: Albuterol (Ventolin Hfa) 1 puffs INH QID PRN PRN Reason: Shortness Of Breath Stop: 09/13/19 16:27 Aspirin (Ecotrin Ectab) 81 mg PO BID [facility] Stop: 09/13/19 20:59 Last Admin: 08/16/19 08:25 Dose: 81 mg Documented by: Atorvastatin Calcium (Lipitor) 80 mg PO QAM [facility] Stop: 09/14/19 08:59 Last Admin: 08/16/19 08:25 Dose: 80 mg Documented by: Carvedilol (Coreg) 12.5 mg PO BID [facility] Stop: 09/13/19 20:59 Last Admin: 08/16/19 08:26 Dose: 12.5 mg Documented by: Chlorpromazine HCl (Thorazine) 50 mg PO QAM [facility] Stop: 09/14/19 08:59 Last Admin: 08/16/19 08:25 Dose: 50 mg Documented by: Chlorpromazine HCl (Thorazine) 75 mg PO HS [facility] Stop: 09/13/19 20:59 Last Admin: 08/15/19 20:41 Dose: 75 mg Documented by: Chlorthalidone (Hygroton) 25 mg PO DAILY [facility] Stop: 09/14/19 08:59 Last Admin: 08/16/19 08:25 Dose: 25 mg Documented by: Clopidogrel Bisulfate (Plavix) 75 mg PO QAM [facility] Stop: 09/14/19 08:59 Last Admin: 08/16/19 08:25 Dose: 75 mg Documented by: Cyclobenzaprine HCl (Flexeril) 10 mg PO TID PRN PRN Reason: MUSCLE SPASM Stop: 09/13/19 16:38 Last Admin: 08/15/19 17:34 Dose: 10 mg Documented by: Dextrose (Dextrose 50%) 25 - 50 ml IV UD PRN; Protocol PRN Reason: Hypoglycemia Protocol Stop: 09/13/19 16:12 Dicyclomine HCl (Bentyl) 20 mg PO QID PRN PRN Reason: Abdominal Pain Stop: 09/13/19 16:19 [facility]) [facility] [place] Stop: 09/14/19 08:59 Last Admin: 08/15/19 11:06 Dose: 60 mg Documented by: Duloxetine HCl (Cymbalta) 30 mg PO QAM [facility] Stop: 09/14/19 08:59 Last Admin: 08/16/19 08:26 Dose: 30 mg Documented by: Ferrous Sulfate (Feosol) 325 mg PO QAM [facility] Stop: 09/14/19 08:59 Last Admin: 08/16/19 08:25 Dose: 325 mg Documented by: Fluticasone Furoate (Arnuity Ellipta 100mcg) 1 puffs INH DAILY [facility] Stop: 09/14/19 08:59 Last Admin: 08/16/19 08:26 Dose: 1 puffs Documented by: Gabapentin (Neurontin) 800 mg PO TID [facility] Stop: 09/13/19 20:59 Last Admin: 08/16/19 08:25 Dose: 800 mg Documented by: Glucagon (Glucagen) 1 mg SQ UD PRN; Protocol PRN Reason: Hypoglycemia Protocol Stop: 09/13/19 16:12 Glucose (Dex4 Glucose) 4 - 8 tabs PO UD PRN; Protocol PRN Reason: Hypoglycemia Protocol Stop: 09/13/19 16:12 Glucose (Glucose 40%) 15 - 30 gm PO UD PRN; Protocol PRN Reason: Hypoglycemia Protocol Stop: 09/13/19 16:12 Insulin Aspart (Novolog Flexpen) 0 units SC ACHS [facility] Stop: 09/13/19 16:29 Last Admin: 08/16/19 08:28 Dose: 3 units Documented by: Ipratropium [place] (Atrovent Hfa) 1 puffs INH QID PRN PRN Reason: SHORTNESS OF BREATH Stop: 09/13/19 16:43 Levothyroxine Sodium (Synthroid) 112 mcg PO DAILYBB [facility] Stop: 09/14/19 08:59 Last Admin: 08/16/19 06:06 Dose: 112 mcg Documented by: Lidocaine (Lidoderm 5%) 1 patch TD QAM [facility] Stop: 09/13/19 16:59 Last Admin: 08/16/19 08:27 Dose: 1 patch Documented by: Lisinopril (Zestril) 40 mg PO QAM [facility] Stop: 09/14/19 08:59 Last Admin: 08/16/19 08:25 Dose: 40 mg Documented by: Miscellaneous (Carbohydrates For Hypoglycemia) 15 - 30 gm PO UD PRN PRN Reason: Hypoglycemia Protocol Stop: 09/13/19 16:12 Miscellaneous (Remove Lidoderm Patch) 1 ea N/A DAILY@2100 [facility] Stop: 09/13/19 20:59 Last Admin: 08/15/19 20:43 Dose: 1 ea Documented by: Miscellaneous (Remove Nicoderm Patch) 1 ea N/A DAILY@0859 [facility] Stop: 09/14/19 08:58 Last Admin: 08/16/19 08:27 Dose: 1 ea Documented by: Nicotine (Nicoderm Cq) 21 mg TD QAM [facility] Stop: 09/13/19 17:14 Last Admin: 08/16/19 08:26 Dose: 21 mg Documented by: Nitroglycerin (Nitrostat) 0.4 mg SL UD PRN PRN Reason: Chest Pain Stop: 09/13/19 16:15 Last Admin: 08/14/19 19:50 Dose: 0.4 mg Documented by: Oxycodone HCl (Roxicodone Immediate Rel) 5 mg PO Q6H PRN PRN Reason: Severe Pain Stop: 08/28/19 16:49 Last Admin: 08/16/19 06:33 Dose: 5 mg Documented by: Pantoprazole Sodium (Protonix) 40 mg PO QAM [facility] Stop: 09/14/19 08:59 Last Admin: 08/16/19 08:25 Dose: 40 mg Documented by: Quetiapine Fumarate (Seroquel) 50 mg PO QPM [facility] Stop: 09/13/19 20:59 Last Admin: 08/15/19 20:42 Dose: 50 mg Documented by: (1) Chest pain Chest pain type: unspecified Qualified Code(s): R07.9 - Chest pain, unspecified (2) Hypertension Hypertension type: unspecified Qualified Code(s): I10 - Essential (primary) hypertension
--- NOTE | 2019-08-17 07:59 | Discharge Summary ---
Date of Service August 17, 2019 Admission HPI Per Admitting Provider Pt is 43 y/o F with PMH CAD s/p HARLEEN to LAD in 10/2018, PAD s/p thromboembolectomy of right femoral-popliteal, HTN, HLD, diet-controlled DM II, COPD, bipolar disorder, depression, anxiety presented to ER with complaint of chest pain. Patient with history of chronic left-sided chest pain with intermittent episodes of sharp pain to left side sometimes associated with shortness of breath, dizziness. Patient states the intermittent sharp pains can occur at rest or with activity. She reports chronic shortness of breath with climbing stairs. This is been ongoing. Patient states no change in pain since her stent place ment in 10/2018. Patient states takes nitro at least once a week without any noted improvement. Reports pain today is the same as her chronic pain. Denies any palpitations, nausea, vomiting, syncope. Denies fever/chills, diaphoresis, N/V/D/C, [place], vision changes, neck pain, orthopnea, cough, sore throat, choking, otalgia, rhinorrhea, abdominal pain, paresthesias, weakness, extremity weakness, extremity edema, rashes, urinary symptoms. Patient with hospital admission at [facility] 04/2019 for chest pain with negative work-up at that time. Chest pain was thought probable secondary to hypertension and patient was started on medications. Echo at that time with EF: 60-65%, no wall motion abnormalities, mild mitral regurgitation. Had Lexiscan negative for inducible ischemia. Patient multiple ER visits per outpatient records at [facility] on 08/13/2019, 08/05/2019, 07/31/2019 for chest pain. The work-ups included negative troponins and negative D-dimers. ER visit notes on 08/13/2019 report patient was denied narcotic pain medicine and became mad and upset and ripped off monitor leads and was discharged. She had negative COVID-19 testing on 08/01/2019. Patient follows with Dr. Mckeon, cardiology [facility]. Last visit 05/01/2019. At that visit there was discussion about possibly adding long-acting nitrate however patient does not usually have any improvement of chest pain with nit rates. It was suggested patient have ERA and MRI chest. Patient has not had this done and reports she thinks because she has not had it scheduled. Admission Exam Per Admitting Provider Physical Exam: General: no acute distress, obese, appears older than stated age Head: normocephalic, atraumatic Eyes: PERRL, EOM's intact, conjunctiva non-injected, anicteric ENT: normal inspection external ears, nose, mucous membranes moist Neck: supple, trachea midline, non-tender Lungs: clear, no respiratory distress, no wheezing/rhonchi/rales CV: RRR, no murmur, no JVD, no pretibial edema; No chest wall tenderness to palpation Abd: normal BS, soft, non-tender Ext: no cyanosis, no calf tenderness Neuro: A&O x 3, no focal deficits noted, normal affect Skin: warm, dry Principal Diagnosis Left lateral wall chest pain, ACS has been ruled out, CAD,, type 2 diabetes. Discharge Exam Constitutional well developed, well nourished, + ill appearing and + obese; no acute distress Eyes PERRL, conjunctivae normal, anicteric sclerae ENMT external ear and nose normal, oropharynx normal Neck trachea midline, no thyromegaly Respiratory normal respiratory effort Auscultation: lungs clear to auscultation bilaterally Cardiovascular Rate/Rhythm: regular rate and regular rhythm Heart Sounds: no murmur Gastrointestinal (Abdomen) Inspection/Auscultation: abdomen normal to inspection and normal bowel sounds Percussion/Palpation: abdomen soft; abdomen nontender Neurologic moves all extremities; no focal motor deficits Discharge Data Allergies Allergy/AdvReac Type Severity Reaction Status Date / Time bee pollen Allergy Severe Anaphylaxis Verified 08/14/19 14:22 loratadine AdvReac Severe anxiety, Verified 08/14/19 14:22 paranoia increases cetirizine AdvReac Intermediate anxiety, Verified 08/14/19 14:22 paranoia increases fexofenadine AdvReac Intermediate anxiety Verified 08/14/19 14:22 and paranoia increases ketorolac AdvReac Mild PT STATES Verified 08/14/19 14:22 SHE IS ON THORAZINE AND CANNOT TAKE TORADOL tramadol AdvReac Mild hallucinati Verified 08/14/19 14:22 ons Consultations 08/14/19 14:36 ED Decision to Admit Stat 08/14/19 16:13 Consult Cardiology Routine Hospital Course (1) Chest pain: Precordial pain with and without exertion-persisting With significant cardiac history as in H&P Serial cardiac enzymes remain unremarkable ACS has been ruled out Appreciate cardiology input and recommendation No further cardiology work-up Left lateral chest wall pain is seems to be musculoskeletal Pain is not well controlled with lidocaine patch and oral nonnarcotic analgesics Will need a small dose of Percocet for a day or 2 on discharge this afternoon (2) CAD (coronary artery disease): Pt is 43 y/o F with PMH CAD s/p HARLEEN to LAD in 10/2018, PAD s/p thromboembolectomy of right femoral-popliteal, HTN, HLD, diet-controlled DM II, COPD, bipolar disorder, depression, anxiety presented to ER with complaint of chest pain. Patient with history of chronic left-sided chest pain with intermittent episodes of sharp pain to left side sometimes associated with shortness of breath, dizziness. Patient states the intermittent sharp pains can occur at rest or with activity. She reports chronic shortness of breath with climbing stairs. No change in her symptoms, takes nitro SL at home without much improvement. R/O ACS. Risk factors: HTN, hyperlipidemia, DM, obesity, tobacco use, prior CAD. DDX: Hypertensive urgency, musculoskeletal. At this time less suspicion for ACS with the chronicity of pain and initial unremarkable workup Had recent echo in 04/2019 with EF: 60-65%, no wall motion abnormality, mild MR. Had Lexiscan 04/2019 without any inducible ischemia Continue aspirin, plavix, carvedilol, lisinopril, atorvastatin Nitro prn CP Cardiology consult-appreciate input and recommendation Will have follow-up appointment with her primary police officer booking as an outpatient (3) Hypertension: In ER BP: 172/132 down to 134/97 after nitropaste -Pt reports had AM BP meds -Continue lisinopril, carvedilol, chlorthalidone -Pt unsure if she takes amlodipine 10mg daily, Last noted Rx filled on 11/2018 -Monitor BP, may need dosage changes -Blood pressure remains controlled (4) DM type 2 (diabetes mellitus, type 2): Diet controlled A1c: 6.3 on 04/02/2019 -Monitor BSGs -Novolog sliding scale per protocol (5) COPD (chronic obstructive pulmonary disease): No signs or symptoms of exacerbation -Continue home inhalers (6) Peripheral vascular disease: S/P prior femoropopliteal thromboembolectomy on right side and surgical repair of distal aortoiliac occlusive disease in 2015 -Continue aspirin, Plavix (7) Bipolar disorder: -Continue duloxetine, Thorazine, Seroquel -No acute delirium (8) Hypothyroidism: -Continue levothyroxine DVT Prophylaxis -SCDs Full Code Follows with Jesika Rocha [facility] Discharge this afternoon Total Time Total Time Spent Total Time Spent (In Minutes): 35 minutes Total Time Includes: Examination of the Patient, Discharge Planning, Medication Reconciliation and Communication With Other Providers Discharge Plan Discharge Items Patient Disposition: Home - Self-Care Reason For Visit: CHEST PAIN Discharge Diagnosis: Left lateral wall chest pain, ACS has been ruled out, CAD,, type 2 diabetes. Condition on Discharge: Good Activity: Resume your previous activity Non-emergency contact: Primary Care Provider Call non-emergency contact if: you have any medication questions and your symptoms worsen Follow-up/Referrals: Jesika Rocha PA-C [Primary Care Provider] - 08/20/19 11:05 am (08/20/2019 11:20 AM Reginald Morocho Jr., PA-C [facility] ) Diet: Carb Consistent or DM2 and Heart Healthy Addtl Attending Provider Instructions: Please take precaution to avoid falls Please make an appointment with your police officer booking as soon as possible Pending Studies at Discharge: No Stand-Alone Forms: My [employer], Smoking Cessation Medications and DC Order Prescriptions: New lidocaine 5 % Adhesive Patch,Medicated 1 patch transdermal QAM 15 Days Qty: 15 RF: 0 oxycodone 5 mg Tablet 5 mg PO Q6H PRN (Reason: pain) 3 Days Qty: 10 RF: 0 Continued aspirin [Aspir-81] 81 mg Tablet,Delayed Release (Dr/Ec) 81 mg PO BID RF: 0 albuterol sulfate 2.5 mg /3 mL (0.083 %) solution for nebulization 2.5 mg inhalation Q4H RF: 0 albuterol sulfate 90 mcg/actuation Hfa Aerosol Inhaler 2 puff INHALATION Q6H PRN (Reason: Shortness Of Breath Or Wheezing) RF: 0 cyclobenzaprine 10 mg tablet 10 mg PO TID PRN (Reason: Muscle Spasm) RF: 0 carvedilol 12.5 mg tablet 12.5 mg PO BID RF: 0 chlorthalidone 25 mg tablet 25 mg PO DAILY RF: 0 omeprazole 40 mg capsule,delayed release(DR/EC) 40 mg PO QAM RF: 0 dicyclomine 20 mg tablet 20 mg PO QID PRN (Reason: Abdominal Pain) RF: 0 quetiapine 50 mg tablet 50 mg PO QPM RF: 0 Arnuity Ellipta 100 mcg/actuation blister with device 1 inh INHALATION DAILY RF: 0 gabapentin 800 mg Tablet 800 mg PO TID RF: 0 ferrous sulfate 325 mg (65 mg iron) Tablet 325 mg PO QAM RF: 0 chlorpromazine 25 mg Tablet 50 mg PO QAM RF: 0 chlorpromazine 25 mg Tablet 75 mg PO HS RF: 0 hydroxyzine HCl 10 mg Tablet 10 mg PO QID PRN (Reason: Anxiety) RF: 0 lisinopril 40 mg Tablet 40 mg PO QAM RF: 0 levothyroxine 112 mcg Tablet 112 mcg PO QAM RF: 0 duloxetine 60 mg Capsule,Delayed Release(Dr/Ec) 60 mg PO QAM RF: 0 Combivent Respimat 20-100 mcg/actuation Mist 1 puff INHALATION QID PRN (Reason: Shortness Of Breath) RF: 0 duloxetine 30 mg Capsule, Delayed Rel Sprinkle 30 mg PO QAM RF: 0 atorvastatin 40 mg tablet 80 mg PO QAM RF: 0 clopidogrel 75 mg tablet 75 mg PO QAM RF: 0 nitroglycerin [Nitrostat] 0.4 mg Tablet, Sublingual 0.4 mg sublingual DIRECTED RF: 0 Discharge Orders: Discharge Order (Routine); Ordered 08/16/19 Ordered By: Milvia Gatica/Other Patient Handouts: Diabetes Type 2 Managing, Diabetes Healthy Meals, Diabetes Meal Planning Admission Data Admit Date/Time: 08/14/19 15:07 Attending Provider: Milvia Reynolds Admit Provider: Roderick Manzanares Primary Care Provider: Jesika Rocha Other Providers: Roderick Manzanares ; Elliott Hanks Other Interventions: Discharge Summary Assessment (RN) Last Done: 08/16/19 14:27 DC Date/Time DO NOT enter until pt leaves facility: 08/16/19 15:01
== END 2019-08-16 15:01 | disposition home or self-care (01) ==
LOC: 2W 13:03 → ED 13:03 → SUATTDRO 15:07 → 2W 15:43

== ENCOUNTER 2020-07-08 11:17 | Inpatient (IN) ==
[2020-07-08] MEDS ORDERED: MoRPHine SULFATE 2 MG/ML CARP IV STA (12:05)
[2020-07-08 12:22] LABS: Basophils # (auto) 0.03 K/uL (0-0.2); Basophils % (auto) 0.3 %; Eosinophils # (auto) 0.09 K/uL (0-0.5); Eosinophils % (auto) 0.8 %; Hematocrit (blood only) 34.5 % (37-47); Hemoglobin 12.8 g/dL (12.0-16.0); Immature Granulocytes # (auto) 0.03 K/uL (0.00-0.02); Immature Granulocytes % (auto) 0.3 %; Lymphocytes # (auto) 1.84 K/uL (1.2-3.4); Lymphocytes % (auto) 16.2 %; Mean Corpuscular Hemoglobin 33.2 pg (25-34); Mean Corpuscular Hgb Conc 37.1 g/dL (32-36); Mean Corpuscular Volume 89.4 fL (80-100); Mean Platelet Volume 10.3 fL (7.4-10.4); Monocytes # (auto) 0.46 K/uL (0.11-0.59); Neutrophils # (auto) 8.93 K/uL (1.4-6.5); Neutrophils % (auto) 78.4 %; Platelet Count 277 K/uL (130-400); RDW Standard Deviation 42.3 fL (36.4-46.3); Red Blood Count 3.86 M/uL (4.2-5.4); White Blood Count 11.38 K/uL (4.8-10.8)
[2020-07-08 12:33] LABS: D Dimer 370 ug/L FEU (0-500); INR 1.1 (0.9-1.1); Partial Thromboplastin Ratio 0.8; Prothrombin Time 10.8 Seconds (9.0-12.0)
[2020-07-08 12:40] LABS: BUN Creatinine Ratio 11.9 (10-20); Calcium 8.6 mg/dl (8.5-10.1); Creatinine Clr Calc Pharmacy 91.4 ml/min; Est GFR (African American) 113.9; Est GFR (Non-African American) 98.3
--- NOTE | 2020-07-08 12:41 | XRay Report ---
XR chest 1V portable CLINICAL HISTORY: Chest Pain COMPARISON STUDY: Chest CT April 20, 2019. Chest radiograph August 14, 2019. FINDINGS: Lung volumes are normal. Lungs are clear. There is no pneumothorax or pleural effusion. Car diac size is normal. Mediastinal contours are normal. There is no evidence for pulmonary edema. IMPRESSION: No acute cardiopulmonary findings. ACT 112: Negative or not required by law. Electronically signed by: Alexis Leong M.D. 07/08/2020 12:39 PM
[2020-07-08 12:42] LABS: Troponin I 0.019 ng/ml (0-0.045)
[2020-07-08] MEDS ORDERED: POTASSIUM CHLORIDE 10 MEQ TABCR PO STA (13:05)
[2020-07-08] MEDS: MAGNESIUM SULFATE / D5W 1 GM/100 ML BAG IV SCH ×2 (13:12→14:13)
--- NOTE | 2020-07-08 13:13 | History & Physical Report ---
Date of Service July 08, 2020 Assessment & Plan (1) Chest pain: (2) CAD (coronary artery disease): (3) Uncontrolled hypertension: (4) Non compliance w medication regimen: This is a 44yo F with a PMH of CAD s/p HARLEEN to LAD in 10/2018, PAD s/p thromboembolectomy of right femoral-popliteal, HTN, HLD, diet-controlled DM II, COPD, bipolar disorder, depression, anxiety who presents with chest pain for the past 3 hours. Left sided chest pain in setting of uncontrolled hypertension and diabetes as well as medication noncompliance History of CAD with HARLEEN to LAD in 2019, also with history of chronic left-sided musculoskeletal chest pain Initial troponin within normal limits, no acute EKG changes Chest x-ray without any acute cardiopulmonary abnormality Significant electrolyte disturbances undergoing replacement Has been compliant with aspirin, Plavix and statin. Has not taken carvedilol, lisinopril, chlorthalidone or amlodipine for the past 1.5 months due to running out of medication and being uninsured Monitor on telemetry, replace electrolytes, trend troponin, resume blood pressu re medications History of narcotic seeking behavior. Plan to use as needed nitroglycerin and Tylenol for chest pain (5) Hypokalemia: Potassium of 2.0. Has not been taking K supplement for over a month Replacing - repeat BMP this evening (6) Hypomagnesemia: Magnesium of 1 - replacing. Recheck this evening (7) Facial paresthesia: Paresthesias of face and hands for past 1.5 months. Likely in setting of severe electrolyte abnormalities, cervical disc disease Has not been taking potassium supplement or gabapentin for over last month No acute stroke symptoms, but CT head w/o con ordered in setting of uncontrolled BP (8) Peripheral vascular disease: H/o PAD s/p thromboembolectomy of right femoral-popliteal Increased tobacco use in past few months from 0.5 to 1.5 ppd Educated on importance of cessation Continue aspirin, plavix, statin (9) DM type 2 (diabetes mellitus, type 2): Needs updated a1c - ordered for AM Non compliant with Victoza for 1.5-2 mo SSI while in-patient Glycemic consult placed for assistance with OP medication BSG AC HS (10) COPD (chronic obstructive pulmonary disease): Stable. Has not been using any inhalers for 1.5-2 months since running out. Ongoing tobacco abuse (11) Hypothyroidism: Noncompliant with levothyroxine for 1.5-2 months TSH with reflex T4 pending (12) Bipolar disorder: (13) Depression with anxiety: Ran out of duloxetine, chlorpromazine, gabapentin 1.5-2 months ago Stable mood- no SI/Hi Consulted psychiatry with assistance in resuming medication (14) Tobacco abuse: Ongoing cessation education DVT Ppx: SQ heparin Code status: FULL PCP: Previously followed by QUAN Leo before moving out of the area 2 mo ago. Would like to reestablish Dispo: Admitted to PCU. Discharge planning ordered. Patient seen in collaboration with Dr. Gama. Please see addendum. History of Present Illness Chief Complaint: chest pain Primary Care Provider: Jesika Rocha PA-C This is a 44yo F with a PMH of CAD s/p HARLEEN to LAD in 10/2018, PAD s/p thromboembolectomy of right femoral-popliteal, HTN, HLD, diet-controlled DM II, COPD, bipolar disorder, depression, anxiety who presents with chest pain for the past 3 hours. Describes chest pain as left-sided, sharp and stabbing with radiation to left arm and jaw. Occurred at rest. Denies associated shortness of breath, nausea or vomiting. Took 2 nitro at home with minimal relief. In ED, was given morphine with resolution of pain. Moved out of the area 2 months ago and no longer has insurance. Ran out of majority of medications, including all mood stabilizing medications and antihypertensives. Has not taken them in 1 to 2 months. Has also increased tobacco use with stress from half pack a day to a pack and 1/2/day. Does not think she will be going back to [place] due to relationship issues and is looking to reestablish care with Dr. Hanna and QUAN Yanes with [facility]. Also endorsing paresthesias in face and bilateral arms for the past 1.5 months. Denies any difficulty with speech or swallowing and no new weakness in extremities. Denies any fever, chills, cough, palpitations, shortness of breath, nausea, vomiting, abdominal pain, dysuria, diarrhea constipation. Denies any acute mood changes despite being off medication for the past 1 to 2 months. Allergies Allergy/AdvReac Type Severity Reaction Status Date / Time bee pollen Allergy Severe Anaphylaxis Verified 01/01/20 15:17 loratadine AdvReac Severe anxiety, Verified 01/01/20 15:17 paranoia increases cetirizine AdvReac Intermediate anxiety, Verified 01/01/20 15:17 paranoia increases fexofenadine AdvReac Intermediate anxiety Verified 01/01/20 15:17 and paranoia increases ketorolac AdvReac Mild PT STATES Verified 01/01/20 15:17 SHE IS ON THORAZINE AND CANNOT TAKE TORADOL tramadol AdvReac Mild hallucinati Verified 01/01/20 15:17 ons Home Medications Medication Instructions Recorded Confirmed Type aspirin [Aspir-81] 81 mg PO BID 05/13/18 07/08/20 History Combivent Respimat 1 puff INHALATION QID PRN 04/01/19 07/08/20 History chlorpromazine 75 mg PO QAM 04/01/19 07/08/20 History chlorpromazine 100 mg PO HS 04/01/19 07/08/20 History duloxetine 60 mg PO QAM 04/01/19 07/08/20 History ferrous sulfate 325 mg PO QAM 04/01/19 07/08/20 History gabapentin 800 mg PO TID 04/01/19 07/08/20 History hydroxyzine HCl 10 mg PO QID PRN 04/01/19 07/08/20 History levothyroxine 112 mcg PO QAM 04/01/19 07/08/20 History lisinopril 40 mg PO QAM 04/01/19 07/08/20 History atorvastatin 80 mg PO QAM 05/14/19 07/08/20 History clopidogrel 75 mg PO QAM 06/07/19 07/08/20 History nitroglycerin [Nitrostat] 0.4 mg SUBLINGUAL DIRECTED 06/27/19 07/08/20 History albuterol sulfate 2 puff INHALATION Q6H PRN 07/11/19 07/08/20 History albuterol sulfate 2.5 mg INHALATION Q4H 07/11/19 07/08/20 History carvedilol 12.5 mg PO BID 08/09/19 07/08/20 History chlorthalidone 25 mg PO DAILY 08/09/19 07/08/20 History dicyclomine 20 mg PO QID PRN 08/09/19 07/08/20 History omeprazole 40 mg PO QAM 08/09/19 07/08/20 History quetiapine 50 mg PO HS 08/09/19 07/08/20 History acetaminophen [Tylenol Extra 1,000 mg PO Q6H PRN 08/30/19 07/08/20 History Strength] ibuprofen [Advil] 200 mg PO Q6H PRN 08/30/19 07/08/20 History baclofen 10 mg PO TID PRN 07/08/20 07/08/20 History ezetimibe 10 mg PO DAILY 07/08/20 07/08/20 History famotidine 40 mg PO DAILY 07/08/20 07/08/20 History liraglutide [Victoza 2-Anthony] 1.8 mg SUBCUT DAILY 07/08/20 07/08/20 History metformin 1,000 mg PO BID 07/08/20 07/08/20 History mometasone-formoterol [Dulera] 2 puff INHALATION BID 07/08/20 07/08/20 History potassium chloride 20 meq PO DAILY 07/08/20 07/08/20 History sucralfate 1 g PO ACHS 07/08/20 07/08/20 History Past Med/Surg History Medical History Anemia Baseline 9.9-11, ongoing since ~2004. Ankle fracture, left Atypical chest pain Per cardiology 05/01/19, "- persistent chest pain symptoms are atypical. Recent lexiscan nuclear stress test from 04/24/2019 was negative for ischemia; suspect some of her symptoms have been due to uncontrolled HTN urgencies. BP better controlled now since adjustment of meds during recent inpatient stay. Continue Dual antiplatelet therapy (DAPT) with ASA and plavix for at least 1 year but likely would continue indefinitely given severe PAD in addition to the CAD." Bipolar disorder Blood clotting disorder Patient unsure what type; reports was discovered with DVT ~2013 CAD (coronary artery disease) 10/2018-HARLEEN to LAD in [place] Cervical cancer cryotherapy (~1994) Chronic pain COPD (chronic obstructive pulmonary disease) inhalers daily. Continues to smoke. Degenerative disc disease Depression with anxiety DM type 2 (diabetes mellitus, type 2) diet controlled Fibromyalgia GERD (gastroesophageal reflux disease) History of DVT (deep vein thrombosis) ~2013. Hyperlipidemia Hypertension Hypothyroidism Migraine Myocardial Infarction October 2018. Follows with Dr. Magdy Mckeon. Neuropathy hands and feet Osteoarthritis Peripheral vascular disease S/P prior femoropopliteal thromboembolectomy on right side and surgical repair of distal aortoiliac occlusive disease in 2014. Post traumatic stress disorder Raynauds disease Schizophrenia Transient ischemic attack (TIA) x2 September 2018. Surgical History H/O cardiac catheterization H/O elbow surgery right H/O tubal ligation H/O vascular surgery thrombectomy Right leg 2013 History of arthroscopic knee surgery left History of cardiac cath October 2018 at [facility] s/p HARLEEN to LAD November 2019 at with [facility], no intervention History of carpal tunnel surgery of right wrist History of dilatation and curettage x2 History of heart artery stent Drug Eluting stent placed in LAD -- October 2018. History of incisional hernia repair x2 with full abdominal screen/mesh. Hx of cholecystectomy Hx of oral surgery (04/02/19) Oral Abscess Incision and Drainage (hard palate and extraction of tooth # 7,8,9,10,11,20 and 21) Dr. Kowalski 04-02-19. GETA. MAC 3, Grade 2 view. 7.0 ETT without difficulty. Hx of oral surgery (06/27/19) Closure Of oral/nasal Fistula, Left Palate To Muccoboccal Fold and Debridement Of Necrotic Bone Maxilla from area 3-14 Dr. Kowalski 06/27/19 S/P AAA repair ~2013 [facility]. (Dr. Graves). placed on Plavix and ASA at this time. S/P tonsillectomy Family History Mother Diabetes Grandfather FHx: heart disease Other No family history of adverse response to anesthesia Social History Smoking Status: Current every day smoker Tobacco Type: Cigarettes Cigarettes Per Day: 30; Second Hand Exposure: Yes; Hx Alcohol Use: Yes Alcohol type: hard liquor Alcohol Intake Frequency: Monthly or Less Hx Substance Use: Yes (daily) Non-Prescribed Medications: Marijuana Last Used Substance: Days (ago) Last Used Substance Other:: 05/14/2019 Preferred Language: Wolof Communication Ability: Effective Clerk Rating Required: No Beliefs That Will Affect Care: None marital status: Single Current Living Situation: Family and Significant Other current occupational status: disabled Feels Safe at Home: Yes Safety Concerns: Feels Safe At This Time Assistive Devices: Cane Review of Systems Review of Systems: At least ten systems reviewed and negative except as noted in the HPI. Physical Exam Physical Exam: General Appearance: WD/WN, vitals as above, NAD, sitting up in bed, pleasant, conversing easily Head: normocephalic, atraumatic Eyes: normal inspection, PERRL, conjunctivae normal, anicteric sclerae ENT: external ear and nose normal, oropharynx normal Neck: normal visual inspection, trachea midline, no thyromegaly Respiratory: normal respiratory effort, lungs clear to auscultation, no wheeze, rales, rhonchi. No accessory muscle use Cardiovascular: regular rate, rhythm, no murmur, normal peripheral pulses, no BLE edema. Vessels: no JVD Chest: normal inspection of chest Abdomen/GI: normal bowel sounds, soft, nontender, no hepatosplenomegaly Extremities/Musculoskeletal: no cyanosis or clubbing, extremities motor strength 5/5, + R foot drop (chronic) Neurologic: PERRL, EOMI, accommodation nl, no face palsy, no dysarthria, CN's II-XI intact bilaterally and moves all extremities Psychiatric: A+Ox3, euthymic affect, poor insight/judgement Skin: no rashes, normal color, warm/dry Results & Data Results & Data ([facility]) Vital Signs (Past 12 Hours) Vital Signs Temp Pulse Resp BP Pulse Ox 07/08/20 12:06 91 H 16 135/109 H 98 07/08/20 11:30 78 14 140/100 97 07/08/20 11:24 93 H 14 158/104 H 97 07/08/20 11:09 36.9 C 81 12 158/104 H 98 Laboratory Results Short CBC 07/08/20 Range/Units 12:06 WBC 11.38 H (4.8-10.8) K/uL Hgb 12.8 (12.0-16.0) g/dL Hct 34.5 L (37-47) % Plt Count 277 (130-400) K/uL BMP 07/08/20 12:06 Sodium 139 Potassium 2.0 L* Chloride 104 Carbon Dioxide 25 BUN 9 Creatinine 0.75 Glucose 241 H Calcium 8.6 Cardiac Enzymes 07/08/20 Range/Units 12:06 Troponin I 0.019 (0-0.045) ng/ml Diagnostic Findings CXR: IMPRESSION: No acute cardiopulmonary findings. ECG Change: no significant change Supervising Physician Co-Signing Physician Notes Attending addendum : pt seen and examined, care co 0ordinated with Lula Riddle PA-C this is a 44 yo F with complicated past medical hx of Premature CAD s/p stent , prior CVA , poorly controlled HTN, PVD , hypothyroidism , depression , has not been taking her meds -moved to a different state , lost her insurance presented with chest pain , elevated BP , hypokalemia , low mg admit to PCU , ordered to replace K /mg cardiology consult for possible angina and ischemic work up pt is known to abuse narcotic pain meds , substance abuse limit utilization of morphine for chest pain severe Hypothyroidism : TSH > 40 for not taking meds started her on Levothyroxine 150 mcg /daily needs repeat TSH check in 4-6 weeks for dose adjustments Micaela Gama MD
[2020-07-08] MEDS ORDERED: carvediloL 12.5 MG TAB PO ONE (14:42)
[2020-07-08] MEDS ORDERED: ASPIRIN CHEW 324 MG PO STA (14:42)
--- NOTE | 2020-07-08 14:50 | Electrocardiogram Report ---
Test Reason : Blood Pressure : / mmHG Vent. Rate : 096 BPM Atrial Rate : 096 BPM P-R Int : 184 ms QRS Dur : 090 ms QT Int : 384 ms P-R-T Axes : 031 032 024 degrees QTc Int : 485 ms Normal sinus rhythm Possible Left atrial enlargement Cannot rule out Anterior infarct (cited on or before 08-JUL-2020) Abnormal ECG When compared with ECG of 30-AUG-2019 17:24, No significant change was found Confirmed by Epi Garza ([id number]) on 07/08/2020 2:49:55 PM Referred By: REFERRED SELF Confirmed By:Epi Garza
[2020-07-08 14:54] LABS: Influenza A virus by PCR Negative (Neg); Influenza B virus by PCR Negative (Neg); RSV by PCR Negative (Neg); SARS CoV2 RNA(COVID-19) InHosp NEGATIVE (Negative)
--- NOTE | 2020-07-08 15:13 | CT Scan Report ---
CT head/brain wo con CLINICAL HISTORY: 44 years-old Female with facial paresthesias x 1 mo, uncontrolled HTN. Acute hyper tension TECHNIQUE: Multiple axial CT images of the head were obtained without contrast. A dose lowering tech nique was utilized adhering to the principles of ALARA. CT DOSE: 690.05 mGycm COMPARISON: Head CT 12/07/2019 FINDINGS: No acute intracranial hemorrhage, midline shift, intracranial mass, hydrocephalus, territorial ischem ia or abnormal extra-axial collection. Unchanged 2 mm calcification of the third ventricle suggestive of probable choroid plexus. The calvarium is intact. The paranasal sinuses, mastoid air cells, and middle ear cavities are clear . IMPRESSION: No acute intracranial abnormality. ACT 112: Negative or not required by law. The above report was generated using voice recognition software. It may contain grammatical, syntax o r spelling errors. Electronically signed by: Candelario Prasad M.D. 07/08/2020 3:11 PM
[2020-07-08] MEDS ORDERED: PHARMACY GLYCEMIC MGMT CONSULT STA (15:39)
[2020-07-08] MEDS: POTASSIUM CHLORIDE / WTR 10 MEQ/100 ML PLCT IV SCH ×5 (15:42→22:35)
[2020-07-08] MEDS ORDERED: lisinopril 40 MG TAB PO ONE (15:45)
[2020-07-08] MEDS ORDERED: POTASSIUM CHLORIDE 10 MEQ TABCR PO ONE (16:01)
[2020-07-08 16:04] LABS: Thyroid Stimulating Hormone 40.1 uIu/ml (0.300-4.500)
[2020-07-08 16:17] LABS: T4 Free Thyroxine 0.47 ng/dl (0.8-1.6)
[2020-07-08] MEDS ORDERED: ACETAMINOPHEN 325 MG TAB PO PRN (17:24)
[2020-07-08] MEDS ORDERED: ALBUTEROL HFA 8 GM INHALER INH PRN (17:24)
[2020-07-08] MEDS ORDERED: IPRATROPIUM BROMIDE/ALBUTEROL respimat INH INH PRN (17:24)
[2020-07-08] MEDS ORDERED: ACETAMINOPHEN HOME PACK 500 MG TABLET PO PRN (17:24)
[2020-07-08] MEDS ORDERED: GLUCOSE 40% GEL 15 GM TUBE PO PRN (17:24)
[2020-07-08] MEDS ORDERED: POLYETHYLENE (MIRALAX) 17 GM PACK PO PRN (17:24)
[2020-07-08] MEDS ORDERED: CARBOHYDRATES FOR HYPOGLYCEMIA PO PRN (17:24)
[2020-07-08] MEDS ORDERED: GLUCOSE 10 TABS/TUBE PO PRN (17:24)
[2020-07-08] MEDS ORDERED: DEXTROSE 50% 50 ML SYRINGE IV PRN (17:24)
[2020-07-08] MEDS ORDERED: NITROGLYCERIN SL 0.4 MG/TAB TAB SL PRN (17:24)
[2020-07-08] MEDS ORDERED: BACLOFEN 10 MG TAB PO PRN (17:24)
[2020-07-08] MEDS ORDERED: IBUPROFEN 200 MG TAB PO PRN (17:24)
[2020-07-08] MEDS ORDERED: GLUCAGON FOR INJ 1 MG VIAL SQ PRN (17:24)
[2020-07-08] MEDS ORDERED: MAGNESIUM SULFATE / D5W 1 GM/100 ML BAG IV ONE (18:00)
[2020-07-08] MEDS ORDERED: POTASSIUM CHLORIDE CRTAB 20 MEQ TABCR PO ONE (18:00)
[2020-07-08] MEDS ORDERED: LEVOTHYROXINE SODIUM 150 MCG TABLET PO ONE (18:00)
[2020-07-08] MEDS ORDERED: Ipratropium HFA Inhaler (Combivent Respimat P&T Subs) INH PRN (18:09)
[2020-07-08] MEDS ORDERED: Albuterol HFA 8 GM Inhaler (Combivent Respimat P&T Subs) INH PRN (18:09)
[2020-07-08] MEDS ORDERED: PHARMACY GLYCEMIC MGMT CONSULT PRN (18:11)
--- NOTE | 2020-07-08 18:43 | Emergency Department Note ---
History of Present Illness General Chief Complaint: Chest Pain Stated Complaint: CHEST PAIN Time Seen by Provider: 07/08/20 11:42 History of Present Illness Provider Complaint: chest pain Onset (ago): hour(s) 2 Duration: intermittent Onset: during rest Pain Location: substernal Pain Radiation: LUE and jaw/teeth Severity: mild Maximum Pain Intensity: 2 Current Pain Intensity: 2 Quality: + sharp Relieved By: + nothing Exacerbated By: + nothing Context: + recent travel (Recent travel to [place]); no recent illness, no recent surgery, no trauma/injury and no history of DVT/PE Associated symptoms: + dyspnea; no vomiting, no diaphoresis, no syncope, no palpitations, no fever, no cough and no leg swelling Home Medications Medication Instructions Recorded Confirmed Type aspirin [Aspir-81] 81 mg PO BID 05/13/18 07/08/20 History Combivent Respimat 1 puff INHALATION QID PRN 04/01/19 07/08/20 History chlorpromazine 75 mg PO QAM 04/01/19 07/08/20 History chlorpromazine 100 mg PO HS 04/01/19 07/08/20 History duloxetine 60 mg PO QAM 04/01/19 07/08/20 History ferrous sulfate 325 mg PO QAM 04/01/19 07/08/20 History gabapentin 800 mg PO TID 04/01/19 07/08/20 History hydroxyzine HCl 10 mg PO QID PRN 04/01/19 07/08/20 History levothyroxine 112 mcg PO QAM 04/01/19 07/08/20 History lisinopril 40 mg PO QAM 04/01/19 07/08/20 History atorvastatin 80 mg PO QAM 05/14/19 07/08/20 History clopidogrel 75 mg PO QAM 06/07/19 07/08/20 History nitroglycerin [Nitrostat] 0.4 mg SUBLINGUAL DIRECTED 06/27/19 07/08/20 History albuterol sulfate 2 puff INHALATION Q6H PRN 07/11/19 07/08/20 History albuterol sulfate 2.5 mg INHALATION Q4H 07/11/19 07/08/20 History carvedilol 12.5 mg PO BID 08/09/19 07/08/20 History chlorthalidone 25 mg PO DAILY 08/09/19 07/08/20 History dicyclomine 20 mg PO QID PRN 08/09/19 07/08/20 History omeprazole 40 mg PO QAM 08/09/19 07/08/20 History quetiapine 50 mg PO HS 08/09/19 07/08/20 History acetaminophen [Tylenol Extra 1,000 mg PO Q6H PRN 08/30/19 07/08/20 History Strength] ibuprofen [Advil] 200 mg PO Q6H PRN 08/30/19 07/08/20 History baclofen 10 mg PO TID PRN 07/08/20 07/08/20 History ezetimibe 10 mg PO DAILY 07/08/20 07/08/20 History famotidine 40 mg PO DAILY 07/08/20 07/08/20 History liraglutide [Victoza 2-Anthony] 1.8 mg SUBCUT DAILY 07/08/20 07/08/20 History metformin 1,000 mg PO BID 07/08/20 07/08/20 History mometasone-formoterol [Dulera] 2 puff INHALATION BID 07/08/20 07/08/20 History potassium chloride 20 meq PO DAILY 07/08/20 07/08/20 History sucralfate 1 g PO ACHS 07/08/20 07/08/20 History Allergies Allergy/AdvReac Type Severity Reaction Status Date / Time bee pollen Allergy Severe Anaphylaxis Verified 01/01/20 15:17 loratadine AdvReac Severe anxiety, Verified 01/01/20 15:17 paranoia increases cetirizine AdvReac Intermediate anxiety, Verified 01/01/20 15:17 paranoia increases fexofenadine AdvReac Intermediate anxiety Verified 01/01/20 15:17 and paranoia increases ketorolac AdvReac Mild PT STATES Verified 01/01/20 15:17 SHE IS ON THORAZINE AND CANNOT TAKE TORADOL tramadol AdvReac Mild hallucinati Verified 01/01/20 15:17 ons Past Med/Surg History Medical History Anemia Baseline 9.9-11, ongoing since ~2004. Ankle fracture, left Atypical chest pain Per cardiology 05/01/19, "- persistent chest pain symptoms are atypical. Recent lexiscan nuclear stress test from 04/24/2019 was negative for ischemia; suspect some of her symptoms have been due to uncontrolled HTN urgencies. BP better controlled now since adjustment of meds during recent inpatient stay. Continue Dual antiplatelet therapy (DAPT) with ASA and plavix for at least 1 year but likely would continue indefinitely given severe PAD in addition to the CAD." Bipolar disorder Blood clotting disorder Patient unsure what type; reports was discovered with DVT ~2013 CAD (coronary artery disease) 10/2018-[facility]ARLEEN to LAD in [place] Cervical cancer cryotherapy (~1994) Chronic pain COPD (chronic obstructive pulmonary disease) inhalers daily. Continues to smoke. Degenerative disc disease Depression with anxiety DM type 2 (diabetes mellitus, type 2) diet controlled Fibromyalgia GERD (gastroesophageal reflux disease) History of DVT (deep vein thrombosis) ~2013. Hyperlipidemia Hypertension Hypothyroidism Migraine Myocardial Infarction October 2018. Follows with Dr. Magdy Mckeon. Neuropathy hands and feet Osteoarthritis Peripheral vascular disease S/P prior femoropopliteal thromboembolectomy on right side and surgical repair of distal aortoiliac occlusive disease in 2014. Post traumatic stress disorder Raynauds disease Schizophrenia Transient ischemic attack (TIA) x2 September 2018. Surgical History H/O cardiac catheterization H/O elbow surgery right H/O tubal ligation H/O vascular surgery thrombectomy Right leg 2013 History of arthroscopic knee surgery left History of cardiac cath October 2018 at [facility] s/p HARLEEN to LAD November 2019 at with [facility], no intervention History of carpal tunnel surgery of right wrist History of dilatation and curettage x2 History of heart artery stent Drug Eluting stent placed in LAD -- October 2018. History of incisional hernia repair x2 with full abdominal screen/mesh. Hx of cholecystectomy Hx of oral surgery (04/02/19) Oral Abscess Incision and Drainage (hard palate and extraction of tooth # 7,8,9,10,11,20 and 21) Dr. Kowalski 04-02-19. GETA. MAC 3, Grade 2 view. 7.0 ETT without difficulty. Hx of oral surgery (06/27/19) Closure Of oral/nasal Fistula, Left Palate To Muccoboccal Fold and Debridement Of Necrotic Bone Maxilla from area 3-14 Dr. Kowalski 06/27/19 S/P AAA repair ~2013 [facility]. (Dr. Graves). placed on Plavix and ASA at this time. S/P tonsillectomy Family History Mother Diabetes Grandfather FHx: heart disease Other No family history of adverse response to anesthesia Social History Smoking Status: Current every day smoker Tobacco Type: Cigarettes Cigarettes Per Day: 30; Second Hand Exposure: Yes; Hx Alcohol Use: Yes Alcohol type: hard liquor Alcohol Intake Frequency: Monthly or Less Hx Substance Use: Yes (daily) Non-Prescribed Medications: Marijuana Last Used Substance: Days (ago) Last Used Substance Other:: 05/14/2019 Preferred Language: Singaporean Communication Ability: Effective Corrosion Control Technician Required: No Beliefs That Will Affect Care: None marital status: Single Current Living Situation: Family and Significant Other current occupational status: disabled Feels Safe at Home: Yes Safety Concerns: Feels Safe At This Time Assistive Devices: Cane Review of Systems A total of 10 systems reviewed and were otherwise negative Physical Exam Vital Signs Vital Signs - 24 hr 07/08/20 11:09 07/08/20 11:24 07/08/20 11:30 Temperature 36.9 C Temperature Source Oral Pulse Rate 81 93 H 78 Pulse Rate from SpO2 Sensor 93 H 76 Pulse Rhythm Regular Pulse Strength Normal Respiratory Rate 12 14 14 Respiratory Effort / Characteristics Non-Labored Spontaneous Respiratory Depth Normal Respiratory Pattern Regular Blood Pressure 158/104 H 158/104 H 140/100 Blood Pressure Mean 122 122 113 Blood Pressure Position Lying Pulse Oximetry 98 97 97 Oxygen Delivery Method Room Air Sepsis Recent Fever Within 48 Hours No Sepsis New/Unexplained Change in Mental Status N/A Sepsis Action Taken by Nursing No Action Required 07/08/20 12:06 07/08/20 12:30 07/08/20 13:00 Temperature Temperature Source Pulse Rate 91 H 82 90 Pulse Rate from SpO2 Sensor 92 H 82 89 Pulse Rhythm Pulse Strength Respiratory Rate 16 19 23 Respiratory Effort / Characteristics Respiratory Depth Respiratory Pattern Blood Pressure 135/109 H 139/101 H 144/93 H Blood Pressure Mean 117 113 110 Blood Pressure Position Pulse Oximetry 98 97 96 Oxygen Delivery Method Sepsis Recent Fever Within 48 Hours Sepsis New/Unexplained Change in Mental Status Sepsis Action Taken by Nursing Physical Exam GENERAL: She is oriented to person, place, and time. She appears well-developed and well-nourished. She does not appear distressed. HENT: Exam performed. -Head: Normocephalic and atraumatic. -Right Ear: External ear normal. No mastoid tenderness. -Left Ear: External ear normal. No mastoid tenderness. -Mouth/Throat: The oropharynx is clear and moist. No trismus in the jaw. No dental abscesses or uvula swelling. No oropharyngeal exudate or tonsillar abscesses. EYES: Conjunctivae and EOM are normal. Pupils are equal, round, and reactive to light. Right eye exhibits no discharge. Left eye exhibits no discharge. No scleral icterus. NECK: Normal range of motion. Neck supple. No JVD present. No spinous process tenderness present. No carotid bruit present. No rigidity. No tracheal deviation and normal range of motion present. No Brudzinski's sign and no Kernig's sign noted. CV: Normal rate, regular rhythm, normal heart sounds and intact distal pulses. There is no peripheral edema. Palpable radial pulses bue. PULM/CHEST: Effort normal and breath sounds normal. No respiratory distress. No stridor. She has no wheezes. She has no rales. -Chest Wall: She exhibits no tenderness. ABD: The abdomen is soft. Bowel sounds are normal. She has no distension. No mass is present. There is no tenderness. There is no rebound, no guarding, no Reed's sign and no tenderness at McBurney's point. Rovsig negative MUSC/SKEL: Normal range of motion. There is no peripheral edema, tenderness or deformity. LYMPH: No cervical adenopathy. NEURO: She is alert and oriented to person, place, and time. She has normal strength. No cranial nerve deficit or sensory deficit. Coordination and gait normal. GCS eye subscore is 4. GCS verbal subscore is 5. GCS motor subscore is 6. Cerebellar tests wnl. SKIN: Skin is warm and dry. She is not diaphoretic. PSYCH: She has a normal mood and affect. Behavior is normal. Judgment and thought content normal. Course Course 1142: The patient was evaluated in room B3. A complete history and physical exam was performed Cardiac monitoring: An order was placed for continuous cardiac monitoring. The monitor shows a rate of 90 sinus with rhythm 1250: Vital signs stable. Labs show a magnesium of 1 and a potassium of 2. Magnesium replacement will be started in the emergency department and after the magnesium repletion is completed the potassium repletion will be started. Spoke with Lula Riddle who stated to admit the patient to Dr. Simms. Troponin within normal limits and D-dimer within normal limits. Administered Medications Magnesium Sulfate/Dextrose (Magnesium Sulfate / D5w) 1 gm in 100 mls @ 50 mls/hr IV ONE ONE Stop: 07/08/20 19:59 Last Admin: 07/08/20 17:58 Dose: 50 mls/hr Documented by: [id number] Discontinued Medications Aspirin (Aspirin Chew 324 Mg) 324 mg PO NOW STA Stop: 07/08/20 14:43 Last Admin: 07/08/20 15:57 Dose: Not Given Documented by: [id number] Carvedilol (Carvedilol 12.5 Mg Tab) 12.5 mg PO NOW ONE Stop: 07/08/20 14:43 Last Admin: 07/08/20 16:05 Dose: 12.5 mg Documented by: [id number] Magnesium Sulfate/Dextrose (Magnesium Sulfate / D5w) 1 gm in 100 mls @ 100 mls/hr IV Q1H SEPIDEH Stop: 07/08/20 15:04 Last Infusion: 07/08/20 15:20 Dose: 0 mls/hr Documented by: [id number] Admin: 07/08/20 14:13 Dose: 100 mls/hr Documented by: [id number] Infusion: 07/08/20 14:12 Dose: 100 mls/hr Documented by: [id number] Admin: 07/08/20 13:12 Dose: 100 mls/hr Documented by: [id number] Potassium Chloride (K Liban / Wtr) 10 meq in 100 mls @ 100 mls/hr IV Q1H SEPIDEH Stop: 07/08/20 15:14 Last Infusion: 07/08/20 16:39 Dose: 0 mls/hr Documented by: [id number] Admin: 07/08/20 15:42 Dose: 100 mls/hr Documented by: [id number] Lisinopril (Lisinopril 40 Mg Tab) 40 mg PO 1545 ONE Stop: 07/08/20 15:46 Last Admin: 07/08/20 16:05 Dose: 40 mg Documented by: [id number] Miscellaneous Information (Pharmacy Glycemic Mgmt Consult) 1 ea N/A NOW STA; Protocol Stop: 07/08/20 15:40 Last Admin: 07/08/20 18:40 Dose: 1 ea Documented by: Morphine Sulfate (Morphine Sulfate 2 Mg/Ml Carp) 2 mg IV NOW STA Stop: 07/08/20 12:06 Last Admin: 07/08/20 13:11 Dose: 2 mg Documented by: [id number] Potassium Chloride (Potassium Chloride 10 Meq Tabcr) 40 meq PO NOW STA Stop: 07/08/20 13:06 Last Admin: 07/08/20 16:06 Dose: 40 meq Documented by: [id number] Potassium Chloride (Potassium Chloride 10 Meq Tabcr) Confirm Administered Dose 40 meq PO .STK-MED ONE Stop: 07/08/20 16:02 Last Admin: 07/08/20 16:58 Dose: Not Given Documented by: [id number] Medical Decision Making Laboratory Data Result diagrams: 07/08/20 12:06 07/08/20 12:06 Labs: Lab Results 07/08/20 07/08/20 07/08/20 Range/Units 12:06 12:06 12:06 WBC 11.38 H (4.8-10.8) K/uL RBC 3.86 L (4.2-5.4) M/uL Hgb 12.8 (12.0-16.0) g/dL Hct 34.5 L (37-47) % MCV 89.4 (80-100) fL MCH 33.2 (25-34) pg MCHC 37.1 H (32-36) g/dL RDW Std Deviation 42.3 (36.4-46.3) fL RDW Coeff of Vivek 13.0 (11.5-14.5) % Plt Count 277 (130-400) K/uL MPV 10.3 (7.4-10.4) fL Immature Gran % (Auto) 0.3 % Neut % (Auto) 78.4 % Lymph % (Auto) 16.2 % Hanson % (Auto) 4.0 % Eos % (Auto) 0.8 % Baso % (Auto) 0.3 % Neut # (Auto) 8.93 H (1.4-6.5) K/uL Lymph # (Auto) 1.84 (1.2-3.4) K/uL Hanson # (Auto) 0.46 (0.11-0.59) K/uL Eos # (Auto) 0.09 (0-0.5) K/uL Baso # (Auto) 0.03 (0-0.2) K/uL Immature Gran # (Auto) 0.03 H (0.00-0.02) K/uL PT 10.8 (9.0-12.0) Seconds INR 1.1 (0.9-1.1) APTT 22.0 (21.0-31.0) Seconds PTT Ratio 0.8 D-Dimer 370 (0-500) ug/L FEU Sodium 139 (136-145) mmol/L Potassium 2.0 L* (3.5-5.1) mmol/L Chloride 104 (98-107) mmol/L Carbon Dioxide 25 (21-32) mmol/L Anion Gap 9.0 (3-11) BUN 9 (7-18) mg/dl Creatinine 0.75 (0.6-1.2) mg/dl Est Cr Clr Drug Dosing 91.4 ml/min Est GFR ( Amer) 113.9 Est GFR (Non-Af Amer) 98.3 BUN/Creatinine Ratio 11.9 (10-20) Glucose 241 H (70-99) mg/dl Calcium 8.6 (8.5-10.1) mg/dl Magnesium 1.0 L (1.8-2.4) mg/dl Troponin I 0.019 (0-0.045) ng/ml Lipase 83 (73-393) U/L TSH (0.300-4.500) uIu/ml Free T4 (0.8-1.6) ng/dl 07/08/20 Range/Units 12:06 WBC (4.8-10.8) K/uL RBC (4.2-5.4) M/uL Hgb (12.0-16.0) g/dL Hct (37-47) % MCV (80-100) fL MCH (25-34) pg MCHC (32-36) g/dL RDW Std Deviation (36.4-46.3) fL RDW Coeff of Vivek (11.5-14.5) % Plt Count (130-400) K/uL MPV (7.4-10.4) fL Immature Gran % (Auto) % Neut % (Auto) % Lymph % (Auto) % Hanson % (Auto) % Eos % (Auto) % Baso % (Auto) % Neut # (Auto) (1.4-6.5) K/uL Lymph # (Auto) (1.2-3.4) K/uL Hanson # (Auto) (0.11-0.59) K/uL Eos # (Auto) (0-0.5) K/uL Baso # (Auto) (0-0.2) K/uL Immature Gran # (Auto) (0.00-0.02) K/uL PT (9.0-12.0) Seconds INR (0.9-1.1) APTT (21.0-31.0) Seconds PTT Ratio D-Dimer (0-500) ug/L FEU Sodium (136-145) mmol/L Potassium (3.5-5.1) mmol/L Chloride (98-107) mmol/L Carbon Dioxide (21-32) mmol/L Anion Gap (3-11) BUN (7-18) mg/dl Creatinine (0.6-1.2) mg/dl Est Cr Clr Drug Dosing ml/min Est GFR ( Amer) Est GFR (Non-Af Amer) BUN/Creatinine Ratio (10-20) Glucose (70-99) mg/dl Calcium (8.5-10.1) mg/dl Magnesium (1.8-2.4) mg/dl Troponin I (0-0.045) ng/ml Lipase (73-393) U/L TSH 40.100 H (0.300-4.500) uIu/ml Free T4 0.47 L (0.8-1.6) ng/dl Imaging Data Chest x-ray: Radiologist's impression: XR chest 1V portable CLINICAL HISTORY: Chest Pain COMPARISON STUDY: Chest CT April 20, 2019. Chest radiograph August 14, 2019. FINDINGS: Lung volumes are normal. Lungs are clear. There is no pneumothorax or pleural effusion. Cardiac size is normal. Mediastinal contours are normal. There is no evidence for pulmonary edema. IMPRESSION: No acute cardiopulmonary findings. ACT 112: Negative or not required by law. Electronically signed by: Alexis Leong M.D. 07/08/2020 12:39 PM Dictated: 07/08/20 1238Transcribed: 07/08/20 1238 ECG Data Indication: chest pain Rate (beats per minute): 96 Rhythm: normal sinus Findings: no ST depression, no ST elevation and no prolonged QT Additional Comments: U waves present MDM Narrative 1142: The patient was evaluated in room B3. A complete history and physical exam was performed Cardiac monitoring: An order was placed for continuous cardiac monitoring. The monitor shows a rate of 90 sinus with rhythm 1250: Vital signs stable. Labs show a magnesium of 1 and a potassium of 2. Magnesium replacement will be started in the emergency department and after the magnesium repletion is completed the potassium repletion will be started. Spoke with Lula Riddle who stated to admit the patient to Dr. Simms. Troponin within normal limits and D-dimer within normal limits. Impression & Plan Hypokalemia, Hypomagnesemia Discharge Plan Visit Data Chief Complaint: Chest Pain Stated Complaint: CHEST PAIN ED Provider: Carlos Boswell Discharge Problem: Hypokalemia, Hypomagnesemia Patient Disposition: Admitted As Inpatient Discharge Instructions Interventions: ED Discharge Assessment Last Done: 07/08/20 17:45
--- NOTE | 2020-07-08 18:45 | Communication Note ---
Date of Service: July 08, 2020 made aware of consult approx. 3:30 pm. Pt ran out of psychiatric medications >1 month ago. Primary consult liaison/team to evaluate. Reviewed chart as courtesy, no recent ED visits for psychiatric issues or active symptoms noted on admit note or last few admits. Needs to reestablish with prescriber in [place] area. Patient's Qtc is 485 and r/o TN so would hold restart of antipsychotic until closer to medical clearance unless symptoms arise or otherwise directed by consult service, need to establish why on typical vs atypical. Reports some neurologic/pain symptoms that may benefit from Neurontin and Cymbalta but would not restart Cymbalta without a mood stabilizer on board. Prior dose of Neurontin is quite high for psychiatric use so would confirm if for medical (paresthesias/neuropathy) and resume as appropriate for that indication.
[2020-07-08 18:51] LABS: BUN Creatinine Ratio 11.6 (10-20); Calcium 8.7 mg/dl (8.5-10.1); Creatinine Clr Calc Pharmacy 95.3 ml/min; Est GFR (African American) 119.7; Est GFR (Non-African American) 103.3; Potassium 2.3 mmol/L (3.5-5.1); Troponin I 0.019 ng/ml (0-0.045)
[2020-07-08] MEDS: INSULIN ASPART 100 UNITS/ML 3 ML PEN SC SCH ×2 (19:04→20:52)
[2020-07-08] MEDS: SUCRALFATE 1 GM TAB PO SCH ×2 (19:05→20:48)
[2020-07-08] MEDS: ALBUTEROL 0.083% NEBU SOLN 3 ML VIAL INH SCH ×2 (19:13→23:34)
[2020-07-08] MEDS ORDERED: POTASSIUM CHLORIDE CRTAB 20 MEQ TABCR PO STA (19:18)
[2020-07-08] MEDS ORDERED: POTASSIUM CHLORIDE / WTR 10 MEQ/100 ML PLCT IV SCH (19:30)
[2020-07-08] MEDS ORDERED: SODIUM CHLORIDE 0.9% 1000ML 1,000 ML IV SCH (20:45)
[2020-07-08] MEDS: QUEtiapine FUMARATE 25 MG TABLET PO SCH (20:48)
[2020-07-08] MEDS: carvediloL 12.5 MG TAB PO SCH (20:51)
[2020-07-08 21:41] LABS: Amphetamines+Metham, Urine Neg (Neg); Barbiturates, Urine Neg (Neg); Benzodiazepine, Urine Neg (Neg); Cocaine, Urine Neg (Neg); MDMA (Ecstacy), Urine Neg (Neg); Methadone, Urine Neg (Neg); Opiate, Urine Pos (Neg); Phencyclidine, Urine Neg (Neg)
[2020-07-08] MEDS: HEPARIN SOD 5,000 UNIT/0.5 ML VIAL SQ SCH (21:43)
[2020-07-09 01:04] LABS: BUN Creatinine Ratio 11.5 (10-20); Calcium 7.8 mg/dl (8.5-10.1); Creatinine Clr Calc Pharmacy 86.8 ml/min; Est GFR (Non-African American) 92.3; Troponin I 0.027 ng/ml (0-0.045)
[2020-07-09] MEDS ORDERED: POTASSIUM CHLORIDE CRTAB 20 MEQ TABCR PO STA (01:22)
[2020-07-09] MEDS: ALBUTEROL 0.083% NEBU SOLN 3 ML VIAL INH SCH ×2 (04:09→07:31)
[2020-07-09] MEDS: LEVOTHYROXINE SODIUM 112 MCG TABLET PO SCH (06:02)
[2020-07-09] MEDS: HEPARIN SOD 5,000 UNIT/0.5 ML VIAL SQ SCH ×2 (06:03→13:25)
[2020-07-09 06:29] LABS: Hematocrit (blood only) 34.4 % (37-47); Hemoglobin 11.9 g/dL (12.0-16.0); Mean Corpuscular Hemoglobin 32.1 pg (25-34); Mean Corpuscular Hgb Conc 34.6 g/dL (32-36); Mean Corpuscular Volume 92.7 fL (80-100); Mean Platelet Volume 10.2 fL (7.4-10.4); Platelet Count 253 K/uL (130-400); RDW Coefficient of Variation 13.5 % (11.5-14.5); RDW Standard Deviation 45.6 fL (36.4-46.3); Red Blood Count 3.71 M/uL (4.2-5.4); White Blood Count 8.05 K/uL (4.8-10.8)
[2020-07-09 06:57] LABS: BUN Creatinine Ratio 12.4 (10-20); Calcium 7.6 mg/dl (8.5-10.1); Creatinine Clr Calc Pharmacy 92.7 ml/min; Est GFR (African American) 113.9; Est GFR (Non-African American) 98.3; Potassium 3.1 mmol/L (3.5-5.1)
[2020-07-09] MEDS ORDERED: ALBUTEROL 0.083% NEBU SOLN 3 ML VIAL INH PRN (07:30)
[2020-07-09] MEDS: FLUTICASONE/VILANTEROL 100/25MCG 14 PUFFS/INHALER INH SCH (07:39)
[2020-07-09] MEDS: lisinopril 40 MG TAB PO SCH (07:39)
[2020-07-09] MEDS: SUCRALFATE 1 GM TAB PO SCH ×4 (07:40→21:23)
[2020-07-09] MEDS: EZETIMIBE 10 MG TABLET PO SCH (07:40)
[2020-07-09] MEDS: FAMOTIDINE 40 MG TABLET PO SCH (07:40)
[2020-07-09] MEDS: FERROUS SULFATE 325 MG TAB PO SCH (07:41)
[2020-07-09] MEDS: POTASSIUM CHLORIDE CRTAB 20 MEQ TABCR PO SCH (07:41)
[2020-07-09] MEDS: carvediloL 12.5 MG TAB PO SCH ×2 (07:41→21:23)
[2020-07-09] MEDS: ATORVASTATIN 40 MG TAB PO SCH (07:41)
[2020-07-09] MEDS: PANTOprazole 40 MG TAB PO SCH (07:41)
[2020-07-09] MEDS: CLOPIDOGREL BISULFATE 75 MG TAB PO SCH (07:41)
[2020-07-09] MEDS: ASPIRIN 81 MG ECTAB PO SCH ×2 (07:41→21:23)
[2020-07-09] MEDS: INSULIN ASPART 100 UNITS/ML 3 ML PEN SC SCH ×4 (07:53→21:34)
[2020-07-09] MEDS: INSULIN GLARGINE SOLOSTAR 100 UNITS/ML 3 ML PEN SC SCH (07:54)
[2020-07-09 08:39] LABS: Estimated Average Glucose 203 mg/dl; Hemoglobin A1C 8.7 % (4.5-5.6)
[2020-07-09] MEDS ORDERED: CHLORTHALIDONE 25 MG TAB PO SCH (09:00)
[2020-07-09] MEDS ORDERED: POTASSIUM CHLORIDE CRTAB 20 MEQ TABCR PO SCH (09:00)
[2020-07-09] MEDS ORDERED: chlorproMAZINE HCL 25 MG TAB PO SCH (09:00)
[2020-07-09] MEDS ORDERED: REGADENOSON 0.4 MG/5 ML SYR IV ONE (12:11)
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
--- NOTE | 2020-07-09 12:54 | Hospitalist Progress Note ---
Date of Service July 09, 2020 Assessment & Plan (1) Chest pain: Concerning in this patient who is an uncontrolled diabetic with a h/o CAD and PAD and with noncompliance. Serial negative troponins overnight with ongoing pain. Some relief with nitro but not completely. Morphine PRN. It is clear she is under some stress and this may be contributing to her pain. Cont Lipitor 80mg, Coreg 12.5mg PO BID, Zetia 10mg, lisinopril 40mg daily, Plavix 75mg PO daily. Proceed with Lexiscan nuclear stress test in am per Cardiology recommendations. (2) CAD (coronary artery disease): She has a known h/o premature vascular disease with stenting in the past, longstanding hypertension, tobacco use, uncontrolled DMII and medication noncompliance. Cont current medication regimen. (3) Sialoadenitis of submandibular gland: Reports a ?stone in her salivary gland and reports expressing greenish pus on occasion since May. She reports pain in the right lower jaw with associated lymphadenopathy here. Will give a 7-10 day course of Augmentin and have her follow-up for further workup as needed as outpatient. Warm compresses and sour candy recommended. (4) Non compliance w medication regimen: Pt reports no insurance. Will need to adjust medications to those on the $4 list at [facility] (5) Hypokalemia: should be taking a potassium supplement with her diuretic but she hasn't been taking this. Replete as needed. (6) Hypomagnesemia: Replaced, repeat in am. (7) Facial paresthesia: Paresthesias of face and hands for past 1.5 months. Likely in setting of severe electrolyte abnormalities, cervical disc disease Has not been taking potassium supplement or gabapentin for over last month No acute stroke symptoms, but CT head w/o con ordered in setting of uncontrolled BP This is resolved today. (8) Peripheral vascular disease: H/o PAD s/p thromboembolectomy of right femoral-popliteal Increased tobacco use in past few months from 0.5 to 1.5 ppd Continue aspirin, plavix, statin (9) DM type 2 (diabetes mellitus, type 2): uncontrolled with A1C 8.7, use basal bolus insulin while in the hospital. (10) COPD (chronic obstructive pulmonary disease): Stable. Has not been using any inhalers for 1.5-2 months since running out. Ongoing tobacco abuse. No evidence of exacerbation at this time. (11) Hypothyroidism: Noncompliant with levothyroxine for 1.5-2 months TSH with reflex T4 pending (12) Bipolar disorder: Psych consulted and currently recommends holding duloxetine reinitiation as she has been off this. Also, recommended to avoid initiating duloxetine until a mood stabilizer is on board. Close monitoring of her QT interval. (13) Depression with anxiety: Ran out of duloxetine, chlorpromazine, gabapentin 1.5-2 months ago Stable mood- no SI/HI (14) Tobacco abuse: Contemplative phase (15) HTN (hypertension): Currently at goal. Cont current regimen including chlorthalidone 25mg daily, lisinopril 40mg daily. (16) DVT prophylaxis: Heparin switch to Lovenox to minimize shot burden Full Code Dispo-to home when cleared by Cardiology. DO Zan [facility]new [facility] Hospitalist Admission and Anticipated Discharge Date Admission Date: July 08, 2020 Subjective 44 yo F with h/o uncontrolled HTN and DMII and a h/o medication noncompliance presented with chest pain. -K and Mg are improved today -patient reports ongoing chronic diarrhea for years -she reports low PO intake as she has been dealing with a ?salivary stone with ?infection since may -she reports expressing green pus from this gland on occasion, denies fevers, chills -chest pain is still present at 7/10 today -chest pain comes and goes, worse with exertion and stress -her dauhgter (15 y/o) has symptoms consistent with COVID-19 and this is concerning her. -she is having an issue with an ex and has no current medical insurance coverage, unable to afford her medications. Review of Systems Review of Systems: All systems reviewed & are unremarkable except as noted in Subjective Physical Exam Physical Exam: CONSTITUTIONAL: WNWD, vitals as above, generally well- appearing EYES: normal conjunctivae, no scleral icterus ENT: external ear and nose normal, oropharynx clear, poor dentition, +hardened lower right salivary gland-did not express anything but this is TTP. She also has an adjacent tender and very rigid right submandibular lymph node present. NECK: trachea midline, as above. RESPIRATORY: clear to auscultation bilaterally, no crackles, rales or wheezes, normal respiratory effort CARDIOVASCULAR: regular rate and rhythm, S1 and 2 heard without murmurs, gallops or rubs, no JVD, no peripheral edema MUSCULOSKELETAL: strength 5/5 throughout, head is normocephalic and atraumatic SKIN: warm and dry NEUROLOGIC: CN 2-12 grossly intact, normal cognition, normal speech, no tremor, no gross focal deficits. PSYCHIATRIC: alert cooperative and oriented to person, place and time. Results & Data Results & Data ([facility]) Vital Signs (Past 12 Hours) Vital Signs Temp Pulse Pulse Resp BP Pulse Ox 07/09/20 10:57 36.6 C 69 123/85 97 07/09/20 08:10 36.8 C 77 16 98/49 L 98 07/09/20 03:09 36.7 C 78 18 97/61 L 94 07/09/20 01:35 71 Laboratory Results Short CBC 07/09/20 Range/Units 05:55 WBC 8.05 (4.8-10.8) K/uL Hgb 11.9 L (12.0-16.0) g/dL Hct 34.4 L (37-47) % Plt Count 253 (130-400) K/uL BMP 07/08/20 07/09/20 07/09/20 17:53 00:20 05:55 Sodium 140 141 141 Potassium 2.3 L* 3.0 L D 3.1 L Chloride 107 110 H 111 H Carbon Dioxide 24 26 25 BUN 8 9 9 Creatinine 0.72 0.79 0.75 Glucose 188 H 164 H 197 H Calcium 8.7 7.8 L 7.6 L Cardiac Enzymes 07/08/20 07/09/20 Range/Units 17:53 00:20 Troponin I 0.019 0.027 (0-0.045) ng/ml Liver Function 07/09/20 Range/Units 05:55 Albumin 3.0 L (3.4-5.0) gm/dl Medications Administered Current Inpatient Medications Acetaminophen (Acetaminophen 325 Mg Tab) 650 mg PO Q4H PRN PRN Reason: Pain or Fever Stop: 08/07/20 17:23 Albuterol (Albuterol Hfa 8 Gm Inhaler (Combivent Respimat P&T Subs)) 1 puffs INH QIDR PRN PRN Reason: SHORTNESS OF BREATH Stop: 08/07/20 18:08 Albuterol (Albuterol 0.083% Nebu Soln 3 Ml Vial) 2.5 mg INH Q4R PRN PRN Reason: SOB/wheezing Stop: 08/07/20 18:59 Aspirin (Aspirin 81 Mg Ectab) 81 mg PO BID [facility] Stop: 08/08/20 08:59 Last Admin: 07/09/20 07:41 Dose: 81 mg Documented by: Atorvastatin Calcium (Atorvastatin 40 Mg Tab) 80 mg PO QAM [facility] Stop: 08/08/20 08:59 Last Admin: 07/09/20 07:41 Dose: 80 mg Documented by: Baclofen (Baclofen 10 Mg Tab) 10 mg PO TID PRN PRN Reason: Muscle Spasm Stop: 08/07/20 17:23 Carvedilol (Carvedilol 12.5 Mg Tab) 12.5 mg PO BID [facility] Stop: 08/07/20 20:59 Last Admin: 07/09/20 07:41 Dose: 12.5 mg Documented by: Chlorthalidone (Chlorthalidone 25 Mg Tab) 25 mg PO DAILY [facility] Stop: 08/08/20 08:59 Last Admin: 07/09/20 07:42 Dose: 25 mg Documented by: Clopidogrel Bisulfate (Clopidogrel Bisulfate 75 Mg Tab) 75 mg PO QAM [facility] Stop: 08/08/20 08:59 Last Admin: 07/09/20 07:41 Dose: 75 mg Documented by: Dextrose (Dextrose 50% 50 Ml Syringe) 25 - 50 ml IV UD PRN; Protocol PRN Reason: Hypoglycemia Protocol Stop: 08/07/20 17:23 Ezetimibe (Ezetimibe 10 Mg Tablet) 10 mg PO DAILY [facility] Stop: 08/08/20 08:59 Last Admin: 07/09/20 07:40 Dose: 10 mg Documented by: Famotidine (Famotidine 40 Mg Tablet) 40 mg PO DAILY [facility] Stop: 08/08/20 08:59 Last Admin: 07/09/20 07:40 Dose: 40 mg Documented by: Ferrous Sulfate (Ferrous Sulfate 325 Mg Tab) 325 mg PO QAM [facility] Stop: 08/08/20 08:59 Last Admin: 07/09/20 07:41 Dose: 325 mg Documented by: Fluticasone/Vilanterol (Fluticasone/Vilanterol 100/25mcg 14 Puffs/Inhaler) 1 puffs INH DAILY [facility] Stop: 08/08/20 08:59 Last Admin: 07/09/20 07:39 Dose: 1 puffs Documented by: Glucagon (Glucagon For Inj 1 Mg Vial) 1 mg SQ UD PRN; Protocol PRN Reason: Hypoglycemia Protocol Stop: 08/07/20 17:23 Glucose (Glucose 10 Tabs/Tube) 4 - 8 tabs PO UD PRN; Protocol PRN Reason: Hypoglycemia Protocol Stop: 08/07/20 17:23 Glucose (Glucose 40% Gel 15 Gm Tube) 15 - 30 gm PO UD PRN; Protocol PRN Reason: Hypoglycemia Protocol Stop: 08/07/20 17:23 Heparin Sodium (Porcine) (Heparin Sod 5,000 Unit/0.5 Ml Vial) 5,000 units SQ Q8 SEPIDEH Stop: 08/07/20 21:59 Last Admin: 07/09/20 06:03 Dose: 5,000 units Documented by: Ibuprofen (Ibuprofen 200 Mg Tab) 200 mg PO Q6H PRN PRN Reason: Pain Stop: 08/07/20 17:23 Insulin Aspart (Insulin Aspart 100 Units/Ml 3 Ml Pen) 0 units SC ACHS [facility]; Protocol Stop: 08/07/20 16:29 Last Admin: 07/09/20 11:51 Dose: 8 units Documented by: Insulin Glargine (Insulin Glargine Solostar 100 Units/Ml 3 Ml Pen) 20 units SC DAILY [facility]; Protocol Stop: 08/08/20 07:29 Last Admin: 07/09/20 07:54 Dose: 20 units Documented by: Ipratropium [place] (Ipratropium Hfa Inhaler (Combivent Respimat P&T Subs)) 1 puffs INH QIDR PRN PRN Reason: SHORTNESS OF BREATH Stop: 08/07/20 18:08 Levothyroxine Sodium (Levothyroxine Sodium 112 Mcg Tablet) 112 mcg PO DAILYBB [facility] Stop: 08/08/20 06:29 Last Admin: 07/09/20 06:02 Dose: 112 mcg Documented by: Lisinopril (Lisinopril 40 Mg Tab) 40 mg PO QAM [facility] Stop: 08/08/20 08:59 Last Admin: 07/09/20 07:39 Dose: 40 mg Documented by: Miscellaneous (Carbohydrates For Hypoglycemia ) 15 - 30 gm PO UD PRN PRN Reason: Hypoglycemia Protocol Stop: 08/07/20 17:23 Miscellaneous Information (Pharmacy Glycemic Mgmt Consult) 1 ea N/A UD PRN; Protocol PRN Reason: Consult Stop: 08/07/20 18:10 Nitroglycerin (Nitroglycerin Sl 0.4 Mg/Tab Tab) 0.4 mg SL PRN PRN PRN Reason: CHEST PAIN Stop: 08/07/20 17:23 Pantoprazole Sodium (Pantoprazole 40 Mg Tab) 40 mg PO QAM [facility] Stop: 08/08/20 08:59 Last Admin: 07/09/20 07:41 Dose: 40 mg Documented by: Polyethylene Glycol (Polyethylene (Miralax) 17 Gm Pack) 17 gm PO DAILY PRN PRN Reason: Constipation Stop: 08/07/20 17:23 Potassium Chloride (Potassium Chloride Crtab 20 Meq Tabcr) 20 meq PO QAM [facility] Stop: 08/08/20 08:59 Last Admin: 07/09/20 07:41 Dose: 20 meq Documented by: Quetiapine Fumarate (Quetiapine Fumarate 25 Mg Tablet) 50 mg PO HS [facility] Stop: 08/07/20 20:59 Last Admin: 07/08/20 20:48 Dose: 50 mg Documented by: Sucralfate (Sucralfate 1 Gm Tab) 1 gm PO ACHS [facility] Stop: 08/07/20 17:59 Last Admin: 07/09/20 11:51 Dose: 1 gm Documented by:
--- NOTE | 2020-07-09 13:01 | Electrocardiogram Report ---
Test Reason : Blood Pressure : / mmHG Vent. Rate : 069 BPM Atrial Rate : 069 BPM P-R Int : 188 ms QRS Dur : 090 ms QT Int : 462 ms P-R-T Axes : 060 043 043 degrees QTc Int : 495 ms Normal sinus rhythm Prolonged QT Abnormal ECG When compared with ECG of 08-JUL-2020 11:23, Nonspecific T wave abnormality no longer evident in Inferior leads T wave amplitude has increased in Anterior leads Confirmed by Epi Garza ([id number]) on 07/09/2020 1:00:37 PM Referred By: REFERRED SELF Confirmed By:Epi Garza
--- NOTE | 2020-07-09 13:16 | Cardiology Consultation ---
Date of Consultation July 09, 2020 Assessment & Plan (1) Hypokalemia: Patient presenting with marked electrolyte abnormalities, potassium on arrival yesterday was 2 , 3.1 this am having received IV and oral repletion. We will continue to replace and follow. Hold chlorthalidone. (2) Hypomagnesemia: Magnesium level was 1 mg/dL on arrival yesterday, this is normalized with repletion. (3) Chest pain: echocardiogram reveals normal LV wall motion. Troponin levels are within normal limits but not undetectable. Patient states that she has been on ongoing chronic dual antiplatelet therapy with aspirin and clopidogrel. I told concerns with regards to her being adherent to her medications, with noted severe elevation in her TSH, and it appears her diabetes is uncontrolled. This makes me concerned with regards to her adherence to medical therapy. Toxicology screen was positive for opiates, but she received morphine in the emergency room. Toxicology screen positive for THC. -Patient certainly under a great deal of psychosocial stressors and has underlying clinical diagnosis of bipolar disorder per past chart notations. -The patient's first inclination, is that she does not believe this mimics her past angina, but she is concerned with regards to the chest pain, and agreeable to proceeding with Lexiscan nuclear stress testing Which will be tentatively scheduled tomorrow to allow time to order the radiopharmaceutical optimization of her electrolytes. (4) QT prolongation: Optimize electrolytes. Seroquel can cause QT prolongation, but this is not a new medication for her. History of Present Illness Attending Physician: Rhianna Flores, History of Present Illness Sabine Almendarez is seen in cardiology consultation per the [facility]. Patient notes waxing and waning chest discomfort at rest and with physical exertion for the last 3 months, worse yesterday prompting presentation to the emergency department. She notes a great deal of stressors. She had been living in [place], but has returned to [place], and she describes herself as being homeless. She has concerns that she would not be able to afford her medications when she runs out of her current supply. Cardiac / Vascular Problem List: 1. Premature vascular disease distal aortic stenosis at bifurcation with distal embolism status post surgical repair September 2014 after required femoral- popliteal embolectomy 2. Longstanding hypertension 3. Hyperlipidemia 4. Atherosclerotic coronary disease status post cardiac catheterization via r ight femoral access October 2018 with subsequent stenting mid LAD ([place]) -Multiple emergency department visits for chest pain in 2019 -Nonischemic Lexiscan nuclear stress test, [place] 04/2019 -Ultimately had repeat cardiac catheterization at [facility] 11/2019, with patent LAD stent, 50% obtuse marginal lesion for which medical management recommended 5. Chronic tobacco use longstanding 6. Diabetes mellitus, type II 7. Bipolar disease Allergies Allergy/AdvReac Type Severity Reaction Status Date / Time bee pollen Allergy Severe Anaphylaxis Verified 01/01/20 15:17 loratadine AdvReac Severe anxiety, Verified 01/01/20 15:17 paranoia increases cetirizine AdvReac Intermediate anxiety, Verified 01/01/20 15:17 paranoia increases fexofenadine AdvReac Intermediate anxiety Verified 01/01/20 15:17 and paranoia increases ketorolac AdvReac Mild PT STATES Verified 01/01/20 15:17 SHE IS ON THORAZINE AND CANNOT TAKE TORADOL tramadol AdvReac Mild hallucinati Verified 01/01/20 15:17 ons Home Medications Medication Instructions Recorded Confirmed Type aspirin [Aspir-81] 81 mg PO BID 05/13/18 07/08/20 History Combivent Respimat 1 puff INHALATION QID PRN 04/01/19 07/08/20 History chlorpromazine 75 mg PO QAM 04/01/19 07/08/20 History chlorpromazine 100 mg PO HS 04/01/19 07/08/20 History duloxetine 60 mg PO QAM 04/01/19 07/08/20 History ferrous sulfate 325 mg PO QAM 04/01/19 07/08/20 History gabapentin 800 mg PO TID 04/01/19 07/08/20 History hydroxyzine HCl 10 mg PO QID PRN 04/01/19 07/08/20 History levothyroxine 112 mcg PO QAM 04/01/19 07/08/20 History lisinopril 40 mg PO QAM 04/01/19 07/08/20 History atorvastatin 80 mg PO QAM 05/14/19 07/08/20 History clopidogrel 75 mg PO QAM 06/07/19 07/08/20 History nitroglycerin [Nitrostat] 0.4 mg SUBLINGUAL DIRECTED 06/27/19 07/08/20 History albuterol sulfate 2 puff INHALATION Q6H PRN 07/11/19 07/08/20 History albuterol sulfate 2.5 mg INHALATION Q4H 07/11/19 07/08/20 History carvedilol 12.5 mg PO BID 08/09/19 07/08/20 History chlorthalidone 25 mg PO DAILY 08/09/19 07/08/20 History dicyclomine 20 mg PO QID PRN 08/09/19 07/08/20 History omeprazole 40 mg PO QAM 08/09/19 07/08/20 History quetiapine 50 mg PO HS 08/09/19 07/08/20 History acetaminophen [Tylenol Extra 1,000 mg PO Q6H PRN 08/30/19 07/08/20 History Strength] ibuprofen [Advil] 200 mg PO Q6H PRN 08/30/19 07/08/20 History baclofen 10 mg PO TID PRN 07/08/20 07/08/20 History ezetimibe 10 mg PO DAILY 07/08/20 07/08/20 History famotidine 40 mg PO DAILY 07/08/20 07/08/20 History liraglutide [Victoza 2-Anthony] 1.8 mg SUBCUT DAILY 07/08/20 07/08/20 History metformin 1,000 mg PO BID 07/08/20 07/08/20 History mometasone-formoterol [Dulera] 2 puff INHALATION BID 07/08/20 07/08/20 History potassium chloride 20 meq PO DAILY 07/08/20 07/08/20 History sucralfate 1 g PO ACHS 07/08/20 07/08/20 History Patient History Medical History Anemia Baseline 9.9-11, ongoing since ~2004. Ankle fracture, left Atypical chest pain Per cardiology 05/01/19, "- persistent chest pain symptoms are atypical. Rece nt lexiscan nuclear stress test from 04/24/2019 was negative for ischemia; suspect some of her symptoms have been due to uncontrolled HTN urgencies. BP better controlled now since adjustment of meds during recent inpatient stay. Continue Dual antiplatelet therapy (DAPT) with ASA and plavix for at least 1 year but likely would continue indefinitely given severe PAD in addition to the CAD." Bipolar disorder Blood clotting disorder Patient unsure what type; reports was discovered with DVT ~2013 CAD (coronary artery disease) 10/2018-HARLEEN to LAD in [place] Cervical cancer cryotherapy (~1994) Chronic pain COPD (chronic obstructive pulmonary disease) inhalers daily. Continues to smoke. Degenerative disc disease Depression with anxiety DM type 2 (diabetes mellitus, type 2) diet controlled Fibromyalgia GERD (gastroesophageal reflux disease) History of DVT (deep vein thrombosis) ~2013. Hyperlipidemia Hypertension Hypothyroidism Migraine Myocardial Infarction October 2018. Follows with Dr. Magdy Mckeon. Neuropathy hands and feet Osteoarthritis Peripheral vascular disease S/P prior femoropopliteal thromboembolectomy on right side and surgical repair of distal aortoiliac occlusive disease in 2014. Post traumatic stress disorder Raynauds disease Schizophrenia Transient ischemic attack (TIA) x2 September 2018. Surgical History H/O cardiac catheterization H/O elbow surgery right H/O tubal ligation H/O vascular surgery thrombectomy Right leg 2013 History of arthroscopic knee surgery left History of cardiac cath October 2018 at [facility] s/p HARLEEN to LAD November 2019 at with [facility], no intervention History of carpal tunnel surgery of right wrist History of dilatation and curettage x2 History of heart artery stent Drug Eluting stent placed in LAD -- October 2018. History of incisional hernia repair x2 with full abdominal screen/mesh. Hx of cholecystectomy Hx of oral surgery (04/02/19) Oral Abscess Incision and Drainage (hard palate and extraction of tooth # 7,8,9,10,11,20 and 21) Dr. Kowalski 04-02-19. GETA. MAC 3, Grade 2 view. 7.0 ETT without difficulty. Hx of oral surgery (06/27/19) Closure Of oral/nasal Fistula, Left Palate To Muccoboccal Fold and Debridement Of Necrotic Bone Maxilla from area 3-14 Dr. Kowalski 06/27/19 S/P AAA repair ~2013 [facility]. (Dr. Graves). placed on Plavix and ASA at this time. S/P tonsillectomy Family History Mother Diabetes Grandfather FHx: heart disease Other No family history of adverse response to anesthesia Social History Smoking Status: Current every day smoker Tobacco Type: Cigarettes Cigarettes Per Day: 30; Second Hand Exposure: Yes; Hx Alcohol Use: Yes Alcohol type: hard liquor Alcohol Intake Frequency: Monthly or Less Hx Substance Use: Yes (daily) Non-Prescribed Medications: Marijuana Last Used Substance: Days (ago) Last Used Substance Other:: 05/14/2019 Preferred Language: Latvian Communication Ability: Effective Manager Of School Required: No Beliefs That Will Affect Care: None marital status: Single Current Living Situation: Family and Significant Other current occupational status: disabled Feels Safe at Home: Yes Safety Concerns: Feels Safe At This Time Assistive Devices: None Review of Systems Review of Systems: All systems reviewed & are unremarkable except as noted in HPI & below Physical Exam Physical Exam: Temp Pulse Resp BP Pulse Ox 36.6 C 69 16 123/85 97 07/09/20 10:57 07/09/20 10:57 07/09/20 08:10 07/09/20 10:57 07/09/20 10:57 Constitutional: WD/WN, vitals as above Respiratory: normal respiratory effort, lungs clear to auscultation Cardiovascular: RRR, no murmur, no edema Gastrointestinal (Abdomen): normal bowel sounds, soft, nontender, no hepatosplenomegaly Neurologic: PERRL, EOMI, accommodation nl, no face palsy, no dysarthria Results & Data ([facility]) Vital Signs (Past 12 Hours) Vital Signs Temp Pulse Pulse Resp BP Pulse Ox 07/09/20 10:57 36.6 C 69 123/85 97 07/09/20 08:10 36.8 C 77 16 98/49 L 98 07/09/20 03:09 36.7 C 78 18 97/61 L 94 07/09/20 01:35 71 Laboratory Results Cardiac Enzymes 07/08/20 07/09/20 Range/Units 17:53 00:20 Troponin I 0.019 0.027 (0-0.045) ng/ml CBC 07/09/20 Range/Units 05:55 WBC 8.05 (4.8-10.8) K/uL RBC 3.71 L (4.2-5.4) M/uL Hgb 11.9 L (12.0-16.0) g/dL Hct 34.4 L (37-47) % Plt Count 253 (130-400) K/uL Comprehensive Metabolic Panel 07/08/20 07/09/20 07/09/20 Range/Units 17:53 00:20 05:55 Sodium 140 141 141 (136-145) mmol/L Potassium 2.3 L* 3.0 L D 3.1 L (3.5-5.1) mmol/L Chloride 107 110 H 111 H (98-107) mmol/L Carbon Dioxide 24 26 25 (21-32) mmol/L BUN 8 9 9 (7-18) mg/dl Creatinine 0.72 0.79 0.75 (0.6-1.2) mg/dl Glucose 188 H 164 H 197 H (70-99) mg/dl Calcium 8.7 7.8 L 7.6 L (8.5-10.1) mg/dl Albumin 3.0 L (3.4-5.0) gm/dl Intake and Output 07/08/20 07/09/20 07/09/20 22:59 06:59 14:59 Intake Total 948.333 / 1450.833 402.5 / 1450.833 Output Total 300 / 300 Balance 648.333 / 1150.833 402.5 / 1150.833 Intake: IV 588.333 / 990.833 302.5 / 990.833 MAGNESIUM SULFATE / D5W 1 gm In 200 / 300 100 ml @ 50 mls/hr IV ONE ONE Rx#:[id number] K RIDER / WTR 10 meq In 100 ml 388.333 / 488.333 100 / 488.333 @ 100 mls/hr IV Q1H SEPIDEH Rx#: [id number] Nss 1000ML 1,000 ml @ 75 mls/hr 202.5 / 202.5 IV .[id number] SEPIDEH Rx#:[id number] Oral 360 / 460 100 / 460 Output: Urine 300 / 300 Other: # Unmeasured Voids 400 Weight 31.9 kg 78.6 kg Weight Measurement Method Built in [facility] Diagnostic Findings EKG performed 07/08/2020 revealed normal sinus rhythm at 96 bpm, poor R wave progression in the anterior precordial leads, unchanged compared to previous dating back to Aug, 2019. Most recent tracing 07/09/2020 5:14 AM normal sinus rhythm, poor R wave progression in the anterior precordial leads V2 and V3, chronic finding, prolonged QT interval, 504 ms. Compared to her previous tracings dating back to Aug, 2019, she has chronic diffuse J-point elevation which is unchanged, the QT prolongation of 500 ms is new compared to 2020.
[2020-07-09] MEDS: MoRPHine SULFATE 2 MG/ML CARP IV PRN ×2 (13:24→21:35)
--- NOTE | 2020-07-09 13:42 | Electrocardiogram Report ---
Test Reason : Blood Pressure : / mmHG Vent. Rate : 073 BPM Atrial Rate : 073 BPM P-R Int : 186 ms QRS Dur : 086 ms QT Int : 458 ms P-R-T Axes : 035 045 041 degrees QTc Int : 504 ms Normal sinus rhythm Cannot rule out Anterior infarct , age undetermined Prolonged QT Abnormal ECG When compared with ECG of 08-JUL-2020 22:07, (unconfirmed) No significant change was found Confirmed by Epi Garza ([id number]) on 07/09/2020 1:41:41 PM Referred By: REFERRED SELF Confirmed By:Epi Garza
--- NOTE | 2020-07-09 14:16 | Pharmacy Report ---
Pharmacy Glycemic Short Note 2 - Date of Service July 09, 2020 - Glycemic Short BSG Results (Last 24 hours): 07/08/20 07/08/20 07/08/20 16:59 17:53 20:22 Glucose 188 H POC Glucose 203 H 271 H 07/09/20 07/09/20 07/09/20 00:20 05:55 07:49 Glucose 164 H 197 H POC Glucose 228 H 07/09/20 11:24 Glucose POC Glucose 241 H OUTPATIENT ANTIDIABETIC REGIMEN: * Victoza 1.8mg SQ daily * Metformin 1gm PO BID * HbA1c: 8.7% (07/09/20) ASSESSMENT: * Ms Almendarez is a 44yo diabetic female admitted with chest pain. * Medication compliance seems to be unreliable. * BSGs were elevated on admission, so SQ insulin was initiated. Basal insulin added this morning. * Insulin was dosed based on "moderate" to "high" stress calculations, however, pre-lunch BSG still elevated. * Will continue to monitor and adjust as needed. PLAN FOR INPATIENT GLYCEMIC CONTROL: * Hold outpatient oral diabetes medications * Basal insulin * Lantus 20 units SQ qAM * Lantus 0-10 units SQ this evening, based on BSG * Bolus insulin * NovoLog per scale ACHS or Q6hrs while NPO * Goal Range: Low 110 mg/dL - High 140 mg/dL * Correction Factor: 25 mg/dL/unit * Nutritional / Prandial insulin per carb ratio of 1 unit per 9 grams CHO consumed PLAN FOR DISCHARGE: * pending
[2020-07-09 15:59] LABS: BUN Creatinine Ratio 9.3 (10-20); Calcium 7.8 mg/dl (8.5-10.1); Est GFR (African American) 93.9; Potassium 3.3 mmol/L (3.5-5.1)
[2020-07-09] MEDS: AMOXICILLIN/CLAVULANATE 875 MG TAB PO SCH (16:52)
[2020-07-09] MEDS ORDERED: INSULIN GLARGINE SOLOSTAR 100 UNITS/ML 3 ML PEN SC SCH (17:00)
[2020-07-09] MEDS ORDERED: POTASSIUM CHLORIDE PWD 20 MEQ PACK PO ONE (19:52)
[2020-07-09] MEDS: QUEtiapine FUMARATE 25 MG TABLET PO SCH (21:23)
[2020-07-10] MEDS ORDERED: REGADENOSON 0.4 MG/5 ML SYR IV SCH (06:00)
[2020-07-10 06:44] LABS: Hematocrit (blood only) 33.3 % (37-47); Hemoglobin 11.8 g/dL (12.0-16.0); Mean Corpuscular Hemoglobin 32.7 pg (25-34); Mean Corpuscular Hgb Conc 35.4 g/dL (32-36); Mean Corpuscular Volume 92.2 fL (80-100); Mean Platelet Volume 10.1 fL (7.4-10.4); Platelet Count 245 K/uL (130-400); RDW Coefficient of Variation 13.2 % (11.5-14.5); RDW Standard Deviation 44.4 fL (36.4-46.3); Red Blood Count 3.61 M/uL (4.2-5.4); White Blood Count 7.42 K/uL (4.8-10.8)
[2020-07-10 07:22] LABS: BUN Creatinine Ratio 15.3 (10-20); Calcium 7.8 mg/dl (8.5-10.1); Creatinine Clr Calc Pharmacy 108.7 ml/min; Est GFR (African American) 127.6; Est GFR (Non-African American) 110.1; Magnesium 1.7 mg/dl (1.8-2.4); Potassium 2.8 mmol/L (3.5-5.1)
[2020-07-10] MEDS ORDERED: POTASSIUM CHLORIDE PWD 20 MEQ PACK PO STA (07:56)
[2020-07-10] MEDS ORDERED: POTASSIUM CHLORIDE 40 MEQ, MAGNESIUM SULFATE 50% 4 GM in SODIUM CHLORIDE 0.9% 500 ML IV SCH (08:00)
[2020-07-10] MEDS ORDERED: POTASSIUM CHLORIDE IV STA (08:10)
[2020-07-10] MEDS ORDERED: MAGNESIUM SULFATE IV STA (08:10)
[2020-07-10] MEDS ORDERED: [UNRECOGNIZED DRUG - OTHER] IV STA (08:10)
[2020-07-10] MEDS: MoRPHine SULFATE 2 MG/ML CARP IV PRN ×3 (09:15→22:00)
[2020-07-10] MEDS: carvediloL 12.5 MG TAB PO SCH ×2 (09:20→20:42)
[2020-07-10] MEDS: AMOXICILLIN/CLAVULANATE 875 MG TAB PO SCH ×2 (09:20→16:55)
[2020-07-10] MEDS: ASPIRIN 81 MG ECTAB PO SCH ×2 (09:20→20:42)
[2020-07-10] MEDS: FERROUS SULFATE 325 MG TAB PO SCH (09:21)
[2020-07-10] MEDS: LEVOTHYROXINE SODIUM 112 MCG TABLET PO SCH (09:21)
[2020-07-10] MEDS: ATORVASTATIN 40 MG TAB PO SCH (09:21)
[2020-07-10] MEDS: SUCRALFATE 1 GM TAB PO SCH ×4 (09:21→20:42)
[2020-07-10] MEDS: lisinopril 40 MG TAB PO SCH (09:21)
[2020-07-10] MEDS: CLOPIDOGREL BISULFATE 75 MG TAB PO SCH (09:21)
[2020-07-10] MEDS: PANTOprazole 40 MG TAB PO SCH (09:21)
[2020-07-10] MEDS: FLUTICASONE/VILANTEROL 100/25MCG 14 PUFFS/INHALER INH SCH (09:22)
[2020-07-10] MEDS: POTASSIUM CHLORIDE CRTAB 20 MEQ TABCR PO SCH (09:22)
[2020-07-10] MEDS: ENOXAPARIN INJ 40 MG/0.4 ML SYR SQ SCH (09:23)
[2020-07-10] MEDS: INSULIN GLARGINE SOLOSTAR 100 UNITS/ML 3 ML PEN SC SCH (09:23)
[2020-07-10] MEDS: FAMOTIDINE 40 MG TABLET PO SCH (09:24)
[2020-07-10] MEDS: EZETIMIBE 10 MG TABLET PO SCH (09:25)
[2020-07-10] MEDS: INSULIN ASPART 100 UNITS/ML 3 ML PEN SC SCH ×4 (11:08→21:32)
[2020-07-10] MEDS ORDERED: PROMETHAZINE HCL 25 MG/20 ML UDP PO PRN (12:46)
[2020-07-10] MEDS ORDERED: INSULIN ASPART 100 UNITS/ML 3 ML PEN SC ONE (15:15)
--- NOTE | 2020-07-10 16:37 | Hospitalist Progress Note ---
Date of Service July 10, 2020 Assessment & Plan (1) Chest pain: Concerning in this patient who is an uncontrolled diabetic with a h/o CAD and PAD and with noncompliance. Serial negative troponins overnight with ongoing pain. Some relief with nitro but not completely. Morphine PRN is helpf ul. Cont Lipitor 80mg, Coreg 12.5mg PO BID, Zetia 10mg, lisinopril 40mg daily, Plavix 75mg PO daily. Proceed with Lexiscan nuclear stress test tomorrow afternoon per Cardiology recommendations. This could not be performed again today because of ongoing hypokalemia. (2) CAD (coronary artery disease): She has a known h/o premature vascular disease with stenting in the past, longstanding hypertension, tobacco use, uncontrolled DMII and medication noncompliance. Cont current medication regimen. (3) Sialoadenitis of submandibular gland: Reports a ?stone in her salivary gland and reports expressing greenish pus on occasion since May. She reports pain in the right lower jaw with associated lymphadenopathy here. Will give a 7-10 day course of Augmentin and have her follow-up for further workup as needed as outpatient. Warm compresses and sour candy recommended. (4) Non compliance w medication regimen: Pt reports no insurance. Will need to adjust medications to those on the $4 list at [facility] (5) Hypokalemia: On chlorthalidone and lisinopril as well as potassium supplements and today she reports that she has been compliant with these medications prior to arrival. Continue to replace potassium stores and Mg and Phos as needed, also. (6) Hypomagnesemia: Replaced, repeat in am. (7) Facial paresthesia: Paresthesias of face and hands for past 1.5 months. Likely in setting of severe electrolyte abnormalities, cervical disc disease Has not been taking potassium supplement or gabapentin for over last month No acute stroke symptoms, but CT head w/o con ordered in setting of uncontrolled BP This is resolved today. (8) Peripheral vascular disease: H/o PAD s/p thromboembolectomy of right femoral-popliteal Increased tobacco use in past few months from 0.5 to 1.5 ppd Continue aspirin, plavix, statin (9) DM type 2 (diabetes mellitus, type 2): uncontrolled with A1C 8.7, use basal bolus insulin while in the hospital. (10) COPD (chronic obstructive pulmonary disease): Stable. Has not been using any inhalers for 1.5-2 months since running out. Ongoing tobacco abuse. No evidence of exacerbation at this time. (11) Hypothyroidism: Noncompliant with levothyroxine for 1.5-2 months. TSH very elevated at 40.1 reflective of this. Of note, hypothyroidism is associated with reduced urinary extretion of potassium, and marquez thyroid hormone is replaced in hypothyroid patients, urinary potassium excretion increases. This may be why we are seeing his K be lower than normal despite replacement. Will check urine lytes and continue to replace potassium as needed. Cont daily levothyroxine at current dose. (12) Bipolar disorder: Psych consulted and currently recommends holding duloxetine reinitiation as she has been off this. Also, recommended to avoid initiating duloxetine until a mood stabilizer is on board. Close monitoring of her QT interval which was prolonged at admission (13) Depression with anxiety: Ran out of duloxetine, chlorpromazine, gabapentin 1.5-2 months ago. She continues on seroquel 50mg qHS. Stable mood- no SI/HI (14) Tobacco abuse: Contemplative phase (15) HTN (hypertension): Currently at goal. Cont lisinopril 40mg daily. Held chlorthalidone with ongoing low potassium. (16) DVT prophylaxis: Lovenox Full Code Dispo-possibly to home in am. DO Lalo Singleton Hospitalist Admission and Anticipated Discharge Date Admission Date: July 08, 2020 Subjective 44 yo F with h/o uncontrolled HTN and DMII and a h/o medication noncompliance presented with chest pain. chest pain persists today left anterior chest with radiation up and around her left shoulder while at rest morphine helps this K too low to stress again today replaced electrolytes and held chlorthalidone scheduled for outpatient nuc stress test tmrw afternoon at 1pm Review of Systems Review of Systems: All systems reviewed & are unremarkable except as noted in Subjective Physical Exam Physical Exam: CONSTITUTIONAL: WNWD, vitals as above, generally well- appearing EYES: normal conjunctivae, no scleral icterus ENT: external ear and nose normal, oropharynx clear, poor dentition RESPIRATORY: clear to auscultation bilaterally, no crackles, rales or wheezes, normal respiratory effort CARDIOVASCULAR: regular rate and rhythm, S1 and 2 heard without murmurs, gallops or rubs, no JVD, no peripheral edema MUSCULOSKELETAL: strength 5/5 throughout, head is normocephalic and atraumatic SKIN: warm and dry NEUROLOGIC: CN 2-12 grossly intact, normal cognition, normal speech, no tremor, no gross focal deficits. PSYCHIATRIC: alert cooperative and oriented to person, place and time. Results & Data Results & Data ([facility]) Vital Signs (Past 12 Hours) Vital Signs Temp Pulse Pulse Resp BP Pulse Ox 07/10/20 15:53 36.9 C 71 18 113/76 96 07/10/20 12:00 36.7 C 71 18 122/83 98 07/10/20 08:00 63 Laboratory Results Short CBC 07/10/20 Range/Units 06:10 WBC 7.42 (4.8-10.8) K/uL Hgb 11.8 L (12.0-16.0) g/dL Hct 33.3 L (37-47) % Plt Count 245 (130-400) K/uL BMP 07/10/20 06:10 Sodium 138 Potassium 2.8 L D Chloride 109 H Carbon Dioxide 23 BUN 10 Creatinine 0.64 Glucose 156 H Calcium 7.8 L Medications Administered Current Inpatient Medications Acetaminophen (Acetaminophen 325 Mg Tab) 650 mg PO Q4H PRN PRN Reason: Pain or Fever Stop: 08/07/20 17:23 Albuterol (Albuterol Hfa 8 Gm Inhaler (Combivent Respimat P&T Subs)) 1 puffs INH QIDR PRN PRN Reason: SHORTNESS OF BREATH Stop: 08/07/20 18:08 Albuterol (Albuterol 0.083% Nebu Soln 3 Ml Vial) 2.5 mg INH Q4R PRN PRN Reason: SOB/wheezing Stop: 08/07/20 18:59 Amoxicillin/Clavulanate Potassium (Amoxicillin/Clavulanate 875 Mg Tab) 1 tab PO BIDM [facility] Stop: 07/19/20 16:59 Last Admin: 07/10/20 09:20 Dose: 1 tab Documented by: Aspirin (Aspirin 81 Mg Ectab) 81 mg PO BID [facility] Stop: 08/08/20 08:59 Last Admin: 07/10/20 09:20 Dose: 81 mg Documented by: Atorvastatin Calcium (Atorvastatin 40 Mg Tab) 80 mg PO QAM [facility] Stop: 08/08/20 08:59 Last Admin: 07/10/20 09:21 Dose: 80 mg Documented by: Baclofen (Baclofen 10 Mg Tab) 10 mg PO TID PRN PRN Reason: Muscle Spasm Stop: 08/07/20 17:23 Carvedilol (Carvedilol 12.5 Mg Tab) 12.5 mg PO BID [facility] Stop: 08/07/20 20:59 Last Admin: 07/10/20 09:20 Dose: 12.5 mg Documented by: Chlorthalidone (Chlorthalidone 25 Mg Tab) 25 mg PO DAILY [facility] Stop: 08/08/20 08:59 Last Admin: 07/09/20 07:42 Dose: 25 mg Documented by: Clopidogrel Bisulfate (Clopidogrel Bisulfate 75 Mg Tab) 75 mg PO QAM [facility] Stop: 08/08/20 08:59 Last Admin: 07/10/20 09:21 Dose: 75 mg Documented by: Dextrose (Dextrose 50% 50 Ml Syringe) 25 - 50 ml IV UD PRN; Protocol PRN Reason: Hypoglycemia Protocol Stop: 08/07/20 17:23 Ezetimibe (Ezetimibe 10 Mg Tablet) 10 mg PO DAILY [facility] Stop: 08/08/20 08:59 Last Admin: 07/10/20 09:25 Dose: 10 mg Documented by: Enoxaparin Sodium (Enoxaparin Inj 40 Mg/0.4 Ml Syr) 40 mg SQ QAM [facility] Stop: 08/09/20 08:59 Last Admin: 07/10/20 09:23 Dose: 40 mg Documented by: Famotidine (Famotidine 40 Mg Tablet) 40 mg PO DAILY [facility] Stop: 08/08/20 08:59 Last Admin: 07/10/20 09:24 Dose: 40 mg Documented by: Ferrous Sulfate (Ferrous Sulfate 325 Mg Tab) 325 mg PO QAM [facility] Stop: 08/08/20 08:59 Last Admin: 07/10/20 09:21 Dose: 325 mg Documented by: Fluticasone/Vilanterol (Fluticasone/Vilanterol 100/25mcg 14 Puffs/Inhaler) 1 puffs INH DAILY [facility] Stop: 08/08/20 08:59 Last Admin: 07/10/20 09:22 Dose: 1 puffs Documented by: Glucagon (Glucagon For Inj 1 Mg Vial) 1 mg SQ UD PRN; Protocol PRN Reason: Hypoglycemia Protocol Stop: 08/07/20 17:23 Glucose (Glucose 10 Tabs/Tube) 4 - 8 tabs PO UD PRN; Protocol PRN Reason: Hypoglycemia Protocol Stop: 08/07/20 17:23 Glucose (Glucose 40% Gel 15 Gm Tube) 15 - 30 gm PO UD PRN; Protocol PRN Reason: Hypoglycemia Protocol Stop: 08/07/20 17:23 Ibuprofen (Ibuprofen 200 Mg Tab) 200 mg PO Q6H PRN PRN Reason: Pain Stop: 08/07/20 17:23 Insulin Aspart (Insulin Aspart 100 Units/Ml 3 Ml Pen) 0 units SC ACHS [facility]; Protocol Stop: 08/07/20 16:29 Last Admin: 07/10/20 12:40 Dose: 2 units Documented by: Insulin Glargine (Insulin Glargine Solostar 100 Units/Ml 3 Ml Pen) 20 units SC DAILY [facility]; Protocol Stop: 08/08/20 07:29 Last Admin: 07/10/20 09:23 Dose: 20 units Documented by: Insulin Glargine (Insulin Glargine Solostar 100 Units/Ml 3 Ml Pen) 0 units SC TODAY@1700 [facility]; Protocol Stop: 08/09/20 16:59 Ipratropium Lander (Ipratropium Hfa Inhaler (Combivent Respimat P&T Subs)) 1 puffs INH QIDR PRN PRN Reason: SHORTNESS OF BREATH Stop: 08/07/20 18:08 Levothyroxine Sodium (Levothyroxine Sodium 112 Mcg Tablet) 112 mcg PO DAILYBB [facility] Stop: 08/08/20 06:29 Last Admin: 07/10/20 09:21 Dose: 112 mcg Documented by: Lisinopril (Lisinopril 40 Mg Tab) [facility] Stop: 08/08/20 08:59 Last Admin: 07/10/20 09:21 Dose: 40 mg Documented by: Miscellaneous (Carbohydrates For Hypoglycemia ) 15 - 30 gm PO UD PRN PRN Reason: Hypoglycemia Protocol Stop: 08/07/20 17:23 Miscellaneous Information (Pharmacy Glycemic Mgmt Consult) 1 ea N/A UD PRN; Protocol PRN Reason: Consult Stop: 08/07/20 18:10 Morphine Sulfate (Morphine Sulfate 2 Mg/Ml Carp) 2 mg IV Q6H PRN PRN Reason: chest pain Stop: 07/23/20 13:07 Last Admin: 07/10/20 16:18 Dose: 2 mg Documented by: Nitroglycerin (Nitroglycerin Sl 0.4 Mg/Tab Tab) 0.4 mg SL PRN PRN PRN Reason: CHEST PAIN Stop: 08/07/20 17:23 Pantoprazole Sodium (Pantoprazole 40 Mg Tab) 40 mg PO QAM [facility] Stop: 08/08/20 08:59 Last Admin: 07/10/20 09:21 Dose: 40 mg Documented by: Polyethylene Glycol (Polyethylene (Miralax) 17 Gm Pack) 17 gm PO DAILY PRN PRN Reason: Constipation Stop: 08/07/20 17:23 Potassium Chloride (Potassium Chloride Crtab 20 Meq Tabcr) 20 meq PO QAM [facility] Stop: 08/08/20 08:59 Last Admin: 07/10/20 09:22 Dose: 20 meq Documented by: Promethazine HCl (Promethazine Hcl 25 Mg/20 Ml Udp) 25 mg PO Q6H PRN PRN Reason: Nausea And Vomiting Stop: 08/09/20 12:45 Quetiapine Fumarate (Quetiapine Fumarate 25 Mg Tablet) 50 mg PO HS [facility] Stop: 08/07/20 20:59 Last Admin: 07/09/20 21:23 Dose: 50 mg Documented by: Regadenoson (Regadenoson 0.4 Mg/5 Ml Syr) 0.4 mg IV PRE-TREAT SEPIDEH Stop: 07/10/20 18:00 Sucralfate (Sucralfate 1 Gm Tab) 1 gm PO ACHS [facility] Stop: 08/07/20 17:59 Last Admin: 07/10/20 16:20 Dose: 1 gm Documented by:
[2020-07-10] MEDS ORDERED: INSULIN GLARGINE SOLOSTAR 100 UNITS/ML 3 ML PEN SC SCH (17:00)
--- NOTE | 2020-07-10 17:34 | Cardiology Progress Note ---
Date of Service July 10, 2020 Assessment & Plan (1) Chest pain: Has history of coronary disease, but has had weeks of chest pain at rest. Repeat EKG tomorrow. Resting images for nuclear stress test obtained today, but pharmacologic stress portion delayed due to ongoing hypokalemia. -Continue aspirin, clopidogrel, carvedilol, ezetimibe, lisinopril, atorvastatin (2) QT prolongation: Replace electrolytes. Repeat EKG tomorrow. (3) Hypokalemia: Replace electrolytes. As per discussion with Dr. Flores, her severe hypothyroidism may impact the effectiveness of potassium supplementation. Chlorthalidone on hold. (4) Hypomagnesemia: Replacement ordered by primary service. Repeat level tomorrow. (5) Hypothyroidism: TSH 40.1 IU/L. Nonadherence. Replacement ordered by primary service. Admission and Anticipated Discharge Date Admission Date: July 08, 2020 Subjective Patient with ongoing aching in her chest today. She has received potassium supplementation and now has an upset stomach. Significant hypokalemia still noted. Telemetry reveals sinus rhythm without arrhythmia. Physical Exam Physical Exam: Temp Pulse Resp BP Pulse Ox 36.9 C 71 18 113/76 97 07/10/20 15:53 07/10/20 15:53 07/10/20 15:53 07/10/20 15:53 07/10/20 17:00 Constitutional: WD/WN, vitals as above Respiratory: normal respiratory effort, lungs clear to auscultation Cardiovascular: RRR, no murmur, no edema Gastrointestinal (Abdomen): normal bowel sounds, soft, nontender, no hepatosplenomegaly Neurologic: PERRL, EOMI, accommodation nl, no face palsy, no dysarthria Results & Data ([facility]) Vital Signs (Past 12 Hours) Vital Signs Temp Pulse Pulse Resp BP Pulse Ox Pulse Ox 07/10/20 17:00 97 07/10/20 15:53 36.9 C 71 18 113/76 96 07/10/20 12:00 36.7 C 71 18 122/83 98 07/10/20 08:00 63 Laboratory Results CBC 07/10/20 Range/Units 06:10 WBC 7.42 (4.8-10.8) K/uL RBC 3.61 L (4.2-5.4) M/uL Hgb 11.8 L (12.0-16.0) g/dL Hct 33.3 L (37-47) % Plt Count 245 (130-400) K/uL Comprehensive Metabolic Panel 07/10/20 Range/Units 06:10 Sodium 138 (136-145) mmol/L Potassium 2.8 L D (3.5-5.1) mmol/L Chloride 109 H (98-107) mmol/L Carbon Dioxide 23 (21-32) mmol/L BUN 10 (7-18) mg/dl Creatinine 0.64 (0.6-1.2) mg/dl Glucose 156 H (70-99) mg/dl Calcium 7.8 L (8.5-10.1) mg/dl Intake and Output 07/10/20 07/10/20 07/10/20 06:59 14:59 22:59 Intake Total 1028 / 1028 Balance 1028 / 1028 Intake: IV 1028 / 1028 KCl 40 Meq Magnesium Sulfate 50 1028 / 1028 % 4 gm In Nss 1000ML 1,000 ml @ 257 mls/hr IV .Q4H STA Rx#: [id number] Other: # Unmeasured Voids 1 Weight 78.6 kg Patient Weight 07/11/20 06:59 Weight 78.6 kg
[2020-07-10 17:35] LABS: BUN Creatinine Ratio 11.2 (10-20); Calcium 7.5 mg/dl (8.5-10.1); Creatinine Clr Calc Pharmacy 90.3 ml/min; Est GFR (African American) 110.4; Est GFR (Non-African American) 95.2; Magnesium 2.7 mg/dl (1.8-2.4); Potassium 3.9 mmol/L (3.5-5.1)
[2020-07-10 17:45] LABS: Phosphorus 1.3 mg/dl (2.5-4.9)
[2020-07-10] MEDS ORDERED: POTASSIUM PHOS 3 MMOL/1 ML INFUSION IV STA (18:43)
[2020-07-10] MEDS ORDERED: POTASSIUM PHOSPHATE 30 MMOL in SODIUM CHLORIDE 0.9% 500 ML IV ONE (19:15)
[2020-07-10] MEDS: QUEtiapine FUMARATE 25 MG TABLET PO SCH (20:42)
[2020-07-11] MEDS: MoRPHine SULFATE 2 MG/ML CARP IV PRN ×2 (04:18→10:23)
[2020-07-11] MEDS: LEVOTHYROXINE SODIUM 112 MCG TABLET PO SCH (05:35)
[2020-07-11 07:28] LABS: BUN Creatinine Ratio 11.3 (10-20); Calcium 7.7 mg/dl (8.5-10.1); Creatinine Clr Calc Pharmacy 100.4 ml/min; Est GFR (African American) 123.9; Est GFR (Non-African American) 106.9; Potassium 3.4 mmol/L (3.5-5.1)
[2020-07-11 07:30] LABS: Phosphorus 2.8 mg/dl (2.5-4.9)
[2020-07-11] MEDS ORDERED: POTASSIUM CHLORIDE CRTAB 20 MEQ TABCR PO STA (08:02)
[2020-07-11] MEDS: INSULIN ASPART 100 UNITS/ML 3 ML PEN SC SCH ×2 (08:37→11:46)
[2020-07-11] MEDS: POTASSIUM CHLORIDE CRTAB 20 MEQ TABCR PO SCH (08:38)
[2020-07-11] MEDS: INSULIN GLARGINE SOLOSTAR 100 UNITS/ML 3 ML PEN SC SCH (08:38)
[2020-07-11] MEDS: AMOXICILLIN/CLAVULANATE 875 MG TAB PO SCH (08:38)
[2020-07-11] MEDS: lisinopril 40 MG TAB PO SCH (08:39)
[2020-07-11] MEDS: ATORVASTATIN 40 MG TAB PO SCH (08:39)
[2020-07-11] MEDS: PANTOprazole 40 MG TAB PO SCH (08:39)
[2020-07-11] MEDS: SUCRALFATE 1 GM TAB PO SCH ×2 (08:39→11:46)
[2020-07-11] MEDS: ASPIRIN 81 MG ECTAB PO SCH (08:39)
[2020-07-11] MEDS: carvediloL 12.5 MG TAB PO SCH (08:39)
[2020-07-11] MEDS: ENOXAPARIN INJ 40 MG/0.4 ML SYR SQ SCH (08:40)
[2020-07-11] MEDS: FERROUS SULFATE 325 MG TAB PO SCH (08:40)
[2020-07-11] MEDS: CLOPIDOGREL BISULFATE 75 MG TAB PO SCH (08:40)
[2020-07-11] MEDS: FAMOTIDINE 40 MG TABLET PO SCH (08:40)
[2020-07-11] MEDS: FLUTICASONE/VILANTEROL 100/25MCG 14 PUFFS/INHALER INH SCH (08:40)
[2020-07-11] MEDS: EZETIMIBE 10 MG TABLET PO SCH (08:41)
--- NOTE | 2020-07-11 10:10 | Discharge Summary ---
Date of Service July 11, 2020 Admission HPI Per Admitting Provider This is a 44yo F with a PMH of CAD s/p HARLEEN to LAD in 10/2018, PAD s/p thromboembolectomy of right femoral-popliteal, HTN, HLD, diet-controlled DM II, COPD, bipolar disorder, depression, anxiety who presents with chest pain for the past 3 hours. Describes chest pain as left-sided, sharp and stabbing with radiation to left arm and jaw. Occurred at rest. Denies associated shortness of breath, nausea or vomiting. Took 2 nitro at home with minimal relief. In ED, was given morphine with resolution of pain. Moved out of the area 2 months ago and no longer has insurance. Ran out of majority of medications, including all mood stabilizing medications and antihypertensives. Has not taken them in 1 to 2 months. Has also increased tobacco use with stress from half pack a day to a pack and 1/2/day. Does not think she will be going back to [place] due to relationship issues and is looking to reestablish care with Dr. Hanna and QUAN Yanes with [facility]. Also endorsing paresthesias in face and bilateral arms for the past 1.5 months. Denies any difficulty with speech or swallowing and no new weakness in extremities. Denies any fever, chills, cough, palpitations, shortness of breath, nausea, vomiting, abdominal pain, dysuria, diarrhea constipation. Denies any acute mood changes despite being off medication for the past 1 to 2 months. Admission Exam Per Admitting Provider General Appearance: WD/WN, vitals as above, NAD, sitting up in bed, pleasant, conversing easily Head: normocephalic, atraumatic Eyes: normal inspection, PERRL, conjunctivae normal, anicteric sclerae ENT: external ear and nose normal, oropharynx normal Neck: normal visual inspection, trachea midline, no thyromegaly Respiratory: normal respiratory effort, lungs clear to auscultation, no wheeze, rales, rhonchi. No accessory muscle use Cardiovascular: regular rate, rhythm, no murmur, normal peripheral pulses, no BLE edema. Vessels: no JVD Chest: normal inspection of chest Abdomen/GI: normal bowel sounds, soft, nontender, no hepatosplenomegaly Extremities/Musculoskeletal: no cyanosis or clubbing, extremities motor strength 5/5, + R foot drop (chronic) Neurologic: PERRL, EOMI, accommodation nl, no face palsy, no dysarthria, CN's II-XI intact bilaterally and moves all extremities Psychiatric: A+Ox3, euthymic affect, poor insight/judgement Skin: no rashes, normal color, warm/dry Principal Diagnosis Chest pain Hypokalemia Hypomagnesemia Hypophosphatemia Siladenitis of submandibular salivary gland with stone Discharge Exam CONSTITUTIONAL: WNWD, vitals as above, generally well-appearing EYES: normal conjunctivae, no scleral icterus ENT: external ear and nose normal, oropharynx clear, poor dentition RESPIRATORY: clear to auscultation bilaterally, no crackles, rales or wheezes, normal respiratory effort CARDIOVASCULAR: regular rate and rhythm, S1 and 2 heard without murmurs, gallops or rubs, no JVD, no peripheral edema MUSCULOSKELETAL: strength 5/5 throughout, head is normocephalic and atraumatic SKIN: warm and dry NEUROLOGIC: CN 2-12 grossly intact, normal cognition, normal speech, no tremor, no gross focal deficits. PSYCHIATRIC: alert cooperative and oriented to person, place and time. Discharge Data Allergies Allergy/AdvReac Type Severity Reaction Status Date / Time bee pollen Allergy Severe Anaphylaxis Verified 01/01/20 15:17 loratadine AdvReac Severe anxiety, Verified 01/01/20 15:17 paranoia increases cetirizine AdvReac Intermediate anxiety, Verified 01/01/20 15:17 paranoia increases fexofenadine AdvReac Intermediate anxiety Verified 01/01/20 15:17 and paranoia increases ketorolac AdvReac Mild PT STATES Verified 01/01/20 15:17 SHE IS ON THORAZINE AND CANNOT TAKE TORADOL tramadol AdvReac Mild hallucinati Verified 01/01/20 15:17 ons Consultations 07/08/20 12:51 ED Decision to Admit Stat 07/08/20 15:06 Consult Psychiatry Routine 07/08/20 16:03 Consult Cardiology Routine Ordered Studies 07/08/20 14:46 CT head/brain wo con Urgent Hospital Course (1) Chest pain: Concerning in this patient who is an uncontrolled diabetic with a h/o CAD and PAD and with noncompliance. Serial negative troponins overnight with ongoing pain. Some relief with nitro but not completely. Morphine PRN is helpful. Cont Lipitor 80mg, Coreg 12.5mg PO BID, Zetia 10mg, lisinopril 40mg daily, Plavix 75mg PO daily. Proceed with Lexiscan nuclear stress after discharge from the hospital. Was not able to be performed until her lytes stabilized. (2) CAD (coronary artery disease): She has a known h/o premature vascular disease with stenting in the past, longstanding hypertension, tobacco use, uncontrolled DMII and medication noncompliance. Cont current medication regimen. (3) Sialoadenitis of submandibular gland: Reports a ?stone in her salivary gland and reports expressing greenish pus on occasion since May. She reports pain in the right lower jaw with associated lymphadenopathy here. Will give a short course of Augmentin and have her follow-up for further workup as needed as outpatient. Warm compresses and sour candy recommended. (4) Non compliance w medication regimen: Pt reports no insurance. Will need to adjust medications to those on the $4 list at [facility]. This was completed for her at time of discharge. (5) Hypokalemia: Likely multifactorial including ongoing loose stools history, poor PO intake recently, recent diuretic use with questionable compliance with this or potassium supplementation. Also thyroid replacement was initiated again on admission prompting urinary potassium excretion. Chlorthalidone stopped. Continued on lisinopril. Mg, Phos and K all repleted prior to discharge. (6) Hypomagnesemia: Replaced, repeat in am. (7) Facial paresthesia: Paresthesias of face and hands for past 1.5 months. Likely in setting of severe electrolyte abnormalities, cervical disc disease Has not been taking potassium supplement or gabapentin for over last month No acute stroke symptoms, but CT head w/o con ordered in setting of uncontrolled BP This is resolved. (8) Peripheral vascular disease: H/o PAD s/p thromboembolectomy of right femoral-popliteal Increased tobacco use in past few months from 0.5 to 1.5 ppd Continue aspirin, plavix, statin (9) DM type 2 (diabetes mellitus, type 2): uncontrolled with A1C 8.7, use basal bolus insulin while in the hospital. (10) COPD (chronic obstructive pulmonary disease): Stable. Has not been using any inhalers for 1.5-2 months since running out. Ongoing tobacco abuse. No evidence of exacerbation at this time. (11) Hypothyroidism: Noncompliant with levothyroxine for 1.5-2 months. TSH very elevated at 40.1 reflective of this. Cont daily levothyroxine at current dose and repeat thyroid function studies in 6-8 weeks. (12) Bipolar disorder: Psych consulted and currently recommends holding duloxetine reinitiation as she has been off this. Also, recommended to avoid initiating duloxetine until a mood stabilizer is on board. Close monitoring of her QT interval which was prolonged at admission (13) Depression with anxiety: Ran out of duloxetine, chlorpromazine, gabapentin 1.5-2 months ago. She continues on seroquel 50mg qHS. Stable mood- no SI/HI (14) Tobacco abuse: Contemplative phase Total Time Total Time Spent Total Time Spent (In Minutes): 60 Total Time Includes: Examination of the Patient, Discharge Planning, Medication Reconciliation and Communication With Other Providers Discharge Plan Discharge Items Patient Disposition: Home - Self-Care Reason For Visit: CHEST PAIN, HYPOMAGNESEMIA, HYPOKALEMIA Discharge Diagnosis: Chest pain Hypokalemia Hypomagnesemia Hypophosphatemia Sialoadenitis of the salivary gland with stone Uncontrolled DMII Condition on Discharge: Good Activity: Resume your previous activity Non-emergency contact: Primary Care Provider Call non-emergency contact if: you have any medication questions, your symptoms worsen, your pain is not controlled and your pain is worsening Follow-up/Referrals: Jesika Rocha PA-C [Primary Care Provider] - (Date & Time 07/16/2020 11:00 AM Provider Cici Hanna [facility] ) Diet: Carb Consistent or DM2 and Heart Healthy Addtl Attending Provider Instructions: Please take all medications as instructed on discharge list below. Please note several modifications have been made to your list so we have discontinued medications that were not absolutely essential at this time, given your current insurance situation. All medications may be purchased through the $4 program at any [facility] pharmacy. Please complete the entire antibiotic course for your salivary gland issue. For the stone, it is recommended to use warm compresses and suck on sour candies, but if this doesn't work, followup with an [facility] (oral mallixofacial surgeon) or an ENT (embroidery worker) physician would be recommended. It is strongly recommended that you re-establish with a psychiatric provider in the [facility] area for continued titration of your medications. Please see additional mental health recommendations below from this hospitalization. It is strongly advised that you quit smoking as this is terrible for your health! Please follow-up with your primary care provider at the time and date above to touch base on all the above listed issues, ensure you have the appropriate referrals to specialists, and It was a pleasure taking care of you! Please call if you have any questions or problems. You can reach a [facility] hospitalist on duty at [facility] 24 hours a day by calling [phone]. Take care of yourself. Rhianna Flores, [facility] Hospitalist Addtl Cotton Machine Operator Provider Instructions: Psychiatry Consultation Discharge Recommendations: - Decision to resume your previous psychiatric medications was deferred until your cardiac work-up is completed. - In the interim, you will continue on Seroquel 50mg at ($4 list at [facility]). - You may work with your PCP/Psychiatrist for medication adjustments to ensure mood stability and reduction of hallucinations. Recommendations as follows, though changes will be at the discretion of your outpatient providers - do not make these changes without speaking with a provider: - Increase Seroquel to 100mg qHS after cardiac work-up is complete, if no acute concerns. Could then be titrated by 50-100mg weekly as tolerated, monitoring for insomnia or other acute side effects. - It does seem clinically appropriate to work to resume and titrate up to patient's past psychotropic medication regimen of chlorpromazine 75mg qAM and 100mg qHS, and then resume duloxetine 60mg when appropriate. Pt is not being discharged on these medications due to cost, not financially feasible until insurance is active. - SPECIAL CARE INSTRUCTIONS: 1. Follow through with your scheduled aftercare appointments. If unable to keep an appointment, please call to reschedule. Continue to utilize coping skills and reach out to supports as needed for mood or safety concerns. 2. If your coping skills are ineffective and you are in crisis, contact your outpatient providers for direction. If unable to reach your providers, please call the [facility] CRISIS LINE AT , go to the [facility] walk-in center at [address], [place], or go to the closest Emergency Room. 3. Avoid alcohol and un-prescribed drugs. Pending Studies at Discharge: No Stand-Alone Forms: [facility] [place] [email or web address], Smoking Cessation Medications and DC Order Prescriptions: New amoxicillin-pot clavulanate [Augmentin] 875-125 mg Tablet 1 tab PO BIDM Qty: 14 RF: 0 atorvastatin [Lipitor] 40 mg tablet 80 mg PO DAILY Qty: 60 RF: 1 lisinopril 30 mg tablet 30 mg PO DAILY Qty: 30 RF: 1 metformin 1,000 mg tablet 1,000 mg PO BID Qty: 60 RF: 0 (DME) OneTouch Ultra Blue Test Strip Strip See Rx Instructions .ROUTE .MEDSUPPLY Qty: 100 RF: 2 (DME) lancets [OneTouch Delica Lancets] 33 gauge misc See Rx Instructions .ROUTE .MEDSUPPLY Qty: 100 RF: 2 Continued aspirin [Aspir-81] 81 mg Tablet,Delayed Release (Dr/Ec) 81 mg PO BID RF: 0 albuterol sulfate 2.5 mg /3 mL (0.083 %) solution for nebulization 2.5 mg inhalation Q4H RF: 0 albuterol sulfate 90 mcg/actuation Hfa Aerosol Inhaler 2 puff INHALATION Q6H PRN (Reason: Shortness Of Breath Or Wheezing) RF: 0 omeprazole 40 mg capsule,delayed release(DR/EC) 40 mg PO QAM RF: 0 dicyclomine 20 mg tablet 20 mg PO QID PRN (Reason: Abdominal Pain) RF: 0 Combivent Respimat 20-100 mcg/actuation Mist 1 puff INHALATION QID PRN (Reason: Shortness Of Breath) RF: 0 acetaminophen [Tylenol Extra Strength] 500 mg Tablet 1,000 mg PO Q6H PRN (Reason: Pain) RF: 0 famotidine 40 mg Tablet 40 mg PO DAILY RF: 0 baclofen 10 mg Tablet 10 mg PO TID PRN (Reason: Muscle Spasm) RF: 0 Dulera 100-5 mcg/actuation Hfa Aerosol Inhaler 2 puff INHALATION BID RF: 0 carvedilol 12.5 mg tablet 12.5 mg PO BID Qty: 60 RF: 1 clopidogrel 75 mg tablet 75 mg PO QAM Qty: 30 RF: 1 levothyroxine 112 mcg Tablet 112 mcg PO QAM Qty: 30 RF: 1 quetiapine 50 mg tablet 50 mg PO HS Qty: 30 RF: 0 Discontinued chlorthalidone 25 mg tablet 25 mg PO DAILY RF: 0 gabapentin 800 mg Tablet 800 mg PO TID RF: 0 ferrous sulfate 325 mg (65 mg iron) Tablet 325 mg PO QAM RF: 0 chlorpromazine 25 mg Tablet 75 mg PO QAM RF: 0 chlorpromazine 25 mg Tablet 100 mg PO HS RF: 0 hydroxyzine HCl 10 mg Tablet 10 mg PO QID PRN (Reason: Anxiety) RF: 0 lisinopril 40 mg Tablet 40 mg PO QAM RF: 0 duloxetine 60 mg Capsule,Delayed Release(Dr/Ec) 60 mg PO QAM RF: 0 atorvastatin 40 mg tablet 80 mg PO QAM RF: 0 nitroglycerin [Nitrostat] 0.4 mg Tablet, Sublingual 0.4 mg sublingual DIRECTED RF: 0 ibuprofen [Advil] 200 mg Tablet 200 mg PO Q6H PRN (Reason: Pain) RF: 0 sucralfate 1 gram Tablet 1 g PO ACHS RF: 0 metformin 500 mg Tablet Extended Release 24 Hr 1,000 mg PO BID RF: 0 ezetimibe 10 mg Tablet 10 mg PO DAILY RF: 0 Victoza 2-Anthony 0.6 mg/0.1 mL (18 mg/3 mL) Pen Injector 1.8 mg SUBCUT DAILY RF: 0 potassium chloride 20 mEq Tablet Extended Release 20 meq PO DAILY RF: 0 Discharge Orders: Discharge Order (Routine); Ordered 07/11/20 Ordered By: Rhianna Gatica/Other Patient Handouts: High Blood Sugar (Hyperglycemia), Hypoglycemia (Low Blood Sugar), 5 Steps for Eating Healthier, Managing Diabetes: The A1C Test Admission Data Admit Date/Time: 07/08/20 13:06 Attending Provider: Rhianna Flores Admit Provider: Micaela Gama Primary Care Provider: Jesika Rocha Other Providers: Micaela Gama ; Carolina Yates ; Wu Patino Other Interventions: Discharge Summary Assessment (RN) Last Done: 07/11/20 12:07
[2020-07-11 10:41] LABS: Codeine Urine NEGATIVE ng/mL (<50); Hydrocodone Urine NEGATIVE ng/mL (<50); Hydromor Urine NEGATIVE ng/mL (<50); Marijuana Quant, GCMS Urine 2380 ng/mL (<5); Morphine Urine 1280 ng/mL (<50); Norhydrocodone Conf Ur NEGATIVE ng/mL (<50); Noroxycodone Urine NEGATIVE ng/mL (<50); Oxycodone Urine NEGATIVE ng/mL (<50); Oxymorph Urine NEGATIVE ng/mL (<50)
--- NOTE | 2020-07-11 11:20 | Psychiatric Progress Note ---
Date of Service July 11, 2020 Impression / Recommendations Impression Supervising psychiatrist was directly involved in review and discussion of the patient's case and participated in medical decision making regarding treatment recommendations. RECOMMENDATIONS: 07/09/20 - Psychiatric consultation requested by our hospitalist service to evaluate patient for medication recommendations, given reported history of bipolar disorder and patient has been noncompliant with medications for at least 1 month if not longer. - See interm recommendations documented in communication note from on-call psychiatrist. - Agree with recommendations to hold antipsychotic medications until cardiac work-up has been completed, given concern for prolonged QTc. Also agree with not resuming duloxetine until patient has been resumed on an adequate dosage of her mood stabilizing/antipsychotic medications. - It is unclear where it is reported that patient takes quetiapine, as not listed in external medication history and patient is also taking a first- generation antipsychotic. As cardiology mentioned, quetiapine can contribute to QTc prolongation. - Gabapentin can be resumed at the discretion of attending provider, as more likely prescribed for paresthesias rather than a primary psychiatric indication. - Pt did state that she had both psychiatry and therapy services through [facility] prior to moving to [place] in 05/2020. Will explore if patient is able to resume those services after hospital discharge. Pt also has [facility] rn case [facility], who may be able to assist with this. - Pt does report command auditory hallucination, presently stating she is able to distract herself from the voices and denies intent to act on them. Pt was encouraged to be honest with staff if this should change so that we can offer assistance. Not presently considering a psychiatric admission (which would need to be involuntary as patient is unwilling) as patient is denying considering acting on these voices and denies recent or future intended act of furtherance, will continue to assess as patient's hospitalization continues. - Appreciate the opportunity to participate in the care of this patient. Please reach out to our service with any additional questions or updates. 07/11/20 - Case reviewed during morning report with consult liaison team. Reviewed as well with patient's attending, updates of anticipated discharge today. - Pt will continue on HS quetiapine for the time being as cardiac work-up is ongoing, she is tolerating the medication, and it is a more financially feasible option given that the patient does not have active insurance. This was discussed with the patient, who verbalized understanding and agreed with the plan. - Quetiapine could certainly be titrated on an outpatient basis (by PCP or psychiatry). Would suggest titrating by 50-100mg weekly as needed for mood stability and hallucinations. Long-term plan would be to resume chlorpromazine and duloxetine once medical assistance is active, if felt to be appropriate by patient's outpatient providers. - Pt continues to deny SI and acute safety concerns. Auditory hallucinations are ongoing, but not acutely distressing. Pt reports ongoing ability to distract herself and is denying any intent or plan to act on these voices' commands. Pt verbalized a safety plan and listed several supports she could contact if necessary. No current criteria for involuntary psychiatric commitment and patient is declining voluntary psychiatric hospitalization. - Pt was encouraged to present to the ED with any acute concerns - otherwise, outpatient psychiatric appointments with [facility] have been scheduled. Will provide patient with information for emergency housing options as well. Risk Factors Assessment Do You Have Access To A Gun?: No Interval History Identifying Information 44-year-old female admitted medically on 07/08/20 after presenting to the ED for reports of chest pain. Psychiatric consultation requested as patient carries a diagnosis of bipolar disorder, but has been off medications now for several months - admitting provider denying manic presentation at this time. Chief Complaint "Um, I'm here." Review of Systems Notes Constitutional: denied Cardiovascular: denied Respiratory: denied Gastrointestinal: denied Neurological: denied Psychiatric: denies symptoms other than stated above Total of at least 10 systems reviewed, pertinent positives as above and in HPI. Subjective Subjective Patient's case was reviewed and assessed during morning report with supervising psychiatrist and psychiatric nurse liaison. Updates reviewed regarding status of cardiac work-up for chest pain. Patient's case was also discussed with attending hospitalist, regarding plan for psychotropic discharge medications and coordinating these services. Given that patient is still being recommended for cardiac stress test (which is now scheduled as an outpatient procedure), we have declined to resume her previous dose of chlorpromazine. Duloxetine is still held as patient is not on an adequate mood stabilizer/antipsychotic to suggest this is appropriate at this time. Pt has been receiving HS quetiapine during her admission, and will be recommended to continue this medication. Damien mina reviewed with hospitalist the concern for financially feasible prescriptions given that patient's medical assistance is not yet active. Quetiapine is on the $4 medication list at [facility] and therefore seems the most appropriate to continue. Reviewed recommendation with hospitalist for titration of quetiapine as needed for mood stabilization or to target hallucinations once cardiac work- up is complete. This provider met with the patient directly to review the above recommendations. Pt denies any acute concerns. She continues to be worried about her chest pain, but verbalizes awareness of stress test to be performed today. Pt admits that she has numerous things to attend to outside of the hospital, and she is overall excited for discharge to be able to attend to these things. Medication concerns/recommendations above were reviewed with the patient. She continues to express desire to eventually be resumed on her chlorpromazine and duloxetine, though verbalizes understanding of barriers. She admits that her prescription for chlorpromazine in the past was >$1000 without insurance coverage. Pt agreed with continuing quetiapine in the interim, and was hopeful she would be able to work with her outpatient providers on any necessary adjustments. Pt continues to experience auditory hallucinations, command in nature, but denies concern that she would act on these voices. She denies SI or acute safety concerns. Pt admits her housing plans have changed, and she was receptive of our service providing her contact information for emergency housing options if necessary. Pt denied additional needs from our service at this time. Physical Exam Psychiatric Orientation: alert, oriented x 3 and cooperative Apperance: appropriately dressed, appropriately groomed and appeared stated age Eye Contact: good eye contact Motor Behavior: no abnormal motor movements (observed while laying in bed) Speech: normal rate/rhythm/volume of speech Affect: + flat affect Mood: + depressed mood and + anxious mood Primarily related to housing stressors and need to coordinate details related to this Thought Process: goal directed thought process and clear/coherent thought process Thought Content: reality based without delusions; no hopelessness and no worthlessness Suicidal Thoughts: denies suicidal thoughts, denies suicidal plan and denies suicidal intent Homicidal Thoughts: denies homicidal thoughts and denies homicidal intent Hallucinations: + auditory hallucinations (unchanged from initial presentation); no visual hallucinations denies intent to act on command hallucinations, states she is able to distract herself from the voices Cognition: attention grossly intact and language grossly intact Estimated Intelligence: consistent with education level Insight: + fair insight Judgement: + fair judgement Vital Signs (Past 24 Hours) Last Vital Signs Temp 36.9 C 07/11/20 04:20 Pulse 72 07/11/20 08:48 Resp 18 07/11/20 04:20 BP 117/77 07/11/20 07:44 Pulse Ox 97 07/11/20 08:48 Results & Data ([facility]) Laboratory Results Laboratory Results - last 24 hr 07/08/20 07/10/20 07/10/20 21:12 11:44 16:19 Sodium Potassium Chloride Carbon Dioxide Anion Gap BUN Creatinine Est Cr Clr Drug Dosing Est GFR ( Amer) Est GFR (Non-Af Amer) BUN/Creatinine Ratio Glucose POC Glucose 190 H 163 H Calcium Phosphorus Magnesium U Codeine Confrm GC/MS NEGATIVE Ur Morphine (GC/MS) 1280 H Ur Hydrocodone (GC/MS) NEGATIVE Ur Norhydrocodone NEGATIVE Ur Noroxycodone NEGATIVE Urine Oxycodone (GC/MS) NEGATIVE U Oxymorphone GC/MS NEGATIVE Ur Hydromorphone (GC/MS) NEGATIVE U Marijuana THC Carboxy 2380 H Drug Screen Comment SEE NOTE 07/10/20 07/10/20 07/11/20 16:39 20:55 06:27 Sodium 139 140 Potassium 3.9 D 3.4 L Chloride 115 H 113 H Carbon Dioxide 18 L 21 Anion Gap 6.0 6.0 BUN 9 8 Creatinine 0.77 0.70 Est Cr Clr Drug Dosing 90.3 100.4 Est GFR ( Amer) 110.4 123.9 Est GFR (Non-Af Amer) 95.2 106.9 BUN/Creatinine Ratio 11.2 11.3 Glucose 169 H 167 H POC Glucose 186 H Calcium 7.5 L 7.7 L Phosphorus 1.3 L* 2.8 D Magnesium 2.7 H 2.0 U Codeine Confrm GC/MS Ur Morphine (GC/MS) Ur Hydrocodone (GC/MS) Ur Norhydrocodone Ur Noroxycodone Urine Oxycodone (GC/MS) U Oxymorphone GC/MS Ur Hydromorphone (GC/MS) U Marijuana THC Carboxy Drug Screen Comment 07/11/20 07:09 Sodium Potassium Chloride Carbon Dioxide Anion Gap BUN Creatinine Est Cr Clr Drug Dosing Est GFR ( Amer) Est GFR (Non-Af Amer) BUN/Creatinine Ratio Glucose POC Glucose 197 H Calcium Phosphorus Magnesium U Codeine Confrm GC/MS Ur Morphine (GC/MS) Ur Hydrocodone (GC/MS) Ur Norhydrocodone Ur Noroxycodone Urine Oxycodone (GC/MS) U Oxymorphone GC/MS Ur Hydromorphone (GC/MS) U Marijuana THC Carboxy Drug Screen Comment Current Inpatient Medications Current Inpatient Medications: Current Inpatient Medications Acetaminophen (Acetaminophen 325 Mg Tab) 650 mg PO Q4H PRN PRN Reason: Pain or Fever Stop: 08/07/20 17:23 Albuterol (Albuterol Hfa 8 Gm Inhaler (Combivent Respimat P&T Subs)) 1 puffs INH QIDR PRN PRN Reason: SHORTNESS OF BREATH Stop: 08/07/20 18:08 Albuterol (Albuterol 0.083% Nebu Soln 3 Ml Vial) 2.5 mg INH Q4R PRN PRN Reason: SOB/wheezing Stop: 08/07/20 18:59 Amoxicillin/Clavulanate Potassium (Amoxicillin/Clavulanate 875 Mg Tab) 1 tab PO BIDM [facility] Stop: 07/19/20 16:59 Last Admin: 07/11/20 08:38 Dose: 1 tab Documented by: Aspirin (Aspirin 81 Mg Ectab) 81 mg PO BID [facility] Stop: 08/08/20 08:59 Last Admin: 07/11/20 08:39 Dose: 81 mg Documented by: Atorvastatin Calcium (Atorvastatin 40 Mg Tab) 80 mg PO QAM [facility] Stop: 08/08/20 08:59 Last Admin: 07/11/20 08:39 Dose: 80 mg Documented by: Baclofen (Baclofen 10 Mg Tab) 10 mg PO TID PRN PRN Reason: Muscle Spasm Stop: 08/07/20 17:23 Carvedilol (Carvedilol 12.5 Mg Tab) 12.5 mg PO BID [facility] Stop: 08/07/20 20:59 Last Admin: 07/11/20 08:39 Dose: 12.5 mg Documented by: Chlorthalidone (Chlorthalidone 25 Mg Tab) 25 mg PO DAILY [facility] Stop: 08/08/20 08:59 Last Admin: 07/09/20 07:42 Dose: 25 mg Documented by: Clopidogrel Bisulfate (Clopidogrel Bisulfate 75 Mg Tab) 75 mg PO QAM [facility] Stop: 08/08/20 08:59 Last Admin: 07/11/20 08:40 Dose: 75 mg Documented by: Dextrose (Dextrose 50% 50 Ml Syringe) 25 - 50 ml IV UD PRN; Protocol PRN Reason: Hypoglycemia Protocol Stop: 08/07/20 17:23 Ezetimibe (Ezetimibe 10 Mg Tablet) 10 mg PO DAILY [facility] Stop: 08/08/20 08:59 Last Admin: 07/11/20 08:41 Dose: 10 mg Documented by: Enoxaparin Sodium (Enoxaparin Inj 40 Mg/0.4 Ml Syr) 40 mg SQ QAM [facility] Stop: 08/09/20 08:59 Last Admin: 07/11/20 08:40 Dose: 40 mg Documented by: Famotidine (Famotidine 40 Mg Tablet) 40 mg PO DAILY [facility] Stop: 08/08/20 08:59 Last Admin: 07/11/20 08:40 Dose: 40 mg Documented by: Ferrous Sulfate (Ferrous Sulfate 325 Mg Tab) [facility] [place] Stop: 08/08/20 08:59 Last Admin: 07/11/20 08:40 Dose: 325 mg Documented by: Fluticasone/Vilanterol (Fluticasone/Vilanterol 100/25mcg 14 Puffs/Inhaler) 1 puffs INH DAILY [facility] Stop: 08/08/20 08:59 Last Admin: 07/11/20 08:40 Dose: 1 puffs Documented by: Glucagon (Glucagon For Inj 1 Mg Vial) 1 mg SQ UD PRN; Protocol PRN Reason: Hypoglycemia Protocol Stop: 08/07/20 17:23 Glucose (Glucose 10 Tabs/Tube) 4 - 8 tabs PO UD PRN; Protocol PRN Reason: Hypoglycemia Protocol Stop: 08/07/20 17:23 Glucose (Glucose 40% Gel 15 Gm Tube) 15 - 30 gm PO UD PRN; Protocol PRN Reason: Hypoglycemia Protocol Stop: 08/07/20 17:23 Ibuprofen (Ibuprofen 200 Mg Tab) 200 mg PO Q6H PRN PRN Reason: Pain Stop: 08/07/20 17:23 Insulin Aspart (Insulin Aspart 100 Units/Ml 3 Ml Pen) 0 units SC [facility]; Protocol Stop: 08/07/20 16:29 Last Admin: 07/11/20 08:37 Dose: 3 units Documented by: Insulin Glargine (Insulin Glargine Solostar 100 Units/Ml 3 Ml Pen) 20 units SC DAILY [facility]; Protocol Stop: 08/08/20 07:29 Last Admin: 07/11/20 08:38 Dose: 20 units Documented by: Insulin Glargine (Insulin Glargine Solostar 100 Units/Ml 3 Ml Pen) 0 units SC TODAY@1700 [facility]; Protocol Stop: 08/09/20 16:59 Last Admin: 07/10/20 16:57 Dose: Not Given Documented by: Ipratropium Kersey (Ipratropium Hfa Inhaler (Combivent Respimat P&T Subs)) 1 puffs INH QIDR PRN PRN Reason: SHORTNESS OF BREATH Stop: 08/07/20 18:08 Levothyroxine Sodium ([facility]othyroxine S[facility] 112 Mcg Tablet) [facility]: 08/08/20 06:29 Last Admin: 07/11/20 05:35 Dose: Not Given Documented by: Lisinopril (Lisinopril 40 Mg Tab) 40 mg PO [facility] Stop: 08/08/20 08:59 Last Admin: 07/11/20 08:39 Dose: 40 mg Documented by: Miscellaneous (Carbohydrates For Hypoglycemia ) 15 - 30 gm PO UD PRN PRN Reason: Hypoglycemia Protocol Stop: 08/07/20 17:23 Miscellaneous Information (Pharmacy Glycemic Mgmt Consult) 1 ea N/A UD PRN; Protocol PRN Reason: Consult Stop: 08/07/20 18:10 Morphine Sulfate (Morphine Sulfate 2 Mg/Ml Carp) 2 mg IV Q6H PRN PRN Reason: chest pain Stop: 07/23/20 13:07 Last Admin: 07/11/20 10:23 Dose: 2 mg Documented by: Nitroglycerin (Nitroglycerin Sl 0.4 Mg/Tab Tab) 0.4 mg SL PRN PRN PRN Reason: CHEST PAIN Stop: 08/07/20 17:23 Pantoprazole Sodium (Pantoprazole 40 Mg Tab) 40 mg PO QAM [facility] Stop: 08/08/20 08:59 Last Admin: 07/11/20 08:39 Dose: 40 mg Documented by: Polyethylene Glycol (Polyethylene (Miralax) 17 Gm Pack) 17 gm PO DAILY PRN PRN Reason: Constipation Stop: 08/07/20 17:23 Potassium Chloride (Potassium Chloride Crtab 20 Meq Tabcr) 20 meq PO QAM [facility] Stop: 08/08/20 08:59 Last Admin: 07/11/20 08:38 Dose: 20 meq Documented by: Promethazine HCl (Promethazine Hcl 25 Mg/20 Ml Udp) 25 mg PO Q6H PRN PRN Reason: Nausea And Vomiting Stop: 08/09/20 12:45 Quetiapine Fumarate (Quetiapine Fumarate 25 Mg Tablet) 50 mg PO HS [facility] Stop: 08/07/20 20:59 Last Admin: 07/10/20 20:42 Dose: 50 mg Documented by: Sucralfate (Sucralfate 1 Gm Tab) 1 gm PO ACHS [facility] Stop: 08/07/20 17:59 Last Admin: 07/11/20 08:39 Dose: 1 gm Documented by: Mental Health & Subst Abuse Tx Psychiatrist Name of Psychiatrist: [facility] - Dr. Abebe Psychiatrist's Date of Appointment with Psychiatrist: 10/27/20 Time of Appointment with Psychiatrist: 1:00pm Psychiatric Appointment Comment: telepsychiatry Therapist Name of Therapist: [facility] Appointment Comment: Follow-up for appointment when your medical assistance is active Protection Mgr Name of Protection Mgr: Inge May Case Sussy
[2020-07-11] MEDS ORDERED: REGADENOSON 0.4 MG/5 ML SYR IV ONE (13:29)
--- NOTE | 2020-07-11 14:07 | Myocardial Perfusion Study ---
Date of Service July 11, 2020 Myocardial Perfusion Study [facility] Myocardial Perfusion Study Report Procedure: 1. Myocardial perfusion study performed in multiple views/images 2. Lexiscan pharmacologic stress ECG Indications: 1. chest pain Ordering physician: Dr Patino Procedural details: For the stress portion of the study, Lexiscan 0.4 mg was intravenously administered followed by a saline flush. This was followed by 32 mCi of technetium 99m Cardiolite, injected at 1350 on 07/11/2020. 30 minutes following the injection, imaging of the heart was performed in multiple projections. For the rest portion of the study, 10.2 mCi technetium 99m Cardiolite was injected intravenously at 740 on 07/10/2020. 1 hour following the injection, imaging of the heart was performed in the same projections. Lexiscan stress ECG: Resting ECG demonstrated: Sinus rhythm at 66 bpm, with diffuse mild J-point elevation, no arrhythmias. Maximum heart rate: 106 bpm Maximal, age-predicted heart rate: 59% Resting blood pressure: 133/79 mmHg Maximum blood pressure: 133/[address] changes: None Arrhythmia: None Symptoms: None Findings: Rotating raw imaging demonstrated no significant lung uptake. Left-sided breast shadow was noted on both the stress and resting images. There is no significant motion artifact. Heart size appeared normal. Myocardial perfusion demonstrated stress and normal perfusion. Ejection fraction: 71% Wall motion: Normal No significant transient ischemic dilation. Impression: 1. Normal Lexiscan myocardial perfusion imaging study no evidence of ischemia or infarction. 2. The gated wall motion was normal. The left ventricular ejection fraction wa s normal, 71%. The results of the study were discussed with the patient in person by the undersigned interpreting physician at the conclusion of the study after the images were processed.
--- NOTE | 2020-07-11 14:13 | Cardiology Progress Note ---
Date of Service July 11, 2020 Assessment & Plan (1) Chest pain: History of known premature coronary heart disease, chest discomfort has been constant for 3 months per patient's history. She has a history of both anginal and nonanginal chest discomfort review of past records. Noted recent medication nonadherence. Nuclear stress test performed, perfusion results pending. (2) Hypokalemia: Improved. Potassium 3.4 this morning, and she received additional replacement, and therefore I felt that it was feasible to proceed with stress testing. Her chlorthalidone medication has been discontinued without as it was contributing to hypokalemia. (3) Hypomagnesemia: Normal. (4) QT prolongation: Improved with correction of electrolytes. Await stress results. I had previously discussed follow-up plan with the patient. She has followed with cardiology in [place] in the past as well as [facility] cardiology at [place]. I offered for her to establish with out group locally. She is going to decide when she settles on where she is going to reside. Admission and Anticipated Discharge Date Admission Date: July 08, 2020 Subjective Patient seen at time of scheduled nuclear stress test. She notes ongoing chest "tightness "unchanged compared to admission symptoms, and has persisted. EKG performed this morning revealed sinus rhythm with normal ST segments, mild diffuse J-point elevation present, unchanged compared to her previous longstanding baseline. The corrected QT interval is now normal at 449 ms. Physical Exam Physical Exam: Temp Pulse Resp BP Pulse Ox 36.6 C 61 18 117/77 97 07/11/20 12:07 07/11/20 12:07 07/11/20 12:07 07/11/20 12:07 07/11/20 12:07 Constitutional: WD/WN, vitals as above Respiratory: normal respiratory effort, lungs clear to auscultation Cardiovascular: RRR, no murmur, no edema Gastrointestinal (Abdomen): normal bowel sounds, soft, nontender, no hepatosplenomegaly Neurologic: PERRL, EOMI, accommodation nl, no face palsy, no dysarthria Results & Data ([facility]) Vital Signs (Past 12 Hours) Vital Signs Temp Pulse Pulse Resp BP BP Pulse Ox 07/11/20 12:07 36.6 C 61 18 110/77 117/77 97 07/11/20 11:41 36.6 C 61 18 110/77 97 07/11/20 08:48 72 07/11/20 07:44 70 117/77 07/11/20 04:20 36.9 C 64 18 104/71 98 Pulse Ox 07/11/20 12:07 07/11/20 11:41 07/11/20 08:48 97 07/11/20 07:44 07/11/20 04:20 Laboratory Results Comprehensive Metabolic Panel 07/10/20 07/11/20 Range/Units 16:39 06:27 Sodium 139 140 (136-145) mmol/L Potassium 3.9 D 3.4 L (3.5-5.1) mmol/L Chloride 115 H 113 H (98-107) mmol/L Carbon Dioxide 18 L 21 (21-32) mmol/L BUN 9 8 (7-18) mg/dl Creatinine 0.77 0.70 (0.6-1.2) mg/dl Glucose 169 H 167 H (70-99) mg/dl Calcium 7.5 L 7.7 L (8.5-10.1) mg/dl Intake and Output 07/10/20 07/11/20 07/11/20 22:59 06:59 14:59 Intake Total 240 / 1778 510 / 1778 Output Total 275 / 275 Balance -35 / 1503 510 / 1503 Intake: IV 510 / 1538 Potassium Phosphate 30 Mmol In 510 / 510 Nss 500 ml @ 102 mls/hr IV ONE ONE Rx#:[id number] Oral 240 / 240 Output: Urine 275 / 275 Other: # Unmeasured Voids 2 Weight 80.2 kg 80.2 kg Weight Measurement Method Built in [facility] Patient Weight 07/12/20 06:59 Weight 80.2 kg
--- NOTE | 2020-07-11 15:03 | Communication Note ---
Date of Service: July 11, 2020 Normal nuclear stress test. Patient discharged.
--- NOTE | 2020-07-12 07:17 | Electrocardiogram Report ---
Test Reason : Blood Pressure : / mmHG Vent. Rate : 058 BPM Atrial Rate : 058 BPM P-R Int : 176 ms QRS Dur : 096 ms QT Int : 458 ms P-R-T Axes : 034 073 056 degrees QTc Int : 449 ms Sinus bradycardia with sinus arrhythmia Otherwise normal ECG When compared with ECG of 09-JUL-2020 05:14, QT has shortened Confirmed by Epi Garza ([id number]) on 07/12/2020 7:17:37 AM Referred By: REFERRED SELF Confirmed By:Epi Garza
== END 2020-07-11 13:20 | disposition home or self-care (01) | DRG 313 ==
LOC: ED 11:17 → SUATTDRO 13:06 → 2S 13:06

== ENCOUNTER 2020-09-03 19:54 | Observation (INO) ==
[2020-09-03] MEDS ORDERED: dexAMETHasone**PF** 10 MG/ML VIAL IV ONE (20:53)
[2020-09-03] MEDS ORDERED: ACETAMINOPHEN 1,000 MG/100 ML VIAL IV STA (20:53)
[2020-09-03] MEDS ORDERED: ALBUT/IPRATROP 3MG/0.5MG NEB 3 ML VIAL NEB STA (20:53)
[2020-09-03] MEDS ORDERED: guaiFENesin 600 MG TABCR PO STA (20:55)
[2020-09-03] MEDS ORDERED: oxyCODONE HCL IR 5 MG TAB (IMMEDIATE RELEASE) PO STA (20:55)
[2020-09-03 21:12] LABS: Basophils # (auto) 0.03 K/uL (0-0.2); Basophils % (auto) 0.3 %; Eosinophils # (auto) 0.12 K/uL (0-0.5); Eosinophils % (auto) 1.3 %; Hematocrit (blood only) 36.3 % (37-47); Hemoglobin 12.4 g/dL (12.0-16.0); Immature Granulocytes # (auto) 0.01 K/uL (0.00-0.02); Immature Granulocytes % (auto) 0.1 %; Lymphocytes # (auto) 2.48 K/uL (1.2-3.4); Lymphocytes % (auto) 27.6 %; Mean Corpuscular Hemoglobin 33.2 pg (25-34); Mean Corpuscular Hgb Conc 34.2 g/dL (32-36); Mean Corpuscular Volume 97.3 fL (80-100); Mean Platelet Volume 10.2 fL (7.4-10.4); Monocytes # (auto) 0.75 K/uL (0.11-0.59); Monocytes % (auto) 8.4 %; Neutrophils # (auto) 5.59 K/uL (1.4-6.5); Neutrophils % (auto) 62.3 %; Platelet Count 254 K/uL (130-400); RDW Coefficient of Variation 12.6 % (11.5-14.5); RDW Standard Deviation 44.6 fL (36.4-46.3); Red Blood Count 3.73 M/uL (4.2-5.4); White Blood Count 8.98 K/uL (4.8-10.8)
[2020-09-03 21:21] LABS: Alanine Aminotransferase 25 U/L (12-78); Albumin Level 3.3 gm/dl (3.4-5.0); Aspartate Aminotransferase 9 U/L (15-37); BUN Creatinine Ratio 16.3 (10-20); Blood Urea Nitrogen 10 mg/dl (7-18); Calcium 8.9 mg/dl (8.5-10.1); Carbon Dioxide 25 mmol/L (21-32); Chloride 108 mmol/L (98-107); Creatinine Clr Calc Pharmacy 119.4 ml/min; Est GFR (African American) 130.3 ml/min; Est GFR (Non-African American) 112.4 ml/min; Glucose 121 mg/dl (70-99); Lipase 88 U/L (73-393); Magnesium 1.8 mg/dl (1.8-2.4); Potassium 3.4 mmol/L (3.5-5.1); Sodium 138 mmol/L (136-145)
[2020-09-03 21:23] LABS: D Dimer 490 ug/L FEU (0-500); Partial Thromboplastin Ratio 0.9; Partial Thromboplastin Time 23.9 Seconds (21.0-31.0); Prothrombin Time 10.3 Seconds (9.0-12.0)
[2020-09-03 21:30] LABS: Alkaline Phosphatase 80 U/L (45-117); Bilirubin Direct < 0.1 mg/dl (0-0.2); Bilirubin,Total 0.2 mg/dl (0.2-1); Creatine Kinase 39 U/L (26-192); Globulin 3.3 gm/dl (2.5-4.0); NT Pro B Type Natriuretic Pept 481 pg/ml (0-450); Phosphorus 3.6 mg/dl (2.5-4.9); Thyroid Stimulating Hormone 0.496 uIu/ml (0.300-4.500); Total Protein 6.6 gm/dl (6.4-8.2); Troponin I < 0.015 ng/ml (0-0.045)
[2020-09-03] MEDS ORDERED: NITROGLYCERIN SL 0.4 MG/TAB TAB SL PRN (22:46)
[2020-09-03] MEDS ORDERED: fentaNYL citrate 100 MCG/2 ML VIAL IV STA (23:47)
[2020-09-04] MEDS ORDERED: POTASSIUM CHLORIDE CRTAB 20 MEQ TABCR PO STA (00:02)
[2020-09-04] MEDS ORDERED: amLODIPine BESYLATE 5 MG TAB PO STA (00:04)
--- NOTE | 2020-09-04 00:31 | History & Physical Report ---
Date of Service September 04, 2020 Assessment & Plan (1) Left-sided chest pain: (1) Chest pain: Possibly secondary to uncontrolled hypertension NSAID intake contributory Rule out sleep disordered breathing as contributory factor ro ACS, hx CAD status post stent PVD/AAA status post surgery (2014) hx CVA as per records COPD, ongoing tobacco abuse: Pulmonary status at baseline mood disorder, at baseline as per patient DM 2 on oral medications, suboptimal control as of recent hemoglobin A1c of 8.7 last July 2020 Recent bout of pneumonia, improved on Augmentin course hypothyroidism as per records, euthyroid as of today's TSH drug-seeking behavior as per records Hypokalemia OBS PCU Facilitate home BP meds. may need dose titration Patient counseled about adverse effects of NSAIDs on BP control. Judicious narcotic use given history drug-seeking behavior as per records outpatient sleep study Follow troponin Cardiology consult RE chest pain, history of CAD N.p.o. until patient seen by Cardiology. Replace potassium Basal insulin, ISS BG goal 110-140, carb count coverage Nicotine patch DVT prophylaxis per Lovenox subcu Full code Text document was generated using [employer] voice recognition software. It may contain grammatical or spelling errors. Kindly contact undersigned for clarification of any documentation item in question. History of Present Illness Chief Complaint: Chest pain Primary Care Provider: Dr. Cici Hanna History obtained from patient and records. Medical history significant for CAD status post stent (10/2018), PAD status post surgery, AAA status post surgery (2014), CVA as per records, hypertension, COPD, ongoing tobacco abuse, mood disorder, DM 2 diet-controlled, hypothyroidism as per records, cervical cancer status post cryotherapy, drug-seeking behavior as per records. Last confinement July 2020 chest pain. Normal nuclear stress test. Patient woke up from sleep last night with achy left-sided chest pain going to her right arm. Some relief with nitroglycerin at home. Last episode was about a week ago coinciding with cough symptoms. Patient was seen at [facility] where patient was found to have pneumonia. Patient prescribed Augmentin. Cough symptoms currently improving as per patient. Transient headache symptoms also noted by patient. Patient claims to be compliant with home medications. Denies unusual stress. Snoring with nonrestful sleep as per patient. She still has to go for a sleep study. Unable to take BP at home because she does not have a monitor. OTC NSAID intake as per patient (4 tablets 3 times a day) for chronic pain because PCP stopped her narcotics because she refused to submit a urine specimen for a random drug screen. Medical History as above Surgical History : AAA surgery, carpal tunnel surgery, RLE embolectomy with patch placement, section, elbow surgery, hernia repair, knee surgery, cholecystectomy, BTL, tonsillectomy, dental surgery Family History : Alcoholism, diabetes, heart disease, stroke, seizure Personal/Social history : 1 pack daily, occasional EtOH intake, disabled Allergies Allergy/AdvReac Type Severity Reaction Status Date / Time bee pollen Allergy Severe Anaphylaxis Verified 09/03/20 21:34 Iodinated Contrast Media Allergy Severe Anaphylaxis Verified 09/04/20 03:10 loratadine AdvReac Severe anxiety, Verified 09/03/20 21:34 paranoia increases cetirizine AdvReac Intermediate anxiety, Verified 09/03/20 21:34 paranoia increases fexofenadine AdvReac Intermediate anxiety Verified 09/03/20 21:34 and paranoia increases ketorolac AdvReac Mild PT STATES Verified 09/03/20 21:34 SHE IS ON THORAZINE AND CANNOT TAKE TORADOL tramadol AdvReac Mild hallucinati Verified 09/03/20 21:34 ons Home Medications Medication Instructions Recorded Confirmed Type albuterol sulfate 2.5 mg INHALATION Q4H PRN 09/03/20 09/03/20 History amlodipine 10 mg PO DAILY 09/03/20 09/03/20 History amoxicillin-pot clavulanate 1 tab PO BID 09/03/20 09/03/20 History aspirin [Aspir-Low] 81 mg PO BID 09/03/20 09/03/20 History atorvastatin 80 mg PO DAILY 09/03/20 09/03/20 History baclofen 10 - 20 mg PO Q8 PRN 09/03/20 09/03/20 History carvedilol 12.5 mg PO BID 09/03/20 09/03/20 History chlorpromazine 75 mg PO QAM 09/03/20 09/03/20 History chlorpromazine 100 mg PO HS 09/03/20 09/03/20 History clopidogrel [Plavix] 75 mg PO DAILY 09/03/20 09/03/20 History dicyclomine 20 mg PO QID PRN 09/03/20 09/03/20 History duloxetine 60 mg PO DAILY 09/03/20 09/03/20 History famotidine 40 mg PO HS 09/03/20 09/03/20 History ferrous sulfate [FeroSul] 325 mg PO DAILY 09/03/20 09/03/20 History gabapentin [Neurontin] 800 mg PO TID 09/03/20 09/03/20 History hydroxyzine HCl 10 mg PO Q6 PRN 09/03/20 09/03/20 History ipratropium-albuterol [Combivent 1 puff INHALATION QID 09/03/20 09/03/20 History Respimat] levothyroxine 125 mcg PO DAILY 09/03/20 09/03/20 History liraglutide [Victoza 3-Anthony] 1.8 mg SUBCUT DAILY 09/03/20 09/03/20 History lisinopril 40 mg PO DAILY 09/03/20 09/03/20 History metformin 1,000 mg PO BID 09/03/20 09/03/20 History mometasone-formoterol [Dulera] 2 puff INHALATION BID 09/03/20 09/03/20 History omeprazole 40 mg PO DAILY 09/03/20 09/03/20 History potassium chloride [K-Tab] 20 meq PO DAILY 09/03/20 09/03/20 History quetiapine [Seroquel] 50 mg PO HS PRN 09/03/20 09/03/20 History sucralfate 1 g PO ACHS 09/03/20 09/03/20 History Past Med/Surg History Medical History Anemia Baseline 9.9-11, ongoing since ~2004. Ankle fracture, left Atypical chest pain Per cardiology 05/01/19, "- persistent chest pain symptoms are atypical. Recent lexiscan nuclear stress test from 04/24/2019 was negative for ischemia; suspect some of her symptoms have been due to uncontrolled HTN urgencies. BP better controlled now since adjustment of meds during recent inpatient stay. Continue Dual antiplatelet therapy (DAPT) with ASA and plavix for at least 1 year but likely would continue indefinitely given severe PAD in addition to the CAD." Bipolar disorder Blood clotting disorder Patient unsure what type; reports was discovered with DVT ~2013 CAD (coronary artery disease) 10/2018-HARLEEN to LAD in [place] Cervical cancer cryotherapy (~1994) Chronic pain COPD (chronic obstructive pulmonary disease) inhalers daily. Continues to smoke. Degenerative disc disease Depression with anxiety DM type 2 (diabetes mellitus, type 2) diet controlled Fibromyalgia GERD (gastroesophageal reflux disease) History of DVT (deep vein thrombosis) ~2013. Hyperlipidemia Hypertension Hypokalemia Hypomagnesemia Hypothyroidism Migraine Myocardial Infarction October 2018. Follows with Dr. Magdy Mckeon. Neuropathy hands and feet Osteoarthritis Peripheral vascular disease S/P prior femoropopliteal thromboembolectomy on right side and surgical repair of distal aortoiliac occlusive disease in 2014. Post traumatic stress disorder Raynauds disease Schizophrenia Transient ischemic attack (TIA) x2 September 2018. Surgical History H/O cardiac catheterization H/O elbow surgery right H/O tubal ligation H/O vascular surgery thrombectomy Right leg 2013 History of arthroscopic knee surgery left History of cardiac cath October 2018 at [facility] s/p HARLEEN to LAD November 2019 at with [facility], no intervention History of carpal tunnel surgery of right wrist History of dilatation and curettage x2 History of heart artery stent Drug Eluting stent placed in LAD -- October 2018. History of incisional hernia repair x2 with full abdominal screen/mesh. Hx of cholecystectomy Hx of oral surgery (04/02/19) Oral Abscess Incision and Drainage (hard palate and extraction of tooth # 7,8,9,10,11,20 and 21) Dr. Kowalski 04-02-19. GETA. MAC 3, Grade 2 view. 7.0 ETT without difficulty. Hx of oral surgery (06/27/19) Closure Of oral/nasal Fistula, Left Palate To Muccoboccal Fold and Debridement Of Necrotic Bone Maxilla from area 3-14 Dr. Kowalski 06/27/19 S/P AAA repair ~2013 [facility]. (Dr. Graves). placed on Plavix and ASA at this time. S/P tonsillectomy Family History Mother Diabetes Grandfather FHx: heart disease Other No family history of adverse response to anesthesia Social History Smoking Status: Current every day smoker Tobacco Type: Cigarettes Cigarettes Per Day: 1 pack/day; Second Hand Exposure: Yes; Do You Dip or Chew Tobacco: Yes (occasionally); Tobacco Cessation Education Requested by Patient: No Hx Alcohol Use: No Hx Substance Use: Yes Non-Prescribed Medications: Marijuana Last Used Substance: Days (ago) Last Used Substance Other:: 05/14/2019 Preferred Language: Portuguese Communication Ability: Effective Cigarette Inspector Required: No Beliefs That Will Affect Care: None marital status: Single Current Living Situation: Spouse and Family Current Living Situation Comment: Lives with spouse and daughter current occupational status: disabled Feels Safe at Home: Yes Safety Concerns: Feels Safe At This Time Assistive Devices: Cane Review of Systems Review of Systems: As per HPI, all 10 systems reviewed, all other ROS negative Physical Exam Physical Exam: GENERAL: Comfortable, obese, looks older than stated age, no respiratory distress SKIN: Normal color, warm HEENT: [place] palpebral conjunctivae, no ptosis, dry buccal mucosa NECK : Supple, short neck, no tenderness CHEST : CTA, no tenderness HEART : RRR, no obvious murmurs ABDOMEN: Some distention, nontender EXTREMITIES : No LE swelling/tenderness, no other conspicuous deformities noted NEUROLOGIC : Coherent, no facial asymmetry, no other gross focality Results & Data Results & Data ([facility]) Vital Signs (Past 12 Hours) Vital Signs Temp Pulse Pulse Resp BP BP Pulse Ox 09/04/20 00:00 78 16 172/136 H 98 09/03/20 22:00 72 26 H 185/148 H 95 09/03/20 21:03 71 20 93 09/03/20 20:15 79 20 176/104 H 95 09/03/20 20:14 80 18 09/03/20 20:00 82 22 176/104 H 94 09/03/20 19:57 36.7 C 95 H 18 171/114 H 97 Laboratory Results Laboratory Results WBC 8.98 K/uL (4.8-10.8) 09/03/20 Unknown RBC 3.73 M/uL (4.2-5.4) L 09/03/20 Unknown Hgb 12.4 g/dL (12.0-16.0) 09/03/20 Unknown Hct 36.3 % (37-47) L 09/03/20 Unknown MCV 97.3 fL (80-100) 09/03/20 Unknown MCH 33.2 pg (25-34) 09/03/20 Unknown MCHC 34.2 g/dL (32-36) 09/03/20 Unknown RDW Std Deviation 44.6 fL (36.4-46.3) 09/03/20 Unknown RDW Coeff of Vivek 12.6 % (11.5-14.5) 09/03/20 Unknown Plt Count 254 K/uL (130-400) 09/03/20 Unknown MPV 10.2 fL (7.4-10.4) 09/03/20 Unknown Immature Gran % (Auto) 0.1 % 09/03/20 Unknown Neut % (Auto) 62.3 % 09/03/20 Unknown Lymph % (Auto) 27.6 % 09/03/20 Unknown Eaton % (Auto) 8.4 % 09/03/20 Unknown Eos % (Auto) 1.3 % 09/03/20 Unknown Baso % (Auto) 0.3 % 09/03/20 Unknown Neut # (Auto) 5.59 K/uL (1.4-6.5) 09/03/20 Unknown Lymph # (Auto) 2.48 K/uL (1.2-3.4) 09/03/20 Unknown Eaton # (Auto) 0.75 K/uL (0.11-0.59) H 09/03/20 Unknown Eos # (Auto) 0.12 K/uL (0-0.5) 09/03/20 Unknown Baso # (Auto) 0.03 K/uL (0-0.2) 09/03/20 Unknown Immature Gran # (Auto) 0.01 K/uL (0.00-0.02) 09/03/20 Unknown PT 10.3 Seconds (9.0-12.0) 09/03/20 Unknown INR 1.0 (0.9-1.1) 09/03/20 Unknown APTT 23.9 Seconds (21.0-31.0) 09/03/20 Unknown PTT Ratio 0.9 09/03/20 Unknown D-Dimer 490 ug/L FEU (0-500) 09/03/20 Unknown Sodium 138 mmol/L (136-145) 09/03/20 Unknown Potassium 3.4 mmol/L (3.5-5.1) L 09/03/20 Unknown Chloride 108 mmol/L (98-107) H 09/03/20 Unknown Carbon Dioxide 25 mmol/L (21-32) 09/03/20 Unknown Anion Gap 5.0 (3-11) 09/03/20 Unknown BUN 10 mg/dl (7-18) 09/03/20 Unknown Creatinine 0.60 mg/dl (0.6-1.2) 09/03/20 Unknown Est Cr Clr Drug Dosing 119.4 ml/min 09/03/20 Unknown Est GFR ( Amer) 130.3 ml/min 09/03/20 Unknown Est GFR (Non-Af Amer) 112.4 ml/min 09/03/20 Unknown BUN/Creatinine Ratio 16.3 (10-20) 09/03/20 Unknown Glucose 121 mg/dl (70-99) H 09/03/20 Unknown Calcium 8.9 mg/dl (8.5-10.1) 09/03/20 Unknown Phosphorus 3.6 mg/dl (2.5-4.9) 09/03/20 Unknown Magnesium 1.8 mg/dl (1.8-2.4) 09/03/20 Unknown Total Bilirubin 0.2 mg/dl (0.2-1) 09/03/20 Unknown Direct Bilirubin < 0.1 mg/dl (0-0.2) 09/03/20 Unknown AST 9 U/L (15-37) L 09/03/20 Unknown ALT 25 U/L (12-78) 09/03/20 Unknown Alkaline Phosphatase 80 U/L (45-117) 09/03/20 Unknown Total Creatine Kinase 39 U/L (26-192) 09/03/20 Unknown Troponin I < 0.015 ng/ml (0-0.045) 09/03/20 Unknown NT-Pro-B Natriuret Pep 481 pg/ml (0-450) H 09/03/20 Unknown Total Protein 6.6 gm/dl (6.4-8.2) 09/03/20 Unknown Albumin 3.3 gm/dl (3.4-5.0) L 09/03/20 Unknown Globulin 3.3 gm/dl (2.5-4.0) 09/03/20 Unknown Albumin/Globulin Ratio 1.0 (0.9-2) 09/03/20 Unknown Lipase 88 U/L (73-393) 09/03/20 Unknown TSH 0.496 uIu/ml (0.300-4.500) 09/03/20 Unknown COVID-19 Eval Order Covid19 at [facility] 09/03/20 Unknown SARS-CoV-2 (PCR) NEGATIVE (Negative) 09/03/[address] head initial read: No acute pathology chest x-ray as per my interpretation elevated right hemidiaphragm EKG as per my interpretation : Rate 90, NSR, normal axis, no ischemia
[2020-09-04] MEDS ORDERED: carvediloL 12.5 MG TAB PO STA (00:32)
--- NOTE | 2020-09-04 01:40 | Emergency Department Note ---
Impression & Plan Left-sided chest pain, Hypertension, COPD (chronic obstructive pulmonary disease), CAD (coronary artery disease) ED Provider Note NAME: MARY TOSCANO AGE: 44 SEX: F ARRIVES VIA: Walk-In INFORMANT: Patient, ED PROVIDER(S): Prasanna Betts MD CHIEF COMPLAINT: Chest pain PLAN: Disposition: Admit MEDICAL DECISION MAKING: The patient is a 44-year-old woman with a past medical history of CAD with history of PCI, hypertension, hyperlipidemia, tobacco abuse, bipolar disorder, peripheral vascular disease, chronic pain who presents to the emergency department with acute onset chest pain that she reports woke her from sleep this evening where upon EMS arrival was given nitroglycerin and she reported some improvement but still constant left-sided chest pain that she reports reminds her of her ME 1 year ago. She also reports that she was recently seen at [facility] and was diagnosed with pneumonia for which she been on Augmentin and reports feeling improvement in those symptoms and reports her chest pain today is different from the chest pain she had when she presented to [facility]. She reports she presents to [facility] today because she is staying in the area with family. She denies any nausea, vomiting, diarrhea or symptoms. She denies any known COVID-19 exposures. Of note, PDMP shows 29 prescriptions from 12 different providers. Most recent prescription of oxycodone was on 08/14/2020. On arrival the patient is no distress, afebrile with hypertension 170/110s and vital signs otherwise stable. On exam the patient has scant intermittent wheeze and lungs are otherwise clear. She has scant bilateral lower extremity edema which she feels is new. EKG without overt acute ischemia. Chest x-ray without acute cardiopulmonary process per my preliminary review. WBC, hemoglobin and platelets within normal limits. Chemistry without metabolic acidosis. LFTs unremarkable. Troponin negative/undetectable. BNP is not sig nificantly elevated. D-dimer within normal limits. Lipase within normal limits. TSH within normal limits. COVID-19 PCR was negative. Patient was treated initially with DuoNeb and steroid for suspicion for component of chest pain from her recent pneumonia in the setting of underlying lung disease however she denied any improvement after this. She was then given nitroglycerin as she reported this gave her some improvement before but denied any effect after it was given here. Thus she was ordered for IV fentanyl. Given the persistence of the patient's pain in setting of her history of CAD will admit for further evaluation. Patient is in agreement with this. Case was discussed with Lalo Dinh hospitalist, who will evaluate the patient for admission. Triage Nursing notes reviewed and agree them. Prior medical records reviewed Vital Signs: reviewed and remarkable for hypertension. Differential diagnosis: Cardiac ischemia, aortic dissection, pulmonary embolism, pneumothorax, pneumonia, pericarditis, myocarditis, esophageal rupture, GERD, cholecystitis, pancreatitis, musculoskeletal, as well as other pathologies. ER treatment provided: See below. Diagnostics interpreted by me: ECG: NSR, 89 bpm, no ectopy, no overt ST elevation or depression. Cardiac Monitoring: An order for continuous cardiac monitoring was placed and demonstrated NSR, 89 bpm, no ectopy. Laboratory studies: See below Imaging studies: See below Consultation(s): Case was discussed with Lalo Dinh hospitalist, who will evaluate the patient for admission. HPI: The patient is a 44-year-old woman with a past medical history of CAD with history of PCI, hypertension, hyperlipidemia, tobacco abuse, bipolar disorder, peripheral vascular disease, chronic pain who presents to the emergency department with acute onset chest pain that she reports woke her from sleep this evening where upon EMS arrival was given nitroglycerin and she reported some improvement but still constant left-sided chest pain that she reports reminds her of her ME 1 year ago. She also reports that she was recently seen at [facility] and was diagnosed with pneumonia for which she been on Augmentin and reports feeling improvement in those symptoms and reports her chest pain today is different from the chest pain she had when she presented to [facility]. She reports she presents to [facility] today because she is staying in the area with family. She denies any nausea, vomiting, diarrhea or symptoms. She denies any known COVID-19 exposures. Of note, PDMP shows 29 prescriptions from 12 different providers. Most recent prescription of oxycodone was on 08/14/2020. ROS: See above HPI for pertinent positives & negatives. A total of 10 systems reviewed and were otherwise negative. PAST MEDICAL HISTORY:See Below PAST SURGICAL HISTORY:See Below FAMILY HISTORY:See Below SOCIAL HISTORY:See Below HOME MEDICATIONS:See Below ALLERGIES:See Below VITALS:See Below PHYSICAL EXAMINATION: GENERAL: Awake, alert, well-appearing, in no distress HENT: Normocephalic, atraumatic. Oropharynx unremarkable. EYES: Normal conjunctiva. Sclera non-icteric. NECK: Supple. No nuchal rigidity. FROM. No JVD. RESPIRATORY: Scant intermittent wheeze and lungs are otherwise clear. CARDIAC: Regular rate, normal rhythm. Extremities warm and well perfused. Pulses equal. ABDOMEN: Soft, non-distended. No tenderness to palpation. No rebound or guarding. No masses. RECTAL: Deferred. MUSCULOSKELETAL: Chest examination reveals no tenderness. The back is symmetrical on inspection without obvious abnormality. There is no CVA tenderness to palpation. No joint edema. LOWER EXTREMITIES: Calves are equal size bilaterally and non-tender. Scant BLE edema. No discoloration. NEURO: Normal sensorium. No sensory or motor deficits noted. SKIN: No rash or jaundice noted. Prasanna Betts MD Past Med/Surg History Medical History Anemia Baseline 9.9-11, ongoing since ~2004. Ankle fracture, left Atypical chest pain Per cardiology 05/01/19, "- persistent chest pain symptoms are atypical. Recent lexiscan nuclear stress test from 04/24/2019 was negative for ischemia; suspect some of her symptoms have been due to uncontrolled HTN urgencies. BP better controlled now since adjustment of meds during recent inpatient stay. Continue Dual antiplatelet therapy (DAPT) with ASA and plavix for at least 1 year but likely would continue indefinitely given severe PAD in addition to the CAD." Bipolar disorder Blood clotting disorder Patient unsure what type; reports was discovered with DVT ~2013 CAD (coronary artery disease) 10/2018-HARLEEN to LAD in [place] Cervical cancer cryotherapy (~1994) Chronic pain COPD (chronic obstructive pulmonary disease) inhalers daily. Continues to smoke. Degenerative disc disease Depression with anxiety DM type 2 (diabetes mellitus, type 2) diet controlled Fibromyalgia GERD (gastroesophageal reflux disease) History of DVT (deep vein thrombosis) ~2013. Hyperlipidemia Hypertension Hypokalemia Hypomagnesemia Hypothyroidism Migraine Myocardial Infarction October 2018. Follows with Dr. Magdy Mckeon. Neuropathy hands and feet Osteoarthritis Peripheral vascular disease S/P prior femoropopliteal thromboembolectomy on right side and surgical repair of distal aortoiliac occlusive disease in 2014. Post traumatic stress disorder Raynauds disease Schizophrenia Transient ischemic attack (TIA) x2 September 2018. Surgical History H/O cardiac catheterization H/O elbow surgery right H/O tubal ligation H/O vascular surgery thrombectomy Right leg 2013 History of arthroscopic knee surgery left History of cardiac cath October [address] [facility] s/p HARLEEN to LAD November 2019 at with [facility], no intervention History of carpal tunnel surgery of right wrist History of dilatation and curettage x2 History of heart artery stent Drug Eluting stent placed in LAD -- October 2018. History of incisional hernia repair x2 with full abdominal screen/mesh. Hx of cholecystectomy Hx of oral surgery (04/02/19) Oral Abscess Incision and Drainage (hard palate and extraction of tooth # 7,8,9,10,11,20 and 21) Dr. Kowalski 04-02-19. GETA. MAC 3, Grade 2 view. 7.0 ETT without difficulty. Hx of oral surgery (06/27/19) Closure Of oral/nasal Fistula, Left Palate To Muccoboccal Fold and Debridement Of Necrotic Bone Maxilla from area 3-14 Dr. Kowalski 06/27/19 S/P AAA repair ~2013 [facility]. (Dr. Graves). placed on Plavix and ASA at this time. S/P tonsillectomy Family History Mother Diabetes Grandfather FHx: heart disease Other No family history of adverse response to anesthesia Social History Smoking Status: Current every day smoker Tobacco Type: Cigarettes Cigarettes Per Day: 1 pack/day; Second Hand Exposure: Yes; Do You Dip or Chew Tobacco: Yes (occasionally); Tobacco Cessation Education Requested by Patient: No Hx Alcohol Use: No Hx Substance Use: Yes Non-Prescribed Medications: Marijuana Last Used Substance: Days (ago) Last Used Substance Other:: 05/14/2019 Preferred Language: Anguill[place] Communication Ability: Effective Instructional Supervisor Required: No Beliefs That Will Affect Care: None marital status: Single Current Living Situation: Spouse and Family Current Living Situation Comment: Lives with spouse and daughter current occupational status: disabled Feels Safe at Home: Yes Safety Concerns: Feels Safe At This Time Assistive Devices: Cane Allergies Allergies Allergy/AdvReac Type Severity Reaction Status Date / Time bee pollen Allergy Severe Anaphylaxis Verified 09/03/20 21:34 Iodinated Contrast Media Allergy Severe Anaphylaxis Verified 09/04/20 03:10 loratadine AdvReac Severe anxiety, Verified 09/03/20 21:34 paranoia increases cetirizine AdvReac Intermediate anxiety, Verified 09/03/20 21:34 paranoia increases fexofenadine AdvReac Intermediate anxiety Verified 09/03/20 21:34 and paranoia increases ketorolac AdvReac Mild PT STATES Verified 09/03/20 21:34 SHE IS ON THORAZINE AND CANNOT TAKE TORADOL tramadol AdvReac Mild hallucinati Verified 09/03/20 21:34 ons Home Meds Home Medications Medication Instructions Recorded Confirmed albuterol sulfate 2.5 mg INHALATION Q4H PRN 09/03/20 09/03/20 amlodipine 10 mg PO DAILY 09/03/20 09/03/20 amoxicillin-pot clavulanate 1 tab PO BID 09/03/20 09/03/20 aspirin [Aspir-Low] 81 mg PO BID 09/03/20 09/03/20 atorvastatin 80 mg PO DAILY 09/03/20 09/03/20 baclofen 10 - 20 mg PO Q8 PRN 09/03/20 09/03/20 carvedilol 12.5 mg PO BID 09/03/20 09/03/20 chlorpromazine 75 mg PO QAM 09/03/20 09/03/20 chlorpromazine 100 mg PO HS 09/03/20 09/03/20 clopidogrel [Plavix] 75 mg PO DAILY 09/03/20 09/03/20 dicyclomine 20 mg PO QID PRN 09/03/20 09/03/20 duloxetine 60 mg PO DAILY 09/03/20 09/03/20 famotidine 40 mg PO HS 09/03/20 09/03/20 ferrous sulfate [FeroSul] 325 mg PO DAILY 09/03/20 09/03/20 gabapentin [Neurontin] 800 mg PO TID 09/03/20 09/03/20 hydroxyzine HCl 10 mg PO Q6 PRN 09/03/20 09/03/20 ipratropium-albuterol [Combivent 1 puff INHALATION QID 09/03/20 09/03/20 Respimat] levothyroxine 125 mcg PO DAILY 09/03/20 09/03/20 liraglutide [Victoza 3-Anthony] 1.8 mg SUBCUT DAILY 09/03/20 09/03/20 lisinopril 40 mg PO DAILY 09/03/20 09/03/20 metformin 1,000 mg PO BID 09/03/20 09/03/20 mometasone-formoterol [Dulera] 2 puff INHALATION BID 09/03/20 09/03/20 omeprazole 40 mg PO DAILY 09/03/20 09/03/20 potassium chloride [K-Tab] 20 meq PO DAILY 09/03/20 09/03/20 quetiapine [Seroquel] 50 mg PO HS PRN 09/03/20 09/03/20 sucralfate 1 g PO ACHS 09/03/20 09/03/20 Results & Data (ED) Vital Signs Vital Signs - 24 hr 09/03/20 19:57 09/03/20 20:00 09/03/20 20:14 Temperature 36.7 C Temperature Source Temporal Artery Scan Pulse Rate 95 H 80 Pulse Rate [Apical] 82 Pulse Rate from SpO2 Sensor Pulse Rhythm [Apical] Regular Respiratory Rate 18 22 18 Respiratory Effort / Characteristics Non-Labored Spontaneous Non-Labored Respiratory Depth Normal Normal Blood Pressure 171/114 H Blood Pressure [Left Arm] 176/104 H Blood Pressure Mean 133 Blood Pressure Mean [Left Arm] 128 Blood Pressure Position [Left Arm] Semi-fowlers Pulse Oximetry 97 94 Oxygen Delivery Method Room Air Room Air Oxygen Flow Rate Sepsis Recent Fever Within 48 Hours No Sepsis New/Unexplained Change in Mental Status Yes Sepsis Action Taken by Nursing No Action Required 09/03/20 20:15 09/03/20 21:03 09/03/20 22:00 Temperature Temperature Source Pulse Rate 79 Pulse Rate [Apical] 71 72 Pulse Rate from SpO2 Sensor 78 Pulse Rhythm [Apical] Regular Respiratory Rate 20 20 26 H Respiratory Effort / Characteristics Non-Labored Spontaneous Respiratory Depth Normal Blood Pressure 176/104 H Blood Pressure [Left Arm] 185/148 H Blood Pressure Mean 128 Blood Pressure Mean [Left Arm] 160 Blood Pressure Position [Left Arm] Pulse Oximetry 95 93 95 Oxygen Delivery Method Room Air Room Air Oxygen Flow Rate Sepsis Recent Fever Within 48 Hours Sepsis New/Unexplained Change in Mental Status Sepsis Action Taken by Nursing 09/04/20 00:00 09/04/20 02:00 Temperature Temperature Source Pulse Rate Pulse Rate [Apical] 78 72 Pulse Rate from SpO2 Sensor Pulse Rhythm [Apical] Respiratory Rate 16 16 Respiratory Effort / Characteristics Respiratory Depth Blood Pressure Blood Pressure [Left Arm] 172/136 H 178/90 H Blood Pressure Mean Blood Pressure Mean [Left Arm] 148 119 Blood Pressure Position [Left Arm] Lying Lying Pulse Oximetry 98 97 Oxygen Delivery Method Nasal Cannula Nasal Cannula Oxygen Flow Rate 3 3 Sepsis Recent Fever Within 48 Hours Sepsis New/Unexplained Change in Mental Status Sepsis Action Taken by Nursing Laboratory Data Attestation: I reviewed the patient's lab results. Result diagrams: 09/03/20 Unknown 09/03/20 Unknown Lab Results 09/03/20 09/03/20 09/03/20 Range/Units Unknown Unknown Unknown WBC 8.98 (4.8-10.8) K/uL RBC 3.73 L (4.2-5.4) M/uL Hgb 12.4 (12.0-16.0) g/dL Hct 36.3 L (37-47) % MCV 97.3 (80-100) fL MCH 33.2 (25-34) pg MCHC 34.2 (32-36) g/dL RDW Std Deviation 44.6 (36.4-46.3) fL RDW Coeff of Vivek 12.6 (11.5-14.5) % Plt Count 254 (130-400) K/uL MPV 10.2 (7.4-10.4) fL Immature Gran % (Auto) 0.1 % Neut % (Auto) 62.3 % Lymph % (Auto) 27.6 % [place] % (Auto) 8.4 % Eos % (Auto) 1.3 % Baso % (Auto) 0.3 % Neut # (Auto) 5.59 (1.4-6.5) K/uL Lymph # (Auto) 2.48 (1.2-3.4) K/uL [place] # (Auto) 0.75 H (0.11-0.59) K/uL Eos # (Auto) 0.12 (0-0.5) K/uL Baso # (Auto) 0.03 (0-0.2) K/uL Immature Gran # (Auto) 0.01 (0.00-0.02) K/uL PT 10.3 (9.0-12.0) Seconds INR 1.0 (0.9-1.1) APTT 23.9 (21.0-31.0) Seconds PTT Ratio 0.9 D-Dimer 490 (0-500) ug/L FEU Sodium 138 (136-145) mmol/L Potassium 3.4 L (3.5-5.1) mmol/L Chloride 108 H (98-107) mmol/L Carbon Dioxide 25 (21-32) mmol/L Anion Gap 5.0 (3-11) BUN 10 (7-18) mg/dl Creatinine 0.60 (0.6-1.2) mg/dl Est Cr Clr Drug Dosing 119.4 ml/min Est GFR ( Amer) 130.3 ml/min Est GFR (Non-Af Amer) 112.4 ml/min BUN/Creatinine Ratio 16.3 (10-20) Glucose 121 H (70-99) mg/dl Calcium 8.9 (8.5-10.1) mg/dl Phosphorus 3.6 (2.5-4.9) mg/dl Magnesium 1.8 (1.8-2.4) mg/dl Total Bilirubin 0.2 (0.2-1) mg/dl Direct Bilirubin < 0.1 (0-0.2) mg/dl AST 9 L (15-37) U/L ALT 25 (12-78) U/L Alkaline Phosphatase 80 (45-117) U/L Total Creatine Kinase 39 (26-192) U/L Troponin I < 0.015 (0-0.045) ng/ml NT-Pro-B Natriuret Pep 481 H (0-450) pg/ml Total Protein 6.6 (6.4-8.2) gm/dl Albumin 3.3 L (3.4-5.0) gm/dl Globulin 3.3 (2.5-4.0) gm/dl Albumin/Globulin Ratio 1.0 (0.9-2) Lipase 88 (73-393) U/L TSH 0.496 (0.300-4.500) uIu/ml COVID-19 Eval Order SARS-CoV-2 (PCR) (Negative) 09/03/20 09/03/20 Range/Units Unknown Unknown WBC (4.8-10.8) K/uL RBC (4.2-5.4) M/uL Hgb (12.0-16.0) g/dL Hct (37-47) % MCV (80-100) fL MCH (25-34) pg MCHC (32-36) g/dL RDW Std Deviation (36.4-46.3) fL RDW Coeff of Vivek (11.5-14.5) % Plt Count (130-400) K/uL MPV (7.4-10.4) fL Immature Gran % (Auto) % Neut % (Auto) % Lymph % (Auto) % [place] % (Auto) % Eos % (Auto) % Baso % (Auto) % Neut # (Auto) (1.4-6.5) K/uL Lymph # (Auto) (1.2-3.4) K/uL [place] # (Auto) (0.11-0.59) K/uL Eos # (Auto) (0-0.5) K/uL Baso # (Auto) (0-0.2) K/uL Immature Gran # (Auto) (0.00-0.02) K/uL PT (9.0-12.0) Seconds INR (0.9-1.1) APTT (21.0-31.0) Seconds PTT Ratio D-Dimer (0-500) ug/L FEU Sodium (136-145) mmol/L Potassium (3.5-5.1) mmol/L Chloride (98-107) mmol/L Carbon Dioxide (21-32) mmol/L Anion Gap (3-11) BUN (7-18) mg/dl Creatinine (0.6-1.2) mg/dl Est Cr Clr Drug Dosing ml/min Est GFR ( Amer) ml/min Est GFR (Non-Af Amer) ml/min BUN/Creatinine Ratio (10-20) Glucose (70-99) mg/dl Calcium (8.5-10.1) mg/dl Phosphorus (2.5-4.9) mg/dl Magnesium (1.8-2.4) mg/dl Total Bilirubin (0.2-1) mg/dl Direct Bilirubin (0-0.2) mg/dl AST (15-37) U/L ALT (12-78) U/L Alkaline Phosphatase (45-117) U/L Total Creatine Kinase (26-192) U/L Troponin I (0-0.045) ng/ml NT-Pro-B Natriuret Pep (0-450) pg/ml Total Protein (6.4-8.2) gm/dl Albumin (3.4-5.0) gm/dl Globulin (2.5-4.0) gm/dl Albumin/Globulin Ratio (0.9-2) Lipase (73-393) U/L TSH (0.300-4.500) uIu/ml COVID-19 Eval Order Covid19 at [facility] SARS-CoV-2 (PCR) NEGATIVE (Negative) Administered Medications Chlorpromazine HCl (Chlorpromazine Hcl 100 Mg Tab) 100 mg PO HS SEPIDEH Stop: 10/04/20 04:04 Last Admin: 09/04/20 04:32 Dose: Not Given Documented by: [id number] Potassium Chloride 40 meq/ (Sodium Chloride) 1,020 mls @ 40 mls/hr IV .Q24H SEPIDEH Stop: 10/04/20 02:49 Last Admin: 09/04/20 03:49 Dose: 40 mls/hr Documented by: [id number] Insulin Aspart (Insulin Aspart 100 Units/Ml 3 Ml Pen) 0 units SC Q6 SEPIDEH Stop: 10/04/20 02:49 Last Admin: 09/04/20 04:24 Dose: 3 units Documented by: [id number] Cosigned by: [id number] Lisinopril (Lisinopril 40 Mg Tab) 40 mg PO DAILY SEPIDEH Stop: 10/04/20 03:24 Last Admin: 09/04/20 03:51 Dose: 40 mg Documented by: [id number] Nicotine (Nicotine 21 Mg/24 Hr Tdsy) 21 mg TD QAM SEPIDEH Stop: 10/04/20 02:49 Last Admin: 09/04/20 03:50 Dose: 21 mg Documented by: [id number] Oxycodone HCl (Oxycodone Hcl Ir 5 Mg Tab (Immediate Release)) 5 - 10 mg PO QID PRN PRN Reason: Pain Stop: 09/18/20 02:49 Last Admin: 09/04/20 03:52 Dose: 10 mg Documented by: [id number] Discontinued Medications Albuterol (Albut/Ipratrop 3mg/0.5mg Neb 3 Ml Vial) 3 ml NEB NOW STA Stop: 09/03/20 20:54 Last Admin: 09/03/20 21:03 Dose: 3 ml Documented by: [id number] Amlodipine Besylate (Amlodipine Besylate 5 Mg Tab) 10 mg PO NOW STA Stop: 09/04/20 00:05 Last Admin: 09/04/20 00:32 Dose: 10 mg Documented by: [id number] Carvedilol (Carvedilol 12.5 Mg Tab) 12.5 mg PO NOW STA Stop: 09/04/20 00:33 Last Admin: 09/04/20 01:49 Dose: 12.5 mg Documented by: [id number] Dexamethasone Sodium Phosphate (DexamethasonePf 10 Mg/Ml Vial) 10 mg IV NOW ONE Stop: 09/03/20 20:54 Last Admin: 09/03/20 21:12 Dose: 10 mg Documented by: [id number] Fentanyl Citrate (Fentanyl Citrate 100 Mcg/2 Ml Vial) 50 mcg IV NOW STA Stop: 09/03/20 23:48 Last Admin: 09/04/20 00:05 Dose: 50 mcg Documented by: [id number] Guaifenesin (Guaifenesin 600 Mg Tabcr) 600 mg PO NOW STA Stop: 09/03/20 20:56 Last Admin: 09/03/20 21:12 Dose: 600 mg Documented by: [id number] Acetaminophen ([facility]) 1,000 mg in 100 mls @ 400 mls/hr IV NOW STA Stop: 09/03/20 21:07 Last Infusion: 09/03/20 21:30 Dose: 0 mls/hr Documented by: [id number] Admin: 09/03/20 21:12 Dose: 400 mls/hr Documented by: [id number] Nitroglycerin (Nitroglycerin Sl 0.4 Mg/Tab Tab) 0.4 mg SL UD PRN PRN Reason: Chest Pain Stop: 10/03/20 22:45 Last Admin: 09/03/20 23:04 Dose: 0.4 mg Documented by: [id number] Oxycodone HCl (Oxycodone Hcl Ir 5 Mg Tab (Immediate Release)) 5 mg PO NOW STA Stop: 09/03/20 20:56 Last Admin: 09/03/20 21:12 Dose: 5 mg Documented by: [id number] Potassium Chloride (Potassium Chloride Crtab 20 Meq Tabcr) 40 meq PO NOW STA Stop: 09/04/20 00:03 Last Admin: 09/04/20 00:32 Dose: 40 meq Documented by: [id number] Discharge Plan Visit Data Chief Complaint: Chest Pain Stated Complaint: CHEST PAINS ED Provider: Prasanna Betts Discharge Problem: Left-sided chest pain, Hypertension, COPD (chronic obstructive pulmonary disease), CAD (coronary artery disease) Patient Disposition: Admitted As Inpatient Discharge Instructions Interventions: ED Discharge Assessment Last Done: 09/04/20 02:36
[2020-09-04] MEDS ORDERED: GLUCOSE 40% GEL 15 GM TUBE PO PRN (02:50)
[2020-09-04] MEDS ORDERED: GLUCAGON FOR INJ 1 MG VIAL SQ PRN (02:50)
[2020-09-04] MEDS ORDERED: DEXTROSE 50% 50 ML SYRINGE IV PRN (02:50)
[2020-09-04] MEDS ORDERED: DICYCLOMINE HCL 20 MG TAB PO PRN (02:50)
[2020-09-04] MEDS ORDERED: GLUCOSE 10 TABS/TUBE PO PRN (02:50)
[2020-09-04] MEDS ORDERED: QUEtiapine FUMARATE 25 MG TABLET PO PRN (02:50)
[2020-09-04] MEDS ORDERED: BACLOFEN 10 MG TAB PO PRN (02:50)
[2020-09-04] MEDS ORDERED: ACETAMINOPHEN 325 MG TAB PO PRN (02:50)
[2020-09-04] MEDS ORDERED: POTASSIUM CHLORIDE 40 MEQ in SODIUM CHLORIDE 0.9% 1000ML 1,000 ML IV SCH (02:50)
[2020-09-04] MEDS ORDERED: hydrOXYzine HCl 10 MG TAB PO PRN (02:50)
[2020-09-04] MEDS ORDERED: PROMETHAZINE HCL 12.5 MG in SODIUM CHLORIDE 0.9% 50 ML IV PRN (02:50)
[2020-09-04] MEDS ORDERED: CARBOHYDRATES FOR HYPOGLYCEMIA PO PRN (02:50)
[2020-09-04] MEDS: NICOTINE 21 MG/24 HR TDSY TD SCH (03:50)
[2020-09-04] MEDS: lisinopril 40 MG TAB PO SCH (03:51)
[2020-09-04] MEDS: oxyCODONE HCL IR 5 MG TAB (IMMEDIATE RELEASE) PO PRN ×4 (03:52→20:56)
[2020-09-04] MEDS: INSULIN ASPART 100 UNITS/ML 3 ML PEN SC SCH ×5 (04:24→20:59)
[2020-09-04 04:51] LABS: Amphetamines+Metham, Urine Neg (Neg); Barbiturates, Urine Neg (Neg); Benzodiazepine, Urine Neg (Neg); Cocaine, Urine Neg (Neg); MDMA (Ecstacy), Urine Neg (Neg); Methadone, Urine Neg (Neg); Opiate, Urine Pos (Neg); Phencyclidine, Urine Neg (Neg)
[2020-09-04] MEDS ORDERED: INSULIN GLARGINE SOLOSTAR 100 UNITS/ML 3 ML PEN SC SCH ×2 (06:00→09:00)
[2020-09-04 06:03] LABS: Hematocrit (blood only) 37.9 % (37-47); Immature Granulocytes # (auto) 0.03 K/uL (0.00-0.02); Immature Granulocytes % (auto) 0.3 %; Lymphocytes # (auto) 0.96 K/uL (1.2-3.4); Lymphocytes % (auto) 8.5 %; Mean Corpuscular Hemoglobin 32.3 pg (25-34); Mean Corpuscular Hgb Conc 34.3 g/dL (32-36); Mean Corpuscular Volume 94.3 fL (80-100); Mean Platelet Volume 9.8 fL (7.4-10.4); Monocytes # (auto) 0.16 K/uL (0.11-0.59); Monocytes % (auto) 1.4 %; Neutrophils % (auto) 89.8 %; Platelet Count 232 K/uL (130-400); RDW Coefficient of Variation 12.3 % (11.5-14.5); RDW Standard Deviation 42.3 fL (36.4-46.3); Red Blood Count 4.02 M/uL (4.2-5.4); White Blood Count 11.35 K/uL (4.8-10.8)
[2020-09-04] MEDS: GABAPENTIN 800 MG TAB PO SCH ×4 (06:07→20:58)
[2020-09-04] MEDS: LEVOTHYROXINE SODIUM 125 MCG TABLET PO SCH (06:08)
[2020-09-04 06:12] LABS: Partial Thromboplastin Ratio 0.9; Partial Thromboplastin Time 24.7 Seconds (21.0-31.0)
[2020-09-04 06:45] LABS: BUN Creatinine Ratio 18.3 (10-20); Calcium 8.5 mg/dl (8.5-10.1); Creatinine Clr Calc Pharmacy 140.6 ml/min; Est GFR (African American) 138.4 ml/min; Est GFR (Non-African American) 119.4 ml/min; Potassium 4.1 mmol/L (3.5-5.1)
--- NOTE | 2020-09-04 07:45 | XRay Report ---
XR chest 1V portable CLINICAL HISTORY: Chest Pain COMPARISON STUDY: July 08, 2020 FINDINGS: No pneumothorax. No pleural effusion. No large infiltrates or consolidative lesions are seen. Cardiomediastinal silhouette is within normal limits in size. No significant pulmonary vascular congestion.. Osseous structures: unremarkable IMPRESSION: 1. No acute pulmonary process. ACT 112: Negative or not required by law. The above report was generated using voice recognition software. It may contain grammatical, syntax o r spelling errors. Electronically signed by: Parisa Lane DO 09/04/2020 7:43 AM
--- NOTE | 2020-09-04 08:44 | CT Scan Report ---
CT head/brain wo con CLINICAL HISTORY: denise HEADACHE. COMPARISON STUDY: Multiple prior CT examination of the head, most recent was performed on July 08 TECHNIQUE: Axial CT of the brain is performed from the vertex to the skull base. IV contrast was not administered for this examination. A dose lowering technique was utilized adhering to the principles of ALARA. CT DOSE: 638.56 mGycm FINDINGS: No acute intracranial hemorrhage, no space occupying lesions seen. Focal punctate area of high density is again seen within third ventricle, unchanged since prior likel y representing small colloid cyst. There is no evidence of pathologic ventricular dilatation. No acute depressed skull fractures seen. Visualized paranasal sinuses and mastoid air cells are paten t and well-aerated. IMPRESSION: 1. No acute intracranial hemorrhage, no space occupying lesions. 2. 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 ACT 112: Negative or not required by law. The above report was generated using voice recognition software. It may contain grammatical, syntax o r spelling errors. Electronically signed by: Parisa Lane DO 09/04/2020 8:43 AM
[2020-09-04] MEDS: PANTOprazole 40 MG TAB PO SCH (08:57)
[2020-09-04] MEDS: carvediloL 12.5 MG TAB PO SCH ×2 (08:57→20:57)
[2020-09-04] MEDS: AMOXICILLIN/CLAVULANATE 875 MG TAB PO SCH ×2 (08:57→17:05)
[2020-09-04] MEDS: chlorproMAZINE HCL 25 MG TAB PO SCH (08:58)
[2020-09-04] MEDS: SUCRALFATE 1 GM TAB PO SCH ×4 (08:58→20:58)
[2020-09-04] MEDS: ASPIRIN 81 MG ECTAB PO SCH ×2 (08:58→20:57)
[2020-09-04] MEDS: DULoxetine HCL 60 MG CAP PO SCH (08:58)
[2020-09-04] MEDS: CLOPIDOGREL BISULFATE 75 MG TAB PO SCH (08:58)
[2020-09-04] MEDS: ENOXAPARIN INJ 40 MG/0.4 ML SYR SQ SCH (08:59)
[2020-09-04] MEDS: FERROUS SULFATE 325 MG TAB PO SCH (08:59)
[2020-09-04] MEDS ORDERED: lisinopril 40 MG TAB PO SCH (09:00)
[2020-09-04] MEDS: FLUTICASONE/VILANTEROL 200/25MCG 14 PUFFS/INHALER INH SCH (09:00)
[2020-09-04] MEDS ORDERED: IPRATROPIUM BROMIDE/ALBUTEROL respimat INH INH SCH (09:00)
[2020-09-04] MEDS ORDERED: GABAPENTIN 800 MG TAB PO SCH (09:00)
[2020-09-04] MEDS: ATORVASTATIN 40 MG TAB PO SCH (09:02)
[2020-09-04] MEDS: Albuterol HFA 8 GM Inhaler (Combivent Respimat P&T Subs) INH SCH ×4 (09:12→20:06)
[2020-09-04] MEDS: Ipratropium HFA Inhaler (Combivent Respimat P&T Subs) INH SCH ×4 (09:13→20:06)
--- NOTE | 2020-09-04 09:17 | Electrocardiogram Report ---
Test Reason : Blood Pressure : / mmHG Vent. Rate : 089 BPM Atrial Rate : 089 BPM P-R Int : 192 ms QRS Dur : 080 ms QT Int : 368 ms P-R-T Axes : 053 050 040 degrees QTc Int : 447 ms Normal sinus rhythm Left atrial enlargement Borderline ECG When compared with ECG of 11-JUL-2020 05:12, Vent. rate has increased BY 31 BPM Otherwise no significant change Confirmed by Munir Mann ([id number]) on 09/04/2020 9:17:32 AM Referred By: REFERRED SELF Confirmed By:Munir Mann
--- NOTE | 2020-09-04 09:18 | Electrocardiogram Report ---
Test Reason : Blood Pressure : / mmHG Vent. Rate : 072 BPM Atrial Rate : 072 BPM P-R Int : 202 ms QRS Dur : 084 ms QT Int : 450 ms P-R-T Axes : 050 027 034 degrees QTc Int : 492 ms Normal sinus rhythm Normal ECG When compared with ECG of 03-SEP-2020 20:04, No significant change was found Confirmed by Munir Mann ([id number] on 09/04/2020 9:17:53 AM Referred By: REFERRED SELF Confirmed By:Munir Mann
--- NOTE | 2020-09-04 10:48 | Cardiology Consultation ---
Date of Consultation September 04, 2020 Assessment & Plan (1) HTN (hypertension): (2) Non compliance w medication regimen: (3) Uncontrolled hypertension: (4) Chest pain: (5) Peripheral vascular disease: (6) Tobacco abuse: (7) Bipolar disorder: (8) CAD (coronary artery disease): (9) COPD (chronic obstructive pulmonary disease): (10) DM type 2 (diabetes mellitus, type 2): At this point no objective findings of ischemia have been observed and in light of her very recent normal perfusion exam I do not see the need for any further cardiac testing. Her blood pressure has improved and chest pain resolved with resumption of previous outpatient medical regimen. Noncompliance??? Would continue current medical regimen and discharge once blood pressures have stabilized. History of Present Illness Attending Physician: Chirag Sneed MD History of Present Illness The patient is a 44-year-old woman who has been seen repeatedly here at [facility] for noncardiac chest discomfort and hypertensive urgency due to medication noncompliance. She presented to [facility] again on 09/03/2020 with complaint of chest discomfort. She states that she was sleeping approximately 7:30 PM last evening when she was awoken with sharp stabbing chest pain. She states that the pain radiated to her right arm. Some relief with nitroglycerin. Patient also recently treated at [facility] for pneumonia. Upon arrival she was found to be significantly hypertensive with no objective findings of ischemia. She was admitted to telemetry and restarted on her discharge medications with stabilization of her vital signs. Currently she states that the chest pain has resolved. Cardiac / Vascular Problem List: 1. Premature vascular disease distal aortic stenosis at bifurcation with distal embolism status post surgical repair September 2014 after required femoral- popliteal embolectomy 2. Longstanding hypertension 3. Hyperlipidemia 4. Atherosclerotic coronary disease status post cardiac catheterization via right femoral access October 2018 with subsequent stenting mid LAD ([place]) -Multiple emergency department visits for chest pain in 2019 -Nonischemic Lexiscan nuclear stress test, [place] 04/2019 -Ultimately had repeat cardiac catheterization at [facility] 11/2019, with patent LAD stent, 50% obtuse marginal lesion for which medical management recommended 5. Chronic tobacco use longstanding 6. Diabetes mellitus, type II 7. Bipolar disease Allergies Allergy/AdvReac Type Severity Reaction Status Date / Time bee pollen Allergy Severe Anaphylaxis Verified 09/03/20 21:34 Iodinated Contrast Media Allergy Severe Anaphylaxis Verified 09/04/20 03:10 loratadine AdvReac Severe anxiety, Verified 09/03/20 21:34 paranoia increases cetirizine AdvReac Intermediate anxiety, Verified 09/03/20 21:34 paranoia increases fexofenadine AdvReac Intermediate anxiety Verified 09/03/20 21:34 and paranoia increases ketorolac AdvReac Mild PT STATES Verified 09/03/20 21:34 SHE IS ON THORAZINE AND CANNOT TAKE TORADOL tramadol AdvReac Mild hallucinati Verified 09/03/20 21:34 ons Home Medications Medication Instructions Recorded Confirmed Type albuterol sulfate 2.5 mg INHALATION Q4H PRN 09/03/20 09/03/20 History amlodipine 10 mg PO DAILY 09/03/20 09/03/20 History amoxicillin-pot clavulanate 1 tab PO BID 09/03/20 09/03/20 History aspirin [Aspir-Low] 81 mg PO BID 09/03/20 09/03/20 History atorvastatin 80 mg PO DAILY 09/03/20 09/03/20 History baclofen 10 - 20 mg PO Q8 PRN 09/03/20 09/03/20 History carvedilol 12.5 mg PO BID 09/03/20 09/03/20 History chlorpromazine 75 mg PO QAM 09/03/20 09/03/20 History chlorpromazine 100 mg PO HS 09/03/20 09/03/20 History clopidogrel [Plavix] 75 mg PO DAILY 09/03/20 09/03/20 History dicyclomine 20 mg PO QID PRN 09/03/20 09/03/20 History duloxetine 60 mg PO DAILY 09/03/20 09/03/20 History famotidine 40 mg PO HS 09/03/20 09/03/20 History ferrous sulfate [FeroSul] 325 mg PO DAILY 09/03/20 09/03/20 History gabapentin [Neurontin] 800 mg PO TID 09/03/20 09/03/20 History hydroxyzine HCl 10 mg PO Q6 PRN 09/03/20 09/03/20 History ipratropium-albuterol [Combivent 1 puff INHALATION QID 09/03/20 09/03/20 History Respimat] levothyroxine 125 mcg PO DAILY 09/03/20 09/03/20 History liraglutide [Victoza 3-Anthony] 1.8 mg SUBCUT DAILY 09/03/20 09/03/20 History lisinopril 40 mg PO DAILY 09/03/20 09/03/20 History metformin 1,000 mg PO BID 09/03/20 09/03/20 History mometasone-formoterol [Dulera] 2 puff INHALATION BID 09/03/20 09/03/20 History omeprazole 40 mg PO DAILY 09/03/20 09/03/20 History potassium chloride [K-Tab] 20 meq PO DAILY 09/03/20 09/03/20 History quetiapine [Seroquel] 50 mg PO HS PRN 09/03/20 09/03/20 History sucralfate 1 g PO ACHS 09/03/20 09/03/20 History Patient History Medical History Anemia Baseline 9.9-11, ongoing since ~2004. Ankle fracture, left Atypical chest pain Per cardiology 05/01/19, "- persistent chest pain symptoms are atypical. Recent lexiscan nuclear stress test from 04/24/2019 was negative for ischemia; suspect some of her symptoms have been due to uncontrolled HTN urgencies. BP better controlled now since adjustment of meds during recent inpatient stay. Continue Dual antiplatelet therapy (DAPT) with ASA and plavix for at least 1 year but likely would continue indefinitely given severe PAD in addition to the CAD." Bipolar disorder Blood clotting disorder Patient unsure what type; reports was discovered with DVT ~2013 CAD (coronary artery disease) 10/2018-HARLEEN to LAD in [place] Cervical cancer cryotherapy (~1994) Chronic pain COPD (chronic obstructive pulmonary disease) inhalers daily. Continues to smoke. Degenerative disc disease Depression with anxiety DM type 2 (diabetes mellitus, type 2) diet controlled Fibromyalgia GERD (gastroesophageal reflux disease) History of DVT (deep vein thrombosis) ~2013. Hyperlipidemia Hypertension Hypokalemia Hypomagnesemia Hypothyroidism Migraine Myocardial Infarction October 2018. Follows with Dr. Magdy Mckeon. Neuropathy hands and feet Osteoarthritis Peripheral vascular disease S/P prior femoropopliteal thromboembolectomy on right side and surgical repair of distal aortoiliac occlusive disease in 2014. Post traumatic stress disorder Raynauds disease Schizophrenia Transient ischemic attack (TIA) x2 September 2018. Surgical History H/O cardiac catheterization H/O elbow surgery right H/O tubal ligation H/O vascular surgery thrombectomy Right leg 2013 History of arthroscopic knee surgery left History of cardiac cath October 2018 at [facility] s/p HARLEEN to LAD November 2019 at with [facility], no intervention History of carpal tunnel surgery of right wrist History of dilatation and curettage x2 History of heart artery stent Drug Eluting stent placed in LAD -- October 2018. History of incisional hernia repair x2 with full abdominal screen/mesh. Hx of cholecystectomy Hx of oral surgery (04/02/19) Oral Abscess Incision and Drainage (hard palate and extraction of tooth # 7,8,9,10,11,20 and 21) Dr. Kowalski 04-02-19. GETA. MAC 3, Grade 2 view. 7.0 ETT without difficulty. Hx of oral surgery (06/27/19) Closure Of oral/nasal Fistula, Left Palate To Muccoboccal Fold and Debridement Of Necrotic Bone Maxilla from area 3-14 Dr. Kowalski 06/27/19 S/P AAA repair ~2013 [facility]. (Dr. Graves). placed on Plavix and ASA at this time. 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 No acute distress. HEENT: Normocephalic, atraumatic. Pupils equal, round and reactive to light and accommodation. Extraocular muscles are intact. Anicteric sclera. Moist mucous membranes. Neck: No JVD. No bruit. Cardiovascular: Regular. Positive S-4. Normal S-1 and S-2. No S-3. 3/6 mid to late systolic ejection murmur, greatest at the right sternal border, second intercostal space with radiation to the bilateral carotids. No rubs. Pulmonary: Clear to auscultation bilaterally. No rales, rhonchi, or wheezing. Abdomen: Bowel sounds x 4, soft. No rebound, guarding or tenderness. No organomegaly. Extremities: No clubbing, cyanosis or edema. +2 pedal pulses bilaterally. Skin: Warm and dry. Results & Data ([facility]) Vital Signs (Past 12 Hours) Vital Signs Temp Pulse Pulse Resp BP BP Pulse Ox 09/04/20 09:14 72 16 96 09/04/20 08:36 73 09/04/20 08:05 36.5 C 79 17 147/98 H 94 09/04/20 04:43 79 09/04/20 02:52 36.6 C 78 18 160/112 H 91 09/04/20 02:36 72 18 178/98 H 98 09/04/20 02:00 72 16 178/90 H 97 09/04/20 00:00 78 16 172/136 H 98
--- NOTE | 2020-09-04 13:58 | Hospitalist Progress Note ---
Date of Service September 04, 2020 Assessment & Plan (1) Left-sided chest pain: Chest pain: Likely multifactorial-Uncontrolled HTN, Pleuritic from recent Pneumonia, NSAIDs use Troponin negative EKG no signs of acute ischemia Continue Augmentin to finish the course for pneumonia Continue amlodipine, carvedilol, lisinopril Add hydralazine as needed Appreciate Cardiology Input Avoid NSAIDs use Sleep Study as outpatient H/O CAD S/P Stent PVD/AAA status post surgery (2014) Continue aspirin, statin, carvedilol, Plavix Leg Edema ? 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 Chronic Replace electrolytes as needed Normal Mag levels Tobacco use disorder Nicotine patch DVT Px: Lovenox SQ Code Status Full code Admission and Anticipated Discharge Date Admission Date: September 04, 2020 Subjective Patient is seen and examined at bedside States having chest pain which increases with deep breathing Also reports minimal nonexpectorant cough Reports nausea but no vomiting Blood pressure elevated Denies dyspnea, dizziness, abdominal pain Offers no other complaints Review of Systems Review of Systems: All systems reviewed & are unremarkable except as noted in HPI & below Physical Exam Physical Exam: Physical Exam: Vitals signs as noted above General Appearance:Obese, no apparent distress Head: normocephalic, Atraumatic Eyes: normal inspection, EOMI Neck: supple, Trachea midline Respiratory/Chest: Normal breath sounds, CTA Cardiovascular: S1, S2, No murmur Abdomen/GI:Soft, Non tender, Bowel sounds present Extremities/Musculoskeletal:normal inspection, 1+ B/L LE edema Neurologic/Psych:AAOX3, grossly no focal neurological deficits Skin: normal color, warm Results & Data Results & Data ([facility]) Vital Signs (Past 12 Hours) Vital Signs Temp Pulse Pulse Resp BP BP Pulse Ox 09/04/20 11:51 36.6 C 73 20 150/100 H 96 09/04/20 11:27 85 16 98 09/04/20 09:14 72 16 96 09/04/20 08:36 73 09/04/20 08:05 36.5 C 79 17 147/98 H 94 09/04/20 04:43 79 09/04/20 02:52 36.6 C 78 18 160/112 H 91 09/04/20 02:36 72 18 178/98 H 98 09/04/20 02:00 72 16 178/90 H 97 Laboratory Results Short CBC 09/03/20 09/04/20 Range/Units Unknown 05:40 WBC 8.98 11.35 H (4.8-10.8) K/uL Hgb 12.4 13.0 (12.0-16.0) g/dL Hct 36.3 L 37.9 (37-47) % Plt Count 254 232 (130-400) K/uL BMP 09/03/20 09/04/20 Unknown 05:40 Sodium 138 137 Potassium 3.4 L 4.1 D Chloride 108 H 109 H Carbon Dioxide 25 22 BUN 10 9 Creatinine 0.60 0.50 L Glucose 121 H 177 H Calcium 8.9 8.5 Cardiac Enzymes 09/03/20 09/04/20 Range/Units Unknown 05:40 Total Creatine Kinase 39 (26-192) U/L Troponin I < 0.015 < 0.015 (0-0.045) ng/ml Liver Function 09/03/20 Range/Units Unknown Total Bilirubin 0.2 (0.2-1) mg/dl Direct Bilirubin < 0.1 (0-0.2) mg/dl AST 9 L (15-37) U/L ALT 25 (12-78) U/L Alkaline Phosphatase 80 (45-117) U/L Albumin 3.3 L (3.4-5.0) gm/dl
[2020-09-04] MEDS ORDERED: hydrALAZINE 10 MG TAB PO PRN (14:18)
[2020-09-04] MEDS ORDERED: Nursing to Pharmacy Communication SCH (14:45)
[2020-09-04] MEDS: FUROSEMIDE 20 MG TAB PO SCH (14:53)
[2020-09-04] MEDS ORDERED: FAMOTIDINE 40 MG TABLET PO SCH (21:00)
[2020-09-04] MEDS ORDERED: INSULIN GLARGINE SOLOSTAR 100 UNITS/ML 3 ML PEN SC STA (21:08)
[2020-09-05] MEDS: oxyCODONE HCL IR 5 MG TAB (IMMEDIATE RELEASE) PO PRN ×3 (03:23→14:22)
[2020-09-05] MEDS: LEVOTHYROXINE SODIUM 125 MCG TABLET PO SCH (05:48)
[2020-09-05] MEDS: Ipratropium HFA Inhaler (Combivent Respimat P&T Subs) INH SCH ×2 (07:17→11:15)
[2020-09-05] MEDS: Albuterol HFA 8 GM Inhaler (Combivent Respimat P&T Subs) INH SCH ×2 (07:17→11:16)
[2020-09-05 07:43] LABS: Basophils # (auto) 0.02 K/uL (0-0.2); Basophils % (auto) 0.2 %; Eosinophils # (auto) 0.06 K/uL (0-0.5); Eosinophils % (auto) 0.6 %; Hematocrit (blood only) 33.2 % (37-47); Hemoglobin 11.1 g/dL (12.0-16.0); Immature Granulocytes # (auto) 0.02 K/uL (0.00-0.02); Immature Granulocytes % (auto) 0.2 %; Lymphocytes # (auto) 2.69 K/uL (1.2-3.4); Lymphocytes % (auto) 28.6 %; Mean Corpuscular Hemoglobin 32.6 pg (25-34); Mean Corpuscular Hgb Conc 33.4 g/dL (32-36); Mean Corpuscular Volume 97.6 fL (80-100); Monocytes # (auto) 0.83 K/uL (0.11-0.59); Monocytes % (auto) 8.8 %; Neutrophils # (auto) 5.79 K/uL (1.4-6.5); Neutrophils % (auto) 61.6 %; Platelet Count 230 K/uL (130-400); RDW Coefficient of Variation 12.7 % (11.5-14.5); RDW Standard Deviation 45.1 fL (36.4-46.3); White Blood Count 9.41 K/uL (4.8-10.8)
[2020-09-05 08:12] LABS: BUN Creatinine Ratio 17.8 (10-20); Calcium 8.5 mg/dl (8.5-10.1); Est GFR (Non-African American) 107.9 ml/min; Magnesium 1.8 mg/dl (1.8-2.4); Potassium 3.9 mmol/L (3.5-5.1)
[2020-09-05] MEDS: NICOTINE 21 MG/24 HR TDSY TD SCH (08:16)
[2020-09-05] MEDS: chlorproMAZINE HCL 25 MG TAB PO SCH (08:17)
[2020-09-05] MEDS: FLUTICASONE/VILANTEROL 200/25MCG 14 PUFFS/INHALER INH SCH (08:17)
[2020-09-05] MEDS: PANTOprazole 40 MG TAB PO SCH (08:17)
[2020-09-05] MEDS: lisinopril 40 MG TAB PO SCH (08:17)
[2020-09-05] MEDS: FUROSEMIDE 20 MG TAB PO SCH (08:18)
[2020-09-05] MEDS: ASPIRIN 81 MG ECTAB PO SCH (08:18)
[2020-09-05] MEDS: AMOXICILLIN/CLAVULANATE 875 MG TAB PO SCH (08:18)
[2020-09-05] MEDS: SUCRALFATE 1 GM TAB PO SCH ×2 (08:18→12:30)
[2020-09-05] MEDS: GABAPENTIN 800 MG TAB PO SCH ×2 (08:18→14:22)
[2020-09-05] MEDS: ATORVASTATIN 40 MG TAB PO SCH (08:18)
[2020-09-05] MEDS: FERROUS SULFATE 325 MG TAB PO SCH (08:18)
[2020-09-05] MEDS: INSULIN ASPART 100 UNITS/ML 3 ML PEN SC SCH ×2 (08:19→12:30)
[2020-09-05] MEDS: carvediloL 12.5 MG TAB PO SCH (08:19)
--- NOTE | 2020-09-05 08:24 | Electrocardiogram Report ---
Test Reason : Blood Pressure : / mmHG Vent. Rate : 077 BPM Atrial Rate : 077 BPM P-R Int : 198 ms QRS Dur : 084 ms QT Int : 408 ms P-R-T Axes : 046 045 039 degrees QTc Int : 461 ms Normal sinus rhythm Normal ECG When compared with ECG of 04-SEP-2020 05:36, No significant change was found Confirmed by Munir Mann ([id number]) on 09/05/2020 8:24:03 AM Referred By: REFERRED SELF Confirmed By:Munir Mann
[2020-09-05] MEDS ORDERED: INSULIN GLARGINE SOLOSTAR 100 UNITS/ML 3 ML PEN SC SCH (09:00)
[2020-09-05] MEDS ORDERED: amLODIPine BESYLATE 5 MG TAB PO SCH (09:00)
[2020-09-05] MEDS: ENOXAPARIN INJ 40 MG/0.4 ML SYR SQ SCH (09:10)
[2020-09-05] MEDS: CLOPIDOGREL BISULFATE 75 MG TAB PO SCH (09:11)
[2020-09-05] MEDS: DULoxetine HCL 60 MG CAP PO SCH (09:11)
--- NOTE | 2020-09-05 13:54 | Hospitalist Progress Note ---
Date of Service September 05, 2020 Assessment & Plan (1) Left-sided chest pain: Chest pain: Likely multifactorial-Uncontrolled HTN, Pleuritic from recent Pneumonia, NSAIDs use Troponin negative EKG no signs of acute ischemia Continue Augmentin to finish the course for pneumonia Continue amlodipine, carvedilol, lisinopril Appreciate Cardiology Input Avoid NSAIDs use BP improved Sleep Study as outpatient H/O CAD S/P Stent PVD/AAA status post surgery (2014) Continue aspirin, statin, carvedilol, Plavix Leg Edema ? 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 Chronic Replace electrolytes as needed Normal Mag levels Tobacco use disorder Nicotine patch DVT Px: Lovenox SQ Code Status Full code Admission and Anticipated Discharge Date Admission Date: September 04, 2020 Subjective Patient is seen and examined at bedside Some minimal pleuritic chest discomfort Leg swelling much improved Discussed with cardiology today Cough improved as well Denies dyspnea, dizziness, abdominal pain BP well controlled today Review of Systems Review of Systems: All systems reviewed & are unremarkable except as noted in HPI & below Physical Exam Physical Exam: Physical Exam: Vitals signs as noted above General Appearance:Obese, no apparent distress Head: normocephalic, Atraumatic Eyes: normal inspection, EOMI Neck: supple, Trachea midline Respiratory/Chest: Normal breath sounds, CTA Cardiovascular: S1, S2, No murmur Abdomen/GI:Soft, Non tender, Bowel sounds present Extremities/Musculoskeletal:normal inspection, 1+ B/L LE edema improving Neurologic/Psych:AAOX3, grossly no focal neurological deficits Skin: normal color, warm Results & Data Results & Data ([facility]) Vital Signs (Past 12 Hours) Vital Signs Temp Pulse Resp BP Pulse Ox 09/05/20 11:18 89 16 92 09/05/20 11:11 36.9 C 81 18 140/91 95 09/05/20 07:49 36.6 C 79 20 124/78 94 09/05/20 07:18 79 16 95 09/05/20 04:00 36.9 C 76 20 134/87 94 Laboratory Results Short CBC 09/05/20 Range/Units 07:15 WBC 9.41 (4.8-10.8) K/uL Hgb 11.1 L (12.0-16.0) g/dL Hct 33.2 L (37-47) % Plt Count 230 (130-400) K/uL BMP 09/05/20 07:15 Sodium 136 Potassium 3.9 Chloride 108 H Carbon Dioxide 22 BUN 12 Creatinine 0.68 Glucose 168 H Calcium 8.5
--- NOTE | 2020-09-05 14:16 | Discharge Summary ---
Date of Service September 05, 2020 Admission HPI Per Admitting Provider History obtained from patient and records. Medical history significant for CAD status post stent (10/2018), PAD status post surgery, AAA status post surgery (2014), CVA as per records, hypertension, COPD, ongoing tobacco abuse, mood disorder, DM 2 diet-controlled, hypothyroidism as per records, cervical cancer status post cryotherapy, drug-seeking behavior as per records. Last confinement July 2020 chest pain. Normal nuclear stress test. Patient woke up from sleep last night with achy left-sided chest pain going to her right arm. Some relief with nitroglycerin at home. Last episode was about a week ago coinciding with cough symptoms. Patient was seen at [facility], [place] ER where patient was found to have pneumonia. Patient prescribed Augmentin. Cough symptoms currently improving as per patient. Transient headache symptoms also noted by patient. Patient claims to be compliant with home medications. Denies unusual stress. Snoring with nonrestful sleep as per patient. She still has to go for a sleep study. Unable to take BP at home because she does not have a monitor. OTC NSAID intake as per patient (4 tablets 3 times a day) for chronic pain because PCP stopped her narcotics because she refused to submit a urine specimen for a random drug screen. Medical History as above Surgical History : AAA surgery, carpal tunnel surgery, RLE embolectomy with patch placement, section, elbow surgery, hernia repair, knee surgery, cholecystectomy, BTL, tonsillectomy, dental surgery Family History : Alcoholism, diabetes, heart disease, stroke, seizure Personal/Social history : 1 pack daily, occasional EtOH intake, disabled Admission Exam Per Admitting Provider Physical Exam Physical Exam: GENERAL: Comfortable, obese, looks older than stated age, no respiratory distress SKIN: Normal color, warm HEENT: [place] palpebral conjunctivae, no ptosis, dry buccal mucosa NECK : Supple, short neck, no tenderness CHEST : CTA, no tenderness HEART : RRR, no obvious murmurs ABDOMEN: Some distention, nontender EXTREMITIES : No LE swelling/tenderness, no other conspicuous deformities noted NEUROLOGIC : Coherent, no facial asymmetry, no other gross focality Principal Diagnosis Atypical Chest Pain Hypertension Leg Edema Discharge Data Allergies Allergy/AdvReac Type Severity Reaction Status Date / Time bee pollen Allergy Severe Anaphylaxis Verified 09/03/20 21:34 Iodinated Contrast Media Allergy Severe Anaphylaxis Verified 09/04/20 03:10 loratadine AdvReac Severe anxiety, Verified 09/03/20 21:34 paranoia increases cetirizine AdvReac Intermediate anxiety, Verified 09/03/20 21:34 paranoia increases fexofenadine AdvReac Intermediate anxiety Verified 09/03/20 21:34 and paranoia increases ketorolac AdvReac Mild PT STATES Verified 09/03/20 21:34 SHE IS ON THORAZINE AND CANNOT TAKE TORADOL tramadol AdvReac Mild hallucinati Verified 09/03/20 21:34 ons Consultations 09/03/20 23:47 ED Decision to Admit Stat 09/04/20 02:50 Consult Cardiology Routine 09/04/20 03:07 Consult Behavioral Health Liaison Routine Procedures Performed CT Head: 1. No acute intracranial hemorrhage, no space occupying lesions. 2. 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 CXR: No acute pulmonary process. Ordered Studies 09/04/20 00:30 CT head/brain wo con Urgent Hospital Course (1) Left-sided chest pain: Chest pain: Likely multifactorial-Uncontrolled HTN, Pleuritic from recent Pneumonia, NSAIDs use Troponin negative EKG no signs of acute ischemia Continue Augmentin to finish the course for pneumonia Continue amlodipine, carvedilol, lisinopril Appreciate Cardiology Input Avoid NSAIDs use BP improved Sleep Study as outpatient H/O CAD S/P Stent PVD/AAA status post surgery (2014) Continue aspirin, statin, carvedilol, Plavix Leg Edema ? 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 Chronic Replace electrolytes as needed Normal Mag levels Tobacco use disorder Nicotine patch DVT Px: Lovenox SQ Code Status Full code Total Time Total Time Spent Total Time Spent (In Minutes): 34 minutes Total Time Includes: Examination of the Patient, Discharge Planning, Medication Reconciliation, Communication With Other Providers and Other Discharge Plan Discharge Items Patient Disposition: Home - Self-Care Reason For Visit: CHEST PAINS Discharge Diagnosis: Atypical Chest Pain Hypertension Leg Edema Activity: Per Instructions section Exercise/Sports: Gradually increase as tolerated Non-emergency contact: Primary Care Provider and 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 Call non-emergency contact if: you have any medication questions, your symptoms worsen, your pain is not controlled, your pain is concerning for you and you have a fever Follow-up/Referrals: Jesika Rocha PA-C [Primary Care Provider] - (Date & Time 09/09/2020 12:20 PM Provider Reginald Adorno PA-C [facility] ) Diet: Carb Consistent or DM2 and Heart Healthy Addtl Attending Provider Instructions: Follow-up with your primary care physician Jesika Rocha PA-C on 09/09/2020 12:20 PM Consider follow-up with your roving inspector as needed if your chest pain is persistent and possible need for ECHO to evaluate for leg edema. Get sleep study as outpatient to rule out obstructive sleep apnea which could be contributing to uncontrolled high blood pressure. Complete antibiotic course- Augmentin as previously prescribed. Do not take group of medications belonging to NSAIDs group -can cause worsening of your kidney function/Hypertension. List Of these medications includes but not limited to: Diclofenac Ibuprofen, Motrin, Advil Toradol,ketorolac Naproxen, Aleve, Naprosyn When buying [id number] pain medications please consult with pharmacy if you are not sure regarding ingredients, as a lot of the pain medications have combination of NSAIDs and Tylenol. Seek immediate medical attention if your symptoms reoccur or worsen Please take all medications as instructed on discharge list below. Please call if you have any questions or problems. You can reach a [facility] hospitalist on duty at [facility] 24 hours a day by calling [phone] Pending Studies at Discharge: No Stand-Alone Forms: [facility], Smoking Cessation Medications and DC Order Prescriptions: New oxycodone 5 mg Tablet 5 mg PO QID PRN (Reason: pain) Qty: 5 RF: 0 furosemide [Lasix] 20 mg tablet 10 mg PO DAILY PRN (Reason: edema) Qty: 14 RF: 0 Continued atorvastatin 80 mg tablet 80 mg PO DAILY RF: 0 carvedilol 12.5 mg tablet 12.5 mg PO BID RF: 0 albuterol sulfate 2.5 mg /3 mL (0.083 %) Solution For Nebulization 2.5 mg INHALATION Q4H PRN (Reason: Wheezing) RF: 0 sucralfate 1 gram tablet 1 g PO ACHS RF: 0 famotidine 40 mg Tablet 40 mg PO HS RF: 0 clopidogrel [Plavix] 75 mg tablet 75 mg PO DAILY RF: 0 omeprazole 40 mg capsule,delayed release(DR/EC) 40 mg PO DAILY RF: 0 aspirin 81 mg Tablet,Delayed Release (Dr/Ec) 81 mg PO BID RF: 0 gabapentin [Neurontin] 800 mg tablet 800 mg PO TID RF: 0 dicyclomine 20 mg Tablet 20 mg PO QID PRN (Reason: .gas/ abd pain) RF: 0 baclofen 10 mg tablet 10 - 20 mg PO Q8 PRN (Reason: Spasms) RF: 0 amlodipine 10 mg Tablet 10 mg PO DAILY RF: 0 ferrous sulfate [FeroSul] 325 mg (65 mg iron) tablet 325 mg PO DAILY RF: 0 chlorpromazine 25 mg tablet 75 mg PO QAM RF: 0 chlorpromazine 25 mg tablet 100 mg PO HS RF: 0 levothyroxine 125 mcg tablet 125 mcg PO DAILY RF: 0 hydroxyzine HCl 10 mg tablet 10 mg PO Q6 PRN (Reason: Anxiety) RF: 0 lisinopril 40 mg tablet 40 mg PO DAILY RF: 0 metformin 500 mg tablet extended release 24 hr 1,000 mg PO BID RF: 0 amoxicillin-pot clavulanate 875-125 mg tablet 1 tab PO BID RF: 0 duloxetine 60 mg capsule,delayed release(DR/EC) 60 mg PO DAILY RF: 0 quetiapine [Seroquel] 50 mg tablet 50 mg PO HS PRN (Reason: Insomnia) RF: 0 Victoza 3-Anthony 0.6 mg/0.1 mL (18 mg/3 mL) pen injector 1.8 mg SUBCUT DAILY RF: 0 Dulera 100-5 mcg/actuation HFA aerosol inhaler 2 puff INHALATION BID RF: 0 potassium chloride [K-Tab] 20 mEq tablet extended release 20 meq PO DAILY RF: 0 Combivent Respimat 20-100 mcg/actuation mist 1 puff INHALATION QID RF: 0 Discharge Orders: Discharge Order (Routine); Ordered 09/05/20 Ordered By: Chirag Sneed Admission Data Admit Date/Time: 09/04/20 02:05 Attending Provider: Chirag Sneed Admit Provider: Mesfin Interiano Primary Care Provider: Jesika Rocha Other Providers: Douglas Plascencia ; Elliott Hanks ; Wu Patino ; Chaitanya Conley ; Spencer Squires ; Robert Cardoso ; Jaylen Obando ; Miranda Wallace ; Tiffany Palma ; Belia Chen ; Kermit Lagos Other Interventions: Discharge Summary Assessment (RN) Last Done: 09/05/20 14:27
[2020-09-06 02:31] LABS: Codeine Urine NEGATIVE ng/mL (<50); Hydrocodone Urine NEGATIVE ng/mL (<50); Hydromor Urine NEGATIVE ng/mL (<50); Marijuana Quant, GCMS Urine >5000 ng/mL (<5); Morphine Urine NEGATIVE ng/mL (<50); Norhydrocodone Conf Ur NEGATIVE ng/mL (<50); Noroxycodone Urine 1510 ng/mL (<50); Oxycodone Urine 824 ng/mL (<50); Oxymorph Urine NEGATIVE ng/mL (<50)
== END 2020-09-05 14:40 | disposition home or self-care (01) ==
LOC: 2S 19:54 → ED 19:54 → 2S 09-04 02:36 → 2W 09-04 11:41

== ENCOUNTER 2022-07-10 20:21 | Inpatient (IN) ==
[2022-07-10] MEDS ORDERED: NITROGLYCERIN 2% OINTMENT 30GM TUBE EXT STA (21:17)
[2022-07-10] MEDS ORDERED: ONDANSETRON INJ 2 MG/ML 2 ML VIAL IV STA (21:17)
[2022-07-10] MEDS ORDERED: MoRPHine SULFATE 4 MG/ML 1 ML CARP\\VIAL IV STA (21:17)
[2022-07-10] MEDS ORDERED: SODIUM CHLORIDE 0.9% 1000ML 1,000 ML IV ONE (21:17)
[2022-07-10 21:27] LABS: Basophils # (auto) 0.08 K/uL (0-0.2); Basophils % (auto) 0.7 %; Eosinophils # (auto) 0.23 K/uL (0-0.50); Eosinophils % (auto) 2.1 %; Hematocrit (blood only) 38.2 % (37.0-47.0); Hemoglobin 13.1 g/dl (12.0-16.0); Immature Granulocytes # (auto) 0.08 K/uL (0.01-0.20); Immature Granulocytes % (auto) 0.7 %; Lymphocytes # (auto) 2.43 K/uL (1.2-3.4); Lymphocytes % (auto) 22.5 %; Mean Corpuscular Hgb Conc 34.3 g/dL (32.0-36.0); Mean Corpuscular Volume 93.4 fL (80.0-100.0); Mean Platelet Volume 10.1 fL (9.4-12.4); Monocytes # (auto) 0.67 K/uL (0.11-0.59); Monocytes % (auto) 6.2 %; Neutrophils # (auto) 7.32 K/uL (1.40-6.50); Neutrophils % (auto) 67.8 %; Platelet Count 229 K/uL (130-400); RDW Coefficient of Variation 13.2 % (11.5-14.5); RDW Standard Deviation 45.8 fL (36.4-46.3); Red Blood Count 4.09 M/uL (4.20-5.40); White Blood Count 10.81 K/ul (4.8-10.8)
--- NOTE | 2022-07-10 21:33 | Emergency Department Note ---
Impression & Plan Precordial chest pain, History of coronary artery disease, Hypomagnesemia, Hypokalemia ED Provider Note NAME: MARY TOSCANO AGE: 46 SEX: F : 1975 ARRIVES VIA: Walk-In INFORMANT: [Patient] ED PROVIDER(S): [Jc Noyola MD] CHIEF COMPLAINT: Chest pain HISTORY OF PRESENT ILLNESS: The patient is a 46-year-old female who has had 1 hour of left chest pain moving to her back. The pain is a 9/10. The patient did take 3 nitroglycerin with minimal relief. The patient has a history of 4 MIs and 3 CVAs. She also has had a DVT, no history of PE. She takes Plavix regularly. Patient has not had any recent exertional symptoms/chest pain. She admits to vomiting and diarrhea that seemed to resolve about 3 days ago. She felt that she was getting better. The patient does feel mildly short of breath with the pain, there is no pleuritic nature to the pain. She has not suffered fall or trauma. No cough, congestion or fever. The patient did take some ibuprofen as well for the discomfort, this has not helped. The pain is rated as a 9/10. PMHx/PSHx: See Below SOCIAL HISTORY: See Below. PHYSICAL EXAM: GENERAL: Patient is in no acute distress. HEENT: No acute trauma, normocephalic atraumatic, mucous membranes moist, no nasal congestion. NECK: No stridor, no adenopathy, no meningismus, trachea is midline. LUNGS: Clear to auscultation bilaterally, no wheeze, no rhonchi, breath sounds equal. HEART: Mildly tachycardic, regular rhythm, no murmurs. Chest: Nontender chest wall. ABDOMEN: Soft, nontender, bowel sounds positive, no peritonitis. EXTREMITIES: No cyanosis or edema, full range of motion of all the joints without pain or difficulty, no signs for acute trauma. NEUROLOGIC: Oriented x 3, no acute motor or sensory deficits, no focal weakness. SKIN: No rash, no jaundice, no diaphoresis. DIFFERENTIAL DIAGNOSIS: Angina, [place], musculoskeletal pain, pneumonia, pneumothorax, aortic dissection, PE, dehydration, dysrhythmia, among others. EMERGENCY DEPARTMENT COURSE/PROCEDURES: Prior/Outside records reviewed: None. ECG per my interpretation: Indication was chest pain. The ECG shows a sinus tachycardia with a rate of 121. There is some baseline artifact. There is no ST elevation, no PVCs. The QTc is 451 Continuous Cardiac Monitoring per my interpretation: An order was placed for continuous cardiac monitoring. The monitor shows a rate of 105 with sinus tachycardia. MEDICAL DECISION MAKING: There is a very mild leukocytosis, this could be consistent with infection or the stress of her current situation. She has a normal hemoglobin and platelet count. No coagulopathy. Potassium and magnesium were both slightly low. Glucose was mildly elevated. No renal failure. No pancreatitis. No concerning liver enzyme elevation. ECG shows a sinus tachycardia, no obvious ischemia. Cardiac enzyme testing x1 is not consistent with acute cardiac injury. COVID test returned negative. Chest film per my review does not show mediastinal widening, pneumonia or pneumothorax. On exam, the patient's chest pain was not reproducible. Patient was given IV saline, oral potassium, nitroglycerin paste. She was given IV morphine and IV Zofran, she was given IV magnesium. Patient was given a dose of IV metoprolol for persistently elevated blood pressure. Patient's heart rate has improved with the above treatment, she feels better w ith the above treatment. Patient presents with chest pain. She has a coronary history. She has an LAD stent. She has had 4 previous MIs. Given her presentation, given her history, I do think a hospital stay is warranted. Further cardiac work-up is indicated. I spoke with the patient and case management, the on-call hospitalist was consulted. DISPOSITION: Patient's presentation and findings warrant a hospital stay. Past Med/Surg History Medical History Anemia Baseline 9.9-11, ongoing since ~2004. Ankle fracture, left Atypical chest pain Per cardiology 05/01/19, "- persistent chest pain symptoms are atypical. Recent lexiscan nuclear stress test from 04/24/2019 was negative for ischemia; suspect some of her symptoms have been due to uncontrolled HTN urgencies. BP better controlled now since adjustment of meds during recent inpatient stay. Continue Dual antiplatelet therapy (DAPT) with ASA and plavix for at least 1 year but likely would continue indefinitely given severe PAD in addition to the CAD." Bipolar disorder Blood clotting disorder Patient unsure what type; reports was discovered with DVT ~2013 CAD (coronary artery disease) 10/2018-HARLEEN to LAD in [place] Cervical cancer cryotherapy (~1994) Chronic pain COPD (chronic obstructive pulmonary disease) inhalers daily. Continues to smoke. Degenerative disc disease Depression with anxiety DM type 2 (diabetes mellitus, type 2) diet controlled Facial paresthesia Fibromyalgia GERD (gastroesophageal reflux disease) History of DVT (deep vein thrombosis) ~2013. Hyperlipidemia Hypertension Hypokalemia Hypomagnesemia Hypothyroidism Migraine Myocardial Infarction October 2018. Follows with Dr. Magdy Mckeon. Neuropathy hands and feet Osteoarthritis Peripheral vascular disease S/P prior femoropopliteal thromboembolectomy on right side and surgical repair of distal aortoiliac occlusive disease in 2014. Post traumatic stress disorder Raynauds disease Schizophrenia Transient ischemic attack (TIA) x2 September 2018. Surgical History H/O cardiac catheterization H/O elbow surgery right H/O tubal ligation H/O vascular surgery thrombectomy Right leg 2013 History of arthroscopic knee surgery left History of cardiac cath October 2018 at [facility] s/p HARLEEN to LAD November 2019 at with [facility], no intervention History of carpal tunnel surgery of right wrist History of dilatation and curettage x2 History of heart artery stent Drug Eluting stent placed in LAD -- October 2018. History of incisional hernia repair x2 with full abdominal screen/mesh. Hx of cholecystectomy Hx of oral surgery (04/02/19) Oral Abscess Incision and Drainage (hard palate and extraction of tooth # 7,8,9,10,11,20 and 21) Dr. Kowalski 04-02-19. GETA. MAC 3, Grade 2 view. 7.0 ETT without difficulty. Hx of oral surgery (06/27/19) Closure Of oral/nasal Fistula, Left Palate To Muccoboccal Fold and Debridement Of Necrotic Bone Maxilla from area 3-14 Dr. Kowalski 06/27/19 S/P AAA repair ~2013 [facility]. (Dr. Graves). placed on Plavix and ASA at this time. 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 Beliefs That Will Affect Care: None marital status: Single Current Living Situation: Spouse and Family Current Living Situation Comment: Lives with spouse and daughter current occupational status: disabled Feels Safe at Home: Yes Assistive Devices: None Allergies Allergies Allergy/AdvReac Type Severity Reaction Status Date / Time bee pollen Allergy Severe Anaphylaxis Verified 07/10/22 22:26 Iodinated Contrast Media Allergy Severe Anaphylaxis Verified 07/10/22 22:26 loratadine AdvReac Severe anxiety, Verified 07/10/22 22:26 paranoia increases cetirizine AdvReac Intermediate anxiety, Verified 07/10/22 22:26 paranoia increases fexofenadine AdvReac Intermediate anxiety Verified 07/10/22 22:26 and paranoia increases ketorolac AdvReac Mild PT STATES Verified 07/10/22 22:26 SHE IS ON THORAZINE AND CANNOT TAKE TORADOL tramadol AdvReac Mild hallucinati Verified 07/10/22 22:26 ons Home Meds Home Medications Medication Instructions Recorded Confirmed albuterol sulfate 2.5 mg/3 mL 2.5 mg inhalation Q6H PRN 07/10/22 07/10/22 (0.083 %) solution for nebulization Shortness Of Breath Or Wheezing aspirin 81 mg tablet,delayed 81 mg PO DAILY 07/10/22 07/10/22 release atorvastatin 80 mg tablet 80 mg PO DAILY 07/10/22 07/10/22 baclofen 10 mg tablet 10 - 20 mg PO Q8 PRN Pain 07/10/22 07/10/22 carvedilol 25 mg tablet 25 mg PO BID 07/10/22 07/10/22 chlorpromazine 100 mg tablet 100 mg PO BID 07/10/22 07/10/22 chlorpromazine 50 mg tablet 50 mg PO BID 07/10/22 07/10/22 chlorthalidone 25 mg tablet 25 mg PO DAILY 07/10/22 07/10/22 colchicine 0.6 mg tablet 0.6 mg PO DIRECTED 07/10/22 07/10/22 duloxetine 60 mg capsule,delayed 120 mg PO DAILY 07/10/22 07/10/22 release ezetimibe 10 mg tablet (Zetia) 10 mg PO DAILY 07/10/22 07/10/22 famotidine 20 mg tablet 20 mg PO HS 07/10/22 07/10/22 ferrous sulfate 325 mg (65 mg 325 mg PO DAILY 07/10/22 07/10/22 iron) tablet (iron) gabapentin 800 mg tablet 800 mg PO TID 07/10/22 07/10/22 insulin aspart U-100 100 unit/mL 8 unit subcut TIDWMEAL 07/10/22 07/10/22 (3 mL) subcutaneous pen (Novolog FlexPen U-100 Insulin aspart) insulin glargine 100 unit/mL (3 20 unit subcut HS 07/10/22 07/10/22 mL) subcutaneous pen (Lantus Solostar U-100 Insulin) ipratropium 20 mcg-albuterol 100 1 puff inhalation QID 07/10/22 07/10/22 mcg/actuation mist for inhalation (Combivent Respimat) levothyroxine 175 mcg tablet 175 mcg PO DAILY 07/10/22 07/10/22 liraglutide 0.6 mg/0.1 mL (18 mg/3 1.8 mg subcut DAILY 07/10/22 07/10/22 mL) subcutaneous pen injector (Victoza 3-Anthony) lisinopril 20 mg tablet 20 mg PO DAILY 07/10/22 07/10/22 metformin 500 mg tablet,extended 1,000 mg PO BID 07/10/22 07/10/22 release 24 hr mometasone-formoterol HFA 100 2 puff inhalation BID 07/10/22 07/10/22 mcg-5 mcg/actuation aerosol inhaler (Dulera) nitroglycerin 0.4 mg sublingual 0.4 mg sublingual DIRECTED 07/10/22 07/10/22 tablet (Nitrostat) omeprazole 40 mg capsule,delayed 40 mg PO DAILY 07/10/22 07/10/22 release potassium chloride 20 mEq 20 meq PO DAILY 07/10/22 07/10/22 tablet,extended release quetiapine 300 mg tablet,extended 600 mg PO QPM 07/10/22 07/10/22 release 24 hr rivaroxaban 20 mg tablet (Xarelto) 20 mg PO DAILY 07/10/22 07/10/22 sucralfate 1 gram tablet 1 g PO ACHS 07/10/22 07/10/22 Results & Data (ED) Vital Signs Vital Signs - 24 hr 07/10/22 20:23 07/10/22 20:38 07/10/22 21:06 Temperature 36.6 C Temperature Source Temporal Artery Scan Pulse Rate 141 H 112 H Pulse Rate [Apical] Pulse Rhythm Regular Pulse Strength Normal Respiratory Rate 20 Respiratory Effort / Characteristics Non-Labored Spontaneous Respiratory Depth Normal Respiratory Pattern Regular Blood Pressure [Right Arm] Blood Pressure Mean [Right Arm] Blood Pressure Position Sitting Pulse Oximetry 98 98 Oxygen Delivery Method Room Air Room Air Sepsis Recent Fever Within 48 Hours No Sepsis New/Unexplained Change in Mental Status N/A Sepsis Action Taken by Nursing No Action Required 07/10/22 22:47 Temperature Temperature Source Pulse Rate Pulse Rate [Apical] 94 H Pulse Rhythm Pulse Strength Respiratory Rate 16 Respiratory Effort / Characteristics Respiratory Depth Respiratory Pattern Blood Pressure [Right Arm] 152/101 H Blood Pressure Mean [Right Arm] 118 Blood Pressure Position Pulse Oximetry 96 Oxygen Delivery Method Room Air Sepsis Recent Fever Within 48 Hours Sepsis New/Unexplained Change in Mental Status Sepsis Action Taken by [facility] Medications Current Medication List: was personally reviewed by me Laboratory Data Attestation: I reviewed the patient's lab results. 07/10/22 21:00 07/10/22 21:00 Lab Results 07/10/22 07/10/22 07/10/22 Range/Units 21:00 21:06 21:26 WBC 10.81 H (4.8-10.8) K/ul RBC 4.09 L (4.20-5.40) M/uL Hgb 13.1 (12.0-16.0) g/dl Hct 38.2 (37.0-47.0) % MCV 93.4 (80.0-100.0) fL MCH 32.0 (25.0-34.0) pg MCHC 34.3 (32.0-36.0) g/dL RDW Std Deviation 45.8 (36.4-46.3) fL RDW Coeff of Vivek 13.2 (11.5-14.5) % Plt Count 229 (130-400) K/uL MPV 10.1 (9.4-12.4) fL Immature Gran % (Auto) 0.7 % Neut % (Auto) 67.8 % Lymph % (Auto) 22.5 % [place] % (Auto) 6.2 % Eos % (Auto) 2.1 % Baso % (Auto) 0.7 % Neut # (Auto) 7.32 H (1.40-6.50) K/uL Lymph # (Auto) 2.43 (1.2-3.4) K/uL [place] # (Auto) 0.67 H (0.11-0.59) K/uL Eos # (Auto) 0.23 (0-0.50) K/uL Baso # (Auto) 0.08 (0-0.2) K/uL Immature Gran # (Auto) 0.08 (0.01-0.20) K/uL PT 10.4 (9.0-12.0) Seconds INR 1.0 (0.9-1.1) APTT 21.9 (21.0-31.0) Seconds PTT Ratio 0.8 Sodium (136-145) mmol/L Potassium (3.5-5.1) mmol/L Chloride (98-107) mmol/L Carbon Dioxide (21-32) mmol/L Anion Gap (3-11) BUN (6-23) mg/dl Creatinine (0.6-1.2) mg/dl Est Cr Clr Drug Dosing ml/min Est GFR ( Amer) ml/min Est GFR (Non-Af Amer) ml/min BUN/Creatinine Ratio (10-20) Glucose (70-99(Fasting)) mg/dl Calcium (8.6-10.3) mg/dl Magnesium (1.7-2.4) mg/dl Total Bilirubin (0.2-1.0) mg/dl AST (13-39) U/L ALT (7-52) U/L Alkaline Phosphatase (34-104) U/L Troponin I High Sens (0-14) pg/ml Total Protein (6.0-8.3) gm/dl Albumin (3.4-5.0) gm/dl Globulin (2.5-4.0) gm/dl Albumin/Globulin Ratio (0.9-2) Lipase (11-82) U/L SARS-CoV-2, RNA, NAAT NEGATIVE (NEGATIVE) 07/10/22 Range/Units 22:55 WBC (4.8-10.8) K/ul RBC (4.20-5.40) M/uL Hgb (12.0-16.0) g/dl Hct (37.0-47.0) % MCV (80.0-100.0) fL MCH (25.0-34.0) pg MCHC (32.0-36.0) g/dL RDW Std Deviation (36.4-46.3) fL RDW Coeff of Vivek (11.5-14.5) % Plt Count (130-400) K/uL MPV (9.4-12.4) fL Immature Gran % (Auto) % Neut % (Auto) % Lymph % (Auto) % [place] % (Auto) % Eos % (Auto) % Baso % (Auto) % Neut # (Auto) (1.40-6.50) K/uL Lymph # (Auto) (1.2-3.4) K/uL [place] # (Auto) (0.11-0.59) K/uL Eos # (Auto) (0-0.50) K/uL Baso # (Auto) (0-0.2) K/uL Immature Gran # (Auto) (0.01-0.20) K/uL PT (9.0-12.0) Seconds INR (0.9-1.1) APTT (21.0-31.0) Seconds PTT Ratio Sodium 136 (136-145) mmol/L Potassium 3.3 L (3.5-5.1) mmol/L Chloride 106 (98-107) mmol/L Carbon Dioxide 23 (21-32) mmol/L Anion Gap 7 (3-11) BUN 10 (6-23) mg/dl Creatinine 0.64 (0.6-1.2) mg/dl Est Cr Clr Drug Dosing 113.5 ml/min Est GFR ( Amer) 125.8 ml/min Est GFR (Non-Af Amer) 108.5 ml/min BUN/Creatinine Ratio 15.6 (10-20) Glucose 214 H (70-99(Fasting)) mg/dl Calcium 8.1 L (8.6-10.3) mg/dl Magnesium 1.5 L (1.7-2.4) mg/dl Total Bilirubin 0.3 (0.2-1.0) mg/dl AST 17 (13-39) U/L ALT 24 (7-52) U/L Alkaline Phosphatase 65 (34-104) U/L Troponin I High Sens 7.0 (0-14) pg/ml Total Protein 5.9 L (6.0-8.3) gm/dl Albumin 3.5 (3.4-5.0) gm/dl Globulin 2.4 L (2.5-4.0) gm/dl Albumin/Globulin Ratio 1.5 (0.9-2) Lipase 37 (11-82) U/L SARS-CoV-2, RNA, NAAT (NEGATIVE) Administered Medications Discontinued Medications Sodium Chloride (Nss 1000ml) 1,000 mls @ 999 mls/hr IV .Q1H1M ONE Stop: 07/10/22 22:17 Last Infusion: 07/10/22 22:59 Dose: 0 mls/hr Documented By: Admin: 07/10/22 22:03 Dose: 999 mls/hr Documented By: LEIGH Morphine Sulfate (Morphine Sulfate 4 Mg/Ml 1 Ml Carp\\Vial) 4 mg IV NOW STA Stop: 07/10/22 21:18 Last Admin: 07/10/22 22:03 Dose: 4 mg Documented By: LEIGH Nitroglycerin (Nitroglycerin 2% Ointment 30gm Tube) 1 inch EXT NOW STA Stop: 07/10/22 21:18 Last Admin: 07/10/22 21:24 Dose: 1 inch Documented By: LEIGH Ondansetron HCl (Ondansetron Inj 2 Mg/Ml 2 Ml Vial) 4 mg IV NOW STA Stop: 07/10/22 21:18 Last Admin: 07/10/22 22:02 Dose: 4 mg Documented By: LEIGH Imaging Data Attestation: I personally reviewed and interpreted this imaging study as follows: My Impression: Chest x-ray: Per my review there is no mediastinal widening, pneumonia or pneumothorax. Discharge Plan Visit Data Chief Complaint: Chest Pain Stated Complaint: CHEST PAIN, SOB ED Provider: Jc Noyola Discharge Problem: Precordial chest pain, History of coronary artery disease, Hypomagnesemia, Hypokalemia Patient Disposition: Admitted As Inpatient Condition: Fair Forms Stand Alone Forms: My [facility] Prescriptions Prescriptions: No Action levothyroxine 175 mcg Tablet 175 mcg PO DAILY atorvastatin 80 mg Tablet 80 mg PO DAILY carvedilol 25 mg tablet 25 mg PO BID Rx Instructions: per dr 1st albuterol sulfate 2.5 mg /3 mL (0.083 %) Solution For Nebulization 2.5 mg INHALATION Q6H PRN (Reason: Shortness Of Breath Or Wheezing) chlorpromazine 100 mg tablet 100 mg PO BID sucralfate 1 gram Tablet 1 g PO ACHS lisinopril 20 mg Tablet 20 mg PO DAILY chlorthalidone 25 mg Tablet 25 mg PO DAILY omeprazole 40 mg capsule,delayed release(DR/EC) 40 mg PO DAILY aspirin [Aspir-Low] 81 mg Tablet,Delayed Release (Dr/Ec) 81 mg PO DAILY famotidine 20 mg Tablet 20 mg PO HS gabapentin 800 mg tablet 800 mg PO TID baclofen 10 mg Tablet 10 - 20 mg PO Q8 PRN (Reason: Pain) ferrous sulfate [iron] 325 mg (65 mg iron) Tablet 325 mg PO DAILY nitroglycerin [Nitrostat] 0.4 mg Tablet, Sublingual 0.4 mg sublingual DIRECTED Rx Instructions: 1 tab q 5 min, do not exceed 3 doses colchicine 0.6 mg Tablet 0.6 mg PO DIRECTED metformin 500 mg Tablet Extended Release 24 Hr 1,000 mg PO BID chlorpromazine 50 mg tablet 50 mg PO BID ezetimibe [Zetia] 10 mg Tablet 10 mg PO DAILY insulin aspart U-100 [Novolog FlexPen U-100 Insulin] 100 unit/mL (3 mL) Insulin Pen 8 unit SUBCUT TIDWMEAL Rx Instructions: tid duloxetine 60 mg capsule,delayed release(DR/EC) 120 mg PO DAILY quetiapine 300 mg tablet extended release 24 hr 600 mg PO QPM insulin glargine [Lantus Solostar U-100 Insulin] 100 unit/mL (3 mL) insulin pen 20 unit SUBCUT HS Victoza 3-Anthony 0.6 mg/0.1 mL (18 mg/3 mL) pen injector 1.8 mg SUBCUT DAILY Dulera 100-5 mcg/actuation Hfa Aerosol Inhaler 2 puff INHALATION BID Xarelto 20 mg Tablet 20 mg PO DAILY Rx Instructions: must administer with evening meal potassium chloride 20 mEq Tablet Extended Release 20 meq PO DAILY Combivent Respimat 20-100 mcg/actuation Mist 1 puff INHALATION QID Rx Instructions: space evenly during waking hours Referrals Referrals: Stan Samuel PA-C [Primary Care Provider] -
[2022-07-10 22:02] LABS: Partial Thromboplastin Ratio 0.8; Partial Thromboplastin Time 21.9 Seconds (21.0-31.0); Prothrombin Time 10.4 Seconds (9.0-12.0)
[2022-07-10 23:30] LABS: Albumin Globulin Ratio 1.5 (0.9-2); Albumin Level 3.5 gm/dl (3.4-5.0); BUN Creatinine Ratio 15.6 (10-20); Bilirubin,Total 0.3 mg/dl (0.2-1.0); Calcium 8.1 mg/dl (8.6-10.3); Creatinine Clr Calc Pharmacy 113.5 ml/min; Est GFR (African American) 125.8 ml/min; Est GFR (Non-African American) 108.5 ml/min; Globulin 2.4 gm/dl (2.5-4.0); Magnesium 1.5 mg/dl (1.7-2.4); Potassium 3.3 mmol/L (3.5-5.1); Total Protein 5.9 gm/dl (6.0-8.3)
[2022-07-10] MEDS ORDERED: POTASSIUM CHLORIDE CRTAB 20 MEQ TABCR PO STA (23:42)
[2022-07-10] MEDS ORDERED: MAGNESIUM SULFATE / D5W 1 GM/100 ML BAG IV STA (23:42)
[2022-07-10] MEDS ORDERED: METOPROLOL TARTRATE 1 MG/ML VIAL IV STA (23:45)
[2022-07-11] MEDS ORDERED: oxyCODONE HCL IR 5 MG TAB (IMMEDIATE RELEASE) PO STA (00:44)
--- NOTE | 2022-07-11 00:45 | History & Physical Report ---
Date of Service July 11, 2022 Assessment & Plan (1) Left-sided chest pain: Plan: Possible unstable angina CAD status post stent ? Questionable compliance PVD status post surgery PAF, patient NSR on Xarelto hx CVA as per records hypertension, stable hyperlipidemia on statin Rx COPD, lung status at baseline ongoing tobacco abuse DM 2 insulin requiring, suboptimal control as of recent hemoglobin A1c of 10.5 last April 2022 hypothyroidism, TSH markedly elevated, possible noncompliance chronic anemia, hemoglobin better than baseline, possible hemoconcentration schizophrenia/anxiety/mood disorder, social anxiety contributing to patient's ability to comply with medical appointments with specialists cervical cancer status post cryotherapy drug-seeking behavior as per records Hypokalemia secondary to home insulin OBS PCU Continue patient's antiplatelet Rx, beta-chalino, statin Rx TTE, cardiology consult Re: Unstable angina Trend troponin Hold Xarelto until patient seen by cardiology IV heparin while Xarelto on hold N.p.o. until patient seen by cardiology in anticipation of ischemic work-up Judicious narcotic use given history drug-seeking behavior as per records Psych consult re: overwhelming anxiety Replace potassium Increase daily Levothyroxine dose from 175 to 200 mcg daily and recheck outpatient TSH next month Basal bolus insulin adjusted for n.p.o. status, ISS BG goal [id number], update hemoglobin A1c Nicotine patch DVT prophylaxis IV heparin Full code Text document was generated using Aidin voice recognition software. It may contain grammatical or spelling errors. Kindly contact undersigned for clarification of any documentation item in question. History of Present Illness Chief Complaint: Chest pain Primary Care Provider: Stan Samuel PA-C History obtained from patient and records. Medical history significant for CAD status post stent, AAA status post surgery (2014), PAF on Xarelto, CVA as per records, hypertension, hyperlipidemia, COPD, ongoing tobacco abuse, DM 2 insulin requiring, hypothyroidism, chronic anemia (baseline hemoglobin of 11), history leg clot status post surgery as per patient, schizophrenia/anxiety/mood disorder, cervical cancer status post cryotherapy, drug-seeking behavior as per records. Last [facility] confinement September 2020 for chest pain attributed to uncontrolled hypertension. Patient has not followed up with her [facility] psychologist counseling for a few years. Anxiety prevents her from leaving home to see her doctors as per patient. Patient denies current suicidality. Last [facility] confinement April 2022 for TIA symptoms. Yesterday patient noted achy left-sided chest pain going to her back, 12/12. Some shortness of breath. Patient compliant with home medications. Denies headache or abdominal pain symptoms Episode similar to heart attack in the past. No immediate response to nitroglycerin taken at home. Chest discomfort relieved by nitro paste administered at the ER Medical Historyas above Surgical History : AAA surgery, carpal tunnel surgery, RLE embolectomy with patch placement, section, elbow surgery, hernia repair, knee surgery, cholecystectomy, BTL, tonsillectomy, dental surgery Family History : Alcoholism, diabetes, heart disease, stroke, seizure Personal/Social history : 2 packs daily, occasional EtOH intake, disabled Allergies Allergy/AdvReac Type Severity Reaction Status Date / Time bee pollen Allergy Severe Anaphylaxis Verified 07/10/22 22:26 Iodinated Contrast Media Allergy Severe Anaphylaxis Verified 07/10/22 22:26 loratadine AdvReac Severe anxiety, Verified 07/10/22 22:26 paranoia increases cetirizine AdvReac Intermediate anxiety, Verified 07/10/22 22:26 paranoia increases fexofenadine AdvReac Intermediate anxiety Verified 07/10/22 22:26 and paranoia increases ketorolac AdvReac Mild PT STATES Verified 07/10/22 22:26 SHE IS ON THORAZINE AND CANNOT TAKE TORADOL tramadol AdvReac Mild hallucinati Verified 07/10/22 22:26 ons Home Medications Medication Instructions Recorded Confirmed Type albuterol sulfate 2.5 mg/3 mL 2.5 mg inhalation Q6H PRN 07/10/22 07/10/22 History (0.083 %) solution for nebulization Shortness Of Breath Or Wheezing aspirin 81 mg tablet,delayed 81 mg PO DAILY 07/10/22 07/10/22 History release atorvastatin 80 mg tablet 80 mg PO DAILY 07/10/22 07/10/22 History baclofen 10 mg tablet 10 - 20 mg PO Q8 PRN Pain 07/10/22 07/10/22 History carvedilol 25 mg tablet 25 mg PO BID 07/10/22 07/10/22 History chlorpromazine 100 mg tablet 100 mg PO BID 07/10/22 07/10/22 History chlorpromazine 50 mg tablet 50 mg PO BID 07/10/22 07/10/22 History chlorthalidone 25 mg tablet 25 mg PO DAILY 07/10/22 07/10/22 History colchicine 0.6 mg tablet 0.6 mg PO DIRECTED 07/10/22 07/10/22 History duloxetine 60 mg capsule,delayed 120 mg PO DAILY 07/10/22 07/10/22 History release ezetimibe 10 mg tablet (Zetia) 10 mg PO DAILY 07/10/22 07/10/22 History famotidine 20 mg tablet 20 mg PO HS 07/10/22 07/10/22 History ferrous sulfate 325 mg (65 mg 325 mg PO DAILY 07/10/22 07/10/22 History iron) tablet (iron) gabapentin 800 mg tablet 800 mg PO TID 07/10/22 07/10/22 History insulin aspart U-100 100 unit/mL 8 unit subcut TIDWMEAL 07/10/22 07/10/22 History (3 mL) subcutaneous pen (Novolog FlexPen U-100 Insulin aspart) insulin glargine 100 unit/mL (3 20 unit subcut HS 07/10/22 07/10/22 History mL) subcutaneous pen (Lantus Solostar U-100 Insulin) ipratropium 20 mcg-albuterol 100 1 puff inhalation QID 07/10/22 07/10/22 History mcg/actuation mist for inhalation (Combivent Respimat) levothyroxine 175 mcg tablet 175 mcg PO DAILY 07/10/22 07/10/22 History liraglutide 0.6 mg/0.1 mL (18 mg/3 1.8 mg subcut DAILY 07/10/22 07/10/22 History mL) subcutaneous pen injector (Victoza 3-Anthony) lisinopril 20 mg tablet 20 mg PO DAILY 07/10/22 07/10/22 History metformin 500 mg tablet,extended 1,000 mg PO BID 07/10/22 07/10/22 History release 24 hr mometasone-formoterol HFA 100 2 puff inhalation BID 07/10/22 07/10/22 History mcg-5 mcg/actuation aerosol inhaler (Dulera) nitroglycerin 0.4 mg sublingual 0.4 mg sublingual DIRECTED 07/10/22 07/10/22 History tablet (Nitrostat) omeprazole 40 mg capsule,delayed 40 mg PO DAILY 07/10/22 07/10/22 History release potassium chloride 20 mEq 20 meq PO DAILY 07/10/22 07/10/22 History tablet,extended release quetiapine 300 mg tablet,extended 600 mg PO QPM 07/10/22 07/10/22 History release 24 hr rivaroxaban 20 mg tablet (Xarelto) 20 mg PO DAILY 07/10/22 07/10/22 History sucralfate 1 gram tablet 1 g PO ACHS 07/10/22 07/10/22 History Past Med/Surg History Medical History Anemia Baseline 9.9-11, ongoing since ~2004. Ankle fracture, left Atypical chest pain Per cardiology 05/01/19, "- persistent chest pain symptoms are atypical. Recent lexiscan nuclear stress test from 04/24/2019 was negative for ischemia; suspect some of her symptoms have been due to uncontrolled HTN urgencies. BP better controlled now since adjustment of meds during recent inpatient stay. Continue Dual antiplatelet therapy (DAPT) with ASA and plavix for at least 1 year but likely would continue indefinitely given severe PAD in addition to the CAD." Bipolar disorder Blood clotting disorder Patient unsure what type; reports was discovered with DVT ~2013 CAD (coronary artery disease) 10/2018-HARLEEN to LAD in [place] Cervical cancer cryotherapy (~1994) Chronic pain COPD (chronic obstructive pulmonary disease) inhalers daily. Continues to smoke. Degenerative disc disease Depression with anxiety DM type 2 (diabetes mellitus, type 2) diet controlled Facial paresthesia Fibromyalgia GERD (gastroesophageal reflux disease) History of DVT (deep vein thrombosis) ~2013. Hyperlipidemia Hypertension Hypokalemia Hypomagnesemia Hypothyroidism Migraine Myocardial Infarction October 2018. Follows with Dr. Magdy Mckeon. Neuropathy hands and feet Osteoarthritis Peripheral vascular disease S/P prior femoropopliteal thromboembolectomy on right side and surgical repair of distal aortoiliac occlusive disease in 2014. Post traumatic stress disorder Raynauds disease Schizophrenia Transient ischemic attack (TIA) x2 August/September 2018. Surgical History H/O cardiac catheterization H/O elbow surgery right H/O tubal ligation H/O vascular surgery thrombectomy Right leg 2013 History of arthroscopic knee surgery left History of cardiac cath October 2018 at [facility] s/p HARLEEN to LAD November 2019 at with [facility], no intervention History of carpal tunnel surgery of right wrist History of dilatation and curettage x2 History of heart artery stent Drug Eluting stent placed in LAD -- October 2018. History of incisional hernia repair x2 with full abdominal screen/mesh. Hx of cholecystectomy Hx of oral surgery (04/02/19) Oral Abscess Incision and Drainage (hard palate and extraction of tooth # 7,8,9,10,11,20 and 21) Dr. Kowalski 04-02-19. GETA. MAC 3, Grade 2 view. 7.0 ETT without difficulty. Hx of oral surgery (06/27/19) Closure Of oral/nasal Fistula, Left Palate To Muccoboccal Fold and Debridement Of Necrotic Bone Maxilla from area 3-14 Dr. Kowalski 06/27/19 S/P AAA repair ~2013 [facility]. (Dr. Graves). placed on Plavix and ASA at this time. S/P tonsillectomy Family History Mother Diabetes Grandfather FHx: heart disease Other No family history of adverse response to anesthesia Social History Smoking Status: Heavy tobacco smoker Tobacco Type: Cigarettes and E-cigarettes / Vaping Cigarettes Per Day: 40; Second Hand Exposure: Yes; Do You Dip or Chew Tobacco: No; Hx Alcohol Use: No Hx Substance Use: Yes Non-Prescribed Medications: Marijuana Last Used Substance: Days (ago) Last Used Substance Other:: medical marijuana 07/10/22 Preferred Language: Algerian Communication Ability: Effective Manager Grant Required: No Beliefs That Will Affect Care: None marital status: Single Current Living Situation: Significant Other Current Living Situation Comment: Lives with spouse and daughter current occupational status: disabled Other Information That Helps Us Care for You: No Feels Safe at Home: Yes Safety Concerns: Feels Safe At This Time Assistive Devices: Cane Review of Systems Review of Systems: As per HPI, all other systems reviewed and negative Physical Exam Physical Exam: GENERAL: comfortable, obese, looks older for stated age, no respiratory distress SKIN: Pallor, warm HEENT: Pale palpebral conjunctivae, no ptosis, moist buccal mucosa, partially edentulous NECK : Supple, short neck, no tenderness CHEST : CTA, no tenderness HEART : RRR, no obvious murmurs ABDOMEN: Some distention, nontender EXTREMITIES : Minimal LE swelling, no LE tenderness, no other conspicuous defor mities noted NEUROLOGIC : Coherent, no facial asymmetry, no other gross focality Results & Data Results & Data Vital Signs (Past 12 Hours) Vital Signs Temp Pulse Pulse Resp BP Pulse Ox O2 Del Method 07/11/22 00:15 78 18 149/104 H 94 Room Air 07/10/22 22:47 94 H 16 152/101 H 96 Room Air 07/10/22 21:06 98 Room Air 07/10/22 20:38 112 H 07/10/22 20:23 36.6 C 141 H 20 98 Room Air Laboratory Results Laboratory Results WBC 10.81 K/ul (4.8-10.8) H 07/10/22 21:00 RBC 4.09 M/uL (4.20-5.40) L 07/10/22 21:00 Hgb 13.1 g/dl (12.0-16.0) 07/10/22 21:00 Hct 38.2 % (37.0-47.0) 07/10/22 21:00 MCV 93.4 fL (80.0-100.0) 07/10/22 21:00 MCH 32.0 pg (25.0-34.0) 07/10/22 21:00 MCHC 34.3 g/dL (32.0-36.0) 07/10/22 21:00 RDW Std Deviation 45.8 fL (36.4-46.3) 07/10/22 21:00 RDW Coeff of Vivek 13.2 % (11.5-14.5) 07/10/22 21:00 Plt Count 229 K/uL (130-400) 07/10/22 21:00 MPV 10.1 fL (9.4-12.4) 07/10/22 21:00 Immature Gran % (Auto) 0.7 % 07/10/22 21:00 Neut % (Auto) 67.8 % 07/10/22 21:00 Lymph % (Auto) 22.5 % 07/10/22 21:00 [place] % (Auto) 6.2 % 07/10/22 21:00 Eos % (Auto) 2.1 % 07/10/22 21:00 Baso % (Auto) 0.7 % 07/10/22 21:00 Neut # (Auto) 7.32 K/uL (1.40-6.50) H 07/10/22 21:00 Lymph # (Auto) 2.43 K/uL (1.2-3.4) 07/10/22 21:00 [place] # (Auto) 0.67 K/uL (0.11-0.59) H 07/10/22 21:00 Eos # (Auto) 0.23 K/uL (0-0.50) 07/10/22 21:00 Baso # (Auto) 0.08 K/uL (0-0.2) 07/10/22 21:00 Immature Gran # (Auto) 0.08 K/uL (0.01-0.20) 07/10/22 21:00 PT 10.4 Seconds (9.0-12.0) 07/10/22 21:26 INR 1.0 (0.9-1.1) 07/10/22 21:26 APTT 21.9 Seconds (21.0-31.0) 07/10/22 21:26 PTT Ratio 0.8 07/10/22 21:26 Sodium 136 mmol/L (136-145) 07/10/22 22:55 Potassium 3.3 mmol/L (3.5-5.1) L 07/10/22 22:55 Chloride 106 mmol/L (98-107) 07/10/22 22:55 Carbon Dioxide 23 mmol/L (21-32) 07/10/22 22:55 Anion Gap 7 (3-11) 07/10/22 22:55 BUN 10 mg/dl (6-23) 07/10/22 22:55 Creatinine 0.64 mg/dl (0.6-1.2) 07/10/22 22:55 Est Cr Clr Drug Dosing 113.5 ml/min 07/10/22 22:55 Est GFR ( Amer) 125.8 ml/min 07/10/22 22:55 Est GFR (Non-Af Amer) 108.5 ml/min 07/10/22 22:55 BUN/Creatinine Ratio 15.6 (10-20) 07/10/22 22:55 Glucose 214 mg/dl (70-99(Fasting)) H 07/10/22 22:55 Calcium 8.1 mg/dl (8.6-10.3) L 07/10/22 22:55 Magnesium 1.5 mg/dl (1.7-2.4) L 07/10/22 22:55 Total Bilirubin 0.3 mg/dl (0.2-1.0) 07/10/22 22:55 AST 17 U/L (13-39) 07/10/22 22:55 ALT 24 U/L (7-52) 07/10/22 22:55 Alkaline Phosphatase 65 U/L (34-104) 07/10/22 22:55 Troponin I High Sens 7.0 pg/ml (0-14) 07/10/22 22:55 Total Protein 5.9 gm/dl (6.0-8.3) L 07/10/22 22:55 Albumin 3.5 gm/dl (3.4-5.0) 07/10/22 22:55 Globulin 2.4 gm/dl (2.5-4.0) L 07/10/22 22:55 Albumin/Globulin Ratio 1.5 (0.9-2) 07/10/22 22:55 Lipase 37 U/L (11-82) 07/10/22 22:55 SARS-CoV-2, RNA, NAAT NEGATIVE (NEGATIVE) 07/10/22 21:06 Diagnostic Findings Chest x-ray as per my interpretation no infiltrate EKG as per my interpretation : Rate 120, sinus tachycardia, normal axis, T wave abnormalities lateral leads
[2022-07-11] MEDS ORDERED: NICOTINE 21 MG/24 HR TDSY TD STA (00:51)
[2022-07-11] MEDS ORDERED: Heparin IV Adult Wt-Based Standard *NO* Bolus Protocol IV STA (00:51)
[2022-07-11] MEDS ORDERED: MAGNESIUM SULFATE / D5W 1 GM/100 ML BAG IV STA (00:52)
[2022-07-11] MEDS ORDERED: PROMETHAZINE HCL 12.5 MG in SODIUM CHLORIDE 0.9% 50 ML IV PRN (00:55)
[2022-07-11] MEDS ORDERED: HEPARIN SODIUM/DEXTROSE 25,000 UNITS/500 ML BAG IV SCH (01:00)
[2022-07-11] MEDS ORDERED: NSS + 20MEQ KCL 20 MEQ/1,000 ML BAG IV STA (01:02)
[2022-07-11] MEDS ORDERED: NITROGLYCERIN SL 0.4 MG/TAB TAB SL SCH (02:33)
[2022-07-11] MEDS ORDERED: LANTUS PER UNIT CHARGE SQ STA (02:33)
[2022-07-11] MEDS ORDERED: NITROGLYCERIN SL 0.4 MG/TAB TAB SL PRN (02:33)
[2022-07-11] MEDS: MoRPHine SULFATE 2 MG/ML CARP IV PRN ×5 (02:57→21:00)
[2022-07-11 03:12] LABS: Thyroid Stimulating Hormone 144.771 uIu/ml (0.300-4.500)
[2022-07-11] MEDS: QUEtiapine FUMARATE 200 MG TABCR PO SCH ×2 (03:17→20:09)
[2022-07-11] MEDS: chlorproMAZINE HCL 25 MG TAB PO SCH ×3 (03:17→20:09)
[2022-07-11 03:47] LABS: T4 Free Thyroxine < 0.25 ng/dl (0.61-1.60)
[2022-07-11] MEDS: LEVOTHYROXINE SODIUM 200 MCG TABLET PO SCH (05:52)
[2022-07-11] MEDS ORDERED: LEVOTHYROXINE SODIUM 175 MCG TABLET PO SCH (06:30)
[2022-07-11] MEDS: IPRATROPIUM BROMIDE HFA INHALER INH SCH ×2 (07:17→12:08)
[2022-07-11] MEDS: LEVALBUTEROL TARTRATE 15 GM HFA.AER.AD INH SCH ×2 (07:17→12:08)
--- NOTE | 2022-07-11 07:20 | XRay Report ---
XR chest 1V portable CLINICAL HISTORY: Chest pain, nonspecific. COMPARISON STUDY: Chest radiograph September 03, [address] April 20, 2019. FINDINGS: Lung volumes are normal. Lungs are clear. There is no pneumothorax or pleural effusion. Car diac size is normal. Mediastinal contours are normal. There is no evidence for pulmonary edema. IMPRESSION: No acute cardiopulmonary findings. ACT 112: Negative or not required by law. Electronically signed by: Alexis Leong M.D. 07/11/2022 7:19 AM
--- NOTE | 2022-07-11 08:22 | Electrocardiogram Report ---
Test Reason : Blood Pressure : / mmHG Vent. Rate : 121 BPM Atrial Rate : 121 BPM P-R Int : 148 ms QRS Dur : 088 ms QT Int : 318 ms P-R-T Axes : 048 047 020 degrees QTc Int : 451 ms Sinus tachycardia Borderline ECG When compared with ECG of 05-SEP-2020 05:41, Vent. rate has increased BY 44 BPM Confirmed by Munir Mann ([id number] on 07/11/2022 8:22:22 AM Referred By: REFERRED SELF Confirmed By:Munir Mann
[2022-07-11] MEDS: GABAPENTIN 800 MG TAB PO SCH ×3 (08:43→20:08)
[2022-07-11] MEDS: carvediloL 12.5 MG TAB PO SCH ×2 (08:43→20:08)
[2022-07-11] MEDS: DULoxetine HCL 60 MG CAP PO SCH (08:43)
[2022-07-11] MEDS: ASPIRIN 81 MG ECTAB PO SCH (08:43)
[2022-07-11] MEDS: SUCRALFATE 1 GM TAB PO SCH ×4 (08:43→20:08)
[2022-07-11] MEDS: POTASSIUM CHLORIDE CRTAB 20 MEQ TABCR PO SCH (08:43)
[2022-07-11] MEDS: FERROUS SULFATE 325 MG TAB PO SCH (08:43)
[2022-07-11] MEDS: PANTOprazole 40 MG TAB PO SCH (08:43)
[2022-07-11] MEDS: lisinopril 20 MG TAB PO SCH (08:43)
[2022-07-11] MEDS: EZETIMIBE 10 MG TABLET PO SCH (08:43)
[2022-07-11] MEDS: ATORVASTATIN 40 MG TAB PO SCH (08:44)
[2022-07-11] MEDS: FLUTICASONE/VILANTEROL 100/25MCG 14 PUFFS/INHALER INH SCH (08:45)
[2022-07-11] MEDS: LANTUS PER UNIT CHARGE SQ SCH ×2 (08:53→20:26)
[2022-07-11 09:00] LABS: Estimated Average Glucose 272 mg/dl; Hemoglobin A1C 11.1 % (4.5-5.6)
[2022-07-11 09:10] LABS: Basophils # (auto) 0.05 K/uL (0-0.2); Basophils % (auto) 0.5 %; Eosinophils # (auto) 0.21 K/uL (0-0.50); Eosinophils % (auto) 2.2 %; Hemoglobin 11.5 g/dl (12.0-16.0); Immature Granulocytes # (auto) 0.07 K/uL (0.01-0.20); Immature Granulocytes % (auto) 0.7 %; Lymphocytes # (auto) 2.44 K/uL (1.2-3.4); Lymphocytes % (auto) 25.3 %; Mean Corpuscular Hemoglobin 32.9 pg (25.0-34.0); Mean Corpuscular Hgb Conc 34.8 g/dL (32.0-36.0); Mean Corpuscular Volume 94.3 fL (80.0-100.0); Mean Platelet Volume 9.9 fL (9.4-12.4); Monocytes # (auto) 0.57 K/uL (0.11-0.59); Monocytes % (auto) 5.9 %; Neutrophils # (auto) 6.29 K/uL (1.40-6.50); Neutrophils % (auto) 65.4 %; Platelet Count 230 K/uL (130-400); RDW Coefficient of Variation 13.5 % (11.5-14.5); RDW Standard Deviation 46.3 fL (36.4-46.3); White Blood Count 9.63 K/ul (4.8-10.8)
--- NOTE | 2022-07-11 09:10 | Cardiology Consultation ---
Date of Consultation July 11, 2022 Assessment & Plan (1) Precordial chest pain: (2) CAD (coronary artery disease): (3) Peripheral vascular disease: (4) Tobacco abuse: (5) Noncompliance: (6) Dyslipidemia: (7) Hypothyroidism: Plan 46-year-old female with significant cardiovascular history noted above presents emergency department with episode of chest discomfort at rest. ECG without ischemic changes, high-sensitivity troponins are not elevated. Resting 2D transthoracic echocardiogram pending at this time. No dysrhythmias on telemetry. Noncompliance suspected due to markedly elevated TSH, lipids, glucose, and uncontrolled hypertension on admission. Restart cardiovascular medications including aspirin, high intensity statin therapy, Zetia, carvedilol, and lisinopril. Further ischemic evaluation is warranted pending review of echocardiogram. History of ischemic, nonischemic chest discomfort and noted. Consider Lexiscan nuclear perfusion scan in a.m. Addendum: Echocardiogram demonstrating small loculated pericardial effusion suggestive of pericarditis. Discontinue IV heparin. Initiate anti-inflammatory therapy with NSAIDS and colchicine. Lexiscan nuclear stress test canceled. History of Present Illness Reason for Consultation: Chest pain, unstable angina Requesting Physician: Dr. Mesfin Interiano Attending Physician: Roderick Manzanares MD History of Present Illness 46-year-old female present to the emergency department with chest discomfort which began at rest. Describes a moderate to severe pressure-like sensation while she was playing videogames. Discomfort did not radiate. There was associated shortness of breath. Reports symptoms similar to prior myocardial infarction. Discomfort unchanged with nitroglycerin. Symptoms spontaneously resolved overnight, however, reports a recurrent episode of chest pressure this morning. Currently she is asymptomatic. Repeat ECG without ischemic changes. High-sensitivity troponins are not significantly elevated. Denies any exertional chest pain or unusual shortness of breath. Unfortunately continues to smoke more than 2 packs of cigarettes daily. Complex cardiovascular history includes prior myocardial infarction status post stenting of the LAD, CVA, peripheral arterial disease status post distal aorto iliac occlusive disease 2014 as well as prior femoropopliteal thromboembolectomy on the right side, pericarditis. Allergies Allergy/AdvReac Type Severity Reaction Status Date / Time bee pollen Allergy Severe Anaphylaxis Verified 07/10/22 22:26 Iodinated Contrast Media Allergy Severe Anaphylaxis Verified 07/10/22 22:26 loratadine AdvReac Severe anxiety, Verified 07/10/22 22:26 paranoia increases cetirizine AdvReac Intermediate anxiety, Verified 07/10/22 22:26 paranoia increases fexofenadine AdvReac Intermediate anxiety Verified 07/10/22 22:26 and paranoia increases ketorolac AdvReac Mild PT STATES Verified 07/10/22 22:26 SHE IS ON THORAZINE AND CANNOT TAKE TORADOL tramadol AdvReac Mild hallucinati Verified 07/10/22 22:26 ons Home Medications Medication Instructions Recorded Confirmed Type albuterol sulfate 2.5 mg/3 mL 2.5 mg inhalation Q6H PRN 07/10/22 07/10/22 History (0.083 %) solution for nebulization Shortness Of Breath Or Wheezing aspirin 81 mg tablet,delayed 81 mg PO DAILY 07/10/22 07/10/22 History release atorvastatin 80 mg tablet 80 mg PO DAILY 07/10/22 07/10/22 History baclofen 10 mg tablet 10 - 20 mg PO Q8 PRN Pain 07/10/22 07/10/22 History carvedilol 25 mg tablet 25 mg PO BID 07/10/22 07/10/22 History chlorpromazine 100 mg tablet 100 mg PO BID 07/10/22 07/10/22 History chlorpromazine 50 mg tablet 50 mg PO BID 07/10/22 07/10/22 History chlorthalidone 25 mg tablet 25 mg PO DAILY 07/10/22 07/10/22 History colchicine 0.6 mg tablet 0.6 mg PO DIRECTED 07/10/22 07/10/22 History duloxetine 60 mg capsule,delayed 120 mg PO DAILY 07/10/22 07/10/22 History release ezetimibe 10 mg tablet (Zetia) 10 mg PO DAILY 07/10/22 07/10/22 History famotidine 20 mg tablet 20 mg PO HS 07/10/22 07/10/22 History ferrous sulfate 325 mg (65 mg 325 mg PO DAILY 07/10/22 07/10/22 History iron) tablet (iron) gabapentin 800 mg tablet 800 mg PO TID 07/10/22 07/10/22 History insulin aspart U-100 100 unit/mL 8 unit subcut TIDWMEAL 07/10/22 07/10/22 History (3 mL) subcutaneous pen (Novolog FlexPen U-100 Insulin aspart) insulin glargine 100 unit/mL (3 20 unit subcut HS 07/10/22 07/10/22 History mL) subcutaneous pen (Lantus Solostar U-100 Insulin) ipratropium 20 mcg-albuterol 100 1 puff inhalation QID 07/10/22 07/10/22 History mcg/actuation mist for inhalation (Combivent Respimat) levothyroxine 175 mcg tablet 175 mcg PO DAILY 07/10/22 07/10/22 History liraglutide 0.6 mg/0.1 mL (18 mg/3 1.8 mg subcut DAILY 07/10/22 07/10/22 History mL) subcutaneous pen injector (Victoza 3-Anthony) lisinopril 20 mg tablet 20 mg PO DAILY 07/10/22 07/10/22 History metformin 500 mg tablet,extended 1,000 mg PO BID 07/10/22 07/10/22 History release 24 hr mometasone-formoterol HFA 100 2 puff inhalation BID 07/10/22 07/10/22 History mcg-5 mcg/actuation aerosol inhaler (Dulera) nitroglycerin 0.4 mg sublingual 0.4 mg sublingual DIRECTED 07/10/22 07/10/22 History tablet (Nitrostat) omeprazole 40 mg capsule,delayed 40 mg PO DAILY 07/10/22 07/10/22 History release potassium chloride 20 mEq 20 meq PO DAILY 07/10/22 07/10/22 History tablet,extended release quetiapine 300 mg tablet,extended 600 mg PO QPM 07/10/22 07/10/22 History release 24 hr rivaroxaban 20 mg tablet (Xarelto) 20 mg PO DAILY 07/10/22 07/10/22 History sucralfate 1 gram tablet 1 g PO ACHS 07/10/22 07/10/22 History Patient History Medical History (Updated 07/11/22 @ 12:11 by Jaylen Santoyo MD) Anemia Baseline 9.9-11, ongoing since ~2004. Ankle fracture, left Atypical chest pain Per cardiology 05/01/19, "- persistent chest pain symptoms are atypical. Rec ent lexiscan nuclear stress test from 04/24/2019 was negative for ischemia; suspect some of her symptoms have been due to uncontrolled HTN urgencies. BP better controlled now since adjustment of meds during recent inpatient stay. Continue Dual antiplatelet therapy (DAPT) with ASA and plavix for at least 1 year but likely would continue indefinitely given severe PAD in addition to the CAD." Blood clotting disorder Patient unsure what type; reports was discovered with DVT ~2013 CAD (coronary artery disease) 10/2018-HARLEEN to LAD in [place] Cervical cancer cryotherapy (~1994) Chronic pain COPD (chronic obstructive pulmonary disease) inhalers daily. Continues to smoke. Degenerative disc disease DM type 2 (diabetes mellitus, type 2) diet controlled Facial paresthesia Fibromyalgia GERD (gastroesophageal reflux disease) History of DVT (deep vein thrombosis) ~2013. Hyperlipidemia Hypertension Hypokalemia Hypomagnesemia Hypothyroidism Migraine Myocardial Infarction October 2018. Follows with Dr. Magdy Mckeon. Neuropathy hands and feet Osteoarthritis Peripheral vascular disease S/P prior femoropopliteal thromboembolectomy on right side and surgical repair of distal aortoiliac occlusive disease in 2014. Post traumatic stress disorder Raynauds disease Schizophrenia Transient ischemic attack (TIA) x2 September 2018. Surgical History H/O cardiac catheterization H/O elbow surgery right H/O tubal ligation H/O vascular surgery thrombectomy Right leg 2013 History of arthroscopic knee surgery left History of cardiac cath October 2018 at [facility] s/p HARLEEN to LAD November 2019 at with [facility], no intervention History of carpal tunnel surgery of right wrist History of dilatation and curettage x2 History of heart artery stent Drug Eluting stent placed in LAD -- October 2018. History of incisional hernia repair x2 with full abdominal screen/mesh. Hx of cholecystectomy Hx of oral surgery (04/02/19) Oral Abscess Incision and Drainage (hard palate and extraction of tooth # 7,8,9,10,11,20 and 21) Dr. Kowalski 04-02-19. GETA. MAC 3, Grade 2 view. 7.0 ETT without difficulty. Hx of oral surgery (06/27/19) Closure Of oral/nasal Fistula, Left Palate To Muccoboccal Fold and Debridement Of Necrotic Bone Maxilla from area 3-14 Dr. Kowalski 06/27/19 S/P AAA repair ~2013 [facility]. (Dr. Graves). placed on Plavix and ASA at this time. 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 Beliefs That Will Affect Care: None marital status: Single Current Living Situation: Significant Other Current Living Situation Comment: Lives with spouse and daughter current occupational status: disabled Other Information That Helps Us Care for You: No Feels Safe at Home: Yes Safety Concerns: Feels Safe At This Time Assistive Devices: Cane Review of Systems Review of Systems: All systems reviewed & are unremarkable except as noted in Subjective Physical Exam Constitutional: + obese; no acute distress Respiratory: normal respiratory effort; no respiratory distress, no labored breathing and no retractions Auscultation: no crackles, no rales, no rhonchi and no wheezes Cardiovascular: Rate/Rhythm: regular rate and regular rhythm Heart Sounds: normal S1 and normal S2; no murmur Vessels: femoral pulses present; no JVD, no carotid bruit and + radial pulses abnormal Extremities: no edema Gastrointestinal (Abdomen): Inspection/Auscultation: abdomen normal to inspection and normal bowel sounds; abdomen not distended Percu ssion/Palpation: abdomen soft; abdomen nontender, no guarding and abdomen not rigid Neurologic: CN's II-XI intact bilaterally and moves all extremities; no focal motor deficits Motor/Sensory: no tremor Psychiatric: A+Ox3, euthymic affect Results & Data Vital Signs (Past 12 Hours) Vital Signs Temp Pulse Pulse Resp BP Pulse Ox Pulse Ox 07/11/22 07:23 36.3 C L 83 16 116/79 92 07/11/22 07:19 77 18 95 07/11/22 03:30 07/11/22 02:37 79 07/11/22 02:45 36.7 C 74 16 137/98 95 07/11/22 02:33 95 07/11/22 01:24 36.7 C 74 16 137/98 95 07/11/22 02:08 77 18 119/85 96 07/11/22 01:00 75 07/11/22 00:15 78 18 149/104 H 94 07/10/22 22:47 94 H 16 152/101 H 96 O2 Del Method O2 Del Method 07/11/22 07:23 Room Air 07/11/22 07:19 Room Air 07/11/22 03:30 Room Air 07/11/22 02:37 07/11/22 02:45 Room Air 07/11/22 02:33 Room Air 07/11/22 01:24 Room Air 07/11/22 02:08 Room Air 07/11/22 01:00 07/11/22 00:15 Room Air 07/10/22 22:47 Room Air Laboratory Results Cardiac Enzymes 07/10/22 07/11/22 07/11/22 Range/Units 22:55 00:10 08:49 AST 17 (13-39) U/L Troponin I High Sens 7.0 6.9 7.1 (0-14) pg/ml Coagulation 07/10/22 07/11/22 Range/Units 21:26 08:49 PT 10.4 (9.0-12.0) Seconds APTT 21.9 41.1 H (21.0-31.0) Seconds Lipids 07/11/22 Range/Units 08:49 Triglycerides 751 H (0-150) mg/dl Cholesterol 333 H (0-200) mg/dl HDL Cholesterol 35 mg/dl Cholesterol/HDL Ratio 9.5 H (0-5) CBC 07/10/22 07/11/22 Range/Units 21:00 08:49 WBC 10.81 H 9.63 (4.8-10.8) K/ul RBC 4.09 L 3.50 L (4.20-5.40) M/uL Hgb 13.1 11.5 L (12.0-16.0) g/dl Hct 38.2 33.0 L (37.0-47.0) % Plt Count 229 230 (130-400) K/uL Neut # (Auto) 7.32 H 6.29 (1.40-6.50) K/uL Lymph # (Auto) 2.43 2.44 (1.2-3.4) K/uL [place] # (Auto) 0.67 H 0.57 (0.11-0.59) K/uL Eos # (Auto) 0.23 0.21 (0-0.50) K/uL Baso # (Auto) 0.08 0.05 (0-0.2) K/uL Comprehensive Metabolic Panel 07/10/22 07/11/22 Range/Units 22:55 08:49 Sodium 136 135 L (136-145) mmol/L Potassium 3.3 L 3.9 (3.5-5.1) mmol/L Chloride 106 105 (98-107) mmol/L Carbon Dioxide 23 22 (21-32) mmol/L BUN 10 10 (6-23) mg/dl Creatinine 0.64 0.75 (0.6-1.2) mg/dl Glucose 214 H 242 H (70-99(Fasting)) mg/dl Calcium 8.1 L 7.9 L (8.6-10.3) mg/dl AST 17 (13-39) U/L ALT 24 (7-52) U/L Alkaline Phosphatase 65 (34-104) U/L Total Protein 5.9 L (6.0-8.3) gm/dl Albumin 3.5 (3.4-5.0) gm/dl Intake and Output 07/10/22 07/11/22 07/11/22 22:59 06:59 14:59 Intake Total 1000 / 1200 200 / 1200 171.350 / 171.350 Balance 1000 / 1200 200 / 1200 171.350 / 171.350 Intake: IV 1000 / 1200 200 / 1200 171.350 / 171.350 Heparin Sodium/Dextrose 25,000 171.350 / 171.350 units In 500 ml @ 1,150 UNITS/ HR 23 mls/hr IV .[id number] SEPIDEH Rx #:[id number] Magnesium Sulfate / D5w 1 gm In 200 / 200 100 ml @ 50 mls/hr IV ONE STA Rx#:[id number] Sodium Chloride 0.9% 1000ML 1, 1000 / 1000 000 ml @ 999 mls/hr IV .Q1H1M ONE Rx#:[id number] Other: Other Intake Source NPO Weight 88.5 kg 89.7 kg Weight Measurement Method Chair Scale Built [facility] Diagnostic Findings Cardiac cath report [facility] 10/2020: Findings: Selective coronary arteriography was carried out multiple FELDER and SAO TOMEAN projections. The patient has a right coronary dominant system. There are stents present in the LAD. Left main: The left main coronary artery arises from the left sinus of Valsalva. It gives rise to the left anterior descending and left circumflex coronary arteries. The left main coronary artery is a large long vessel that has eccentric luminal irregularity. LAD: The left anterior descending coronary artery arises from the left main coronary artery. It is a large vessel that reaches the left ventricular apex. Gives rise to 2 small diagonal branches and numerous septal perforators. Proximal LAD has about a 30 to 40% eccentric stenosis. There is up to a 30% eccentric somewhat hazy stenosis in the mid LAD in the area of the distal portion of the LAD stents. The distal LAD is small in caliber with up to 40% eccentric stenosis. There is 10 to 30% eccentric stenosis in the small first diagonal branch. There is a 30 to 40% ostial stenosis in the small second diagonal branch. Cx: The left circumflex is a large vessel that arises from the left main coronary artery. It gives rise to a proximal large first marginal branch a large second marginal branch and a moderate-sized posterior lateral branch. The proximal circumflex has 10 to 30% eccentric stenosis. The large first marginal branch has about a 40% eccentric ostial stenosis. The large second marginal branch has 10 to 30% eccentric stenosis. In the distal circumflex after the second marginal branch there is a 40 to 50% eccentric stenosis. The small to modest sized posterior lateral branch has 30 to 40% eccentric stenosis. RCA: The right coronary artery is dominant vessel that arises from the right sinus of Valsalva. It gives rise to a moderate-sized posterior descending branch a moderate-sized first posterior lateral and a small second posterior lateral. Proximal right coronary artery has 10 to 30% eccentric stenosis. The mid right coronary artery has 10 to 30% eccentric stenosis. The distal right coronary artery has 10 to 30% eccentric stenosis. There is 10 to 30% eccentric stenosis in the posterior lateral segment. There is 30 to 40% eccentric stenosis in the posterior descending branch and the small second posterior lateral branch. There is 10 to 30% eccentric stenosis in the first posterior lateral branch. Conclusions: 1. Mild to moderate nonobstructive coronary artery disease.
[2022-07-11 09:25] LABS: Anion Gap 8 (3-11); BUN Creatinine Ratio 13.3 (10-20); Blood Urea Nitrogen 10 mg/dl (6-23); Calcium 7.9 mg/dl (8.6-10.3); Carbon Dioxide 22 mmol/L (21-32); Chloride 105 mmol/L (98-107); Cholesterol 333 mg/dl (0-200); Creatinine Clr Calc Pharmacy 97.6 ml/min; Est GFR (African American) 112.4 ml/min; Est GFR (Non-African American) 96.9 ml/min; Glucose 242 mg/dl (70-99(Fasting)); HDL Cholesterol 35 mg/dl; Magnesium 2.1 mg/dl (1.7-2.4); Potassium 3.9 mmol/L (3.5-5.1); Sodium 135 mmol/L (136-145); Triglycerides 751 mg/dl (0-150)
[2022-07-11 09:31] LABS: Troponin I High Sensitivity 7.1 pg/ml (0-14)
[2022-07-11 09:33] LABS: Chol HDL Ratio 9.5 (0-5)
[2022-07-11 09:35] LABS: Partial Thromboplastin Ratio 1.5; Partial Thromboplastin Time 41.1 Seconds (21.0-31.0)
[2022-07-11] MEDS: NICOTINE 21 MG/24 HR TDSY TD SCH (10:29)
[2022-07-11] MEDS ORDERED: MICONAZOLE NITRATE POWDER 85 GM EXT PRN (10:44)
--- NOTE | 2022-07-11 11:55 | Psychiatric Consultation ---
Date of Consultation July 11, 2022 Impression / Recommendations Impression 46 y/o F with history of bipolar disorder, previous diagnosis of schizophrenia, now reporting anxiety preventing her from leaving her home. She certainly does not present as very anxious on exam right now. Her regimen of psychiatric medications includes high-dose duloxetine (in my experience, often necessary and appropriate when treating anxiety symptoms), quetiapine (given only at bedtime at a dose consistent with common total daily doses for this medication), and chlorpromazine (at a fairly significant dose twice a day). I don't know the rationale for using two antipsychotics (which is usually to be avoided). Chlorpromazine is a potent inhibitor of H1 histamine receptors and therefore often sedating (as well as anxiolytic). This could account for her drowsy presentation today. Quetiapine is, counterintuitively, often less sedating at higher doses than at lower ones, but the fact that it's being given all at bedtime suggests that in this patient it may have been seen as too sedating to use (as would be typical) in divided twice-daily doses. That still leaves me uncertain why she's not using chlorpromazine as monotherapy or if in fact it's been determined that she's unable to use quetiapine as monotherapy. Her most recent QTc of 451 ms is well within her usual range, but I would have concern about raising doses of chlorpromazine or quetiapine, especially given her presenting problem of chest pain. (1) Bipolar I disorder, most recent episode manic, in partial remission: (2) Agoraphobia: (3) BETH (generalized anxiety disorder): Plan I see no pressing need to intervene with pt's chronic anxiety by making any medication adjustments during her hospital stay, especially given the complexity of her psychiatric regimen which, it's reasonable to presume, was likely arrived at in the process of ongoing titration over time working with her psychiatrist. Psych History Identifying Data MARY TOSCANO is a 46-year-old F with a history of bipolar disorder (and, per her previous report, schizophrenia), admitted on 07/10/2022 for chest pain. Consult is by the hospitalist service for anxiety (at pt's request). Chief Complaint "I need help with anxiety". History of Present Illness As part of my review of the medical record, I read the following psychiatric liaison RN note from earlier today: "Patient seen for initial consult, alert and oriented x 4, endorses chronic passive SI but no plan or intent - denies HI, denies hallucinations/delusions, patient sees Dr. Minor through telehealth for psychiatry services and confirms she takes Thorazine 50mg BID, Seroquel 600mg QHS, dulextine 60mg BID, she requested consult for medications recs related to not being able to leave her house due to anxiety, patient has an inpatient history last at the [facility] 17 years ago for SA which was her last SA, currently disabled and lives with her fiance - feels safe at home and denies access to guns, denies tobacco/alcohol/drug use other than medical MJ, family history of schizophrenia with her grandmother which patient confirmed is also her primary diagnosis, denies questions or needs at this time" as well as psychiatric consultation notes from 07/2020 at which time she was presenting off medications and psychotic. Pt tells me she regularly sees Dr. Ortega for psychiatry and that he has been having her adjust duloxetine to target anxiety. She says "he just increased it" to the current dose of 120 mg/day and describes it as having recently been started. (However, the 2020 consultation notes report her as having been on that medication previous to stopping meds before that hospitalization.) She denies any side effects attributable to that medication, or indeed to any other psychiatric medication she's taking. These include both chlorpromazine 150 mg BID and quetiapine 600 mg QHS. Pt describes phobic avoidance of leaving her house ("agoraphobia") and "just generally being anxious all the time". She doesn't actually describe any very clear panic symptoms to me on interview today. She says her mood symptoms "are under good control" and denies any hallucinations. She denies any suicidal or homicidal thoughts. Pt was asleep on approach and, although she awoke readily, remained somewhat drowsy throughout the interview. I do think she was able to participate enough to make an accurate assessment. Allergies Allergy/AdvReac Type Severity Reaction Status Date / Time bee pollen Allergy Severe Anaphylaxis Verified 07/10/22 22:26 Iodinated Contrast Media Allergy Severe Anaphylaxis Verified 07/10/22 22:26 loratadine AdvReac Severe anxiety, Verified 07/10/22 22:26 paranoia increases cetirizine AdvReac Intermediate anxiety, Verified 07/10/22 22:26 paranoia increases fexofenadine AdvReac Intermediate anxiety Verified 07/10/22 22:26 and paranoia increases ketorolac AdvReac Mild PT STATES Verified 07/10/22 22:26 SHE IS ON THORAZINE AND CANNOT TAKE TORADOL tramadol AdvReac Mild hallucinati Verified 07/10/22 22:26 ons Home Medications Medication Instructions Recorded Confirmed Type albuterol sulfate 2.5 mg/3 mL 2.5 mg inhalation Q6H PRN 07/10/22 07/10/22 History (0.083 %) solution for nebulization Shortness Of Breath Or Wheezing aspirin 81 mg tablet,delayed 81 mg PO DAILY 07/10/22 07/10/22 History release atorvastatin 80 mg tablet 80 mg PO DAILY 07/10/22 07/10/22 History baclofen 10 mg tablet 10 - 20 mg PO Q8 PRN Pain 07/10/22 07/10/22 History carvedilol 25 mg tablet 25 mg PO BID 07/10/22 07/10/22 History chlorpromazine 100 mg tablet 100 mg PO BID 07/10/22 07/10/22 History chlorpromazine 50 mg tablet 50 mg PO BID 07/10/22 07/10/22 History chlorthalidone 25 mg tablet 25 mg PO DAILY 07/10/22 07/10/22 History colchicine 0.6 mg tablet 0.6 mg PO DIRECTED 07/10/22 07/10/22 History duloxetine 60 mg capsule,delayed 120 mg PO DAILY 07/10/22 07/10/22 History release ezetimibe 10 mg tablet (Zetia) 10 mg PO DAILY 07/10/22 07/10/22 History famotidine 20 mg tablet 20 mg PO HS 07/10/22 07/10/22 History ferrous sulfate 325 mg (65 mg 325 mg PO DAILY 07/10/22 07/10/22 History iron) tablet (iron) gabapentin 800 mg tablet 800 mg PO TID 07/10/22 07/10/22 History insulin aspart U-100 100 unit/mL 8 unit subcut TIDWMEAL 07/10/22 07/10/22 History (3 mL) subcutaneous pen (Novolog FlexPen U-100 Insulin aspart) insulin glargine 100 unit/mL (3 20 unit subcut HS 07/10/22 07/10/22 History mL) subcutaneous pen (Lantus Solostar U-100 Insulin) ipratropium 20 mcg-albuterol 100 1 puff inhalation QID 07/10/22 07/10/22 History mcg/actuation mist for inhalation (Combivent Respimat) levothyroxine 175 mcg tablet 175 mcg PO DAILY 07/10/22 07/10/22 History liraglutide 0.6 mg/0.1 mL (18 mg/3 1.8 mg subcut DAILY 07/10/22 07/10/22 History mL) subcutaneous pen injector (Victoza 3-Anthony) lisinopril 20 mg tablet 20 mg PO DAILY 07/10/22 07/10/22 History metformin 500 mg tablet,extended 1,000 mg PO BID 07/10/22 07/10/22 History release 24 hr mometasone-formoterol HFA 100 2 puff inhalation BID 07/10/22 07/10/22 History mcg-5 mcg/actuation aerosol inhaler (Dulera) nitroglycerin 0.4 mg sublingual 0.4 mg sublingual DIRECTED 07/10/22 07/10/22 History tablet (Nitrostat) omeprazole 40 mg capsule,delayed 40 mg PO DAILY 07/10/22 07/10/22 History release potassium chloride 20 mEq 20 meq PO DAILY 07/10/22 07/10/22 History tablet,extended release quetiapine 300 mg tablet,extended 600 mg PO QPM 07/10/22 07/10/22 History release 24 hr rivaroxaban 20 mg tablet (Xarelto) 20 mg PO DAILY 07/10/22 07/10/22 History sucralfate 1 gram tablet 1 g PO ACHS 07/10/22 07/10/22 History Patient History Medical History (Updated 07/11/22 @ 12:11 by Jaylen Santoyo MD) Anemia Baseline 9.9-11, ongoing since ~2004. Ankle fracture, left Atypical chest pain Per cardiology 05/01/19, "- persistent chest pain symptoms are atypical. Recent lexiscan nuclear stress test from 04/24/2019 was negative for ischemia; suspect some of her symptoms have been due to uncontrolled HTN urgencies. BP better controlled now since adjustment of meds during recent inpatient stay. Continue Dual antiplatelet therapy (DAPT) with ASA and plavix for at least 1 year but likely would continue indefinitely given severe PAD in addition to the CAD." Blood clotting disorder Patient unsure what type; reports was discovered with DVT ~2013 CAD (coronary artery disease) 10/2018-[facility]LE[facility] to LAD in [place] Cervical cancer cryotherapy (~1994) Chronic pain COPD (chronic obstructive pulmonary disease) inhalers daily. Continues to smoke. Degenerative disc disease DM type 2 (diabetes mellitus, type 2) diet controlled Facial paresthesia Fibromyalgia GERD (gastroesophageal reflux disease) History of DVT (deep vein thrombosis) ~2013. Hyperlipidemia Hypertension Hypokalemia Hypomagnesemia Hypothyroidism Migraine Myocardial Infarction October 2018. Follows with Dr. Magdy Mckeon. Neuropathy hands and feet Osteoarthritis Peripheral vascular disease S/P prior femoropopliteal thromboembolectomy on right side and surgical repair of distal aortoiliac occlusive disease in 2014. Post traumatic stress disorder Raynauds disease Schizophrenia Transient ischemic attack (TIA) x2 September 2018. Surgical History H/O cardiac catheterization H/O elbow surgery right H/O tubal ligation H/O vascular surgery thrombectomy Right leg 2013 History of arthroscopic knee surgery left History of cardiac cath October 2018 at [facility] s/p HARLEEN to LAD November 2019 at with [facility], no intervention History of carpal tunnel surgery of right wrist History of dilatation and curettage x2 History of heart artery stent Drug Eluting stent placed in LAD -- October 2018. History of incisional hernia repair x2 with full abdominal screen/mesh. Hx of cholecystectomy Hx of oral surgery (04/02/19) Oral Abscess Incision and Drainage (hard palate and extraction of tooth # 7,8,9,10,11,20 and 21) Dr. Kowalski 04-02-19. GETA. MAC 3, Grade 2 view. 7.0 ETT without difficulty. Hx of oral surgery (06/27/19) Closure Of oral/nasal Fistula, Left Palate To Muccoboccal Fold and Debridement Of Necrotic Bone Maxilla from area 3-14 Dr. Kowalski 06/27/19 S/P AAA repair ~2013 [facility]. (Dr. Graves). placed on Plavix and ASA at this time. S/P tonsillectomy Family History Mother Diabetes Grandfather FHx: heart disease Other No family history of adverse response to anesthesia Social History Smoking Status: Heavy tobacco smoker Tobacco Type: Cigarettes and E-cigarettes / Vaping Cigarettes Per Day: 40; Second Hand Exposure: Yes; Do You Dip or Chew Tobacco: No; Hx Alcohol Use: No Hx Substance Use: Yes Non-Prescribed Medications: Marijuana Last Used Substan ce: Days (ago) Last Used Substance Other:: medical marijuana 07/10/22 Preferred Language: Filipino Communication Ability: Effective Starch Dumper Required: No Beliefs That Will Affect Care: None marital status: Single Current Living Situation: Significant Other Current Living Situation Comment: Lives with spouse and daughter current occupational status: disabled Other Information That Helps Us Care for You: No Feels Safe at Home: Yes Safety Concerns: Feels Safe At This Time Assistive Devices: Cane Physical Exam Psychiatric: Orientation: oriented to person, oriented to place, oriented to time and cooperative drowsy Apperance: appropriately dressed and appropriately groomed Eye Contact: + fair eye contact (half-closes eyes frequently) Motor Behavior: no abnormal motor movements Speech: normal rate/rhythm/volume of speech Affect: + blunted affect Mood: + anxious mood Thought Process: goal directed thought process, linear/logical thought process and clear/coherent thought process Thought Content: reality based without delusions Suicidal Thoughts: denies suicidal thoughts and denies suicidal plan Homicidal Thoughts: denies homicidal thoughts Hallucinations: no auditory hallucinations and no visual hallucinations Cognition: remote memory grossly intact and language grossly intact; + recent memory not intact (inaccurate recall of recent medication history) and + attention not intact (drowsy) Estimated Intelligence: average estimated intelligence Insight: + fair insight Judgment: good judgement Vital Signs (Past 24 Hours): Last Vital Signs Temp 36.3 C L 07/11/22 11:33 Pulse 89 07/11/22 11:33 Resp 16 07/11/22 11:33 BP 132/89 07/11/22 11:33 Pulse Ox 94 07/11/22 11:33 O2 Del Method Room Air 07/11/22 11:33 Exam Statement: I have reviewed the physical exam done by the hospitalist at admission Review of Systems Psychiatric: + anxiety; no depression, no suicidal ideation, no panic attacks, no paranoia and no hallucinations Results & Data (PSY) Medications Administered Aspirin (Aspirin 81 Mg Ectab) 81 mg PO DAILY SEPIDEH Stop: 08/10/22 08:59 Last Admin: 07/11/22 08:43 Dose: 81 mg Documented By: [id number] Atorvastatin Calcium (Atorvastatin 40 Mg Tab) 80 mg PO DAILY SEPIDEH Stop: 08/10/22 08:59 Last Admin: 07/11/22 08:44 Dose: 80 mg Documented By: [id number] Carvedilol (Carvedilol 12.5 Mg Tab) 12.5 mg PO BID SEPIDEH Stop: 08/10/22 08:59 Last Admin: 07/11/22 08:43 Dose: 12.5 mg Documented By: [id number] Chlorpromazine HCl (Chlorpromazine Hcl 100 Mg Tab) 100 mg PO BID SEPIDEH Stop: 08/10/22 02:32 Last Admin: 07/11/22 08:42 Dose: 100 mg Documented By: [id number] Admin: 07/11/22 03:17 Dose: 100 mg Documented By: ZENIA Chlorpromazine HCl (Chlorpromazine Hcl 25 Mg Tab) 50 mg PO BID SEPIDEH Stop: 08/10/22 02:32 Last Admin: 07/11/22 08:42 Dose: 50 mg Documented By: [id number] Admin: 07/11/22 03:17 Dose: 50 mg Documented By: ZENIA Duloxetine HCl (Duloxetine Hcl 60 Mg Cap) 120 mg PO DAILY SEPIDEH Stop: 08/10/22 08:59 Last Admin: 07/11/22 08:43 Dose: 120 mg Documented By: [id number] Ezetimibe (Ezetimibe 10 Mg Tablet) 10 mg PO DAILY SEPIDEH Stop: 08/10/22 08:59 Last Admin: 07/11/22 08:43 Dose: 10 mg Documented By: [id number] Ferrous Sulfate (Ferrous Sulfate 325 Mg Tab) 325 mg PO DAILY SEPIDEH Stop: 08/10/22 08:59 Last Admin: 07/11/22 08:43 Dose: 325 mg Documented By: [id number] Fluticasone/Vilanterol (Fluticasone/Vilanterol 100/25mcg 14 Puffs/Inhaler) 1 puffs INH DAILY SEPIDEH Stop: 08/10/22 08:59 Last Admin: 07/11/22 08:45 Dose: 1 puffs Documented By: [id number] Gabapentin (Gabapentin 800 Mg Tab) 800 mg PO TID SEPIDEH Stop: 08/10/22 08:59 Last Admin: 07/11/22 08:43 Dose: 800 mg Documented By: [id number] Heparin Sodium/Dextrose (Heparin Sodium/Dextrose) 25,000 units in 500 mls @ 24 mls/hr IV .[id number] SEPIDEH; Protocol Stop: 08/10/22 00:59 Last Titration: 07/11/22 10:35 Dose: 1,200 units/hr, 24 mls/hr Documented By: [id number] Co-signed By: DEYANIRA Titration: 07/11/22 07:01 Dose: 1,150 units/hr, 23 mls/hr Documented By: ZENIA Co-signed By: [id number] Admin: 07/11/22 03:08 Dose: 1,150 units/hr, 23 mls/hr Documented By: ZENIA Co-signed By: ABL Potassium Chloride/Sodium Chloride (Normal Saline W/20 Meq Kcl) 20 meq in 1,000 mls @ 50 mls/hr IV .Q20H STA; Protocol Stop: 07/11/22 21:01 Last Admin: 07/11/22 03:57 Dose: 50 mls/hr Documented By: ZENIA Insulin Glargine (Lantus Per Unit Charge) 10 units SQ BID [facility] Stop: 08/10/22 08:59 Last Admin: 07/11/22 08:53 Dose: 10 units Documented By: [id number] Co-signed By: DEMETRIUS Ipratropium [place] (Ipratropium [place] Hfa Inhaler) 1 puffs INH QIDR [facility] Stop: 08/10/22 06:59 Last Admin: 07/11/22 07:17 Dose: 1 puffs Documented By: JESSICA Levalbuterol HCl (Levalbuterol Tartrate 15 Gm Hfa.Aer.Ad) 1 puffs INH QIDR [facility] Stop: 08/10/22 06:59 Last Admin: 07/11/22 07:17 Dose: 1 puffs Documented By: JESSICA Levothyroxine Sodium (Levothyroxine Sodium 200 Mcg Tablet) 200 mcg PO DAILYBB [facility] Stop: 08/10/22 06:29 Last Admin: 07/11/22 05:52 Dose: 200 mcg Documented By: ZENIA Lisinopril (Lisinopril 20 Mg Tab) 20 mg PO DAILY SEPIDEH Stop: 08/10/22 08:59 Last Admin: 07/11/22 08:43 Dose: 20 mg Documented By: [id number] Miscellaneous (Remove Nicoderm Patch) 1 each N/A DAILY@0859 [facility] Stop: 08/10/22 08:58 Last Admin: 07/11/22 10:41 Dose: 1 each Documented By: [id number] Morphine Sulfate (Morphine Sulfate 2 Mg/Ml Carp) 2 mg IV Q4H PRN PRN Reason: Pain Stop: 07/25/22 00:54 Last Admin: 07/11/22 07:57 Dose: 2 mg Documented By: [id number] Admin: 07/11/22 02:57 Dose: 2 mg Documented By: CR Nicotine (Nicotine 21 Mg/24 Hr Tdsy) 21 mg TD QAM [facility] Stop: 08/10/22 08:59 Last Admin: 07/11/22 10:29 Dose: 21 mg Documented By: [id number] Pantoprazole Sodium (Pantoprazole 40 Mg Tab) 40 mg PO DAILY SEPIDEH Stop: 08/10/22 08:59 Last Admin: 07/11/22 08:43 Dose: 40 mg Documented By: [id number] Potassium Chloride (Potassium Chloride Crtab 20 Meq Tabcr) 20 meq PO DAILY SEPIDEH Stop: 08/10/22 08:59 Last Admin: 07/11/22 08:43 Dose: 20 meq Documented By: [id number] Quetiapine Fumarate (Quetiapine Fumarate 200 Mg Tabcr) 600 mg PO QPM SEPIDEH Stop: 08/10/22 02:44 Last Admin: 07/11/22 03:17 Dose: 600 mg Documented By: ZENIA Sucralfate (Sucralfate 1 Gm Tab) 1 gm PO ACHS [facility] Stop: 08/10/22 07:29 Last Admin: 07/11/22 08:43 Dose: 1 gm Documented By: [id number] Coding Level of Care Code 00517 IN/OBS CONSULT LVL 4,60M Diagnoses Bipolar I disorder, most recent episode manic, in partial remission F31.73 Agoraphobia F40.00 BETH (generalized anxiety disorder) F41.1 Time Spent (min) 63
[2022-07-11] MEDS ORDERED: IPRATROPIUM BROMIDE HFA INHALER INH PRN (12:16)
[2022-07-11] MEDS ORDERED: LEVALBUTEROL TARTRATE 15 GM HFA.AER.AD INH PRN (12:17)
[2022-07-11 12:44] LABS: LDL Cholesterol Direct 196 mg/dl
[2022-07-11] MEDS: IBUPROFEN 600 MG TAB PO SCH ×2 (15:10→23:29)
--- NOTE | 2022-07-11 17:10 | Electrocardiogram Report ---
Test Reason : Blood Pressure : / mmHG Vent. Rate : 088 BPM Atrial Rate : 088 BPM P-R Int : 186 ms QRS Dur : 086 ms QT Int : 414 ms P-R-T Axes : 049 041 033 degrees QTc Int : 500 ms Normal sinus rhythm Prolonged QT Abnormal ECG When compared with ECG of 10-JUL-2022 20:31, No significant change Confirmed by Munir Mann ([id number]) on 07/11/2022 5:10:20 PM Referred By: REFERRED SELF Confirmed By:Munir Mann
[2022-07-11] MEDS: COLCHICINE 0.6 MG TAB PO SCH (20:08)
[2022-07-11] MEDS: FAMOTIDINE 20 MG TAB PO SCH (20:08)
[2022-07-12] MEDS: MoRPHine SULFATE 2 MG/ML CARP IV PRN ×3 (03:03→17:01)
[2022-07-12] MEDS: IBUPROFEN 600 MG TAB PO SCH ×2 (05:50→13:08)
[2022-07-12] MEDS: LEVOTHYROXINE SODIUM 200 MCG TABLET PO SCH (05:50)
[2022-07-12 07:37] LABS: BUN Creatinine Ratio 14.6 (10-20); Calcium 7.6 mg/dl (8.6-10.3); Creatinine Clr Calc Pharmacy 89.2 ml/min; Est GFR (African American) 100.9 ml/min; Phosphorus 2.4 mg/dl (2.5-4.9); Potassium 4.5 mmol/L (3.5-5.1)
[2022-07-12] MEDS: COLCHICINE 0.6 MG TAB PO SCH ×2 (08:52→20:39)
[2022-07-12] MEDS: SUCRALFATE 1 GM TAB PO SCH ×4 (08:52→20:38)
[2022-07-12] MEDS: carvediloL 12.5 MG TAB PO SCH ×2 (08:52→20:39)
[2022-07-12] MEDS: PANTOprazole 40 MG TAB PO SCH (08:53)
[2022-07-12] MEDS: GABAPENTIN 800 MG TAB PO SCH ×3 (08:53→20:41)
[2022-07-12] MEDS: POTASSIUM CHLORIDE CRTAB 20 MEQ TABCR PO SCH (08:53)
[2022-07-12] MEDS: ATORVASTATIN 40 MG TAB PO SCH (08:53)
[2022-07-12] MEDS: EZETIMIBE 10 MG TABLET PO SCH (08:53)
[2022-07-12] MEDS: FERROUS SULFATE 325 MG TAB PO SCH (08:53)
[2022-07-12] MEDS: DULoxetine HCL 60 MG CAP PO SCH (08:53)
[2022-07-12] MEDS: chlorproMAZINE HCL 25 MG TAB PO SCH ×2 (08:53→20:39)
[2022-07-12] MEDS: lisinopril 20 MG TAB PO SCH (08:53)
[2022-07-12 08:54] LABS: Hematocrit (blood only) 31.1 % (37.0-47.0); Hemoglobin 10.3 g/dl (12.0-16.0); Mean Corpuscular Hemoglobin 32.2 pg (25.0-34.0); Mean Corpuscular Hgb Conc 33.1 g/dL (32.0-36.0); Mean Corpuscular Volume 97.2 fL (80.0-100.0); Mean Platelet Volume 9.9 fL (9.4-12.4); Platelet Count 181 K/uL (130-400); RDW Coefficient of Variation 14.2 % (11.5-14.5); RDW Standard Deviation 51.1 fL (36.4-46.3); White Blood Count 6.16 K/ul (4.8-10.8)
[2022-07-12] MEDS: ASPIRIN 81 MG ECTAB PO SCH (08:54)
[2022-07-12] MEDS: FLUTICASONE/VILANTEROL 100/25MCG 14 PUFFS/INHALER INH SCH (08:54)
[2022-07-12] MEDS: NICOTINE 21 MG/24 HR TDSY TD SCH (08:54)
[2022-07-12] MEDS: LANTUS PER UNIT CHARGE SQ SCH ×2 (08:54→20:50)
[2022-07-12] MEDS ORDERED: REGADENOSON 0.4 MG/5 ML SYR IV ONE (10:14)
--- NOTE | 2022-07-12 11:43 | Cardiology Progress Note ---
Date of Service July 12, 2022 Assessment & Plan (1) Left-sided chest pain: Plan: 46-year-old female with a complex history of premature peripheral vascular disease and coronary heart disease presents with chest discomfort, somewhat atypical in character for angina. Serial high-sensitivity troponin measurements were negative x3. Serial EKG tracings without findings to suggest ischemia. Echocardiogram with a small loculated anterior, right lateral pericardial effusion. Patient since treated with colchicine and ibuprofen but symptoms persist. At the time of her most recent cardiac catheterization performed at [facility] in 2019, her LAD stent was patent without obstructive disease otherwise. Recommend proceeding with Lexiscan nuclear stress test for further evaluation. Continue colchicine and ibuprofen for now. Laboratory studies suggest medication noncompliance, with direct measured LDL level of 196 mg/dL on 07/11/2022 and TSH level of 144 IU/mL. I had seen the patient for similar concerns in July,. At that time she was struggling with homelessness and difficulty affording her medications. She states that she has been able to obtain her medications and that she is taking them, but her lab work would suggest otherwise. Continue aspirin, atorvastatin, carvedilol, ezetimibe, levothyroxine. Lexiscan stress test performed for further evaluation. The pharmacologic EKG portion of the test was negative for ischemia. Await myocardial perfusion imaging images and further recommendations to be forthcoming when that data is available. Admission and Anticipated Discharge Date Admission Date: July 11, 2022 Subjective Patient seen in cardiology follow-up of her chief complaint of chest discomfort. Initial consultation having been performed yesterday/12/[address] Spencer Squires. Patient describes vague low intensity chest discomfort at the time of assessment in room 205 this morning. Telemetry reveals sinus rhythm in the 70s. Review of Systems Review of Systems: All systems reviewed & are unremarkable except as noted in HPI & below - Noted subjective anxiety and agoraphobia for which patient was seen in consultation by psychiatry. Physical Exam Constitutional: + obese Respiratory: normal respiratory effort, lungs clear to auscultation Cardiovascular: RRR, no murmur, no edema Heart Sounds: normal S1 and normal S2; no murmur Extremities: no edema Gastrointestinal (Abdomen): normal bowel sounds, soft, nontender, no hepatosplenomegaly Neurologic: PERRL, EOMI, accommodation nl, no face palsy, no dysarthria Results & Data Vital Signs (Past 12 Hours) Vital Signs Temp Pulse Pulse Resp BP Pulse Ox Pulse Ox 07/12/22 07:00 81 07/12/22 07:13 36.8 C 71 18 98/75 L 90 07/12/22 02:33 90 07/11/22 23:37 36.3 C L 80 16 112/70 90 O2 Del Method O2 Del Method 07/12/22 07:00 07/12/22 07:13 Room Air 07/12/22 02:33 Room Air 07/11/22 23:37 Room Air Diagnostic Findings EKG performed 07/12/2022 at 5:49 AM and interpreted independently: Normal sinus rhythm at 74 bpm, QT interval mildly prolonged at 409 ms. Compared to the previous tracing no significant change. Echocardiogram performed 07/11/2022 revealed a small anterior loculated and right lateral pericardial effusion with no evidence of tamponade. LVEF 65-70% with no regional wall motion abnormalities. Mild mitral regurgitation noted. Compared to the previous echocardiogram performed in July,, the pericardial effusion is new.
--- NOTE | 2022-07-12 14:44 | Hospitalist Progress Note ---
Date of Service July 12, 2022 Assessment & Plan (1) Left-sided chest pain: Plan: No relationship of pain with exertion, not associated with significant other symptoms Possible unstable angina CAD status post stent Serial EKG and cardiac enzymes unremarkable Appreciate cardiology input and recommendation ACS has been ruled out Lexiscan today showed negative pharmacologic EKG changes and awaiting myocardial perfusion imaging results for further recommendation Continue patient's antiplatelet Rx, beta-chalino, statin Rx (2) CAD (coronary artery disease): Plan: History of CAD status post stent PAF, patient NSR on Xarelto hx CVA as per records (3) COPD (chronic obstructive pulmonary disease): (4) DM type 2 (diabetes mellitus, type 2): Plan: Has been on insulin and metformin DM 2 insulin requiring, suboptimal control as of recent hemoglobin A1c of 10.5 last April 2022 Metformin is on hold She will get insulin Lantus and also sliding scale NovoLog (5) HTN (hypertension): Plan: Blood pressure remains stable Continue with the current medications (6) Hypothyroidism: Plan: hypothyroidism, TSH markedly elevated, possible noncompliance chronic anemia, hemoglobin better than baseline, possible hemoconcentration (7) Bipolar I disorder, most recent episode manic, in partial remission: Plan: Noted to have overwhelming anxiety H/O schizophrenia/anxiety/mood disorder, social anxiety contributing to patient's ability to comply with medical appointments with specialists Psych consult re: overwhelming anxiety Appreciate psych input and recommendation (8) Raynauds disease: Plan DVT prophylaxis Hold Xarelto until patient seen by cardiology IV heparin while Xarelto on hold Other significant medical conditions remain stable as below PVD status post surgery Hyperlipidemia on statin Rx COPD, lung status at baseline Ongoing tobacco abuse Cervical cancer status post cryotherapy Drug-seeking behavior as per record Admission and Anticipated Discharge Date Admission Date: July 11, 2022 Subjective 07/12/2022 The patient was seen and examined in telemetry unit She has been complaining of precordial chest pain which goes to back for a while The pain could be anytime and not associated with shortness of breath, sweating, nausea and or vomiting Denies any other symptoms Review of Systems Review of Systems: All systems reviewed and are unremarkable except as noted below Physical Exam 2 Physical Exam: Lying in bed comfortably Constitutional: well developed, well nourished, + ill appearing and + obese Eyes: PERRL, conjunctivae normal, anicteric sclerae ENMT: external ear and nose normal, oropharynx normal Respiratory: no respiratory distress Auscultation: + diminished lung sounds and + crackles (Minimal crackles at the bases) Cardiovascular: Rate/Rhythm: regular rate and regular rhythm; not tachycardic Heart Sounds: normal S1 and normal S2; no murmur Extremities: + edema (Trace edema bilaterally) Gastrointestinal (Abdomen): Inspection/Auscultation: normal bowel sounds; abdomen not distended Percussion/Palpation: abdomen soft; abdomen nontender Musculoskeletal: No acute arthritis involving any of the joint Neurologic: normal touch/pain/proprioception and moves all extremities; no focal motor deficits Lymphatic: no cervical or axillary lymphadenopathy Results & Data Results & Data Vital Signs (Past 12 Hours) Vital Signs Temp Pulse Pulse Resp BP Pulse Ox Pulse Ox 07/12/22 12:27 36.4 C L 77 17 125/78 96 07/12/22 07:00 81 07/12/22 07:13 36.8 C 71 18 98/75 L 90 07/12/22 02:33 90 O2 Del Method O2 Del Method 07/12/22 12:27 Room Air 07/12/22 07:00 07/12/22 07:13 Room Air 07/12/22 02:33 Room Air Laboratory Results Short CBC 07/12/22 07/12/22 Range/Units 06:47 08:36 WBC Cancelled 6.16 Hgb Cancelled 10.3 L Hct Cancelled 31.1 L Plt Count Cancelled 181 BMP 07/12/22 06:47 Sodium 134 L Potassium 4.5 Chloride 108 H Carbon Dioxide 20 L BUN 12 Creatinine 0.82 Glucose 206 H Calcium 7.6 L Medications Administered Current Inpatient Medications Acetaminophen (Acetaminophen 325 Mg Tab) 650 mg PO Q4H PRN PRN Reason: Pain or Fever Stop: 08/10/22 02:32 Aspirin (Aspirin 81 Mg Ectab) 81 mg PO DAILY [facility] Stop: 08/10/22 08:59 Last Admin: 07/12/22 08:54 Dose: 81 mg Atorvastatin Calcium (Atorvastatin 40 Mg Tab) 80 mg PO DAILY [facility] Stop: 08/10/22 08:59 Last Admin: 07/12/22 08:53 Dose: 80 mg Carvedilol (Carvedilol 12.5 Mg Tab) 12.5 mg PO BID [facility] Stop: 08/10/22 08:59 Last Admin: 07/12/22 08:52 Dose: 12.5 mg Chlorpromazine HCl (Chlorpromazine Hcl 100 Mg Tab) 100 mg PO BID [facility] Stop: 08/10/22 02:32 Last Admin: 07/12/22 08:53 Dose: 100 mg Chlorpromazine HCl (Chlorpromazine Hcl 25 Mg Tab) 50 mg PO BID [facility] Stop: 08/10/22 02:32 Last Admin: 07/12/22 08:53 Dose: 50 mg Colchicine (Colchicine 0.6 Mg Tab) 0.6 mg PO BID [facility] Stop: 08/10/22 20:59 Last Admin: 07/12/22 08:52 Dose: 0.6 mg Duloxetine HCl (Duloxetine Hcl 60 Mg Cap) 120 mg PO DAILY [facility] Stop: 08/10/22 08:59 Last Admin: 07/12/22 08:53 Dose: 120 mg Ezetimibe (Ezetimibe 10 Mg Tablet) 10 mg PO DAILY [facility] Stop: 08/10/22 08:59 Last Admin: 07/12/22 08:53 Dose: 10 mg Famotidine (Famotidine 20 Mg Tab) 20 mg PO HS [facility] Stop: 08/10/22 20:59 Last Admin: 07/11/22 20:08 Dose: 20 mg Ferrous Sulfate (Ferrous Sulfate 325 Mg Tab) 325 mg PO DAILY [facility] Stop: 08/10/22 08:59 Last Admin: 07/12/22 08:53 Dose: 325 mg Fluticasone/Vilanterol (Fluticasone/Vilanterol 100/25mcg 14 Puffs/Inhaler) 1 puffs INH DAILY [facility] Stop: 08/10/22 08:59 Last Admin: 07/12/22 08:54 Dose: 1 puffs Gabapentin (Gabapentin 800 Mg Tab) 800 mg PO TID [facility] Stop: 08/10/22 08:59 Last Admin: 07/12/22 13:08 Dose: 800 mg Promethazine HCl 12.5 mg/ (Sodium Chloride) 50.5 mls @ 202 mls/hr IV Q6H PRN PRN Reason: Nausea And Vomiting Stop: 08/10/22 00:54 Ibuprofen (Ibuprofen 600 Mg Tab) 600 mg PO Q8 [facility] Stop: 08/10/22 13:14 Last Admin: 07/12/22 13:08 Dose: 600 mg Insulin Aspart (Insulin Aspart Per Unit Charge) 0 units SC ACHS [facility] Stop: 08/11/22 16:29 Insulin Glargine (Lantus Per Unit Charge) 10 units SQ BID [facility] Stop: 08/10/22 08:59 Last Admin: 07/12/22 08:54 Dose: 10 units Ipratropium [place] (Ipratropium [place] Hfa Inhaler) 1 puffs INH QIDR PRN PRN Reason: Shortness Of Breath Stop: 08/10/22 06:59 Levalbuterol HCl (Levalbuterol Tartrate 15 Gm Hfa.Aer.Ad) 1 puffs INH QIDR PRN PRN Reason: Shortness Of Breath Stop: 08/10/22 06:59 Levothyroxine Sodium (Levothyroxine Sodium 200 Mcg Tablet) 200 mcg PO DAILYBB [facility] Stop: 08/10/22 06:29 Last Admin: 07/12/22 05:50 Dose: 200 mcg Lisinopril (Lisinopril 20 Mg Tab) 20 mg PO DAILY [facility] Stop: 08/10/22 08:59 Last Admin: 07/12/22 08:53 Dose: 20 mg Lorazepam (Lorazepam 0.5 Mg Tab) 0.25 mg PO TID PRN PRN Reason: Anxiety Stop: 08/10/22 00:54 Miconazole Nitrate (Miconazole Nitrate Powder 85 Gm) 1 appln EXT PRN PRN PRN Reason: Affected Skin Folds Stop: 08/10/22 10:43 Miscellaneous (Remove Nicoderm Patch) 1 each N/A DAILY@0859 [facility] Stop: 08/10/22 08:58 Last Admin: 07/12/22 12:34 Dose: Not Given Morphine Sulfate (Morphine Sulfate 2 Mg/Ml Carp) 2 mg IV Q4H PRN PRN Reason: Pain Stop: 07/25/22 00:54 Last Admin: 07/12/22 13:08 Dose: 2 mg Nicotine (Nicotine 21 Mg/24 Hr Tdsy) 21 mg TD QAM [facility] Stop: 08/10/22 08:59 Last Admin: 07/12/22 08:54 Dose: 21 mg Nitroglycerin (Nitroglycerin Sl 0.4 Mg/Tab Tab) 0.4 mg SL UD PRN PRN Reason: Chest Pain Stop: 08/10/22 02:32 Oxycodone HCl (Oxycodone Hcl Ir 5 Mg Tab (Immediate Release)) 5 mg PO Q4H PRN PRN Reason: Pain Stop: 07/25/22 00:54 Pantoprazole Sodium (Pantoprazole 40 Mg Tab) 40 mg PO DAILY [facility] Stop: 08/10/22 08:59 Last Admin: 07/12/22 08:53 Dose: 40 mg Potassium Chloride (Potassium Chloride Crtab 20 Meq Tabcr) 20 meq PO DAILY [facility] Stop: 08/10/22 08:59 Last Admin: 07/12/22 08:53 Dose: 20 meq Quetiapine Fumarate (Quetiapine Fumarate 200 Mg Tabcr) 600 mg PO QPM [facility] Stop: 08/10/22 02:44 Last Admin: 07/11/22 20:09 Dose: 600 mg Sucralfate (Sucralfate 1 Gm Tab) 1 gm PO ACHS [facility] Stop: 08/10/22 07:29 Last Admin: 07/12/22 12:34 Dose: Not Given
--- NOTE | 2022-07-12 15:30 | Myocardial Perfusion Study ---
Date of Service July 12, 2022 Procedure: 1. Myocardial perfusion study performed in multiple views/images 2. Lexiscan pharmacologic stress ECG Indications: 1. Chest discomfort, history of coronary heart disease, past LAD stent Ordering physician: Dr Spencer Squires Procedural details: For the stress portion of the study, Lexiscan 0.4 mg was intravenously administered followed by a saline flush. This was followed by 33.3 mCi of technetium 99m Cardiolite, injected at 11:15 on 07/12/22. 30 minutes following the injection, imaging of the heart was performed in multiple projections. For the rest portion of the study, 10.8 mCi technetium 99m Cardiolite was injected intravenously at 930 am on 07/12/22. 1 hour following the injection, imaging of the heart was performed in the same projections. Lexiscan stress ECG: Resting ECG demonstrated: Sinus rhythm at 71 bpm, normal ST segments. Maximum heart rate: 90 bpm Maximal, age-predicted heart rate: 51% Resting blood pressure: 101/67 mmHg Maximum blood pressure: 114/[address] changes: None Arrhythmia: None Symptoms: Mild chest discomfort noted with Lexiscan administration that resolved in the post-rest recovery interval Findings: Rotating raw imaging demonstrated no significant lung uptake. There is no significant motion artifact. Heart size appeared normal. Myocardial perfusion demonstrated normal stress and resting perfusion. Ejection fraction: 61% Wall motion: Normal No significant transient ischemic dilation. Impression: 1. Normal Lexiscan myocardial perfusion imaging study revealing no evidence of infarct or reversible ischemia. 2. The left ventricular wall motion was normal by gated SPECT technique, the left ventricular ejection fraction was normal at 61%.
--- NOTE | 2022-07-12 15:36 | Communication Note ---
Date of Service: July 12, 2022 Nuclear stress test with findings of normal perfusion, normal LVEF. I discussed the results with the patient. Will discontinue ibuprofen, and observe her on colchicine. Patient feeling a little improved, recommend she stays in the hospital overnight for further observation. Will reassess 07/13/2022.
[2022-07-12] MEDS: LORazepam 0.5 MG TAB PO PRN ×2 (15:56→22:40)
[2022-07-12] MEDS: INSULIN ASPART PER UNIT CHARGE SC SCH ×2 (16:57→20:50)
[2022-07-12] MEDS: ACETAMINOPHEN 325 MG TAB PO PRN (19:20)
[2022-07-12] MEDS: oxyCODONE HCL IR 5 MG TAB (IMMEDIATE RELEASE) PO PRN (20:38)
[2022-07-12] MEDS: QUEtiapine FUMARATE 200 MG TABCR PO SCH (20:40)
[2022-07-12] MEDS: FAMOTIDINE 20 MG TAB PO SCH (20:41)
[2022-07-13] MEDS: oxyCODONE HCL IR 5 MG TAB (IMMEDIATE RELEASE) PO PRN ×2 (00:31→06:38)
--- NOTE | 2022-07-13 05:53 | Electrocardiogram Report ---
Test Reason : Blood Pressure : / mmHG Vent. Rate : 074 BPM Atrial Rate : 074 BPM P-R Int : 200 ms QRS Dur : 088 ms QT Int : 450 ms P-R-T Axes : 035 029 030 degrees QTc Int : 499 ms Normal sinus rhythm Prolonged QT Abnormal ECG When compared with ECG of 11-JUL-2022 10:08, No significant change was found Confirmed by Salo Fernandes ([id number]) on 07/13/2022 5:53:01 AM Referred By: REFERRED SELF Confirmed By:Salo Fernandes
[2022-07-13] MEDS: LEVOTHYROXINE SODIUM 200 MCG TABLET PO SCH (06:23)
[2022-07-13 07:24] LABS: Basophils # (auto) 0.04 K/uL (0-0.2); Basophils % (auto) 0.5 %; Eosinophils # (auto) 0.25 K/uL (0-0.50); Eosinophils % (auto) 3.4 %; Hematocrit (blood only) 34.8 % (37.0-47.0); Hemoglobin 11.6 g/dl (12.0-16.0); Immature Granulocytes # (auto) 0.05 K/uL (0.01-0.20); Immature Granulocytes % (auto) 0.7 %; Lymphocytes # (auto) 2.06 K/uL (1.2-3.4); Mean Corpuscular Hemoglobin 31.6 pg (25.0-34.0); Mean Corpuscular Hgb Conc 33.3 g/dL (32.0-36.0); Mean Corpuscular Volume 94.8 fL (80.0-100.0); Mean Platelet Volume 10.1 fL (9.4-12.4); Monocytes # (auto) 0.53 K/uL (0.11-0.59); Monocytes % (auto) 7.2 %; Neutrophils # (auto) 4.43 K/uL (1.40-6.50); Neutrophils % (auto) 60.2 %; Platelet Count 212 K/uL (130-400); RDW Coefficient of Variation 13.7 % (11.5-14.5); RDW Standard Deviation 47.8 fL (36.4-46.3); Red Blood Count 3.67 M/uL (4.20-5.40); White Blood Count 7.36 K/ul (4.8-10.8)
[2022-07-13 07:29] LABS: Calcium 8.8 mg/dl (8.6-10.3); Creatinine Clr Calc Pharmacy 85.1 ml/min; Est GFR (African American) 95.2 ml/min; Est GFR (Non-African American) 82.2 ml/min; Magnesium 1.8 mg/dl (1.7-2.4); Potassium 4.3 mmol/L (3.5-5.1)
[2022-07-13] MEDS: SUCRALFATE 1 GM TAB PO SCH ×2 (07:35→12:12)
[2022-07-13] MEDS: ASPIRIN 81 MG ECTAB PO SCH (07:36)
[2022-07-13] MEDS: ATORVASTATIN 40 MG TAB PO SCH (07:37)
[2022-07-13] MEDS: carvediloL 12.5 MG TAB PO SCH (07:38)
[2022-07-13] MEDS: chlorproMAZINE HCL 25 MG TAB PO SCH (07:42)
[2022-07-13] MEDS: COLCHICINE 0.6 MG TAB PO SCH (07:42)
[2022-07-13] MEDS: DULoxetine HCL 60 MG CAP PO SCH (07:43)
[2022-07-13] MEDS: EZETIMIBE 10 MG TABLET PO SCH (07:43)
[2022-07-13] MEDS: FERROUS SULFATE 325 MG TAB PO SCH (07:44)
[2022-07-13] MEDS: FLUTICASONE/VILANTEROL 100/25MCG 14 PUFFS/INHALER INH SCH (07:44)
[2022-07-13] MEDS: GABAPENTIN 800 MG TAB PO SCH ×2 (07:45→13:52)
[2022-07-13] MEDS: NICOTINE 21 MG/24 HR TDSY TD SCH (07:45)
[2022-07-13] MEDS: lisinopril 20 MG TAB PO SCH (07:45)
[2022-07-13] MEDS: POTASSIUM CHLORIDE CRTAB 20 MEQ TABCR PO SCH (07:46)
[2022-07-13] MEDS: PANTOprazole 40 MG TAB PO SCH (07:46)
[2022-07-13] MEDS: INSULIN ASPART PER UNIT CHARGE SC SCH ×2 (08:19→12:21)
[2022-07-13] MEDS: LANTUS PER UNIT CHARGE SQ SCH (08:20)
[2022-07-13] MEDS: ACETAMINOPHEN 325 MG TAB PO PRN (12:20)
--- NOTE | 2022-07-13 12:55 | Cardiology Progress Note ---
Date of Service July 13, 2022 Assessment & Plan (1) Left-sided chest pain: Plan: - Symptoms somewhat atypical in character for angina. -Small loculated anterior pericardial effusion noted, however symptoms did not improve with use of ibuprofen -Nuclear stress test performed 07/03/2022 reveals normal perfusion which is reassuring. -Continue prior to hospital treatment for underlying coronary heart disease including aspirin, atorvastatin, carvedilol, ezetimibe, lisinopril. -Recommend course of colchicine. To be discharged on 0.6 mg daily, to complete a 3-month course depend upon findings at follow-up. -Would recommend follow-up echocardiogram as an outpatient at an interval of 3 to 4 weeks. -Patient stable from a cardiac perspective for discharge. Admission and Anticipated Discharge Date Admission Date: July 11, 2022 Subjective Patient seen in follow-up of chest discomfort. She notes ongoing "tight "sensation characteristics atypical for angina. Telemetry reveals sinus rhythm in the 70s. Physical Exam Constitutional: WD/WN, vitals as above Respiratory: normal respiratory effort, lungs clear to auscultation Cardiovascular: RRR, no murmur, no edema Gastrointestinal (Abdomen): normal bowel sounds, soft, nontender, no hepatosplenomegaly Neurologic: PERRL, EOMI, accommodation nl, no face palsy, no dysarthria Results & Data Vital Signs (Past 12 Hours) Vital Signs Temp Pulse Pulse Resp BP Pulse Ox O2 Del Method 07/13/22 11:05 36.9 C 80 17 100/77 96 Room Air 07/13/22 07:17 36.9 C 72 17 112/81 94 Room Air 07/13/22 06:44 70 07/13/22 02:32 37.1 C 69 16 107/67 96 Room Air 07/13/22 02:31 37.1 C 70 16 109/76 97 Room Air
--- NOTE | 2022-07-13 13:31 | Hospitalist Progress Note ---
Date of Service July 13, 2022 Assessment & Plan (1) Left-sided chest pain: Plan: No relationship of pain with exertion, not associated with significant other symptoms Possible unstable angina CAD status post stent Serial EKG and cardiac enzymes unremarkable Appreciate cardiology input and recommendation ACS has been ruled out Lexiscan today showed negative pharmacologic EKG changes and awaiting myocardial perfusion imaging results for further recommendation Continue patient's antiplatelet Rx, beta-chalino, statin Rx She has been on Xarelto for some time for DVT The course seems to be done a long time ago No definitive history of atrial fibrillation that she should do on that medicine Discussed with the sccm administrator in detail and it was decided to take of the medicine to prevent further complication The patient is agreeable Xarelto was discontinued (2) CAD (coronary artery disease): Plan: History of CAD status post stent PAF, patient NSR on Xarelto hx CVA as per records (3) COPD (chronic obstructive pulmonary disease): (4) DM type 2 (diabetes mellitus, type 2): Plan: Has been on insulin and metformin DM 2 insulin requiring, suboptimal control as of recent hemoglobin A1c of 10.5 last April 2022 Metformin is on hold She will get insulin Lantus and also sliding scale NovoLog (5) HTN (hypertension): Plan: Blood pressure remains stable Continue with the current medications (6) Hypothyroidism: Plan: hypothyroidism, TSH markedly elevated, possible noncompliance chronic anemia, hemoglobin better than baseline, possible hemoconcentration (7) Bipolar I disorder, most recent episode manic, in partial remission: Plan: Noted to have overwhelming anxiety H/O schizophrenia/anxiety/mood disorder, social anxiety contributing to patient's ability to comply with medical appointments with specialists Psych consult re: overwhelming anxiety Appreciate psych input and recommendation (8) Raynauds disease: Plan DVT prophylaxis Hold Xarelto until patient seen by cardiology IV heparin while Xarelto on hold Other significant medical conditions remain stable as below PVD status post surgery Hyperlipidemia on statin Rx COPD, lung status at baseline Ongoing tobacco abuse Cervical cancer status post cryotherapy Drug-seeking behavior as per record Admission and Anticipated Discharge Date Admission Date: July 11, 2022 Subjective 07/12/2022 The patient was seen and examined in telemetry unit She has been complaining of precordial chest pain which goes to back for a while The pain could be anytime and not associated with shortness of breath, sweating, nausea and or vomiting Denies any other symptoms 07/13/2022 The patient was seen and examined in telemetry unit She has been doing much better today She has had normal nuclear stress test and she will be discharged home this afternoon Review of Systems Review of Systems: All systems reviewed and are unremarkable except as noted below Physical Exam Physical Exam: Lying in bed comfortably Constitutional: well developed, well nourished, + ill appearing and + obese Eyes: PERRL, conjunctivae normal, anicteric sclerae ENMT: external ear and nose normal, oropharynx normal Respiratory: no respiratory distress Auscultation: + diminished lung sounds and + crackles (Minimal crackles at the bases) Cardiovascular: Rate/Rhythm: regular rate and regular rhythm; not tachycardic Heart Sounds: normal S1 and normal S2; no murmur Extremities: + edema (Trace edema bilaterally) Gastrointestinal (Abdomen): Inspection/Auscultation: normal bowel sounds; abdomen not distended Percussion/Palpation: abdomen soft; abdomen nontender Musculoskeletal: No acute arthritis involving any of the joints Neurologic: normal touch/pain/proprioception and moves all extremities; no focal motor deficits Lymphatic: no cervical or axillary lymphadenopathy Results & Data Results & Data Vital Signs (Past 12 Hours) Vital Signs Temp Pulse Pulse Resp BP Pulse Ox O2 Del Method 07/13/22 11:05 36.9 C 80 17 100/77 96 Room Air 07/13/22 07:17 36.9 C 72 17 112/81 94 Room Air 07/13/22 06:44 70 07/13/22 02:32 37.1 C 69 16 107/67 96 Room Air 07/13/22 02:31 37.1 C 70 16 109/76 97 Room Air
--- NOTE | 2022-07-13 14:08 | Communication Note ---
Date of Service: July 13, 2022 Case discussed by phone with Dr. Reynolds of the [facility]ist service for the purpose of further coordination of care. Patient's outpatient medication list includes Xarelto 20 mg daily. Per review of her outpatient record there is a discharge summary scanned in from [facility] (perhaps [facility]- the document does not specify) summarizing a ho spital stay dated 03/17/2021 at which time she was diagnosed with a right distal peroneal vein DVT. The discharge summary describes her being discharged on a course of Xarelto for an unprovoked DVT and recommended anticoagulation for an interval of 3 to 6 months. I see that the Xarelto was continued at the time of another hospital stay in January,. Most recently, she had been admitted to [facility] with leg pain on 06/02/2022. Venous duplex revealed no right lower extremity DVT at that time. At present, the patient is a single right peroneal vein DVT event. I have concerns with regards to her adhering to her medications, perhaps it is most prudent for us to simplify her medications by discontinuing the Xarelto with her having completed the appropriate course. She should continue her long-term aspirin therapy, aspirin 81 mg daily. I see another entry into her chart as an outpatient in April, setting that she was apparently admitted to [facility] with a TIA/stroke work-up. There is a single neurology follow-up note soon thereafter the describes a history of paroxysmal atrial fibrillation, but I do not see any definite data to substantiate this I question if this was just an assumption based on her previous Xarelto dose. I do not see any definite date to confirm that she has a history of atrial fibrillation. Available discharge summary from [facility] from 05/03/22 describes DC diagnosis of chest pain. With regards to her outpatient cardiology follow-up, her most recent visit had been with Dr. Pal in [facility] and December,. She did not show for an appointment scheduled for 05/12/22 at [facility].
--- NOTE | 2022-07-13 14:14 | Communication Note ---
Date of Service: July 13, 2022 Impression / Recommendations Impression 07/13/2022: Continues to do fairly well psychiatrically and reports no change in anxiety symptoms from her treated outpatient baseline. 07/11/2022: 46 y/o F with history of bipolar disorder, previous diagnosis of schizophrenia, now reporting anxiety preventing her from leaving her home. She certainly does not present as very anxious on exam right now. Her regimen of psychiatric medications includes high-dose duloxetine (in my experience, often necessary and appropriate when treating anxiety symptoms), quetiapine (given only at bedtime at a dose consistent with common total daily doses for this medication), and chlorpromazine (at a fairly significant dose twice a day). I don't know the rationale for using two antipsychotics (which is usually to be avoided). Chlorpromazine is a potent inhibitor of H1 histamine receptors and therefore often sedating (as well as anxiolytic). This could account for her drowsy presentation today. Quetiapine is, counterintuitively, often less sedating at higher doses than at lower ones, but the fact that it's being given all at bedtime suggests that in this patient it may have been seen as too sedating to use (as would be typical) in divided twice-daily doses. That still leaves me uncertain why she's not using chlorpromazine as monotherapy or if in fact it's been determined that she's unable to use quetiapine as monotherapy. Her most recent QTc of 451 ms is well within her usual range, but I would have concern about raising doses of chlorpromazine or quetiapine, especially given her presenting problem of chest pain. (1) Bipolar I disorder, most recent episode manic, in partial remission: None (2) Agoraphobia: None (3) BETH (generalized anxiety disorder): None Plan Pt's somewhat complicated outpatient medication regimen is most likely appropriate and she is well-engaged in outpatient treatment with Dr. Minor, which she fully intends to continue following medical discharge. No change in psychiatric regimen is recommended. Suicide Risk Level Suicide Risk Level: Low (q15 min observation checks) Suicide Risk Level Comments: denies suicidal thoughts
--- NOTE | 2022-07-14 08:58 | Discharge Summary ---
Date of Service July 13, 2022 Admission HPI Per Admitting Provider History obtained from patient and records. Medical history significant for CAD status post stent, AAA status post surgery (2014), PAF on Xarelto, CVA as per records, hypertension, hyperlipidemia, COPD, ongoing tobacco abuse, DM 2 insulin requiring, hypothyroidism, chronic anemia (baseline hemoglobin of 11), history leg clot status post surgery as per patient, schizophrenia/anxiety/mood disorder, cervical cancer status post cryotherapy, drug-seeking behavior as per records. Last [facility] confinement September 2020 for chest pain attributed to uncontrolled hypertension. Patient has not followed up with her [facility] washer repairman for a few years. Anxiety prevents her from leaving home to see her doctors as per patient. Patient denies current suicidality. Last [facility] confinement April 2022 for TIA symptoms. Yesterday patient noted achy left-sided chest pain going to her back, 9/10. Some shortness of breath. Patient compliant with home medications. Denies headache or abdominal pain symptoms Episode similar to heart attack in the past. No immediate response to nitroglycerin taken at home. Chest discomfort relieved by nitro paste administered at the ER Medical Historyas above Surgical History : AAA surgery, carpal tunnel surgery, RLE embolectomy with patch placement, section, elbow surgery, hernia repair, knee surgery, cholecystectomy, BTL, tonsillectomy, dental surgery Family History : Alcoholism, diabetes, heart disease, stroke, seizure Personal/Social history : 2 packs daily, occasional EtOH intake, disabled Admission Exam Per Admitting Provider Physical Exam: GENERAL: comfortable, obese, looks older for stated age, no respiratory distress SKIN: Pallor, warm HEENT: Pale palpebral conjunctivae, no ptosis, moist buccal mucosa, partially edentulous NECK : Supple, short neck, no tenderness CHEST : CTA, no tenderness HEART : RRR, no obvious murmurs ABDOMEN: Some distention, nontender EXTREMITIES : Minimal LE swelling, no LE tenderness, no other conspicuous deformities noted NEUROLOGIC : Coherent, no facial asymmetry, no other gross focality Principal Diagnosis Left-sided chest pain-ACS has been ruled out with negative nuclear stress test, pericarditis, type 2 diabetes, COPD, bipolar disorder Discharge Exam Lying in bed comfortably Constitutional well developed, well nourished, + ill appearing and + obese Eyes PERRL, conjunctivae normal, anicteric sclerae ENMT external ear and nose normal, oropharynx normal Respiratory no respiratory distress Auscultation: + diminished lung sounds and + crackles (Minimal crackles at the bases) Cardiovascular Rate/Rhythm: regular rate and regular rhythm; not tachycardic Heart Sounds: normal S1 and normal S2; no murmur Extremities: + edema (Trace edema bilaterally) Gastrointestinal (Abdomen) Inspection/Auscultation: normal bowel sounds; abdomen not distended Percussion/Palpation: abdomen soft; abdomen nontender Neurologic normal touch/pain/proprioception and moves all extremities; no focal motor deficits Lymphatic no cervical or axillary lymphadenopathy Discharge Data Allergies Allergy/AdvReac Type Severity Reaction Status Date / Time bee pollen Allergy Severe Anaphylaxis Verified 07/10/22 22:26 Iodinated Contrast Media Allergy Severe Anaphylaxis Verified 07/10/22 22:26 loratadine AdvReac Severe anxiety, Verified 07/10/22 22:26 paranoia increases cetirizine AdvReac Intermediate anxiety, Verified 07/10/22 22:26 paranoia increases fexofenadine AdvReac Intermediate anxiety Verified 07/10/22 22:26 and paranoia increases ketorolac AdvReac Mild PT STATES Verified 07/10/22 22:26 SHE IS ON THORAZINE AND CANNOT TAKE TORADOL tramadol AdvReac Mild hallucinati Verified 07/10/22 22:26 ons Consultations 07/10/22 23:54 ED Decision to Admit Stat 07/11/22 02:33 Consult Cardiology Routine Consult Psychiatry Routine Diabetes Follow up Diabetes Follow-up Needed for HgbA1c >9% Hospital Course (1) Left-sided chest pain: No relationship of pain with exertion, not associated with significant other symptoms Possible unstable angina CAD status post stent Serial EKG and cardiac enzymes unremarkable Appreciate cardiology input and recommendation ACS has been ruled out Lexiscan today showed negative pharmacologic EKG changes and awaiting myocardial perfusion imaging results for further recommendation Continue patient's antiplatelet Rx, beta-chalino, statin Rx She has been on Xarelto for some time for DVT The course seems to be done a long time ago No definitive history of atrial fibrillation that she should do on that medicine Discussed with the washer repairman in detail and it was decided to take of the medicine to prevent further complication The patient is agreeable Xarelto was discontinued (2) CAD (coronary artery disease): History of CAD status post stent PAF, patient NSR on Xarelto hx CVA as per records (3) COPD (chronic obstructive pulmonary disease): (4) DM type 2 (diabetes mellitus, type 2): Has been on insulin and metformin DM 2 insulin requiring, suboptimal control as of recent hemoglobin A1c of 10.5 last April 2022 Metformin is on hold She will get insulin Lantus and also sliding scale NovoLog (5) HTN (hypertension): Blood pressure remains stable Continue with the current medications (6) Hypothyroidism: hypothyroidism, TSH markedly elevated, possible noncompliance chronic anemia, hemoglobin better than baseline, possible hemoconcentration (7) Bipolar I disorder, most recent episode manic, in partial remission: Noted to have overwhelming anxiety H/O schizophrenia/anxiety/mood disorder, social anxiety contributing to patient's ability to comply with medical appointments with specialists Psych consult re: overwhelming anxiety Appreciate psych input and recommendation (8) Raynauds disease: Plan DVT prophylaxis Hold Xarelto until patient seen by cardiology IV heparin while Xarelto on hold Other significant medical conditions remain stable as below PVD status post surgery Hyperlipidemia on statin Rx COPD, lung status at baseline Ongoing tobacco abuse Cervical cancer status post cryotherapy Drug-seeking behavior as per record Total Time Total Time Spent Total Time Spent (In Minutes): 35 minutes Discharge Plan Discharge Items Patient Disposition: Home - Self-Care Reason For Visit: CP Discharge Diagnosis: Left-sided chest pain-ACS has been ruled out with negative nuclear stress test, pericarditis, type 2 diabetes, COPD, bipolar disorder Condition on Discharge: Fair Activity: Resume your previous activity Non-emergency contact: Primary Care Provider Call non-emergency contact if: you have any medication questions and your symptoms worsen Follow-up/Referrals: Stan Samuel PA-C [Primary Care Provider] - (Date & Time 07/16/2022 2:20 PM Provider Stan Samuel PA-C Department [facility] ) Diet: Carb Consistent or DM2 and Heart Healthy Addtl Attending Provider Instructions: Please take precautions to avoid fall Take your medications as advised-you need to take colchicine for 3-month and will need to have a repeat echocardiogram in 3 to 4 weeks as an outpatient Your Xarelto has been stopped up to discussion with the washer repairman as the course of treatment is finished. Please keep appointments with your healthcare providers Pending Studies at Discharge: No Stand-Alone Forms: My [facility], Smoking Cessation Medications and DC Order Prescriptions: New carvedilol 12.5 mg Tablet 12.5 mg PO BID 30 Days Qty: 60 0RF nicotine [Nicoderm CQ] 21 mg/24 hr Patch 24 Hour 21 mg transdermal QAM 30 Days Qty: 30 0RF colchicine [Colcrys] 0.6 mg Tablet 0.6 mg PO BID 30 Days Qty: 60 0RF Continued levothyroxine 175 mcg Tablet 175 mcg PO DAILY atorvastatin 80 mg Tablet 80 mg PO DAILY albuterol sulfate 2.5 mg /3 mL (0.083 %) Solution For Nebulization 2.5 mg INHALATION Q6H PRN (Reason: Shortness Of Breath Or Wheezing) chlorpromazine 100 mg tablet 100 mg PO BID sucralfate 1 gram Tablet 1 g PO ACHS lisinopril 20 mg Tablet 20 mg PO DAILY chlorthalidone 25 mg Tablet 25 mg PO DAILY omeprazole 40 mg capsule,delayed release(DR/EC) 40 mg PO DAILY aspirin 81 mg Tablet,Delayed Release (Dr/Ec) 81 mg PO DAILY famotidine 20 mg Tablet 20 mg PO HS gabapentin 800 mg tablet 800 mg PO TID baclofen 10 mg Tablet 10 - 20 mg PO Q8 PRN (Reason: Pain) ferrous sulfate [iron] 325 mg (65 mg iron) Tablet 325 mg PO DAILY nitroglycerin [Nitrostat] 0.4 mg Tablet, Sublingual 0.4 mg sublingual DIRECTED Rx Instructions: 1 tab q 5 min, do not exceed 3 doses metformin 500 mg Tablet Extended Release 24 Hr 1,000 mg PO BID chlorpromazine 50 mg tablet 50 mg PO BID ezetimibe [Zetia] 10 mg Tablet 10 mg PO DAILY insulin aspart U-100 [Novolog FlexPen U-100 Insulin] 100 unit/mL (3 mL) Insu mau Pen 8 unit SUBCUT TIDWMEAL Rx Instructions: tid duloxetine 60 mg capsule,delayed release(DR/EC) 120 mg PO DAILY quetiapine 300 mg tablet extended release 24 hr 600 mg PO QPM insulin glargine [Lantus Solostar U-100 Insulin] 100 unit/mL (3 mL) insulin pen 20 unit SUBCUT HS Victoza 3-Anthony 0.6 mg/0.1 mL (18 mg/3 mL) pen injector 1.8 mg SUBCUT DAILY Dulera 100-5 mcg/actuation Hfa Aerosol Inhaler 2 puff INHALATION BID potassium chloride 20 mEq Tablet Extended Release 20 meq PO DAILY Combivent Respimat 20-100 mcg/actuation Mist 1 puff INHALATION QID Rx Instructions: space evenly during waking hours Discontinued carvedilol 25 mg tablet 25 mg PO BID Rx Instructions: per dr 1st colchicine 0.6 mg Tablet 0.6 mg PO DIRECTED Xarelto 20 mg Tablet 20 mg PO DAILY Rx Instructions: must administer with evening meal Discharge Orders: Discharge Order (Routine); Ordered 07/13/22 Ordered By: Milvia Gatica/Other Patient Handouts: Managing Type 2 Diabetes Admission Data Admit Date/Time: 07/11/22 12:22 Attending Provider: Milvia Reynolds Admit Provider: Mesfin Interiano Primary Care Provider: Stan Samuel Other Providers: Mesfin Interiano ; Belia Leon ; Elliott Hanks ; Wu Patino ; Chaitanya Conley ; Spencer Squires ; Robert Cardoso ; Jaylen Obando ; Miranda Wallace ; Tiffany Palma ; Belia Chen ; Kermit Lagos ; Tiffany Mitchell ; Gabriela Cerda ; Carolina Yates ; Jaylen Santoyo ; Roderick Manzanares Other Interventions: Discharge Summary Assessment (RN) Last Done: 07/13/22 14:53
== END 2022-07-13 15:31 | disposition home or self-care (01) | DRG 303 ==
LOC: ED 20:21 → 2E 20:21 → SUATTDRO 07-11 00:52 → 2E 07-11 02:09 → SUATTDRO 07-11 12:22